=== PATIENT | female | born 1955 | race Caucasian/White ===

== ENCOUNTER 2020-08-31 10:44 | Outpatient (REF) | payer MEDICAID, SELFPAY | END 2020-08-31 10:45 | disposition home or self-care (01) | LOC: HO.LAB 10:44 | PROVIDERS: PCP Internal Medicine; Visit Provider Internal Medicine | DX: Z20.828 Contact with and (suspected) exposure to other viral communicable diseases (principal) | CPT/HCPCS: 87635 ==

== ENCOUNTER 2020-09-15 11:00 | Outpatient (RCR) | payer MEDICAID, SELFPAY | END 2020-09-28 08:59 | disposition other institution (70) | LOC: HO.PT 11:00 | PROVIDERS: PCP Internal Medicine; Visit Provider Internal Medicine | DX: M16.11 Unilateral primary osteoarthritis, right hip (principal) | CPT/HCPCS: 97110; 97162 ==

== ENCOUNTER 2020-11-16 14:58 | Outpatient (REF) | payer MEDICAID, SELFPAY | END 2020-11-16 14:59 | disposition home or self-care (01) | LOC: HO.LAB 14:58 | PROVIDERS: PCP Internal Medicine; Visit Provider Internal Medicine | DX: Z20.828 Contact with and (suspected) exposure to other viral communicable diseases (principal) | CPT/HCPCS: C9803; U0003 ==

== ENCOUNTER → 2021-03-22 08:54 | Outpatient (BNVA) | payer MEDICAID, SELFPAY | PROVIDERS: PCP Internal Medicine; Visit Provider Internal Medicine Endocrinology, Diabetes & Metabolism | DX: E05.00 Thyrotoxicosis with diffuse goiter without thyrotoxic crisis or storm (principal); E04.1 Nontoxic single thyroid nodule; E55.9 Vitamin D deficiency, unspecified; Z79.899 Other long term (current) drug therapy | CPT/HCPCS: 99212 ==

== ENCOUNTER 2021-03-22 09:31 | Outpatient (REF) | payer MEDICAID, SELFPAY ==
[2021-03-22 11:16] LABS: Free T4 (Free Thyroxine) 0.89 ng/dL (0.71-1.85); Thyroid Stimulating Hormone 1.03 uIU/mL (0.32-4.0); Vitamin D 25-OH Total 22.1 ng/mL (>30)
[2021-03-23 03:32] LABS: Triiodothyronine T3 Total 174 ng/dL (76-181)
== END 2021-03-22 09:32 | disposition home or self-care (01) ==
LOC: HO.10HDL 09:31
PROVIDERS: Visit Provider Internal Medicine Endocrinology, Diabetes & Metabolism
DX: E04.1 Nontoxic single thyroid nodule (principal); E05.00 Thyrotoxicosis with diffuse goiter without thyrotoxic crisis or storm; E55.9 Vitamin D deficiency, unspecified
CPT/HCPCS: 36415; 82306; 84439; 84443; 84480

== ENCOUNTER 2021-04-02 10:12 | Outpatient (REF) | payer MEDICAID, SELFPAY ==
--- NOTE | ~2021-04-02 | US_ITS ---
EXAMINATION: US THYROID CLINICAL INFORMATION: Nontoxic single thyroid nodule. COMPARISON: Ultrasound soft tissue head/neck thyroid dated 01/26/2018 and 06/15/2015. TECHNIQUE: Linear transducer grayscale and color Doppler examination with attention to the region of the thyroid. FINDINGS: SIZE: Measurements of the thyroid lobes and nodules are given in sagittal, anteroposterior and transverse dimensions respectively. Right Thyroid Lobe: 4.0 x 1.1 x 1.6 cm, volume 2.7 mL. Previously 4.5 x 1.7 x 1.6 cm, volume 6.3 mL. Parenchyma: The gland echotexture is homogeneous. Thyroid vascularity is normal. Left Thyroid Lobe: 4.0 x 1.2 x 1.7 cm, volume 4.4 mL. Previously 4.3 x 1.5 x 1.5 cm, volume 5.2 mL. Parenchyma: The gland echotexture is homogeneous. Thyroid vascularity is normal. Isthmus: 0.3 cm in maximum AP dimension. Previously 0.3 cm. Estimated total number of nodules greater than or equal to 1 cm: 0. Construction Inspector nodules are described as follows: 1. Location: Right mid. Size: 0.3 x 0.3 x 0.2 cm, volume 0.09 mL. Previously: 0.4 x 0.2 x 0.4 cm, volume 0.03 mL. Nodule characteristics: Composition: Solid (2). Echogenicity: Hyperechoic (1). Shape: Not taller than wide (0). Margins: Smooth (0). Echogenic Foci: None (0). ACR TI-RADS total points: 3 Previous: n/a ACR TI-RADS category: 3 Previous: n/a Significant change in size (>/= 20% in 2 dimensions and minimal increase of 2 mm or 50% or greater increase in volume): No Change in features: No Change in ACR TI-RADS risk category: n/a NODES: No lymphadenopathy is seen in the tissue surrounding the thyroid gland. US/US thyroid IMPRESSION: Stable small right calcification from January 2018 exam. No ultrasound follow-up recommended.. ACR TI-RADS RECOMMENDATION REFERENCE: Ultrasound-guided fine-needle aspiration, followup ultrasound, no further follow up. * TR1 (0 point) and TR 2 (2 points): No FNA or follow up * TR3 (3 points): FNA if more than or equal to 2.5 cm in maximum dimension, followup ultrasound in 1, 3 and 5 years if 1.5 to 2.4 cm in maximum dimension. * TR4 (4-6 points): FNA if more than or equal to 1.5 cm in maximum dimension, followup ultrasound in 1, 2, 3 and 5 years if 1 to 1.4 cm in maximum dimension. * TR5 (more than or equal to 7 points): FNA if more than or equal to 1 cm in maximum dimension, followup ultrasound every year for 5 years if 0.5 to 0.9 cm in maximum dimension. * TR3, TR4 or TR5 nodules that are below the size threshold for follow up receive no follow up.
== END 2021-04-02 10:13 | disposition home or self-care (01) ==
LOC: HO.US 10:12
PROVIDERS: Visit Provider Internal Medicine Endocrinology, Diabetes & Metabolism
DX: E04.1 Nontoxic single thyroid nodule (principal); E05.00 Thyrotoxicosis with diffuse goiter without thyrotoxic crisis or storm
CPT/HCPCS: 76536

== ENCOUNTER 2021-06-19 11:46 | Outpatient (REF) | payer MEDICAID, SELFPAY ==
[2021-06-19 14:03] LABS: Hematocrit 41.5 % (37-47); Mean Corpuscular HGB Conc 31.3 g/dl (31.0-35.0); Mean Corpuscular Hemoglobin 27.6 pg (27.0-33.0); Mean Corpuscular Volume 88.1 fL (80-98); Mean Platelet Volume 11.5 fL (9.4-12.3); Platelet Count 257 X10*3/uL (160-400); Red Blood Count 4.71 X10*6/uL (4.20-5.50); Red Cell Distribution Width 12.5 % (11.0-16.0); White Blood Count 6.5 X10*3/uL (4.8-10.8)
[2021-06-19 14:21] LABS: Alanine Aminotransferase 15 U/L (0-31); Albumin Level 4.5 g/dL (3.5-5.0); Alkaline Phosphatase 72 U/L (39-117); Anion Gap 11 (12-20); Aspartate Amino Transferase 17 U/L (5-31); Bilirubin Total 0.4 mg/dL (0.0-1.0); Blood Urea Nitrogen 15 mg/dL (9-16); Calcium 9.5 mg/dL (8.4-10.2); Carbon Dioxide 30 mmol/L (22-29); Chloride 106 mmol/L (96-108); Estimated Glomerular Filt Rate > 60; Glucose Random 90 mg/dL (60-115); Potassium 4.7 mmol/L (3.3-5.1); Sodium 142 mmol/L (135-145); Total Protein 7.7 g/dL (6.5-8.0)
== END 2021-06-19 11:47 | disposition home or self-care (01) ==
LOC: HO.LAB 11:46
PROVIDERS: PCP Internal Medicine; Referring Provider Internal Medicine; Visit Provider Nurse Practitioner Family
DX: Z01.818 Encounter for other preprocedural examination (principal); K59.00 Constipation, unspecified
CPT/HCPCS: 36415; 80053; 85027

== ENCOUNTER → 2021-08-17 10:46 | Outpatient (BNVA) | payer MEDICAID, SELFPAY | PROVIDERS: Referring Provider Internal Medicine; Visit Provider Nurse Practitioner Family | DX: Z01.818 Encounter for other preprocedural examination (principal); K59.01 Slow transit constipation | CPT/HCPCS: 99212 ==

== ENCOUNTER 2021-11-01 10:00 | Day surgery (SDC) | payer MEDICAID, SELFPAY ==
[2021-10-26 08:58] VITALS: BMI 36.3
--- NOTE | 2021-10-31 10:13 | HO.ANESPROP2 ---
Documented by User: Elisabeth Sebastian NP 10/31/21 10:14 HPI - Anesthesia Eval Consult details Narrative: 66yo F for Colonoscopy PMFSH Active Problems Active Problems: All Active Problems (Updated 09/18/21 @ 08:29 by Amber Wilde, ROGER) Thyroid nodule (Acute) Graves' disease in remission (Acute) Vitamin D deficiency (Acute) Past Medical History Medical History Depression Graves' disease in remission Osteoarthritis Thyroid nodule Vitamin D deficiency Surgical History Surgical History (Updated 11/01/21 @ 10:08 by Shira Amezcua, ROGER) History of bladder surgery History of esophagogastroduodenoscopy (EGD) History of incision and drainage History of umbilical hernia repair Hx of colonoscopy Social History Social History Patient Tobacco Use Status: Former Tobacco user Quit Date: >25 yrs ago Use of substances other than those prescribed or required for medical reasons: No Are you DNR?: No Advance Directives: No Advance Directives Information Provided: Yes Meds Allergies Allergy/AdvReac Type Severity Reaction Status Date / Time No Known Allergies Allergy Verified 09/18/21 08:30 Home Medications Medication Instructions Recorded Confirmed Last Taken Type alendronate 70 mg tablet 70 mg PO QWEEK 03/22/21 09/18/21 Unknown History escitalopram oxalate 20 mg tablet 20 mg PO DAILY 03/22/21 09/18/21 Unknown History (Lexapro) ibuprofen 400 mg tablet 400 mg PO Q6H 06/19/21 09/18/21 Unknown History Exam Exam Date and Time: October 31, 2021 1013 Height,Weight and Vital Signs: Height 5 ft 2 in Weight 90.265 kg Pertinent Lab Results Pertinent Lab Results: Laboratory Tests 06/19/21 06/19/21 12:50 12:50 WBC 6.5 Hgb 13.0 Hct 41.5 Plt Count 257 Sodium 142 Potassium 4.7 Chloride 106 Carbon Dioxide 30 H BUN 15 Creatinine 0.66 Assessment and Plan Assessment Anesthesia Assessment: Chart Reviewed Documented by User: Dread Toussaint 11/01/21 10:49 PMFSH Past Medical History Medical History Depression Graves' disease in remission Osteoarthritis Thyroid nodule Vitamin D deficiency Family History Family history of problems with anesthesia: No Surgical History Surgical History (Updated 11/01/21 @ 10:08 by Shira Amezcua, ROGER) History of bladder surgery History of esophagogastroduodenoscopy (EGD) History of incision and drainage History of umbilical hernia repair Hx of colonoscopy History of Problems with Anesthesia: No Social History Social History Patient Tobacco Use Status: Former Tobacco user Quit Date: >25 yrs ago Use of substances other than those prescribed or required for medical reasons: No Are you DNR?: No Advance Directives: No Advance Directives Information Provided: Yes Meds Allergies Allergy/AdvReac Type Severity Reaction Status Date / Time No Known Allergies Allergy Verified 09/18/21 08:30 Home Medications Medication Instructions Recorded Confirmed Last Taken Type alendronate 70 mg tablet 70 mg PO QWEEK 03/22/21 09/18/21 Unknown History escitalopram oxalate 20 mg tablet 20 mg PO DAILY 03/22/21 09/18/21 Unknown History (Lexapro) ibuprofen 400 mg tablet 400 mg PO Q6H 06/19/21 09/18/21 Unknown History Exam Airway Mallampati Class: III TM Dist: >3cm Neck ROM: Full Loose/Missing/Broken Teeth: Yes Heart: rrr Lungs: bl breath sounds Assessment and Plan Assessment Anesthesia Assessment: Anesthesia Plan Discussed Final Anesthetic Review Family History of Problems with Anesthesia: No History of Problems with Anesthesia: No NPO: Yes Final Preanesthetic Review: Meds/Allgs Chart Reviewed and Consent Obtained/Reviewed Patient Risk: Intermediate Procedure Risk: Intermediate Anesthetic Plan Anesthetic Plan: MAC: Disposition: Standard PACU
[2021-11-01 10:14] VITALS: BP 136/53; PULSE 98; RESP 16; TEMP 36.9; O2SAT 98
--- NOTE | 2021-11-01 10:28 | MHC.SHP ---
Pre-Procedural Eval Section A Date of Service: 11/01/21 Section B Chief Complaint: screening Relevant Family History (Specify if Yes): No Relevant Social History: None Present Medications: see Short Stay Collaborative assessment Medical History: Significant History (Depression Graves' disease in remission Osteoarthritis Thyroid nodule Vitamin D deficiency) History of Previous Operations: Relevant previous surgery/procedure and date(s) (History of esophagogastroduodenoscopy (EGD) History of incision and drainage History of umbilical hernia repair Hx of colonoscopy) Allergies: Allergies Allergy/AdvReac Type Severity Reaction Status Date / Time No Known Allergies Allergy Verified 09/18/21 08:30 Review of Systems Sugical H&P ROS: Negative: Constitution, Cardiovascular, Respiratory, Neurological, Psychiatric, Hem-Onc, Allergic/Immunologic, Gastrointestinal, Genitourinary, Musculoskeletal, Integumentary, Endocrine and Eyes/Ears/Nose/Throat Exam Surgical H&P Exam: Normal: HEENT, Normal: Heart, Normal: Lungs, Normal: Extremities, Normal: Abdomen, Normal: Skin and Normal: Neurological Plan Diagnosis/Plan: Unchanged I have reviewed the history and physical and performed a pertinent physical examination on my patient. No changes have occurred unless specified.
--- NOTE | 2021-11-01 10:39 | P.BOP_ITS ---
Brief Operative Note Date of Service: 11/01/21 Pre-op diagnosis: screening colonoscopy Post-op diagnosis: same Procedure: see op note Surgeon: Daisy Franco MD Anesthesia: MAC Was an Money Market Clerk used for this Procedure?: No Estimated blood loss (mL): 0 Condition: stable Disposition: PACU
[2021-11-01] MEDS: Lactated Ringers 1,000 ML 100 ML IVCONT (10:42)
--- NOTE | 2021-11-01 11:17 | P.OP_ITS ---
Operative Note Operative Note Date of Service: 11/01/21 Narrative: Operative Information Procedure Description: Colonoscopy COLONOSCOPY Instrument: Olympus variable stiffness pediatric scope 190L Colonoscopy Monitoring: Vital signs and clinical assessment, continuous EKG monitoring, Pulse oximetry, Carbon Dioxide monitoring and blood pressure monitoring were done throughout the procedure. Colon withdrawal time was 20 minutes. Procedure: The patient was placed in the left lateral decubitis position and pre-procedure medications were administered. After a digital rectal examination of the ano-rectum, the video colonoscope was inserted into the rectum and advanced through the colon to the cecum/TI. The colonoscope was slowly withdrawn in a retrograde panoramic fashion and the colon mucosa was carefully examined including a retroflexed view of the rectum. Findings and interventions are described below. Procedure Difficulty: easy Findings: Terminal Ileum-normal Cecum: 6-8 mm sessile polyp removed with forceps Ascending Colon: x 2 sessile polyps noted 6-8 mm removed with forceps Transverse Colon -normal Descending Colon: x3 sessile polyps noted 8-10 mm. x 2 removed with cold snare and x 1 with forceps Sigmoid Colon: x 1 sessile polyp 8-10 mm removed with cold snare Rectum: Retroflexion with small internal hemorrhoids, grade I Anorectum - normal Colon preparation: [place] Bowel Preparation Scale Right colon; 2 Transverse colon: 2 Left colon; 2 (0 = Unprepared colon segment with mucosa not seen due to solid stool that cannot be cleared. 1 = Portion of mucosa of the colon segment seen, but other areas of the colon segment not well seen due to staining, residual stool and/or opaque liquid. 2 = Minor amount of residual staining, small fragments of stool and/or opaque liquid, but mucosa of colon segment seen well. 3 = Entire mucosa of colon segment seen well with no residual staining, small fragments of stool or opaque liquid) Impression and Post Procedure Diagnosis: polyps internal hemorrhoids Plan: High fiber diet leaflet Avoid straining at stool, epsom salts and sitz bath, anusol supps or cream Repeat Colonoscopy in 3-4 years due to polyp volume or earlier if clinically indicated Above findings were reviewed with the patient and relevant handouts were provided if indicated.
[2021-11-01 11:24] VITALS: BP 101/62; PULSE 86; RESP 20; TEMP 36.3; O2SAT 95
[2021-11-01 11:38] VITALS: BP 130/71; PULSE 76; RESP 20; TEMP 36.6; O2SAT 98
== END 2021-11-01 12:08 | disposition home or self-care (01) ==
PROVIDERS: PCP Internal Medicine; Visit Provider Internal Medicine Gastroenterology
PROC: 0DJD8ZZ Inspection of Lower Intestinal Tract, Via Natural or Artificial Opening Endoscopic (ICD-10-PCS; CPT 45378; principal; 2021-11-01 11:00)
DX: Z12.11 Encounter for screening for malignant neoplasm of colon (principal); D12.0 Benign neoplasm of cecum; D12.4 Benign neoplasm of descending colon; D12.5 Benign neoplasm of sigmoid colon; K63.5 Polyp of colon; K64.0 First degree hemorrhoids; K59.01 Slow transit constipation; E55.9 Vitamin D deficiency, unspecified; E04.1 Nontoxic single thyroid nodule; Z86.39 Personal history of other endocrine, nutritional and metabolic disease; Z79.899 Other long term (current) drug therapy; Z87.891 Personal history of nicotine dependence
CPT/HCPCS: 45385; 45380; 88305

== ENCOUNTER 2021-11-12 09:29 | Outpatient (REF) | payer MEDICAID, SELFPAY ==
[2021-11-13 11:41] LABS: H Pylori Breath Test Positive (Negative)
== END 2021-11-12 09:30 | disposition home or self-care (01) ==
LOC: HO.LNP 09:29
PROVIDERS: PCP Internal Medicine; Referring Provider Internal Medicine; Visit Provider Nurse Practitioner Family
DX: D36.9 Benign neoplasm, unspecified site (principal); K21.9 Gastro-esophageal reflux disease without esophagitis; K59.04 Chronic idiopathic constipation; Z98.890 Other specified postprocedural states
CPT/HCPCS: 83013; 99212

== ENCOUNTER → 2022-02-11 09:29 | Outpatient (BNVA) | payer MEDICAID, SELFPAY | PROVIDERS: PCP Internal Medicine; Referring Provider Internal Medicine; Visit Provider Nurse Practitioner Family | DX: K21.9 Gastro-esophageal reflux disease without esophagitis (principal); K59.04 Chronic idiopathic constipation; A04.8 Other specified bacterial intestinal infections | CPT/HCPCS: 99212 ==

== ENCOUNTER 2022-02-27 11:56 | Outpatient (REF) | payer MEDICARE, MEDICAID, SELFPAY ==
--- NOTE | ~2022-02-27 | MM_ITS ---
EXAMINATION: MM SCREENING DIGITAL BREAST TOMOSYNTHESIS, BILATERAL CLINICAL INFORMATION: Screening. Asymptomatic. The lifetime risk of breast cancer based on the Tyrer-Cuzick Model is 6%. COMPARISON: Mammography: 02/25/2018, 12/18/2015 TECHNIQUE: Digital breast tomosynthesis is performed in both the craniocaudal and mediolateral oblique views along with computer-aided detection (CAD). Synthesized 2D images are generated from the tomosynthesis. FINDINGS: There are scattered areas of fibroglandular density (ACR BI-RADS breast composition Category b). There are no significant masses, abnormal calcifications, or other abnormalities. Parenchymal pattern is similar to prior studies. The axilla and skin contours are unremarkable. MM/MM tomosynthesis screening BI IMPRESSION: No mammographic evidence of malignancy. ASSESSMENT: BI-RADS 1: Negative RECOMMENDATION: Routine annual mammography screening. This patient's information was entered into a reminder system with a target due date for their next mammogram.
== END 2022-02-27 11:57 | disposition home or self-care (01) ==
LOC: HO.MAMMO 11:56
PROVIDERS: PCP Internal Medicine; Visit Provider Internal Medicine
DX: Z12.31 Encounter for screening mammogram for malignant neoplasm of breast (principal)
CPT/HCPCS: 77063; 77067

== ENCOUNTER 2022-03-08 16:41 | Emergency (ER) | payer MEDICARE, MEDICAID, SELFPAY ==
--- NOTE | ~2022-03-08 | CT_ITS ---
EXAMINATION: CT ABDOMEN AND PELVIS WITH CONTRAST CLINICAL INFORMATION: Pain status post fall COMPARISON: 08/28/2017 TECHNIQUE: Multidetector volumetric images were obtained from the superior aspect of the liver through the pubic symphysis following administration 85 mL of Omnipaque 350 intravenous contrast. Sagittal and coronal reformatted images were obtained on the technologist's workstation. Oral contrast: No This CT examination was performed using dose optimization techniques as appropriate, variously including the following: *Automated exposure control *Adjustment of mA and/or kV according to patient size (this includes techniques or standardized protocols for targeted exams where dose is matched to indication/reason for exam; i.e. extremities or head) *Use of iterative reconstruction technique DLP: 766 mGy-cm FINDINGS: LUNG BASES: The visualized lung bases are unremarkable. LIVER, GALLBLADDER, AND BILIARY TREE: The liver is normal in size, shape, and attenuation. No focal hepatic lesion or biliary ductal dilatation is present. The gallbladder is unremarkable with no evidence of radiopaque gallstones, gallbladder wall thickening, or obvious pericholecystic inflammatory changes. PANCREAS: Unremarkable. SPLEEN: Unremarkable. ADRENAL GLANDS: Unremarkable. KIDNEYS AND URETERS: Incidental nonobstructing 3 mm right-sided central calculus The kidneys are normal in size, shape, and attenuation. No hydronephrosis, hydroureter, seen. No perinephric stranding. BLADDER: Unremarkable. GASTROINTESTINAL TRACT: The small and large bowel are unremarkable. The appendix is unremarkable. ABDOMINAL WALL: No significant hernia is appreciated. LYMPH NODES: Normal. VASCULAR: Unremarkable. PELVIC VISCERA: Unremarkable. OSSEOUS STRUCTURES: Unremarkable. CT/CT abdomen pelvis w con IMPRESSION: Incidental right-sided obstructing renal calculus. No discrete lesion to explain patient's pain. No fracture. Fleischner guidelines were followed.
--- NOTE | ~2022-03-08 | XR_ITS ---
EXAMINATION: XR HIP, LEFT CLINICAL INFORMATION: Fall. Pain. COMPARISON: Right hip 07/21/2020 TECHNIQUE: Frontal view of pelvis Two views of the left hip. FINDINGS: Bones and soft tissues are normal. No fracture. Alignment is anatomic. Hip joint space is maintained. XR/XR hip LT w PEL1V IMPRESSION: Normal left hip.
[2022-03-08 17:10] VITALS: BP 139/61; BP 156/72; PULSE 87; PULSE 89; RESP 18; TEMP 37.2; O2SAT 94; BMI 35.8
--- NOTE | 2022-03-08 17:21 | ED.FALL ---
HPI - Fall General Chief Complaint: Fall <ENA Ribeiro Last Filed: 03/08/22 18:56> Stated Complaint: fall, left leg pain <ENA Ribeiro Last Filed: 03/08/22 18:56> Time Seen by Provider: 03/08/22 17:20 <ENA Ribeiro Last Filed: 03/08/22 18:56> Source: patient and EMS <ENA Ribeiro Last Filed: 03/08/22 18:56> Mode of arrival: EMS <ENA Ribeiro Last Filed: 03/08/22 18:56> History of Present Illness HPI Narrative: 66-year-old female with a past medical history of depression, Graves disease, H pylori, osteoarthritis, vitamin-D deficiency, presenting to ED via EMS complaining of lower abdominal and left hip pain s/p mechanical trip and fall outside of stop & shop on pavement. Patient denies symptoms prior to fall, denies head trauma or LOC. Admits landed on abdomen and left hip. Denies taking anticoagulation. Denies headache, lightheadedness/dizziness, CP/SOB, neck pain, back pain, numbness, tingling, weakness, nausea, vomiting, diarrhea <ENA Ribeiro Last Filed: 03/08/22 18:56> MD complaint: fall <ENA Riberio Last Filed: 03/08/22 18:56> Onset (ago): minute(s) <ENA Ribeiro Last Filed: 03/08/22 18:56> Fall from: standing <ENA Ribeiro Last Filed: 03/08/22 18:56> Related Data Home Medications: Home Medications Medication Instructions Recorded Confirmed alendronate 70 mg tablet 70 mg PO QWEEK 03/22/21 02/11/22 escitalopram oxalate 20 mg tablet 20 mg PO DAILY 03/22/21 02/11/22 (Lexapro) ibuprofen 400 mg tablet 400 mg PO Q6H 06/19/21 02/11/22 Previous Rx's Medication Instructions Recorded cholecalciferol (vitamin D3) 50 100 mcg PO DAILY 90 Days #180 cap 03/22/21 mcg (2,000 unit) capsule psyllium husk 0.52 gram capsule 0.52 g PO DAILY #30 cap 11/12/21 (Metamucil) bismuth subsalicylate 262 mg 2 tab PO QID 14 Days #112 tab 11/13/21 chewable tablet bisacodyl 5 mg tablet 10 mg PO BEDTIME 2 Days #180 tab 02/11/22 omeprazole 20 mg capsule,delayed 20 mg PO BID #180 cap 02/11/22 release ibuprofen 600 mg tablet 600 mg PO Q8H PRN #20 tab 03/08/22 <ENA Ribeiro Last Filed: 03/08/22 18:56> Allergies/Adverse Reactions: Allergies Allergy/AdvReac Type Severity Reaction Status Date / Time No Known Allergies Allergy Verified 02/11/22 09:36 <ENA Ribeiro Last Filed: 03/08/22 18:56> Review of Systems Review of Systems: Constitutional: No Fever, No Chills, No Night Sweats, No Fatigue, No Malaise ENT/Mouth: No Ear Pain, No Nasal Congestion, No sore throat, No Rhinorrhea, No Swallowing Difficulty Eyes: No Eye Pain, No Discharge, No Vision Changes Cardiovascular: No Chest Pain, No SOB, No Edema, No Palpitations Respiratory: No Cough, No Dyspnea Gastrointestinal: No Nausea, No Vomiting, No Diarrhea, No Constipation, + Abdominal pain Genitourinary: No Dysuria, No Hematuria, No Urinary Incontinence, No Urgency, No Flank Pain Musculoskeletal: No joint pain, No Myalgias, No Joint Swelling Skin: No Skin Lesions, No rash Neuro: No Weakness, No Numbness, No Paresthesias, No Loss of Consciousness, No Dizziness, No Headache, No head trauma <ENA Ribeiro Last Filed: 03/08/22 18:56> Yes all other systems are reviewed and are negative <ENA Ribeiro Last Filed: 03/08/22 18:56> Neurologic: Denies Sensory deficit (Neuro) <ENA Ribeiro Last Filed: 03/08/22 18:56> FOR[facility]LY [facility] Past Medical History Attestation statement: The following information was validated with the patient. <ENA Ribeiro Last Filed: 03/08/22 18:56> Medical History: Medical History Depression Graves' disease in remission Helicobacter pylori (H. pylori) Osteoarthritis Thyroid nodule Tubular adenoma Vitamin D deficiency <ENA iRbeiro - Last Filed: 03/08/22 18:56> Surgical History: Surgical History History of bladder surgery History of esophagogastroduodenoscopy (EGD) History of incision and drainage History of umbilical hernia repair Hx of colonoscopy <ENA Ribeiro - Last Filed: 03/08/22 18:56> Social History Social History: Social History Alcohol intake: never Patient Tobacco Use Status: Former Tobacco user Quit Date: >25 yrs ago Use of substances other than those prescribed or required for medical reasons: No Advance Directives: No Advance Directives Information Provided: No <ENA Ribeiro - Last Filed: 03/08/22 18:56> Physical Exam Vital Signs: Vital Signs: Last Vital Signs Temp 98.3 F 03/08/22 18:19 Pulse 81 03/08/22 18:19 Resp 18 03/08/22 18:19 BP 152/76 H 03/08/22 18:19 Pulse Ox 97 03/08/22 18:19 BMI result Body Mass Index 35.8 <ENA Ribeiro - Last Filed: 03/08/22 18:56> Vital Signs: Last Vital Signs Temp 98.3 F 03/08/22 18:19 Pulse 81 03/08/22 18:19 Resp 18 03/08/22 18:19 BP 152/76 H 03/08/22 18:19 Pulse Ox 97 03/08/22 18:19 BMI result Body Mass Index 35.8 <Dominique Loomis MD - Last Filed: 03/08/22 20:52> Const: General: cooperative, healthy appearing, no acute distress, alert and awake <ENA Ribeiro - Last Filed: 03/08/22 18:56> Orientation/consciousness: patient oriented x3 <ENA Ribeiro - Last Filed: 03/08/22 18:56> Limitations: no limitations <ENA Ribeiro - Last Filed: 03/08/22 18:56> HEENT: Head: Yes normal to inspection and Yes atraumatic <ENA Ribeiro - Last Filed: 03/08/22 18:56> Ears: hearing grossly normal bilaterally <Leena Astudillo PA - Last Filed: 03/08/22 18:56> General nose exam: Normal external nose present <Leena Astudillo PA - Last Filed: 03/08/22 18:56> Face and sinus: Yes normal facial exam <Leena Astudillo PA - Last Filed: 03/08/22 18:56> Mouth: Normal oral and palatal mucosa present <Leena Astudillo PA - Last Filed: 03/08/22 18:56> Eyes: General: appearance normal, both eyes and all related structures <Leena Astudillo PA - Last Filed: 03/08/22 18:56> Pupils: Equal, round and reactive pupils present <ENA Ribeiro - Last Filed: 03/08/22 18:56> EOM: EOMs intact bilaterally <Leena Astudillo PA - Last Filed: 03/08/22 18:56> Neck: Other: C-collar applied by EMS, removed during evaluation, no midline cervical spinous tenderness or paraspinal tenderness, full range of motion intact <ENA Ribeiro - Last Filed: 03/08/22 18:56> Neck: Yes normal visual inspection, Yes full ROM, Yes no meningeal signs, Yes supple, No anterior neck swelling and No midline deformity <Leena Astudillo PA - Last Filed: 03/08/22 18:56> Chest: Chest palpation & inspection: no crepitus and no tenderness <ENA Ribeiro - Last Filed: 03/08/22 18:56> Resp: Effort & Inspection: normal respiratory effort and no respiratory distress <ENA Ribeiro - Last Filed: 03/08/22 18:56> Auscultation: clear to auscultation bilaterally <ENA Ribeiro - Last Filed: 03/08/22 18:56> Cardio: Rate: regular rate <Leena Astudillo PA - Last Filed: 03/08/22 18:56> Heart sounds: S1 normal heart sound present and S2 normal heart sound present <Leena Astudillo PA - Last Filed: 03/08/22 18:56> GI: Inspection: Yes normal to inspection <Leena Astudillo PA - Last Filed: 03/08/22 18:56> Palpation (GI): Soft to palpation, Tenderness to palpation present (GI) (Lower abdomen. No ecchymosis/erythema), no guarding and not rigid <Leena Astudillo PA - Last Filed: 03/08/22 18:56> Back/Spine/Pelvis: Other: No midline thoracic/lumbar spinous tenderness/step-off or deformity <Leena Astudillo PA - Last Filed: 03/08/22 18:56> Thoracic/Lumbar Spine: thoracic and lumbar spine normal to inspection <Leena Astudillo PA - Last Filed: 03/08/22 18:56> Skin: Rashes: no rashes <Leena Astudillo PA - Last Filed: 03/08/22 18:56> Wounds: no wounds <Leena Astudillo PA - Last Filed: 03/08/22 18:56> Neuro: General: patient oriented x3, tone normal, no meningeal signs, no focal motor deficits and CN's II-XI intact bilaterally <Leena Astudillo PA - Last Filed: 03/08/22 18:56> Cranial nerves: Yes Equal, round and reactive pupils present <Leena Astudillo PA - Last Filed: 03/08/22 18:56> Motor exam (neuro): 5/5 motor strength present throughout <Leena Astudillo PA - Last Filed: 03/08/22 18:56> Sensory Exam: No Sensory deficit (Neuro) <Leena Astudillo PA - Last Filed: 03/08/22 18:56> Extrem: Other: Left hip without appreciable deformity. + tender to palpation, decreased ROM secondary to pain. Neurovascularly intact distally. <Leena Astudillo PA - Last Filed: 03/08/22 18:56> General: Yes normal to inspection <Leena Astudillo PA - Last Filed: 03/08/22 18:56> Course Course Course Narrative: -labs unremarkable -1900--ED care transferred to Dr. Loomis pending XR, CT and dispo per results <ENA Ribeiro - Last Filed: 03/08/22 18:56> -labs unremarkable -1900--ED care transferred to Dr. Loomis pending XR, CT and dispo per results I received sign-out from on ENA Astudillo X-rays and CT scan negative for acute findings. Patient ambulatory. Patient being discharged. Patient is stable, well appearing. <Dominique Loomis MD - Last Filed: 03/08/22 20:52> MDM - Fall MDM Narrative Medical decision making narrative: 66-year-old female with a past medical history of depression, Graves disease, H pylori, osteoarthritis, vitamin-D deficiency, presenting to ED via EMS complaining of lower abdominal and left hip pain s/p mechanical trip and fall outside of [place] shop [place] pavement. On exam vital signs stable, NAD/nontoxic appearing, abdomen soft with lower tenderness to palpation, no rebound or guarding. Left hip with tenderness and decreased ROM. Concern for intra-abdominal injury vs contusion and hip fracture. Lower concern for dislocation Plan: Labs, UA, CT AP, hip/pelvis x-ray <ENA Ribeiro - Last Filed: 03/08/22 18:56> Differential Diagnosis Differential diagnosis: Likely dislocation and fracture <ENA Ribeiro - Last Filed: 03/08/22 18:56> Medical Records Attestation: I reviewed the patient's medical records. <ENA Ribeiro - Last Filed: 03/08/22 18:56> Lab Data Attestation: I reviewed the patient's lab results. <ENA Ribeiro - Last Filed: 03/08/22 18:56> Result diagrams: : 03/08/22 18:17 03/08/22 18:17 <ENA Ribeiro - Last Filed: 03/08/22 18:56> Labs: Lab Results 03/08/22 03/08/22 03/08/22 Range/Units 18:17 18:17 19:54 WBC 6.6 (4.8-10.8) X10*3/uL RBC 4.46 (4.20-5.50) X10*6/uL Hgb 12.4 (12.0-16.0) g/dl Hct 38.9 (37.0-47.0) % MCV 87.2 (80.0-98.0) fL MCH 27.8 (27.0-33.0) pg MCHC 31.9 (31.0-35.0) g/dl RDW 12.7 (11.0-16.0) % Plt Count 242 (160-400) X10*3/uL MPV 11.3 (9.4-12.3) fL Immature Gran % (Auto) 0.5 H (0.0-0.4) % Neut % (Auto) 66.8 (45-73) % Lymph % (Auto) 18.9 L (20-40) % [place] % (Auto) 9.3 (2-11) % Eos % (Auto) 4.0 (0-4) % Baso % (Auto) 0.5 (0-2) % Lymph # (Auto) 1.2 (1.2-4.9) X10*3/uL [place] # (Auto) 0.6 (0.1-1.2) X10*3/uL Eos # (Auto) 0.3 (0.0-0.4) X10*3/uL Baso # (Auto) 0.0 (0.0-0.2) X10*3/uL Abs Immat Gran (auto) 0.03 (0.00-0.03) X10*3/uL Absolute Neuts (auto) 4.4 (2.0-8.3) x10*3/uL Absolute Nucleated RBC 0.000 (0.0-0.012) X10*3/uL Nucleated RBC % (auto) 0.0 (0.0-0.2) /100WBC Sodium 142 (135-145) mmol/L Potassium 4.5 (3.3-5.1) mmol/L Chloride 105 (96-108) mmol/L Carbon Dioxide 29 (22-29) mmol/L Anion Gap 13 (12-20) BUN 17 H (9-16) mg/dL Creatinine 0.66 (0.5-1.4) mg/dL Estim Creat Clear Calc 88.0 Estimated GFR > 60 Random Glucose 119 H (60-115) mg/dL Calcium 8.9 D (8.4-10.2) mg/dL Magnesium 2.2 (1.6-2.6) mg/dL Total Bilirubin 0.4 (0.0-1.0) mg/dL Direct Bilirubin < 0.2 (0.0-0.5) mg/dL AST 16 (5-31) U/L ALT 17 (0-31) U/L Alkaline Phosphatase 79 (39-117) U/L Total Protein 6.9 (6.5-8.0) g/dL Albumin 3.9 (3.5-5.0) g/dL Lipase 40 (8-78) U/L Urine Color YELLOW Urine Appearance CLEAR Urine pH 6.5 (5.0-8.0) Ur Specific [place] 1.010 (1.005-1.025) Urine Protein NEG (NEG-TRACE) MG/DL Urine Glucose (UA) NEG (NEG) MG/DL Urine Ketones NEG (NEG) MG/DL Urine Blood TRACE (NEG) Urine Nitrite NEG (NEG) Ur Leukocyte Esterase NEG (NEG) Urine RBC 0-2 (0) /HPF Urine WBC 0-2 (0-4) /HPF Ur Squamous Epith Cells TRACE /LPF Urine Bacteria NONE /LPF <ENA Ribeiro - Last Filed: 03/08/22 18:56> Lab Results 03/08/22 03/08/22 03/08/22 Range/Units 18:17 18:17 19:54 WBC 6.6 (4.8-10.8) X10*3/uL RBC 4.46 (4.20-5.50) X10*6/uL Hgb 12.4 (12.0-16.0) g/dl Hct 38.9 (37.0-47.0) % MCV 87.2 (80.0-98.0) fL MCH 27.8 (27.0-33.0) pg MCHC 31.9 (31.0-35.0) g/dl RDW 12.7 (11.0-16.0) % Plt Count 242 (160-400) X10*3/uL MPV 11.3 (9.4-12.3) fL Immature Gran % (Auto) 0.5 H (0.0-0.4) % Neut % (Auto) 66.8 (45-73) % Lymph % (Auto) 18.9 L (20-40) % [place] % (Auto) 9.3 (2-11) % Eos % (Auto) 4.0 (0-4) % Baso % (Auto) 0.5 (0-2) % Lymph # (Auto) 1.2 (1.2-4.9) X10*3/uL [place] # (Auto) 0.6 (0.1-1.2) X10*3/uL Eos # (Auto) 0.3 (0.0-0.4) X10*3/uL Baso # (Auto) 0.0 (0.0-0.2) X10*3/uL Abs Immat Gran (auto) 0.03 (0.00-0.03) X10*3/uL Absolute Neuts (auto) 4.4 (2.0-8.3) x10*3/uL Absolute Nucleated RBC 0.000 (0.0-0.012) X10*3/uL Nucleated RBC % (auto) 0.0 (0.0-0.2) /100WBC Sodium 142 (135-145) mmol/L Potassium 4.5 (3.3-5.1) mmol/L Chloride 105 (96-108) mmol/L Carbon Dioxide 29 (22-29) mmol/L Anion Gap 13 (12-20) BUN 17 H (9-16) mg/dL Creatinine 0.66 (0.5-1.4) mg/dL Estim Creat Clear Calc 88.0 Estimated GFR > 60 Random Glucose 119 H (60-115) mg/dL Calcium 8.9 D (8.4-10.2) mg/dL Magnesium 2.2 (1.6-2.6) mg/dL Total Bilirubin 0.4 (0.0-1.0) mg/dL Direct Bilirubin < 0.2 (0.0-0.5) mg/dL AST 16 (5-31) U/L ALT 17 (0-31) U/L Alkaline Phosphatase 79 (39-117) U/L Total Protein 6.9 (6.5-8.0) g/dL Albumin 3.9 (3.5-5.0) g/dL Lipase 40 (8-78) U/L Urine Color YELLOW Urine Appearance CLEAR Urine pH 6.5 (5.0-8.0) Ur Specific [place] 1.010 (1.005-1.025) Urine Protein NEG (NEG-TRACE) MG/DL Urine Glucose (UA) NEG (NEG) MG/DL Urine Ketones NEG (NEG) MG/DL Urine Blood TRACE (NEG) Urine Nitrite NEG (NEG) Ur Leukocyte Esterase NEG (NEG) Urine RBC 0-2 (0) /HPF Urine WBC 0-2 (0-4) /HPF Ur Squamous Epith Cells TRACE /LPF Urine Bacteria NONE /LPF <Dominique Loomis MD - Last Filed: 03/08/22 20:52> Imaging Data CT abdomen : Radiologist's impression: FINDINGS: LUNG BASES: The visualized lung bases are unremarkable.? LIVER, GALLBLADDER, AND BILIARY TREE: The liver is normal in size, shape, and attenuation. No focal hepatic lesion or biliary ductal dilatation is present. The gallbladder is unremarkable with no evidence of radiopaque gallstones, gallbladder wall thickening, or obvious pericholecystic inflammatory changes.? PANCREAS: Unremarkable.? SPLEEN: Unremarkable.? ADRENAL GLANDS: Unremarkable.? KIDNEYS AND URETERS: Incidental nonobstructing 3 mm right-sided central calculus The kidneys are normal in size, shape, and attenuation. No hydronephrosis, hydroureter, seen. No perinephric stranding. ? BLADDER: Unremarkable.? GASTROINTESTINAL TRACT: The small and large bowel are unremarkable. The appendix is unremarkable.? ABDOMINAL WALL: No significant hernia is appreciated.? LYMPH NODES: Normal. VASCULAR: Unremarkable. PELVIC VISCERA: Unremarkable.? OSSEOUS STRUCTURES: Unremarkable.? CT/CT abdomen pelvis w con IMPRESSION: Incidental right-sided obstructing renal calculus. No discrete lesion to explain patient's pain. No fracture.? ? Fleischner guidelines were followed. <Dominique Loomis MD - Last Filed: 03/08/22 20:52> Hip x-ray: Radiologist's impression: Bones and soft tissues are normal. No fracture. Alignment is anatomic. Hip joint space is maintained. XR/XR hip LT w PEL1V IMPRESSION: Normal left hip. <Dominique Loomis MD - Last Filed: 03/08/22 20:52> Discharge Plan Discharge Clinical Impression: Acute pain of left hip, Lower abdominal pain, Fall <ENA Ribeiro - Last Filed: 03/08/22 18:56> Patient Disposition: Home, Self-Care <ENA Ribeiro - Last Filed: 03/08/22 18:56> Instructions: Contusion in Adults (ED) <ENA Ribeiro - Last Filed: 03/08/22 18:56> Additional Instructions: Please follow-up with your primary care physician tomorrow. If you have any worsening or new symptoms, please return to the emergency room or call 911 <ENA Ribeiro - Last Filed: 03/08/22 18:56> Prescriptions: New ibuprofen 600 mg tablet 600 mg PO Q8H PRN (Reason: pain) Qty: 20 0RF No Action cholecalciferol (vitamin D3) 50 mcg (2,000 unit) capsule 100 mcg PO DAILY 90 Days Qty: 180 4RF bismuth subsalicylate 262 mg tablet,chewable 2 tab PO QID 14 Days Qty: 112 0RF ibuprofen 400 mg tablet 400 mg PO Q6H 0RF escitalopram oxalate [Lexapro] 20 mg tablet 20 mg PO DAILY 0RF alendronate 70 mg tablet 70 mg PO QWEEK 0RF psyllium husk [Metamucil] 0.52 gram capsule 0.52 g PO DAILY Qty: 30 6RF Rx Instructions: [place] alex cada manana con un vaso de agua lleno. omeprazole 20 mg capsule,delayed release(DR/EC) 20 mg PO BID Qty: 180 4RF bisacodyl 5 mg tablet 10 mg PO BEDTIME 2 Days Qty: 180 1RF <ENA Ribeiro Last Filed: 03/08/22 18:56>
[2022-03-08 18:19] VITALS: BP 152/76; PULSE 81; RESP 18; TEMP 36.8; O2SAT 97
[2022-03-08 18:24] LABS: MANUAL DIFF FLAG NO
[2022-03-08] MEDS: Morphine Sulfate 2 MG/ML CARTRIDGE IVPUSH (18:33)
--- NOTE | 2022-03-08 18:34 | PC.NURSE ---
medicated for pain in left thigh and lower abd following fall. pt describes stepping up into a store and rle didn't move causing her to trip. there is no weakness or deficit noted on RLE and RUE. no focal deficits. no bruising LLE. awaits lab results. axox3. baseline walks w/walker and didn't have it at the time.
[2022-03-08 18:37] LABS: Basophils Percent Auto 0.5 % (0-2); Eosinophils Absolute Auto 0.3 X10*3/uL (0.0-0.4); Hematocrit 38.9 % (37.0-47.0); Hemoglobin 12.4 g/dl (12.0-16.0); Imm Gran Abs Auto 0.03 X10*3/uL (0.00-0.03); Imm Gran Pct Auto 0.5 % (0.0-0.4); Lymphocytes Absolute Auto 1.2 X10*3/uL (1.2-4.9); Lymphocytes Percent Auto 18.9 % (20-40); Mean Corpuscular HGB Conc 31.9 g/dl (31.0-35.0); Mean Corpuscular Hemoglobin 27.8 pg (27.0-33.0); Mean Corpuscular Volume 87.2 fL (80.0-98.0); Mean Platelet Volume 11.3 fL (9.4-12.3); Monocytes Absolute Auto 0.6 X10*3/uL (0.1-1.2); Monocytes Percent Auto 9.3 % (2-11); Neutrophils Absolute Auto 4.4 x10*3/uL (2.0-8.3); Neutrophils Percent Auto 66.8 % (45-73); Platelet Count 242 X10*3/uL (160-400); Red Blood Count 4.46 X10*6/uL (4.20-5.50); Red Cell Distribution Width 12.7 % (11.0-16.0); White Blood Count 6.6 X10*3/uL (4.8-10.8)
[2022-03-08 18:43] LABS: Alanine Aminotransferase 17 U/L (0-31); Albumin Level 3.9 g/dL (3.5-5.0); Alkaline Phosphatase 79 U/L (39-117); Anion Gap 13 (12-20); Aspartate Amino Transferase 16 U/L (5-31); Bilirubin Direct < 0.2 mg/dL (0.0-0.5); Bilirubin Total 0.4 mg/dL (0.0-1.0); Blood Urea Nitrogen 17 mg/dL (9-16); Calcium 8.9 mg/dL (8.4-10.2); Carbon Dioxide 29 mmol/L (22-29); Chloride 105 mmol/L (96-108); Estimated Glomerular Filt Rate > 60; Glucose Random 119 mg/dL (60-115); Lipase 40 U/L (8-78); Magnesium 2.2 mg/dL (1.6-2.6); Potassium 4.5 mmol/L (3.3-5.1); Sodium 142 mmol/L (135-145); Total Protein 6.9 g/dL (6.5-8.0)
[2022-03-08] MEDS: iohexoL 350 MG/ML 100 ML INFUS..BTL IV (19:04)
[2022-03-08 20:14] LABS: Appearance Urine CLEAR; Color Urine YELLOW; Glucose Urine UA NEG (NEG); Leukocyte Esterase Urine NEG (NEG); Nitrite Urine NEG (NEG); PH 6.5 (5.0-8.0); UACC Culture Trigger NO; Urine Blood TRACE (NEG); Urine Ketones NEG (NEG); Urine Protein NEG (NEG-TRACE)
[2022-03-08 20:28] LABS: WBC Urine 0-2 /HPF (0-4)
[2022-03-08 20:29] LABS: RBC Urine 0-2 /HPF (0); Squamous Epithelial Cell Urine TRACE /LPF
--- NOTE | 2022-03-08 21:17 | PC.NURSE ---
pt ambulated independently with walker, steady gait, denies dizziness
== END 2022-03-08 21:20 | disposition home or self-care (01) ==
PROVIDERS: Physician Assistant; Emergency Provider Emergency Medicine; PCP Internal Medicine
DX: M25.552 Pain in left hip (principal); R10.9 Unspecified abdominal pain; Z87.891 Personal history of nicotine dependence; Z79.899 Other long term (current) drug therapy
CPT/HCPCS: 36415; 73502; 74177; 80048; 80076; 81001; 83690; 83735; 85025; 96374; 96375; 99284; J2270; Q9967

== ENCOUNTER 2022-03-22 10:16 | Outpatient (REF) | payer MEDICARE, MEDICAID, SELFPAY ==
[2022-03-22 12:59] LABS: Free T4 (Free Thyroxine) 0.91 ng/dL (0.71-1.85)
== END 2022-03-22 10:17 | disposition home or self-care (01) ==
LOC: HO.LAB 10:16
PROVIDERS: PCP Internal Medicine; Visit Provider Internal Medicine Endocrinology, Diabetes & Metabolism
DX: E05.00 Thyrotoxicosis with diffuse goiter without thyrotoxic crisis or storm (principal); E55.9 Vitamin D deficiency, unspecified; I10 Essential (primary) hypertension
CPT/HCPCS: 36415; 84439; 84443; 99212

== ENCOUNTER → 2022-05-13 09:09 | Outpatient (BNVA) | payer MEDICARE, MEDICAID, SELFPAY | PROVIDERS: PCP Internal Medicine; Visit Provider Nurse Practitioner Family | DX: K21.9 Gastro-esophageal reflux disease without esophagitis (principal); R14.0 Abdominal distension (gaseous); K58.1 Irritable bowel syndrome with constipation; K59.04 Chronic idiopathic constipation | CPT/HCPCS: 99212 ==

== ENCOUNTER 2022-05-28 15:38 | Outpatient (REF) | payer MEDICARE, MEDICAID, SELFPAY ==
[2022-05-29 10:58] LABS: H Pylori Breath Test Positive (Negative)
== END 2022-05-28 15:39 | disposition home or self-care (01) ==
LOC: HO.LNP 15:38
PROVIDERS: Visit Provider Nurse Practitioner Family
DX: A04.8 Other specified bacterial intestinal infections (principal)
CPT/HCPCS: 83013

== ENCOUNTER 2022-08-05 09:55 | Outpatient (REF) | payer MEDICARE, MEDICAID, SELFPAY ==
[2022-08-05 11:59] LABS: Folate 13.1 ng/mL (> or = 4.0); Vitamin B12 235 pg/mL (200-900)
[2022-08-09 12:12] LABS: Vitamin D 25-OH, D2 <4 ng/mL; Vitamin D 25-OH, D3 20 ng/mL; Vitamin D 25-OH, Total 20 ng/mL (30-100)
[2022-08-10 23:57] LABS: Pancreatic Elastase-1 >500 mcg/g
== END 2022-08-05 09:56 | disposition home or self-care (01) ==
LOC: HO.LAB 09:55
PROVIDERS: PCP Internal Medicine; Visit Provider Nurse Practitioner Family
DX: R10.9 Unspecified abdominal pain (principal); R19.7 Diarrhea, unspecified; E55.9 Vitamin D deficiency, unspecified; K21.9 Gastro-esophageal reflux disease without esophagitis
CPT/HCPCS: 36415; 82306; 82607; 82656; 82746; 87338; 99212

== ENCOUNTER → 2022-11-06 10:27 | Outpatient (BNVA) | payer MEDICARE, MEDICAID, SELFPAY | PROVIDERS: PCP Internal Medicine; Visit Provider Nurse Practitioner Family | DX: K21.9 Gastro-esophageal reflux disease without esophagitis (principal); K59.04 Chronic idiopathic constipation; R14.0 Abdominal distension (gaseous) | CPT/HCPCS: 99212 ==

== ENCOUNTER 2022-12-17 08:43 | Outpatient (REF) | payer MEDICARE, MEDICAID, SELFPAY ==
--- NOTE | ~2022-12-17 | XR_ITS ---
EXAMINATION: XR CERVICAL SPINE CLINICAL INFORMATION: Muscle spasm COMPARISON: None TECHNIQUE: 6 views of the cervical spine, inclusive of flexion and extension views, were obtained. FINDINGS: There is normal cervical lordosis. The vertebral heights and alignment is normal. There is loss of C5-C6 disc height. Rest the disc heights are normal. There is moderate ventral spondylosis C3-C4, C4-C5 disc levels. No visible acute fracture, dislocation or subluxation seen. The neural foramina are patent bilaterally. There is mild left C3-C4 and C4-C5 facet joint arthropathy. XR/XR cervical spine 5V IMPRESSION: Degenerative disc changes C5-C6 disc level with moderate ventral spondylosis. No visible acute fracture, dislocation or subluxation seen.
== END 2022-12-17 08:44 | disposition home or self-care (01) ==
LOC: HO.XRAY 08:43
PROVIDERS: Visit Provider Internal Medicine
DX: M62.838 Other muscle spasm (principal)
CPT/HCPCS: 72050

== ENCOUNTER → 2023-02-05 10:37 | Outpatient (BNVA) | payer MEDICARE, MEDICAID, SELFPAY | PROVIDERS: PCP Internal Medicine; Referring Provider Internal Medicine; Visit Provider Nurse Practitioner Family | DX: K21.9 Gastro-esophageal reflux disease without esophagitis (principal); K59.04 Chronic idiopathic constipation; R14.0 Abdominal distension (gaseous); R10.10 Upper abdominal pain, unspecified | CPT/HCPCS: 99212 ==

== ENCOUNTER 2023-02-11 08:24 | Outpatient (REF) | payer MEDICARE, MEDICAID, SELFPAY ==
[2023-02-11 10:29] LABS: Alanine Aminotransferase 14 U/L (0-31); Albumin Level 4.1 g/dL (3.5-5.0); Alkaline Phosphatase 74 U/L (39-117); Aspartate Amino Transferase 16 U/L (5-31); Bilirubin Direct 0.2 mg/dL (0.0-0.5); Bilirubin Total 0.5 mg/dL (0.0-1.0); Blood Urea Nitrogen 14 mg/dL (9-16); Estimated Glomerular Filt Rate > 60; Gamma Glutamyl Transpeptidase 22 U/L (7-33); Lipase 20 U/L (8-78); Total Protein 6.8 g/dL (6.5-8.0)
== END 2023-02-11 08:25 | disposition home or self-care (01) ==
LOC: HO.LAB 08:24
PROVIDERS: PCP Internal Medicine; Visit Provider Nurse Practitioner Family
DX: R10.11 Right upper quadrant pain (principal); R74.8 Abnormal levels of other serum enzymes
CPT/HCPCS: 36415; 80076; 82565; 82977; 83690; 84520

== ENCOUNTER 2023-02-27 07:46 | Emergency (ER) | payer MEDICARE, MEDICAID, SELFPAY ==
[2023-02-27 07:55] VITALS: BP 157/75; PULSE 90; RESP 18; TEMP 36.6; O2SAT 96; BMI 35.6
--- NOTE | 2023-02-27 08:16 | ED.GENADULT ---
HPI - General Adult General Chief complaint: Back Pain/Injury Stated complaint: pain down back into legs Time Seen by Provider: 02/27/23 08:16 Source: patient, RN notes reviewed, old records reviewed and white metal caster Mode of arrival: ambulatory Limitations: language barrier History of Present Illness HPI narrative: 67 years old female with past medical history of depression, Graves disease, H pylori infection, osteoarthritis, thyroid nodule, tubular adenoma, vitamin-D deficiency is here today for initial consultation. Patient is presenting here today for complaining of right buttock pain that radiates to her lower leg. Patient denies tingling. Denies any injury. Patient states that week ago she woke up feeling like this. Her PCP started her on Tylenol and and she is going to start physical therapy soon. Patient denies any urinary or fecal incontinence or urgency. Onset (ago): day(s) Location: buttocks Radiation: extremity Severity: moderate Related Data Home Medications Medication Instructions Recorded Confirmed zolpidem 5 mg tablet 5 mg PO BEDTIME PRN 03/22/22 diclofenac sodium 1 % topical gel g topical pain 02/05/23 escitalopram oxalate 10 mg tablet 10 mg PO QAM 02/05/23 fluticasone propionate 50 1 - 2 spray intranasal DAILY PRN 02/05/23 mcg/actuation nasal spray,suspension Previous Rx's Medication Instructions Recorded cholecalciferol (vitamin D3) 50 100 mcg PO DAILY 90 days #180 caps 03/22/22 mcg (2,000 unit) capsule polyethylene glycol 3350 17 17 g PO DAILY #510 grams 08/05/22 gram/dose oral powder (Miralax) docusate sodium 100 mg capsule 100 mg PO BEDTIME #90 caps 11/06/22 pantoprazole 40 mg tablet,delayed 40 mg PO DAILY #90 tabs 11/06/22 release acetaminophen 325 mg tablet 650 mg PO Q6H PRN pain #30 tabs 02/27/23 cyclobenzaprine 5 mg tablet 5 mg PO BEDTIME #7 tabs 02/27/23 lisinopril 2.5 mg tablet 2.5 mg PO DAILY #7 tabs 03/19/23 simethicone 125 mg capsule 125 mg PO BID-QID PRN abdominal 03/19/23 distention #120 caps linaclotide 290 mcg capsule 290 mcg PO QAM #30 caps 04/11/23 (Linzess) btzepw-lituluck-onmpwvm 1 cap PO QID #120 caps 06/17/23 24,000-76,000-120,000 unit capsule,delayed rel (Creon) sucralfate 100 mg/mL oral 10 ml PO BEDTIME #400 mL 06/17/23 suspension docusate sodium 100 mg capsule 100 mg PO BID #20 caps 06/21/23 (Colace) polyethylene glycol 3350 17 17 g PO BID PRN constipation #238 06/21/23 gram/dose oral powder (Miralax) grams sennosides 8.6 mg tablet (senna) 8.6 mg PO BEDTIME #14 tabs 06/21/23 Allergies Allergy/AdvReac Type Severity Reaction Status Date / Time No Known Allergies Allergy Verified 06/17/23 11:26 Review of Systems Review of Systems: Constitutional : No Weight loss, No Fever, No Chills, No Night Sweats, No Fatigue, No Malaise ENT/Mouth : No Hearing loss, No Ear Pain, No Nasal Congestion, No Sinus Pain, No Hoarseness, No sore throat, No Rhinorrhea, No Swallowing Difficulty Cardiovascular : No Chest Pain, No SOB, No Dyspnea on Exertion, No Orthopnea, No Edema, No Palpitations Respiratory : No Cough, No Sputum, Gastrointestinal : No Nausea, No Vomiting, No Diarrhea, No Constipation, No abdominal Pain, Genitourinary : no irregular bleeding, No Dysuria, No Urinary Frequency, No Hematuria, No Urinary Incontinence, No Urgency, No Flank Pain, No Urinary Flow Changes, No Hesitancy Musculoskeletal : No joint pain, Myalgias, No Joint Swelling Skin : No Skin Lesions, No rash Neuro : No Weakness, No Numbness, No Paresthesias, No Loss of Consciousness, No Dizziness, No Headache Psych : No Anxiety/Panic, No Depression, Heme/Lymph: No Bruising, No Bleeding,No Lymphadenopathy Endocrine : No Polyuria, No Polydipsia, No Temperature Intolerance Yes all other systems are reviewed and are negative FORMERLY [facility], [facility] Past Medical History Medical History Depression Graves' disease in remission Helicobacter pylori (H. pylori) Osteoarthritis Thyroid nodule Tubular adenoma Vitamin D deficiency Surgical History History of bladder surgery History of esophagogastroduodenoscopy (EGD) History of incision and drainage History of umbilical hernia repair Hx of colonoscopy Family History Family History Mother Diabetes Other Thyroid disease Social History Social History Alcohol intake: never Patient Tobacco Use Status: Former Tobacco user Quit Date: >25 yrs ago Physical Exam ED Vital Signs: Vital Signs - 24 hr 02/27/23 07:55 Temperature 98 F Pulse Rate 90 Respiratory Rate 18 Blood Pressure 157/75 H Pulse Oximetry 96 Oxygen Delivery Method Room Air BMI result Body Mass Index 35.6 Vital signs stable Appearance: Alert.? Oriented X3.? No acute distress.? Head: Normocephalic, atraumatic, no step-offs or deformities Eyes: Pupils equal, round and reactive to light.? ENT: Pharynx normal.? Neck: Normal inspection.? Neck supple.? CVS: Normal heart rate and rhythm.? Pulses normal.? Respiratory: No respiratory distress.? Breath sounds normal.? Abdomen: Soft and diffusely tender worse in the epigastric region.? Normoactive bowel sounds Skin: Skin warm and dry.? Normal skin color.? Normal skin turgor.? Extremities: No lower extremity edema.? No calf ttp. 5/5 strength to bilateral upper and lower extremities Neuro: Oriented X 3.? No motor deficit.? No sensory deficit. CN 2-12 intact . Normal brdzci-de-fnyy, dhsl-vv-sotd, steady tandem gait. General: Yes no CVA tenderness Back/Spine/Pelvis Back: no CVA tenderness Course Course Course Narrative: 67 years old female with past medical history of depression, Graves disease, H pylori infection, osteoarthritis, thyroid nodule, tubular adenoma, vitamin-D deficiency is here today for initial consultation. Patient is presenting here today for complaining of right buttock pain that radiates to her lower leg. Patient denies tingling. Denies any injury. Patient states that week ago she woke up feeling like this. Her PCP started her on Tylenol and and she is going to start physical therapy soon. Patient denies any urinary or fecal incontinence or urgency. Medical Decision Making Medical Decision Making MDM Narrative: 67 years old female with past medical history of depression, Graves disease, H pylori infection, osteoarthritis, thyroid nodule, tubular adenoma, vitamin-D deficiency is here today for initial consultation. Patient is presenting here today for complaining of right buttock pain that radiates to her lower leg. Patient denies tingling. Denies any injury. Patient states that week ago she woke up feeling like this. Her PCP started her on Tylenol and and she is going to start physical therapy soon. Patient denies any urinary or fecal incontinence or urgency. On exam patient is stable NAD, nontoxic-appearing. Positive CMS is to bilateral extremities. Mild tenderness to gluteus muscle. Patient has good rule ROM to bilateral lower extremity. Patient already has physical therapy ordered by PCP. Patient will be sent home to follow-up with PCP with cyclobenzaprine and patient can take Tylenol. Patient was informed to return if she will have any tingling to her extremities, fecal incontinence or urinary incontinence or if she will have any other concerning symptoms. Differential Diagnosis Differential Diagnoses: The differential diagnosis associated with the presentation includes Sciatica, muscle strain Discharge Plan Discharge Clinical Impression: Sciatica Patient Disposition: Home, Self-Care Instructions: Sciatica (ED) Additional Instructions: You were seen here today for right buttock pain. Please make sure that you will go to your therapy. Return to ER if you will have any symptoms urinary or fecal incontinence. You will be given medication to help you with pain. One of the medications is muscle relaxer please do not take it during the day. You may take it at nighttime. Do not drive when you taking this medication. Please return to emergency department if he will have any other concerning symptoms. Le vieron aqu? hoy por dolor en el gl?sheela derecho. Por favor, aseg?rese de ir a davis terapia. Regrese a la barry de emergencias si tendr? alg?n s?ntoma de incontinencia urinaria o fecal. Le beckie?n medicamentos para ayudarlo con el dolor. Micheal de los medicamentos es el relajante muscular, por favor no lo tome layne el d?a. Puede tomarlo por la noche. No conduzca cuando est? tomando stacey medicamento. Regrese al departamento de emergencias si tiene alg?n otro s?ntoma preocupante. Prescriptions: New cyclobenzaprine 5 mg tablet 5 mg PO BEDTIME Qty: 7 0RF acetaminophen 325 mg tablet 650 mg PO Q6H PRN (Reason: pain) Qty: 30 0RF No Action docusate sodium [Colace] 100 mg capsule 100 mg PO BID Qty: 20 0RF sennosides [senna] 8.6 mg tablet 8.6 mg PO BEDTIME Qty: 14 0RF polyethylene glycol 3350 [Miralax] 17 gram/dose powder 17 g PO BID PRN (Reason: constipation) Qty: 238 0RF polyethylene glycol 3350 [Miralax] 17 gram/dose powder 17 g PO DAILY Qty: 510 2RF simethicone 125 mg capsule 125 mg PO BID-QID PRN (Reason: abdominal distention) Qty: 120 3RF lisinopril 2.5 mg tablet 2.5 mg PO DAILY Qty: 7 0RF zolpidem 5 mg tablet 5 mg PO BEDTIME PRN cholecalciferol (vitamin D3) 50 mcg (2,000 unit) capsule 100 mcg PO DAILY 90 Days Qty: 180 4RF docusate sodium 100 mg capsule 100 mg PO BEDTIME Qty: 90 3RF pantoprazole 40 mg tablet,delayed release (DR/EC) 40 mg PO DAILY Qty: 90 2RF Rx Instructions: take one tablet half an hour before breakfast escitalopram oxalate 10 mg tablet 10 mg PO QAM diclofenac sodium 1 % gel topical fluticasone propionate 50 mcg/actuation spray,suspension 1 - 2 spray intranasal DAILY PRN Linzess 290 mcg capsule 290 mcg PO QAM Qty: 30 4RF Creon 24,000-76,000 -120,000 unit capsule,delayed release(DR/EC) 1 cap PO QID Qty: 120 2RF Rx Instructions: administer with meals and/or snacks sucralfate 100 mg/mL suspension 10 ml PO BEDTIME Qty: 400 3RF Referrals: Liz Crockett MD [Primary Care Provider] - Interventions: ED Discharge Assessment Last Done: 02/27/23 09:29 Discharge Date/Time: 02/27/23 09:33
--- NOTE | 2023-02-27 08:56 | PC.NURSE ---
Addendum entered by Ilana Beck RN 02/27/23 09:05: Lung sounds clr & equal bilaterally. Heart sounds normal. Skin pink, warm, and dry. Bowel sounds present all alegre, abdomen soft, non-tender. No edema noted. Pt reports pain in left buttock that goes down the left leg for the past 2 weeks. Pt aware of plan of care. Original Note: Pt found sitting on side of bed, airway open and patent, no difficulty breathing, no obvious signs of distress. Interpretor at bedside.
== END 2023-02-27 09:33 | disposition home or self-care (01) ==
PROVIDERS: Emergency Provider Emergency Medicine; PCP Internal Medicine
DX: M54.41 Lumbago with sciatica, right side (principal); Z79.899 Other long term (current) drug therapy
CPT/HCPCS: 99283; 99284

== ENCOUNTER 2023-03-04 08:43 | Outpatient (REF) | payer MEDICARE, MEDICAID, SELFPAY ==
--- NOTE | ~2023-03-04 | MM_ITS ---
EXAMINATION: MM SCREENING DIGITAL BREAST TOMOSYNTHESIS, BILATERAL CLINICAL INFORMATION: Screening. Asymptomatic. The lifetime risk of breast cancer based on the Tyrer-Cuzick Model is 3%. COMPARISON: Mammography: 02/27/2022, 02/25/2018, 12/18/2015 TECHNIQUE: Digital breast tomosynthesis is performed in both the craniocaudal and mediolateral oblique views along with computer-aided detection (CAD). Synthesized 2D images are generated from the tomosynthesis. FINDINGS: There are scattered areas of fibroglandular density (ACR BI-RADS breast composition Category b). There are no significant masses, abnormal calcifications, or other abnormalities. No architectural abnormality or developing density or significant change from prior studies. The axilla and skin contours are unremarkable. MM/MM tomosynthesis screening BI IMPRESSION: No mammographic evidence of malignancy. ASSESSMENT: BI-RADS 1: Negative RECOMMENDATION: Routine annual mammography screening. This patient's information was entered into a reminder system with a target due date for their next mammogram.
--- NOTE | ~2023-03-04 | MM_ITS ---
EXAMINATION: BONE DENSITOMETRY CLINICAL INDICATION: Osteopenia. COMPARISON: Previous BD dated 04/22/2019 and baseline BD dated 12/19/2009. TECHNIQUE: Using a [employer]ense DXA System (software version: 13.1) manufactured by [employer], dual-energy x-ray absorptiometry was performed of the lumbar spine and left hip. The images are of good technical quality. Summary results are attached. FINDINGS: AP SPINE L1-L2 (excluding L3 and L4): The data of L1-L4 has been changed to exclude the L3 and L4 vertebral bodies, because degenerative changes at these levels may cause overestimation of lumbar spine density. Current: BMD 0.703 g/cm2, Z-score -3.0, T-score -3.9, osteoporosis, 15.6% decrease from previous, 13.8% decrease from baseline (<5% change is not significant). Prior: BMD 0.833 g/cm2. Baseline: BMD 0.816 g/cm2. LEFT FEMUR, NECK: Current: BMD 0.641 g/cm2, Z-score -1.8, T-score -2.9, osteoporosis. Prior: BMD 0.796 g/cm2. Baseline: BMD 0.904 g/cm2. LEFT FEMUR, TOTAL: Current: BMD 0.785 g/cm2, Z-score -1.1, T-score -1.8, osteopenia, 17.5% decrease from previous, 19.9% decrease from baseline (<5% change is not significant). Prior: BMD 0.951 g/cm2. Baseline: BMD 0.980 g/cm2. IDENTIFIED RISK FACTORS: Menopause, osteoporosis, low calcium intake. HISTORY OF FRACTURE: None listed. MEDICATIONS: Vitamin D. MM/XR DEXA axial skeleton IMPRESSION: 1. DIAGNOSIS: Osteoporosis based on the lowest T-score value of -3.9 in the lumbar spine applying World Health Organization criteria. 2. 10-YEAR FRACTURE RISK PREDICTION, FRAX: According to the guidelines, FRAX calculation should only be performed on patients in the osteopenia bone density category. Therefore, FRAX was not performed on this patient. 3. Treatment Recommendations: NOF guidelines recommend consideration for treatment in postmenopausal women and men age 50 and older presenting with the following: -A hip or vertebral (clinical or morphometric) fracture. -T-score less than or equal to -2.5 at the femoral neck or spine after appropriate evaluation to exclude secondary causes. -Low bone mass at the hip or spine and a 10-year fracture probability by FRAX of greater than or equal to 3% for hip fracture or greater than or equal to 20% for major osteoporotic fracture based on the [place] adapted WHO algorithm. 4. Other Recommendations: All treatment decisions require clinical judgment and consideration of individual patient factors, including patient preferences, comorbidities, previous drug use, risk factors not captured in the FRAX model (e.g. frailty, falls, vitamin D deficiency, increased bone turnover, interval significant decline in bone density) and possible under or overestimation of fracture risk by FRAX. Additional medical evaluation for secondary cause of low bone mineral density may be appropriate. FUTURE SCAN RECOMMENDATION: People with diagnosed cases of osteoporosis or at high risk for fracture should have regular bone mineral density tests. For patients eligible for Medicare, routine testing is allowed once every 2 years. The testing frequency can be increased to one year for patients who have rapidly progressing disease, those who are receiving or discontinuing medical therapy to restore bone mass, or have additional risk factors.
== END 2023-03-04 08:44 | disposition home or self-care (01) ==
LOC: HO.MAMMO 08:43
PROVIDERS: Visit Provider Internal Medicine
DX: Z12.31 Encounter for screening mammogram for malignant neoplasm of breast (principal); Z13.820 Encounter for screening for osteoporosis; M85.80 Other specified disorders of bone density and structure, unspecified site; Z78.0 Asymptomatic menopausal state
CPT/HCPCS: 77063; 77067; 77080

== ENCOUNTER → 2023-03-19 09:19 | Outpatient (BNVA) | payer MEDICARE, MEDICAID, SELFPAY | PROVIDERS: PCP Internal Medicine; Visit Provider Nurse Practitioner Family | DX: K59.04 Chronic idiopathic constipation (principal); K21.9 Gastro-esophageal reflux disease without esophagitis; R14.0 Abdominal distension (gaseous); R10.13 Epigastric pain | CPT/HCPCS: 99212 ==

== ENCOUNTER 2023-03-27 08:36 | Outpatient (REF) | payer MEDICARE, MEDICAID, SELFPAY ==
[2023-03-27 09:49] LABS: Blood Urea Nitrogen 16 mg/dL (9-16); Estimated Glomerular Filt Rate > 60
== END 2023-03-27 08:37 | disposition home or self-care (01) ==
LOC: HO.LAB 08:36
PROVIDERS: PCP Internal Medicine; Visit Provider Nurse Practitioner Family
DX: R10.11 Right upper quadrant pain (principal)
CPT/HCPCS: 36415; 82565; 84520

== ENCOUNTER 2023-04-01 09:00 | Outpatient (RCR) | payer MEDICARE, OTHER, MEDICAID, SELFPAY ==
[2023-03-14 10:15] VITALS: BP 136/60; PULSE 80
== END 2023-04-24 08:51 | disposition home or self-care (01) ==
LOC: HO.PT 09:00
PROVIDERS: PCP Internal Medicine; Visit Provider Internal Medicine
DX: M47.812 Spondylosis without myelopathy or radiculopathy, cervical region (principal)
CPT/HCPCS: 97110; 97112; 97140; 97161

== ENCOUNTER → 2023-04-11 09:23 | Outpatient (BNVA) | payer OTHER, SELFPAY | PROVIDERS: PCP Internal Medicine; Visit Provider Nurse Practitioner Family | DX: K21.9 Gastro-esophageal reflux disease without esophagitis (principal); K59.04 Chronic idiopathic constipation; R14.0 Abdominal distension (gaseous); R10.30 Lower abdominal pain, unspecified | CPT/HCPCS: 99212 ==

== ENCOUNTER 2023-06-17 11:05 | Outpatient (AMB) | payer OTHER, SELFPAY ==
[2023-06-17 11:26] VITALS: BP 142/64; PULSE 77; BMI 35.6
--- NOTE | 2023-06-17 11:26 | MHC.OFFVIS ---
Intake Vital Signs 06/17/23 11:26 Height 5 ft 2 in Weight 194 lb 14.218 oz BMI 35.6 BP 142/64 H Blood Pressure Location Lt brachial Position Sitting Pulse 77 Intake Visit Reasons: 2 Month follow up abdominal bloating Intake Note: Yvonne presents in office as a est.patient for a 2 Month follow up abdominal bloating PT CC: pt reports having abdominal bloating , diarrhea/constipation , abdominal pain pt denies any other GI Issues Clinical Specialist Medical Device Required: No Accompanied by: Daughter Allergies No Known Allergies Allergy (Verified 06/17/23 11:26) HPI 2 Month follow up abdominal bloating HPI Details LAST VISIT GERD (gastroesophageal reflux disease) Continue pantoprazole. Discussed with patient avoiding dietary triggers and late night snacking. Staying upright for minimum 3 hours after meals discussed with patient Chronic idiopathic constipation Will increase Linzess to 290 mcg daily. Patient was also encouraged to increase fluid intake and activity to promote better bowel motility. Abdominal bloating Patient continues with occasional abdominal bloating. Occasional cramping. Discussed with patient will FODMAP diet. Reports symptoms better after starting Linzess. Abdominal pain Abdominal discomfort lower abdomen bilaterally. Patient reports this cramping and bloating. She can continue using simethicone. Will increase Linzess to 290 mcg. Patient reported that symptoms got better after she started Linzess 145 mcg. I will see her in 2 months, sooner on as needed basis. Patient is agreeable to this plan and verbalizes understanding of instructions. She was given the opportunity to ask questions and all questions answered. ? Thank you for allowing me to participate in her care Plan Medications New linaclotide (Linzess) 290 mcg PO QAM 30 caps 4RF K59.00 Discontinued linaclotide (Linzess) Discontinued Reason: Doctor's Order 145 mcg PO DAILY 30 caps 2RF TODAY'S VISIT: Patient is here today for follow-up. Patient is accompanied by her daughter who is translating for us. Patient reports that she has been having epigastric discomfort and postprandial abdominal bloating. Patient states that she is bloated with almost anything that she eats. Patient is not really following any particular diet. Reports that she is moving her bowels better now that she is taking Linzess. Patient reports dyspepsia without dysphagia or odynophagia. Denies any nausea or vomiting. Denies any melena, hematochezia, unintentional weight loss or ribbon like stools. Patient states that she feels like the food stays in her stomach for a long time after she eats. Only able to eat small amounts. [facility] Medical History Depression Graves' disease in remission Helicobacter pylori (H. pylori) Osteoarthritis Thyroid nodule Tubular adenoma Vitamin D deficiency Surgical History History of bladder surgery History of esophagogastroduodenoscopy (EGD) History of incision and drainage History of umbilical hernia repair Hx of colonoscopy Family History Mother Diabetes Other Thyroid disease Social History Alcohol intake: never Patient Tobacco Use Status: Former Tobacco user Quit Date: >25 yrs ago Review of Systems Const Denies weight gain and Denies weight loss ENT Reports no additional complaints, Denies dysphagia and Denies odynophagia Card Reports no additional complaints Resp Reports no additional complaints GI Denies abdominal pain, Denies belching, Denies melena, Reports bloating, Denies change in bowel habits, Denies dysphagia, Denies excessive flatus, Reports dyspepsia, Reports heartburn, Denies diarrhea, Denies loose stools, Denies nausea, Denies odynophagia and Denies vomiting Reports no additional complaints Musc Reports no additional complaints Neuro Reports no additional complaints Psych Reports no additional complaints Endo Reports no additional complaints Physical Exam Vital Signs: Last Vital Signs Pulse 77 06/17/23 11:26 BP 142/64 H 06/17/23 11:26 BMI result Body Mass Index 35.6 Const General: healthy appearing, no acute distress and well developed Nutritional Appearance: obese Orientation/consciousness: patient oriented x3 HEENT Head: Yes normal to inspection, Yes normocephalic and Yes atraumatic Face and sinus: Yes normal facial exam Mouth: Normal oral and palatal mucosa present Throat: Yes posterior oropharynx normal, Yes tonsils normal and Yes uvula midline Eyes General: appearance normal, both eyes and all related structures Neck Neck: Yes normal visual inspection, Yes full ROM and Yes trachea midline Thyroid: Thyroid normal Resp Effort & Inspection: normal respiratory effort, able to speak in complete sentences, no tracheal deviation and symmetric chest movement Auscultation: clear to auscultation bilaterally Cardio Rate: regular rate Heart sounds: S1 normal heart sound present and S2 normal heart sound present GI Inspection: Yes normal to inspection, No distended and Yes obesity Palpation (GI): Soft to palpation, not firm, nontender and No hepatosplenomegaly present Auscultation: normal bowel sounds General: Yes no CVA tenderness Back/Spine/Pelvis Back: no CVA tenderness Skin General skin exam: elasticity normal, turgor normal and dry skin Neuro General: patient oriented x3 Psych Appearance: grossly normal Mental Status: mental status grossly normal Speech and movement: Normal speech and movement present Assessment & Plan Assessment & Plan (1) Early satiety: Code(s): R68.81 - Early satiety Plan: Will send patient for gastric emptying study. (2) GERD (gastroesophageal reflux disease): Code(s): K21.9 - Gastro-esophageal reflux disease without esophagitis Plan: Continue pantoprazole and will add sucralfate at bedtime. Discussed with patient avoiding dietary triggers and late night snacking. Staying upright for minimum 3 hours after meals discussed with patient (3) Postprandial abdominal bloating: Code(s): R14.0 - Abdominal distension (gaseous) Plan: Patient continues with postprandial abdominal bloating. Discussed with patient low FODMAP diet. List of food recommended as well as list of food to avoid given to patient. Will try patient on Creon and see if that will help. Patient is to take that with meals up to 4 times a day. I will see patient in 3 months, sooner on as needed basis. Patient is agreeable to this plan and verbalizes understanding of instructions. She was given the opportunity to ask questions and all questions answered. Thank you for allowing me to participate in her care Orders: Orders NM gastric emptying study Today K21.9 - Gastro-esophageal reflux disease without esophagitis, R68.81 - Early satiety Medications: New avkjvk-tgyhxaja-psdiwqi 24,000-76,000 -120,000 unit (Creon) administer with meals and/or snacks 1 cap PO QID 120 caps 2RF K58.9 - Irritable bowel syndrome without diarrhea sucralfate 10 mL PO BEDTIME 400 mL 3RF K21.9 - Gastro-esophageal reflux disease without esophagitis Coding Level of Care Code Est Pt Level 4 (41401) Diagnoses Early satiety R68.81 GERD (gastroesophageal reflux disease) K21.9 Postprandial abdominal bloating R14.0 Time Spent (min) 35 Comment 25 minute spent with patient and additional 10 minutes spent reviewing her records
== END 2023-06-17 12:34 | disposition home or self-care (01) ==
PROVIDERS: PCP Internal Medicine; Visit Provider Nurse Practitioner Family
DX: R68.81 Early satiety (principal); K21.9 Gastro-esophageal reflux disease without esophagitis; R14.0 Abdominal distension (gaseous)
CPT/HCPCS: 99214

== ENCOUNTER → 2023-06-17 11:05 | Outpatient (BNVA) | payer OTHER, SELFPAY | PROVIDERS: PCP Internal Medicine; Visit Provider Nurse Practitioner Family | DX: K21.9 Gastro-esophageal reflux disease without esophagitis (principal); R14.0 Abdominal distension (gaseous); R68.81 Early satiety | CPT/HCPCS: 99212 ==

== ENCOUNTER 2023-06-21 04:01 | Emergency (ER) | payer OTHER, SELFPAY ==
--- NOTE | ~2023-06-21 | CT_ITS ---
EXAMINATION: CT ABDOMEN AND PELVIS WITHOUT CONTRAST CLINICAL INFORMATION: Epigastric pain COMPARISON: CT dated 03/08/2022 TECHNIQUE: Multidetector volumetric imaging was performed from the superior aspect of the liver through the pubic symphysis. Sagittal and coronal reformatted images were obtained on the technologist's workstation. This CT examination was performed using dose optimization techniques as appropriate, variously including the following: *Automated exposure control *Adjustment of mA and/or kV according to patient size (this includes techniques or standardized protocols for targeted exams where dose is matched to indication/reason for exam; i.e. extremities or head) *Use of iterative reconstruction technique DLP: 764 mGy-cm FINDINGS: LUNG BASES: Mild dependent atelectasis. There is a prominent 9 mm (short axis) mediastinal lymph node in the distal paraesophageal region. LIVER, GALLBLADDER, AND BILIARY TREE: The liver is normal in size, shape, and attenuation. No focal hepatic lesion or biliary ductal dilatation is present. The gallbladder is unremarkable with no evidence of radiopaque gallstones, gallbladder wall thickening, or obvious pericholecystic inflammatory changes. PANCREAS: Unremarkable. SPLEEN: Unremarkable. ADRENAL GLANDS: Unremarkable. KIDNEYS AND URETERS: A 5 mm nonobstructing calculus is again seen within a right upper renal pole calyx, The kidneys are normal in size, shape, and attenuation. No hydronephrosis or hydroureter seen. No perinephric stranding. BLADDER: Unremarkable. GASTROINTESTINAL TRACT: Stomach, small bowel, and colon are normal in caliber. No bowel wall thickening or surrounding inflammatory changes. Appendix is normal. No intraperitoneal free fluid or free air. ABDOMINAL WALL: No significant hernia is appreciated. Scar tissue around the umbilicus. LYMPH NODES: Normal. VASCULAR: Unremarkable. PELVIC VISCERA: The uterus and adnexa are unremarkable. OSSEOUS STRUCTURES: Degenerative spondylosis is evident in the thoracic and lumbar spine, most notably at L4-L5. There is questionable dysraphism at the lower thoracic spine at T11 and T12 with incomplete fusion of the spinous processes. Alternatively, this may be postsurgical in nature. CT/CT abdomen pelvis wo IV con IMPRESSION: 1. No acute intra-abdominal or intrapelvic abnormalities. 2. A 5 mm nonobstructing right renal calculus. Fleischner guidelines were followed.
--- NOTE | ~2023-06-21 | XR_ITS ---
EXAMINATION: XR ABDOMEN KUB CLINICAL INDICATION: Constipation COMPARISON: CT abdomen pelvis March 08, 2022 TECHNIQUE: AP view of the abdomen. FINDINGS: No dilated air-filled loops of small bowel to suggest an obstructive process. There is a moderate stool burden within the proximal colon and within the rectal vault although there is a normal stool burden throughout the splenic flexure and descending colon. No acute osseous abnormality. XR/XR KUB IMPRESSION: Moderate stool burden within the proximal colon and within the rectal vault.
[2023-06-21 04:04] VITALS: BP 149/57; PULSE 82; RESP 18; TEMP 36.8; O2SAT 96; BMI 36.8
[2023-06-21 05:35] LABS: Basophils Percent Auto 0.5 % (0-2); Eosinophils Absolute Auto 0.1 X10*3/uL (0.0-0.4); Eosinophils Percent Auto 1.8 % (0-4); Hematocrit 38.9 % (37.0-47.0); Hemoglobin 12.4 g/dl (12.0-16.0); Imm Gran Abs Auto 0.03 X10*3/uL (0.00-0.03); Imm Gran Pct Auto 0.4 % (0.0-0.4); Lymphocytes Percent Auto 13.8 % (20-40); MANUAL DIFF FLAG NO; Mean Corpuscular HGB Conc 31.9 g/dl (31.0-35.0); Mean Corpuscular Hemoglobin 27.8 pg (27.0-33.0); Mean Corpuscular Volume 87.2 fL (80.0-98.0); Mean Platelet Volume 10.9 fL (9.4-12.3); Monocytes Absolute Auto 0.6 X10*3/uL (0.1-1.2); Monocytes Percent Auto 7.7 % (2-11); Neutrophils Absolute Auto 5.6 x10*3/uL (2.0-8.3); Neutrophils Percent Auto 75.8 % (45-73); Platelet Count 215 X10*3/uL (160-400); Red Blood Count 4.46 X10*6/uL (4.20-5.50); Red Cell Distribution Width 12.1 % (11.0-16.0); White Blood Count 7.4 X10*3/uL (4.8-10.8)
[2023-06-21 05:37] LABS: Appearance Urine Clear; Color Urine Yellow; Glucose Urine UA Negative (Negative); Leukocyte Esterase Urine Negative (Negative); Nitrite Urine Negative (Negative); PH 5.5 (5.0-9.0); Specific Gravity - Urine >= 1.030 (1.005-1.025); Urine Blood Negative (Negative); Urine Ketones Negative (Negative); Urine Protein Negative (Neg-Trace)
[2023-06-21 05:52] LABS: Alanine Aminotransferase 16 U/L (0-31); Albumin Level 3.9 g/dL (3.5-5.0); Alkaline Phosphatase 74 U/L (39-117); Anion Gap 14 (12-20); Aspartate Amino Transferase 22 U/L (5-31); Bilirubin Total 0.1 mg/dL (0.0-1.0); Blood Urea Nitrogen 20 mg/dL (9-16); Calcium 9.1 mg/dL (8.4-10.2); Carbon Dioxide 24 mmol/L (22-29); Chloride 108 mmol/L (96-108); Creatinine Clr Calc Pharmacy 80.7; Estimated Glomerular Filt Rate > 60; Glucose Random 90 mg/dL (60-115); Potassium 4.4 mmol/L (3.3-5.1); Sodium 142 mmol/L (135-145); Total Protein 6.9 g/dL (6.5-8.0)
[2023-06-21 06:29] VITALS: BP 146/56; PULSE 80; RESP 18; O2SAT 96
[2023-06-21 07:45] VITALS: BP 143/71; PULSE 73; RESP 16; TEMP 36.8; O2SAT 98
--- NOTE | 2023-06-21 07:49 | ECG_ITS ---
Test Reason : high blood pressure Blood Pressure : / mmHG Vent. Rate : 072 BPM Atrial Rate : 072 BPM P-R Int : 170 ms QRS Dur : 078 ms QT Int : 414 ms P-R-T Axes : 049 010 039 degrees QTc Int : 453 ms Normal sinus rhythm Normal ECG When compared with ECG of 26-APR-2010 12:38, No significant change was found Referred By: Juana Almanzar Electronically Signed By:KANIKA HELLER MD
[2023-06-21 08:24] LABS: Troponin-I High Sensitivity < 2.7 ng/L (<3.5-17.0)
[2023-06-21 08:33] LABS: Lipase 30 U/L (8-78)
[2023-06-21] MEDS: Ketorolac Tromethamine 15 MG/ML VIAL 30 MG IVPUSH (09:38)
[2023-06-21 09:45] VITALS: BP 152/89; PULSE 65; RESP 17; O2SAT 98
[2023-06-21 09:52] LABS: D Dimer High Sensitivity < 150 NG/ML
--- NOTE | 2023-06-21 10:02 | ED_ITS ---
HPI - General Adult General Chief complaint: Abdominal Pain Stated complaint: high blood pressure Time Seen by Provider: 06/21/23 07:48 Source: patient and family Mode of arrival: ambulatory Limitations: no limitations History of Present Illness HPI narrative: This is a 67-year-old female presenting to the emergency department with multiple complaints, according to patient she awoke this morning with epigastric discomfort which radiated to bilateral flank region with associated nausea, patient also reports associated chest discomfort, substernal, nonradiating. She tells me chest discomfort is still present, dull aching pain in the substernal region. Patient also states that she has chronic constipation and is not sure if this is contributing to her symptoms. She reports that this started suddenly at 01:55 in the morning, when this occurred patient took her blood pressure and her blood pressure was 178/88. Patient is concerned that her blood pressure is causing the symptoms. Patient denies shortness of breath, headache, vision changes, dizziness, weakness, nausea, voming , fevers and chills. Related Data Home Medications Medication Instructions Recorded Confirmed zolpidem 5 mg tablet 5 mg PO BEDTIME PRN 03/22/22 diclofenac sodium 1 % topical gel g topical pain 02/05/23 escitalopram oxalate 10 mg tablet 10 mg PO QAM 02/05/23 fluticasone propionate 50 1 - 2 spray intranasal DAILY PRN 02/05/23 mcg/actuation nasal spray,suspension Previous Rx's Medication Instructions Recorded cholecalciferol (vitamin D3) 50 100 mcg PO DAILY 90 days #180 caps 03/22/22 mcg (2,000 unit) capsule polyethylene glycol 3350 17 17 g PO DAILY #510 grams 08/05/22 gram/dose oral powder (Miralax) docusate sodium 100 mg capsule 100 mg PO BEDTIME #90 caps 11/06/22 pantoprazole 40 mg tablet,delayed 40 mg PO DAILY #90 tabs 11/06/22 release acetaminophen 325 mg tablet 650 mg PO Q6H PRN pain #30 tabs 02/27/23 cyclobenzaprine 5 mg tablet 5 mg PO BEDTIME #7 tabs 02/27/23 lisinopril 2.5 mg tablet 2.5 mg PO DAILY #7 tabs 03/19/23 simethicone 125 mg capsule 125 mg PO BID-QID PRN abdominal 04/26/23 distention #120 caps linaclotide 290 mcg capsule 290 mcg PO QAM #30 caps 04/11/23 (Linzess) yoaucr-cmiozvji-gnetpem 1 cap PO QID #120 caps 06/17/23 24,000-76,000-120,000 unit capsule,delayed rel (Creon) sucralfate 100 mg/mL oral 10 ml PO BEDTIME #400 mL 06/17/23 suspension docusate sodium 100 mg capsule 100 mg PO BID #20 caps 06/21/23 (Colace) polyethylene glycol 3350 17 17 g PO BID PRN constipation #238 06/21/23 gram/dose oral powder (Miralax) grams sennosides 8.6 mg tablet (senna) 8.6 mg PO BEDTIME #14 tabs 06/21/23 Allergies Allergy/AdvReac Type Severity Reaction Status Date / Time No Known Allergies Allergy Verified 06/17/23 11:26 Review of Systems Review of Systems: Constitutional : No Weight loss, No Fever, No Chills, + Fatigue, + Malaise ENT/Mouth : No sore throat, No Rhinorrhea Eyes: No Eye Pain, No Swelling, No Redness Cardiovascular : + Chest Pain, No SOB, No Dyspnea on Exertion, No Orthopnea, No Edema, No Palpitations Respiratory : No Cough, No Sputum, No Wheezing Gastrointestinal : No Nausea, No Vomiting, No Diarrhea, + Constipation, + abdominal Pain, No Hematochezia, No Melena Genitourinary : No Dysuria, No Urinary Frequency, No Hematuria, Musculoskeletal : No joint pain, No Myalgias, No Joint Swelling Skin : No Skin Lesions, No rash Neuro : No Weakness, No Numbness, No Dizziness, No Headache Psych : No Anxiety/Panic, No Depression All other systems reviewed and are negative Yes all other systems are reviewed and are negative COUNT INCLUDES THE [facility] Past Medical History Attestation statement: The following information was validated with the patient. Source: old records reviewed and nursing notes reviewed Medical History Depression Graves' disease in remission Helicobacter pylori (H. pylori) Osteoarthritis Thyroid nodule Tubular adenoma Vitamin D deficiency Surgical History History of bladder surgery History of esophagogastroduodenoscopy (EGD) History of incision and drainage History of umbilical hernia repair Hx of colonoscopy Family History Family History Mother Diabetes Other Thyroid disease Social History Social History Alcohol intake: never Patient Tobacco Use Status: Former Tobacco user Quit Date: >25 yrs ago Advance Directives: No Advance Directives Information Provided: No Physical Exam ED Vital Signs: Vital Signs - 24 hr 06/21/23 04:04 06/21/23 06:29 06/21/23 07:45 Temperature 98.2 F 98.3 F Pulse Rate 82 80 73 Respiratory Rate 18 18 16 Blood Pressure 149/57 H 146/56 H 143/71 H Pulse Oximetry 96 96 98 Oxygen Delivery Method Room Air Room Air 06/21/23 09:45 06/21/23 11:22 06/21/23 13:01 Temperature Pulse Rate 65 70 68 Respiratory Rate 17 13 12 Blood Pressure 152/89 H 144/86 H 139/68 Pulse Oximetry 98 96 96 Oxygen Delivery Method Room Air Room Air BMI result Body Mass Index 36.8 Vital signs stable Appearance: Alert.? Oriented X3.? No acute distress.? Head: Normocephalic, atraumatic, no step-offs or deformities Eyes: Pupils equal, round and reactive to light.? ENT: Pharynx normal.? Neck: Normal inspection.? Neck supple.? CVS: Normal heart rate and rhythm.? Pulses normal.? Respiratory: No respiratory distress.? Breath sounds normal.? Abdomen: Soft and diffusely tender worse in the epigastric region.? Normoactive bowel sounds Skin: Skin warm and dry.? Normal skin color.? Normal skin turgor.? Extremities: No lower extremity edema.? No calf ttp. 5/5 strength to bilateral upper and lower extremities Neuro: Oriented X 3.? No motor deficit.? No sensory deficit. CN 2-12 intact . Normal tqyttt-qj-bbyy, kzga-la-yrfi, steady tandem gait. Course Reevaluation(s) Reevaluation #1: CBC appears to be within normal limits. Chemistry unremarkable. Troponin negative, EKG nonischemic, heart score of 1, I do not suspect ACS at this time. D-dimer negative unlikely PE. UA without infection. KUB with moderate stool burden with in the proximal colon within the rectal vault, consistent with const ipation. Will give senna, Colace. Patient continues to complain of abdominal discomfort will obtain CT abdomen and pelvis noncontrast to rule out obstruction with a more specific test. Time: 10:08 Reevaluation #2: Upon re-evaluation patient states she is feeling much better. No longer having chest pain, or abdominal discomfort. Abdominal CT pending at this time. Plan is for discharge home if CT is normal. Time: 11:37 Reevaluation #3: CT abdomen and pelvis with no acute intra-abdominal intrapelvic abnormalities. 5 mm nonobstructing right renal calculus noted unlikely causing patient's symptoms. Patient to be discharged with senna, Colace and MiraLax patient feeling well peer Educated patient on diagnosis and treatment plan, answered all question, patient verbalizes understanding. At this time patient will be discharged home, advised to return with new or worsening symptoms. Educated on worrisome signs and symptoms and when to return. At this time I feel comfortable discharge home. Time: 13:14 Medications Administered Discontinued Medications Generic Name Dose Route Start Last Admin Trade Name Freq PRN Reason Stop Dose Admin Docusate Sodium 100 mg 06/21/23 09:52 06/21/23 10:35 Docusate Sodium 100 Mg Capsule PO 06/21/23 09:53 100 mg ONCE ONE Administration Ketorolac Tromethamine 30 mg 06/21/23 09:12 06/21/23 09:38 Ketorolac Tromethamine 15 Mg/Ml Vial IVPUSH 06/21/23 09:13 30 mg ONCE ONE Administration Senna 15 ml 06/21/23 09:52 06/21/23 10:35 Senna Cutler Extract Oral Syrup 15 Ml Syrup PO 06/21/23 09:53 15 ml ONCE ONE Administration Medical Decision Making Medical Decision Making [facility] Narrative: 1005 67-year-old female presents with fatigue, malaise, diffuse abdominal discomfort worsen epigastric region and substernal nonradiating chest pain present since 155 this morning. Physical examination with diffuse abdominal discomfort worse in the epigastric region. Regular rate and rhythm. Lungs clear. Abdomen soft, nondistended with normoactive bowel sounds. Neuro nonfocal. Vital signs are stable. Likely constipation or GERD, gastritis, chest pain likely not cardiac related. I do not suspect ACS, PE, abdominal aortic aneurysm, dissection. No signs of acute abdomen, bowel obstruction. No signs of hypertensive urgency or emergency. No signs of stroke or posterior stroke Plan at this time labs, imaging. Differential Diagnosis Differential Diagnoses: The differential diagnosis associated with the presen tation includes Likely constipation or GERD, gastritis, chest pain likely not cardiac related. I do not suspect ACS, PE, abdominal aortic aneurysm, dissection. No signs of acute abdomen, bowel obstruction.No signs of hypertensive urgency or emergency. No signs of stroke or posterior stroke Admission/Observation Consideration of admission/observation: Escalation of care including admission/observation considered Unlikely Lab Data MDM Lab Attestation statement: I reviewed the patient's lab results. 06/21/23 05:29 06/21/23 05:29 Labs: Lab Results 06/21/23 06/21/23 06/21/23 Range/Units 05:29 05:29 05:29 WBC 7.4 (4.8-10.8) X10*3/uL RBC 4.46 (4.20-5.50) X10*6/uL Hgb 12.4 (12.0-16.0) g/dl Hct 38.9 (37.0-47.0) % MCV 87.2 (80.0-98.0) fL MCH 27.8 (27.0-33.0) pg MCHC 31.9 (31.0-35.0) g/dl RDW 12.1 (11.0-16.0) % Plt Count 215 (160-400) X10*3/uL MPV 10.9 (9.4-12.3) fL Immature Gran % (Auto) 0.4 (0.0-0.4) % Neut % (Auto) 75.8 H (45-73) % Lymph % (Auto) 13.8 L (20-40) % [place] % (Auto) 7.7 (2-11) % Eos % (Auto) 1.8 (0-4) % Baso % (Auto) 0.5 (0-2) % Lymph # (Auto) 1.0 L (1.2-4.9) X10*3/uL [place] # (Auto) 0.6 (0.1-1.2) X10*3/uL Eos # (Auto) 0.1 (0.0-0.4) X10*3/uL Baso # (Auto) 0.0 (0.0-0.2) X10*3/uL Abs Immat Gran (auto) 0.03 (0.00-0.03) X10*3/uL Absolute Neuts (auto) 5.6 (2.0-8.3) x10*3/uL Absolute Nucleated RBC 0.000 (0.0-0.012) X10*3/uL Nucleated RBC % (auto) 0.0 (0.0-0.2) /100WBC D-Dimer High Sensitivty NG/ML Sodium 142 (135-145) mmol/L Potassium 4.4 (3.3-5.1) mmol/L Chloride 108 (96-108) mmol/L Carbon Dioxide 24 (22-29) mmol/L Anion Gap 14 (12-20) BUN 20 H (9-16) mg/dL Creatinine 0.72 (0.5-1.4) mg/dL Estim Creat Clear Calc 80.7 Estimated GFR > 60 Random Glucose 90 (60-115) mg/dL Calcium 9.1 (8.4-10.2) mg/dL Total Bilirubin 0.1 (0.0-1.0) mg/dL AST 22 (5-31) U/L ALT 16 (0-31) U/L Alkaline Phosphatase 74 (39-117) U/L Troponin I High Sens (<3.5-17.0) ng/L Total Protein 6.9 (6.5-8.0) g/dL Albumin 3.9 (3.5-5.0) g/dL Lipase 30 (8-78) U/L Urine Color Yellow Urine Appearance Clear Urine pH 5.5 (5.0-9.0) Ur Specific [place] >= 1.030 H (1.005-1.025) Urine Protein Negative (Neg-Trace) mg/dL Urine Glucose (UA) Negative (Negative) mg/dL Urine Ketones Negative (Negative) mg/dL Urine Blood Negative (Negative) Urine Nitrite Negative (Negative) Ur Leukocyte Esterase Negative (Negative) 06/21/23 06/21/23 Range/Units 07:58 09:40 WBC (4.8-10.8) X10*3/uL RBC (4.20-5.50) X10*6/uL Hgb (12.0-16.0) g/dl Hct (37.0-47.0) % MCV (80.0-98.0) fL MCH (27.0-33.0) pg MCHC (31.0-35.0) g/dl RDW (11.0-16.0) % Plt Count (160-400) X10*3/uL MPV (9.4-12.3) fL Immature Gran % (Auto) (0.0-0.4) % Neut % (Auto) (45-73) % Lymph % (Auto) (20-40) % [place] % (Auto) (2-11) % Eos % (Auto) (0-4) % Baso % (Auto) (0-2) % Lymph # (Auto) (1.2-4.9) X10*3/uL [place] # (Auto) (0.1-1.2) X10*3/uL Eos # (Auto) (0.0-0.4) X10*3/uL Baso # (Auto) (0.0-0.2) X10*3/uL Abs Immat Gran (auto) (0.00-0.03) X10*3/uL Absolute Neuts (auto) (2.0-8.3) x10*3/uL Absolute Nucleated RBC (0.0-0.012) X10*3/uL Nucleated RBC % (auto) (0.0-0.2) /100WBC D-Dimer High Sensitivty < 150 NG/ML Sodium (135-145) mmol/L Potassium (3.3-5.1) mmol/L Chloride (96-108) mmol/L Carbon Dioxide (22-29) mmol/L Anion Gap (12-20) BUN (9-16) mg/dL Creatinine (0.5-1.4) mg/dL Estim Creat Clear Calc Estimated GFR Random Glucose (60-115) mg/dL Calcium (8.4-10.2) mg/dL Total Bilirubin (0.0-1.0) mg/dL AST (5-31) U/L ALT (0-31) U/L Alkaline Phosphatase (39-117) U/L Troponin I High Sens < 2.7 (<3.5-17.0) ng/L Total Protein (6.5-8.0) g/dL Albumin (3.5-5.0) g/dL Lipase (8-78) U/L Urine Color Urine Appearance Urine pH (5.0-9.0) Ur Specific [place] (1.005-1.025) Urine Protein (Neg-Trace) mg/dL Urine Glucose (UA) (Negative) mg/dL Urine Ketones (Negative) mg/dL Urine Blood (Negative) Urine Nitrite (Negative) Ur Leukocyte Esterase (Negative) Independent Interpretation I performed an independent interpretation of an: EKG (Ventricular rate of 72, MI normal, QRS normal, QT/QTC normal. EKG with normal sinus rhythm no ST elevations inversions concerning for acute ischemia.), Plain X-Ray (XR/XR KUB IMPRESSION: Moderate stool burden within the proximal colon and within the rectal vault. ) and CT Scan Core Measures AMI core measures followed: Yes Measure exclusions: not indicated Critical Care Time Critical Care Time Critical Care Time: No Discharge Plan Discharge Clinical Impression: Constipation, BP (high blood pressure), Chest pain, Kidney calculi Patient Disposition: Home, Self-Care Additional Instructions: Take your medications as prescribed. If you were prescribed antibiotics today, it is important that you take your medication to their entirety, do not skip any doses, do not finish them early. Follow-up with your primary care provider this week. Return to the emergency department with new or worsening symptoms. Such as fevers, chills, chest pain, shortness of breath, nausea, vomiting, dizziness, headache, vision changes, lethargy, higher than usual blood pressures with associated headache, vision changes, dizziness or weakness In case of emergency call 911 Please take stool softeners as instructed. Please check your pressure Friday, Friday, Friday, write it down and discuss this information with your primary care provider . Your blood pressure was good in the department today. Your noted to have a kidney stone however I do not suspect this is causing her pain, if pain persists please follow-up with urology ?CT/CT abdomen pelvis wo IV con IMPRESSION: 1.? No acute intra-abdominal or intrapelvic abnormalities. 2.? A 5 mm nonobstructing right renal calculus. ? Fleischner guidelines were followed. Prescriptions: New docusate sodium [Colace] 100 mg capsule 100 mg PO BID Qty: 20 0RF sennosides [senna] 8.6 mg tablet 8.6 mg PO BEDTIME Qty: 14 0RF polyethylene glycol 3350 [Miralax] 17 gram/dose powder 17 g PO BID PRN (Reason: constipation) Qty: 238 0RF No Action cyclobenzaprine 5 mg tablet 5 mg PO BEDTIME Qty: 7 0RF acetaminophen 325 mg tablet 650 mg PO Q6H PRN (Reason: pain) Qty: 30 0RF polyethylene glycol 3350 [Miralax] 17 gram/dose powder 17 g PO DAILY Qty: 510 2RF simethicone 125 mg capsule 125 mg PO BID-QID PRN (Reason: abdominal distention) Qty: 120 3RF lisinopril 2.5 mg tablet 2.5 mg PO DAILY Qty: 7 0RF zolpidem 5 mg tablet 5 mg PO BEDTIME PRN cholecalciferol (vitamin D3) 50 mcg (2,000 unit) capsule 100 mcg PO DAILY 90 Days Qty: 180 4RF docusate sodium 100 mg capsule 100 mg PO BEDTIME Qty: 90 3RF pantoprazole 40 mg tablet,delayed release (DR/EC) 40 mg PO DAILY Qty: 90 2RF Rx Instructions: take one tablet half an hour before breakfast escitalopram oxalate 10 mg tablet 10 mg PO QAM diclofenac sodium 1 % gel topical fluticasone propionate 50 mcg/actuation spray,suspension 1 - 2 spray intranasal DAILY PRN Linzess 290 mcg capsule 290 mcg PO QAM Qty: 30 4RF Creon 24,000-76,000 -120,000 unit capsule,delayed release(DR/EC) 1 cap PO QID Qty: 120 2RF Rx Instructions: administer with meals and/or snacks sucralfate 100 mg/mL suspension 10 ml PO BEDTIME Qty: 400 3RF Referrals: [facility] [place] Cardiovascular Services [Provider Group] - [address] [facility] [place] Urology Services [Provider Group] - 1 week Physician,Unknown J [Primary Care Provider] - 2 days Stand Alone Forms: Work/School Release Interventions: ED Discharge Assessment Last Done: 06/21/23 13:05 Discharge Date/Time: 06/21/23 13:06
[2023-06-21] MEDS: Docusate Sodium 100 MG CAPSULE PO (10:35)
[2023-06-21 11:22] VITALS: BP 144/86; PULSE 70; RESP 13; O2SAT 96
--- NOTE | 2023-06-21 11:22 | PC.NURSE ---
assumed care of pt at 1100, pt a&ox4, vss, denies any pain at this time, pending CT scan, family at bedside.
[2023-06-21 13:01] VITALS: BP 139/68; PULSE 68; RESP 12; O2SAT 96
== END 2023-06-21 13:06 | disposition home or self-care (01) ==
PROVIDERS: Physician Assistant; Emergency Provider Student in an Organized Health Care Education/Training Program
DX: K59.00 Constipation, unspecified (principal); R07.9 Chest pain, unspecified; I10 Essential (primary) hypertension; N20.0 Calculus of kidney; Z87.891 Personal history of nicotine dependence
CPT/HCPCS: 36415; 74018; 74176; 80053; 81003; 83690; 84484; 85025; 85379; 93005; 96374; 99284; J1885

== ENCOUNTER → 2023-06-21 07:49 | Outpatient (BNV) | payer OTHER, SELFPAY | PROVIDERS: Emergency Provider Student in an Organized Health Care Education/Training Program; Visit Provider Internal Medicine Cardiovascular Disease | DX: R07.89 Other chest pain (principal) | CPT/HCPCS: 93010 ==

== ENCOUNTER → 2023-07-16 07:39 | Outpatient (REF) | payer OTHER, SELFPAY ==
--- NOTE | ~2023-07-16 | NM_ITS ---
EXAMINATION: NM RADIONUCLIDE SOLID FOOD GASTRIC EMPTYING 4-HOUR STUDY CLINICAL INFORMATION: Gastroesophageal reflux disease without esophagitis. COMPARISON: CT of the abdomen and pelvis done on 06/21/2023 TECHNIQUE: A standard meal consisting of 4 oz of Egg Beaters brand tagged with 960 microcuries Tc-99m Sulfur Colloid, 8 oz water and 2 slices of toast with jelly was administered orally to the patient. Images were obtained using a dual head gamma camera in the anterior and posterior projections over of the stomach immediately post ingestion and at hourly intervals up to 4 hours post ingestion. The anterior and posterior counts at each time interval were averaged using the geometric mean and expressed as percentage of the immediate post ingestion counts. FINDINGS: There is good visualization of activity in the stomach immediately post ingestion. As the study progresses, there is good clearance of activity from the stomach and visualization of progressively increasing small bowel activity. By the end of the study, there is almost no retention noted in the stomach. Retention in the stomach at each time interval was: 1 hour 78% (normal 37%-90%) 2 hours 51% (normal 30%-60%) 3 hours 5% 4 hours retention was not calculated since only 5% was retained at 3 hours post ingestion images. NM/NM gastric emptying study IMPRESSION: Normal 4-hour solid food gastric emptying study.
== END ==
LOC: HO.NUCMED 07:39
PROVIDERS: Visit Provider Nurse Practitioner Family
DX: R68.81 Early satiety (principal); K21.9 Gastro-esophageal reflux disease without esophagitis
CPT/HCPCS: 78264; A9541

== ENCOUNTER 2023-08-07 14:35 | Outpatient (AMB) | payer OTHER, SELFPAY ==
--- NOTE | 2023-08-07 14:42 | MHC.OFFVIS ---
Intake Intake Visit Reasons: ER- follow up / Renal Stone Intake Note: NEW Patient presents today to established treatment for Renal Stone: Meds- None Allergies to Antibiotic- No Known Allergies Blood Thinner- None Patient states she has had kidney stones in the past. She states that she is not feeling much pain or discomfort Allergies No Known Allergies Allergy (Verified 09/10/23 11:06) HPI HPI Comments History of Present Illness Details Yvonne is a 67-year-old female who presents today to the office to establish as a new patient for an evaluation of renal stone. 08/07/2023? The patient was seen in the ED on 06/21/23 for abdominal pain and elevation of BP. CT imaging was performed at that time. Currently the patient is asymptomatic. H/O nicotine use. I have discussed diet modification and importanct of drinking adequate fluids. Discussed further evaluation with 24 hr urine. I reviewed the abdomen/pelvis CT results from 06/11/2023 revealed A 5 mm nonobstructing right renal calculus. I reviewed the KUB x-ray results from 06/21/2023 revealed moderate stool burden within the proximal colon and within the rectal vault. Evaluation today?UA?Blood: 25 Michael: leukocytes: negative. Plan: Will repeat renal US in on 1 year. Follow up in 3 months. 24 hr urine prior PFSH Medical History Helicobacter pylori (H. pylori) Tubular adenoma Osteoarthritis Depression Thyroid nodule Graves' disease in remission Vitamin D deficiency Surgical History History of bladder surgery History of incision and drainage Hx of colonoscopy History of esophagogastroduodenoscopy (EGD) History of umbilical hernia repair Family History Mother Diabetes Other Thyroid disease Social History Alcohol intake: never Patient Tobacco Use Status: Former Tobacco user Quit Date: >25 yrs ago Review of Systems Const All systems reviewed & are unremarkable except as noted in HPI and below Reports no additional complaints Eyes Reports no additional complaints ENT Reports no additional complaints Card Denies dyspnea Resp Denies cough and Denies dyspnea GI Reports no additional complaints Reports no additional complaints Musc Reports no additional complaints Skin/Breast Denies rash and Denies unusual bruising Neuro Reports no additional complaints Psych Reports no additional complaints Endo Reports no additional complaints Daquan/Lymph Reports no additional complaints Aller/Immun Reports no additional complaints Physical Exam Const General: cooperative, healthy appearing and no acute distress Orientation/consciousness: patient oriented x3 HEENT Head: Yes normal to inspection, Yes normocephalic and Yes atraumatic Eyes Conjunctivae: conjunctivae normal Neck Neck: Yes normal visual inspection and Yes trachea midline Chest Chest palpation & inspection: normal inspection of the chest Resp Effort & Inspection: normal respiratory effort GI Inspection: Yes normal to inspection Skin General skin exam: no rashes or lesions noted Neuro General: patient oriented x3 Extrem General: No edema Psych Appearance: grossly normal Results AMB Urinalysis, Automated UA Leukoctes 0 Aubrey/uL Last Edit by Madie Todd [facility] on 08/07/23 15:01 UA Nitrite Negative Last Edit by Madie Todd [facility] on 08/07/23 15:01 UA Urobilinogen 0.2 mg/dL Last Edit by Madie Todd [facility] on 08/07/23 15:01 UA Protein 0 mg/dL Last Edit by Madie Todd [facility] on 08/07/23 15:01 UA pH 6.0 Last Edit by Madie Todd [facility] on 08/07/23 15:01 UA Blood 25 Michael/uL Last Edit by Madie Todd [facility] on 08/07/23 15:01 UA Specific Reading 1.030 Last Edit by Madie Todd [facility] on 08/07/23 15:01 UA Ketone Negative Last Edit by Madie Todd [facility] on 08/07/23 15:01 UA Bilirubin 0 mg/dL Last Edit by Madie Todd [facility] on 08/07/23 15:01 UA Glucose 0 mg/dL Last Edit by Madie Todd [facility] on 08/07/23 15:01 Results Reviewed Results Reviewed: Laboratory Last Values Urine pH (Auto) 6.0 08/07/23 14:50 Specific Reading (Auto) 1.030 08/07/23 14:50 Urine Protein (Auto) 0 mg/dL 08/07/23 14:50 Glucose (UA)(Auto) 0 mg/dL 08/07/23 14:50 Urine Ketones (Auto) Negative 08/07/23 14:50 Urine Blood (Auto) 25 Michael/uL 08/07/23 14:50 Urine Nitrite (Auto) Negative 08/07/23 14:50 Urine Bilirubin (Auto) 0 mg/dL 08/07/23 14:50 Urine Urobilinogen (Auto) 0.2 mg/dL 08/07/23 14:50 Leukocyte Esterase (Auto) 0 Aubrey/uL 08/07/23 14:50 Date of Service: 06/21/23 EXAMINATION:? XR ABDOMEN KUB CLINICAL INDICATION:? Constipation?? COMPARISON:? CT abdomen pelvis March 08, 2022?? FINDINGS:? No dilated air-filled loops of small bowel to suggest an obstructive process. There is a moderate stool burden within the proximal colon and within the rectal vault although there is a normal stool burden throughout the splenic flexure and descending colon. No acute osseous abnormality. IMPRESSION: Moderate stool burden within the proximal colon and within the rectal vault. Date of Service: 06/21/23 EXAMINATION: CT ABDOMEN AND PELVIS WITHOUT CONTRAST?? CLINICAL INFORMATION: Epigastric pain?? COMPARISON: CT dated 03/08/2022 FINDINGS: LUNG BASES: Mild dependent atelectasis. There is a prominent 9 mm (short axis) mediastinal lymph node in the distal paraesophageal region. LIVER, GALLBLADDER, AND BILIARY TREE: The liver is normal in size, shape, and attenuation. No focal hepatic lesion or biliary ductal dilatation is present. The gallbladder is unremarkable with no evidence of radiopaque gallstones, gallbladder wall thickening, or obvious pericholecystic inflammatory changes.?? PANCREAS: Unremarkable.?? SPLEEN: Unremarkable.?? ADRENAL GLANDS: Unremarkable.?? KIDNEYS AND URETERS: A 5 mm nonobstructing calculus is again seen within a right upper renal pole calyx, The kidneys are normal in size, shape, and attenuation. No hydronephrosis or hydroureter seen. No perinephric stranding.? ? BLADDER: Unremarkable.?? GASTROINTESTINAL TRACT: Stomach, small bowel, and colon are normal in caliber. No bowel wall thickening or surrounding inflammatory changes. Appendix is normal. No intraperitoneal free fluid or free air.?? ABDOMINAL WALL: No significant hernia is appreciated. Scar tissue around the umbilicus. LYMPH NODES: Normal. VASCULAR: Unremarkable. PELVIC VISCERA: The uterus and adnexa are unremarkable.?? OSSEOUS STRUCTURES: Degenerative spondylosis is evident in the thoracic and lumbar spine, most notably at L4-L5. There is questionable dysraphism at the lower thoracic spine at T11 and T12 with incomplete fusion of the spinous processes. Alternatively, this may be postsurgical in nature.?? IMPRESSION: 1.? No acute intra-abdominal or intrapelvic abnormalities. 2.? A 5 mm nonobstructing right renal calculus. Assessment & Plan Assessment & Plan (1) Kidney calculi: Code(s): N20.0 - Calculus of kidney Plan Will repeat renal US in on 1 year. Follow up in 3 months. 24 hr urine prior Orders: Orders AMB Urinalysis Automated 08/07/23 Z13.9 - Encounter for screening, unspecified Patient Instructions: The patient had an opportunity to ask questions regarding treatment plan. All questions were answered. Imaging, Laboratory studies and physical exam results were discussed and reviewed in detail. No major barriers to understanding were identified. The patient expressed understanding and agreement with the above treatment plan.? ? ? The patient is aware they should contact our office by phone for worsening of their current condition or the appearance of new symptoms. Compliance is encouraged with any medications and followup testing that is ordered.? ? ? It is a privilege to be allowed the opportunity to participate in the urologic care of your patient. If you have any questions or concerns regarding treatment for the above conditions please do not hesitate to contact me. The office telephone contact is [phone].? ? ? This note is constructed in part using voice recognition software. While every effort has been made to ensure accuracy meeting facilitator errors may have been included.? ? ? Yours sincerely,? ? ? Justa Mccollum MD? Coding Level of Care Code New Pt Level 3 (40953) Diagnoses Kidney calculi N20.0
== END 2023-08-07 15:32 | disposition home or self-care (01) ==
PROVIDERS: Visit Provider Urology
DX: N20.0 Calculus of kidney (principal)
CPT/HCPCS: 99203

== ENCOUNTER → 2023-08-07 14:35 | Outpatient (BNVA) | payer OTHER, SELFPAY | PROVIDERS: Visit Provider Urology | DX: N20.0 Calculus of kidney (principal) | CPT/HCPCS: 81003; 99202 ==

== ENCOUNTER 2023-09-10 10:57 | Outpatient (AMB) | payer OTHER, SELFPAY ==
--- NOTE | 2023-09-10 11:04 | MHC.OFFVIS ---
Intake Vital Signs 09/10/23 11:05 Height 5 ft 2 in Weight 196 lb 3.382 oz BMI 35.9 BP 138/65 Blood Pressure Location Lt brachial Position Sitting Pulse 81 Intake Visit Reasons: 3 month follow up Intake Note: Yvonne presents in the office as a 3 month follow up. CC: She states that she is not having any concerns today. Hot Tamale Man Required: Yes Hot Tamale Man Name: Eli [id number] Allergies No Known Allergies Allergy (Verified 09/10/23 11:06) HPI 3 month follow up HPI Details LAST VISIT: Early satiety Will send patient for gastric emptying study. GERD (gastroesophageal reflux disease) Continue pantoprazole and will add sucralfate at bedtime. Discussed with patient avoiding dietary triggers and late night snacking. Staying upright for minimum 3 hours after meals discussed with patient Postprandial abdominal bloating Patient continues with postprandial abdominal bloating. Discussed with patient low FODMAP diet. List of food recommended as well as list of food to avoid given to patient. Will try patient on Creon and see if that will help. Patient is to take that with meals up to 4 times a day. I will see patient in 3 months, sooner on as needed basis. Patient is agreeable to this plan and verbalizes understanding of instructions. She was given the opportunity to ask questions and all questions answered. TODAY'S VISIT Patient is here today for follow-up. Patient is accompanied by her daughter. Patient reports that she has been doing better. States that she is moving her bowels well. Unsure if she is taking Linzess, however she states that she only is constipated once in a while. Patient knows that there is a medications that she family but she does not remember which one it is. Patient please that she takes pantoprazole in the morning. States that she is taking her enzymes after meals. Discussed with patient that she should take Creon before eating. Discussed with patient her gastric emptying study. Gastroparesis was ruled out. Patient denies melena, hematochezia, unintentional weight loss or ribbon like stools extermination inspector% denies any dyspepsia, dysphagia or odynophagia. ? [facility] Medical History Helicobacter pylori (H. pylori) Tubular adenoma Osteoarthritis Depression Thyroid nodule Graves' disease in remission Vitamin D deficiency Surgical History History of bladder surgery History of incision and drainage Hx of colonoscopy History of esophagogastroduodenoscopy (EGD) History of umbilical hernia repair Family History Mother Diabetes Other Thyroid disease Social History Alcohol intake: never Patient Tobacco Use Status: Former Tobacco user Quit Date: >25 yrs ago Review of Systems Const Denies weight gain and Denies weight loss ENT Reports no additional complaints, Denies dysphagia and Denies odynophagia Card Reports no additional complaints Resp Reports no additional complaints GI Reports abdominal pain, Denies belching, Denies melena, Denies bloating, Denies change in bowel habits, Reports constipation (occasional), Denies dysphagia, Denies excessive flatus, Denies dyspepsia, Reports heartburn, Denies diarrhea, Denies loose stools, Denies nausea, Denies odynophagia and Denies vomiting Reports no additional complaints Musc Reports no additional complaints Neuro Reports no additional complaints Psych Reports no additional complaints Endo Reports no additional complaints Physical Exam Vital Signs: Last Vital Signs Pulse 81 09/10/23 11:05 BP 138/65 09/10/23 11:05 BMI result Body Mass Index 35.9 Const General: healthy appearing, no acute distress and well developed Nutritional Appearance: well nourished Orientation/consciousness: patient oriented x3 HEENT Head: Yes normal to inspection, Yes normocephalic and Yes atraumatic Face and sinus: Yes normal facial exam Mouth: Normal oral and palatal mucosa present Throat: Yes posterior oropharynx normal, Yes tonsils normal and Yes uvula midline Eyes General: appearance normal, both eyes and all related structures Neck Neck: Yes normal visual inspection, Yes full ROM and Yes trachea midline Thyroid: Thyroid normal Resp Effort & Inspection: normal respiratory effort, able to speak in complete sentences, no tracheal deviation and symmetric chest movement Auscultation: clear to auscultation bilaterally Cardio Rate: regular rate Heart sounds: S1 normal heart sound present and S2 normal heart sound present GI Inspection: Yes normal to inspection, No distended and Yes obesity Palpation (GI): Soft to palpation, not firm, nontender and No hepatosplenomegaly present Auscultation: normal bowel sounds General: Yes no CVA tenderness Back/Spine/Pelvis Back: no CVA tenderness Skin General skin exam: elasticity normal, turgor normal and dry skin Neuro General: patient oriented x3 Psych Appearance: grossly normal Mental Status: mental status grossly normal Results Reviewed Results Reviewed: GASTRIC EMPTYING STUDY 07/16/2023 FINDINGS: There is good visualization of activity in the stomach immediately post ingestion. As the study progresses, there is good clearance of activity from the stomach and visualization of progressively increasing small bowel activity. By the end of the study, there is almost no retention noted in the stomach. Retention in the stomach at each time interval was: 1 hour 78% (normal 37%-90%) 2 hours 51% (normal 30%-60%) 3 hours 5% 4 hours retention was not calculated since only 5% was retained at 3 hours post ingestion images. NM/AL gastric emptying study IMPRESSION: Normal 4-hour solid food gastric emptying study. Assessment & Plan Assessment & Plan (1) GERD (gastroesophageal reflux disease): Code(s): K21.9 - Gastro-esophageal reflux disease without esophagitis Qualifiers: Esophagitis presence: without esophagitis Qualified Code(s): K21.9 - Gastro-esophageal reflux disease without esophagitis (2) Postprandial abdominal bloating: Code(s): R14.0 - Abdominal distension (gaseous) (3) Constipation: Code(s): K59.00 - Constipation, unspecified Qualifiers: Constipation type: chronic idiopathic constipation Qualified Code(s): K59.04 - Chronic idiopathic constipation Plan Patient is unsure which medication is she taking. Unsure if she takes her PPI in the morning. Patient admits to take sucralfate at bedtime. Patient will be taking Creon before meals. As mentioned above in HPI patient had normal gastric emptying study. She will return in 2 weeks with all of her medications to make sure that she is compliant with everything that we prescribed for her. Both patient and her daughter are agreeable to plan of care and verbalizes understanding of instructions. They were given the opportunity to ask questions and all questions answered. Thank you for allowing me to participate in her care Coding Level of Care Code Est Pt Level 4 (59101) Diagnoses Gastroesophageal reflux disease without esophagitis K21.9 Esophagitis presence: without esophagitis Postprandial abdominal bloating R14.0 Chronic idiopathic constipation K59.04 Constipation type: chronic idiopathic constipation Time Spent (min) 35 Comment 25 minute spent with patient and additional 10 minutes spent reviewing her records
[2023-09-10 11:05] VITALS: BP 138/65; PULSE 81; BMI 35.9
== END 2023-09-10 12:22 | disposition home or self-care (01) ==
PROVIDERS: PCP Internal Medicine; Visit Provider Nurse Practitioner Family
DX: K21.9 Gastro-esophageal reflux disease without esophagitis (principal); R14.0 Abdominal distension (gaseous); K59.04 Chronic idiopathic constipation
CPT/HCPCS: 99214

== ENCOUNTER → 2023-09-10 10:57 | Outpatient (BNVA) | payer OTHER, SELFPAY | PROVIDERS: PCP Internal Medicine; Visit Provider Nurse Practitioner Family | DX: K21.9 Gastro-esophageal reflux disease without esophagitis (principal); K59.04 Chronic idiopathic constipation; R14.0 Abdominal distension (gaseous) | CPT/HCPCS: 99212 ==

== ENCOUNTER 2023-09-25 12:25 | Outpatient (AMB) | payer OTHER, SELFPAY ==
--- NOTE | 2023-09-25 12:53 | MHC.OFFVIS ---
Intake Vital Signs 09/25/23 12:56 Height 5 ft 2 in Weight 197 lb 15.602 oz BMI 36.2 BP 128/58 L Blood Pressure Location Rt brachial Position Sitting Pulse 92 Intake Visit Reasons: 3 week follow up Intake Note: Yvonne presents in the office as a 3 weeks follow up of medications adjustment. CC: Patient c/o nausea and occasional constipation but she states that when she takes the Linzess she is able to have a BM. She reports feeling better and denies having any new GI symptoms today. Sourcing Internship Required: Yes Accompanied by: Daughter Allergies No Known Allergies Allergy (Verified 10/02/23 18:45) HPI 3 week follow up HPI Details LAST VISIT GERD (gastroesophageal reflux disease) Postprandial abdominal bloating Constipation Plan Patient is unsure which medication is she taking. Unsure if she takes her PPI in the morning. Patient admits to take sucralfate at bedtime. Patient will be taking Creon before meals. As mentioned above in HPI patient had normal gastric emptying study. She will return in 2 weeks with all of her medications to make sure that she is compliant with everything that we prescribed for her. Both patient and her daughter are agreeable to plan of care and verbalizes understanding of instructions. They were given the opportunity to ask questions and all questions answered. TODAY'S VISIT: Patient is here today for follow-up. Patient is accompanied by her daughter who is translating for us per patient's request. Patient came with all of her medications. Patient states that she is taking all of her medications as prescribed. She is taking pantoprazole in the morning half an hour before breakfast. States that she is feeling well today. If she takes Linzess her abdominal cramping gets better and she is able to have a bowel movement. Patient reports that she only occasionally uses simethicone. Patient denies any nausea or vomiting. Denies any abdominal pain or discomfort. Denies any dyspepsia, dysphagia or odynophagia. [facility] Medical History Helicobacter pylori (H. pylori) Tubular adenoma Osteoarthritis Depression Thyroid nodule Graves' disease in remission Vitamin D deficiency Surgical History History of bladder surgery History of incision and drainage Hx of colonoscopy History of esophagogastroduodenoscopy (EGD) History of umbilical hernia repair Family History Mother Diabetes Other Thyroid disease Alcohol intake: never Patient Tobacco Use Status: Former Tobacco user Quit Date: >25 yrs ago Smoked in Last 30 Days: No Use of substances other than those prescribed or required for medical reasons: No Advance Directives: No Review of Systems Const Denies weight gain and Denies weight loss ENT Reports no additional complaints, Denies dysphagia and Denies odynophagia Card Reports no additional complaints Resp Reports no additional complaints GI Denies abdominal pain, Denies belching, Denies melena, Denies bloating, Denies change in bowel habits, Denies dysphagia, Denies excessive flatus, Denies dyspepsia, Denies heartburn, Denies diarrhea, Denies loose stools, Denies nausea, Denies odynophagia and Denies vomiting Musc Reports no additional complaints Neuro Reports no additional complaints Psych Reports no additional complaints Endo Reports no additional complaints Physical Exam Vital Signs: Last Vital Signs Pulse 92 09/25/23 12:56 BP 128/58 L 09/25/23 12:56 BMI result Body Mass Index 36.2 Const General: healthy appearing, no acute distress and well developed Nutritional Appearance: obese Orientation/consciousness: patient oriented x3 HEENT Head: Yes normal to inspection, Yes normocephalic and Yes atraumatic Face and sinus: Yes normal facial exam Mouth: Normal oral and palatal mucosa present Throat: Yes posterior oropharynx normal, Yes tonsils normal and Yes uvula midline Eyes General: appearance normal, both eyes and all related structures Neck Neck: Yes normal visual inspection, Yes full ROM and Yes trachea midline Thyroid: Thyroid normal Resp Effort & Inspection: normal respiratory effort, able to speak in complete sentences, no tracheal deviation and symmetric chest movement Auscultation: clear to auscultation bilaterally Cardio Rate: regular rate Heart sounds: S1 normal heart sound present and S2 normal heart sound present GI Inspection: Yes normal to inspection, No distended and Yes obesity Palpation (GI): Soft to palpation, not firm, nontender and No hepatosplenomegaly present Auscultation: normal bowel sounds General: Yes no CVA tenderness Back/Spine/Pelvis Back: no CVA tenderness Skin General skin exam: elasticity normal, turgor normal and dry skin Neuro General: patient oriented x3 Psych Appearance: grossly normal Mental Status: mental status grossly normal Assessment & Plan Assessment & Plan (1) GERD (gastroesophageal reflux disease): Code(s): K21.9 - Gastro-esophageal reflux disease without esophagitis Qualifiers: Esophagitis presence: esophagitis presence not specified Qualified Code(s): K21.9 - Gastro-esophageal reflux disease without esophagitis (2) Postprandial abdominal bloating: Code(s): R14.0 - Abdominal distension (gaseous) (3) Constipation: Code(s): K59.00 - Constipation, unspecified Qualifiers: Constipation type: chronic idiopathic constipation Qualified Code(s): K59.04 - Chronic idiopathic constipation (4) IBS (irritable bowel syndrome): Code(s): K58.9 - Irritable bowel syndrome without diarrhea Qualifiers: Irritable bowel syndrome type: with constipation Qualified Code(s): K58.1 - Irritable bowel syndrome with constipation Plan Patient will continue Creon with meals. Patient was encouraged to eat smaller meals and more often. Encouraged to eat 4 times a day and not to times a day. Continue taking Linzess every day. Patient can take MiraLax on as needed basis. May take simethicone on as needed that basis for bloating. Discussed with patient low FODMAP diet and went over list of food that she should avoid. I will see patient in 3 months, sooner on as needed basis. Patient is agreeable to this plan and verbalizes understanding of instructions. She was given the opportunity to ask questions and all questions answered. Thank you for allowing me to participate in her care Medications: Changed From polyethylene glycol 3350 17 grams PO BID PRN 238 grams 0RF constipation To polyethylene glycol 3350 (Miralax) 17 grams PO BID PRN 238 grams 0RF constipation Refilled linaclotide (Linzess) 290 mcg PO QAM 90 caps 3RF K59.00 - Constipation, unspecified simethicone 125 mg PO BID-QID PRN 120 caps 3RF abdominal distention K21.9 - Gastro-esophageal reflux disease without esophagitis Discontinued sennosides Discontinued Reason: Duplicate 8.6 mg PO BEDTIME 14 tabs 0RF docusate sodium Discontinued Reason: Patient no longer taking 100 mg PO BID 20 caps 0RF Coding Level of Care Code Est Pt Level 4 (77885) Diagnoses Gastroesophageal reflux disease, unspecified whether esophagitis present K21.9 Esophagitis presence: esophagitis presence not specified Postprandial abdominal bloating R14.0 Chronic idiopathic constipation K59.04 Constipation type: chronic idiopathic constipation Irritable bowel syndrome with constipation K58.1 Irritable bowel syndrome type: with constipation Time Spent (min) 35 Comment 25 minutes spent with patient and additional 10 minutes spent reviewing her records
[2023-09-25 12:56] VITALS: BP 128/58; PULSE 92; BMI 36.2
== END 2023-09-25 13:34 | disposition home or self-care (01) ==
PROVIDERS: PCP Internal Medicine; Visit Provider Nurse Practitioner Family
DX: K21.9 Gastro-esophageal reflux disease without esophagitis (principal); R14.0 Abdominal distension (gaseous); K59.04 Chronic idiopathic constipation; K58.1 Irritable bowel syndrome with constipation
CPT/HCPCS: 99214

== ENCOUNTER → 2023-09-25 12:25 | Outpatient (BNVA) | payer OTHER, SELFPAY | PROVIDERS: PCP Internal Medicine; Visit Provider Nurse Practitioner Family | DX: K21.9 Gastro-esophageal reflux disease without esophagitis (principal); K58.1 Irritable bowel syndrome with constipation; R14.0 Abdominal distension (gaseous) | CPT/HCPCS: 99212 ==

== ENCOUNTER 2023-10-02 18:30 | Emergency (ER) | payer OTHER, SELFPAY ==
--- NOTE | ~2023-10-02 | CT_ITS ---
EXAMINATION: CT ABDOMEN AND PELVIS WITHOUT CONTRAST CLINICAL INFORMATION: Abdominal pain. COMPARISON: Abdominal ultrasound earlier today. CT abdomen/pelvis 06/21/2023. TECHNIQUE: Multidetector volumetric imaging was performed from the superior aspect of the liver through the pubic symphysis. Sagittal and coronal reformatted images were obtained on the technologist's workstation. This CT examination was performed using dose optimization techniques as appropriate, variously including the following: *Automated exposure control *Adjustment of mA and/or kV according to patient size (this includes techniques or standardized protocols for targeted exams where dose is matched to indication/reason for exam; i.e. extremities or head) *Use of iterative reconstruction technique DLP: 726 mGy-cm FINDINGS: The lack of intravenous contrast limits evaluation of the solid visceral organs including the liver, spleen, pancreas, and kidneys. LUNG BASES: No focal consolidation or pleural effusion. Stable mild asymmetric elevation of the right hemidiaphragm. LIVER, GALLBLADDER, AND BILIARY TREE: Decreased attenuation of liver parenchyma. No focal hepatic lesion or biliary ductal dilatation is present. The gallbladder is unremarkable with no evidence of radiopaque gallstones, gallbladder wall thickening, or obvious pericholecystic inflammatory changes. PANCREAS: Fatty infiltration in the proximal pancreas. No main duct dilatation. No significant peripancreatic fat stranding or free fluid. SPLEEN: Unremarkable. ADRENAL GLANDS: Unremarkable. KIDNEYS AND URETERS: The kidneys are normal in size, shape, and attenuation. Nonobstructive 3 mm calculus in the upper right kidney. No hydronephrosis. No perinephric stranding. BLADDER: Unremarkable. GASTROINTESTINAL TRACT: Small hiatal hernia. The stomach and the small bowel are nondilated. Normal appendix. Mild colonic diverticulosis without significant pericolonic fat stranding or free fluid. No bowel obstruction. ABDOMINAL WALL: No significant hernia is appreciated. LYMPH NODES: No lymphadenopathy. Mildly prominent periportal lymph nodes are unchanged. VASCULAR: Atherosclerotic disease. Normal caliber abdominal aorta. PELVIC VISCERA: Unremarkable. OSSEOUS STRUCTURES: No acute or aggressive appearing osseous findings. CT/CT abdomen pelvis wo IV con IMPRESSION: 1. Nonobstructive 3 mm calculus in the upper right kidney. 2. Mild colonic diverticulosis without evidence of acute diverticulitis. 3. Small hiatal hernia. 4. Hepatic steatosis.
--- NOTE | ~2023-10-02 | US_ITS ---
EXAMINATION: US ABDOMEN LIMITED CLINICAL INFORMATION: Right upper quadrant pain; question gallstones. COMPARISON: CT abdomen and pelvis dated 06/21/2023; abdominal ultrasound dated 01/15/2016. TECHNIQUE: Real-time imaging of the right upper quadrant abdominal viscera. FINDINGS: GALLBLADDER: There are small layering gallstones. There is no gallbladder polyp, wall thickening or pericholecystic fluid. COMMON BILE DUCT: Upper normal in caliber, measuring 0.7 cm in diameter. The common bile duct caliber on 01/15/2016 was 2 mm. No focal choledocholith is noted. FREE FLUID: None demonstrated. US/US abdomen limited IMPRESSION: 1. There is cholelithiasis, without cholecystitis or choledocholithiasis noted. 2. The common bile duct is top normal in caliber at 7 mm. No choledocholith is noted.
[2023-10-02 18:45] VITALS: BP 156/89; PULSE 74; RESP 20; TEMP 36.9; O2SAT 99; BMI 36.7
[2023-10-02 19:11] LABS: MANUAL DIFF FLAG NO
[2023-10-02 19:13] LABS: Appearance Urine Clear; Basophils Percent Auto 0.3 % (0-2); Color Urine Yellow; Eosinophils Absolute Auto 0.3 X10*3/uL (0.0-0.4); Eosinophils Percent Auto 3.8 % (0-4); Glucose Urine UA Negative (Negative); Hematocrit 40.2 % (37.0-47.0); Imm Gran Abs Auto 0.02 X10*3/uL (0.00-0.03); Imm Gran Pct Auto 0.3 % (0.0-0.4); Leukocyte Esterase Urine Negative (Negative); Lymphocytes Absolute Auto 1.2 X10*3/uL (1.2-4.9); Lymphocytes Percent Auto 18.7 % (20-40); Mean Corpuscular HGB Conc 32.3 g/dl (31.0-35.0); Mean Corpuscular Hemoglobin 28.2 pg (27.0-33.0); Mean Corpuscular Volume 87.2 fL (80.0-98.0); Mean Platelet Volume 10.8 fL (9.4-12.3); Monocytes Absolute Auto 0.5 X10*3/uL (0.1-1.2); Monocytes Percent Auto 7.8 % (2-11); Neutrophils Absolute Auto 4.5 x10*3/uL (2.0-8.3); Neutrophils Percent Auto 69.1 % (45-73); Nitrite Urine Negative (Negative); Platelet Count 251 X10*3/uL (160-400); Red Blood Count 4.61 X10*6/uL (4.20-5.50); Red Cell Distribution Width 12.2 % (11.0-16.0); Specific Gravity - Urine 1.015 (1.005-1.025); UMIC TRIGGER UACC YES; Urine Blood Trace (Negative); Urine Ketones Negative (Negative); Urine Protein Negative (Neg-Trace); White Blood Count 6.5 X10*3/uL (4.8-10.8)
[2023-10-02 19:15] LABS: Bacteria Urine None Seen (None Seen); Hyaline Casts Urine 0-2 /LPF (0-2); Squamous Epithelial Cell Urine 0-2 /HPF (0-2); WBC Urine 0-5 /HPF (0-5)
[2023-10-02 19:25] LABS: Alanine Aminotransferase 93 U/L (0-31); Albumin Level 3.9 g/dL (3.5-5.0); Alkaline Phosphatase 96 U/L (39-117); Anion Gap 14 (12-20); Aspartate Amino Transferase 160 U/L (5-31); Bilirubin Total 0.7 mg/dL (0.0-1.0); Blood Urea Nitrogen 16 mg/dL (9-16); Calcium 8.8 mg/dL (8.4-10.2); Carbon Dioxide 27 mmol/L (22-29); Chloride 103 mmol/L (96-108); Creatinine Clr Calc Pharmacy 86.8; Estimated Glomerular Filt Rate > 60; Glucose Random 134 mg/dL (60-115); Potassium 3.9 mmol/L (3.3-5.1); Sodium 140 mmol/L (135-145); Total Protein 7.2 g/dL (6.5-8.0)
--- NOTE | 2023-10-02 21:12 | ED.ABDPAIN ---
HPI - Abdominal Pain General Chief Complaint: Abdominal Pain Stated Complaint: Abdominal pain Time Seen by Provider: 10/02/23 21:06 History of Present Illness HPI narrative: Patient is a 68-year-old female with a history of gastritis in the past history of kidney stones in the past no history of abdominal surgery. Presented today with having abdominal pain wraps around the entire abdomen. No fever no chills. No chest pain or diaphoresis. No history of abdominal aortic aneurysm. The patient from home. No pain on urination. No diarrhea. No changes in medication. No history of NSAID use. No history of alcohol. The pain started this afternoon. Nothing really makes it better or worse. Came to the ED for help. Related Data Home Medications Medication Instructions Recorded Confirmed zolpidem 5 mg tablet 5 mg PO BEDTIME PRN 03/22/22 diclofenac sodium 1 % topical gel g topical pain 02/05/23 escitalopram oxalate 10 mg tablet 10 mg PO QAM 02/05/23 famotidine 40 mg tablet 40 mg PO BEDTIME 09/25/23 tramadol 50 mg tablet 50 mg PO Q8H PRN 09/25/23 Previous Rx's Medication Instructions Recorded acetaminophen 325 mg tablet 650 mg (2 x 325 mg) PO Q6H PRN 02/27/23 pain #30 tabs lisinopril 2.5 mg tablet 2.5 mg PO DAILY #7 tabs 03/19/23 ouueky-eimiqkth-uakvbua 1 cap PO QID #120 caps 06/17/23 24,000-76,000-120,000 unit capsule,delayed rel (Creon) sucralfate 100 mg/mL oral 10 ml PO BEDTIME #400 mL 06/17/23 suspension pantoprazole 40 mg tablet,delayed 40 mg PO DAILY #90 tabs 08/05/23 release linaclotide 290 mcg capsule 290 mcg PO QAM #90 caps 09/25/23 (Linzess) polyethylene glycol 3350 17 17 g PO BID PRN constipation #238 09/25/23 gram/dose oral powder (Miralax) grams simethicone 125 mg capsule 125 mg PO BID-QID PRN abdominal 09/25/23 distention #120 caps Allergies Allergy/AdvReac Type Severity Reaction Status Date / Time No Known Allergies Allergy Verified 10/02/23 18:45 Review of Systems Review of Systems Positive abdominal pain Yes all other systems are reviewed and are negative PMFSH Past Medical History Medical History Helicobacter pylori (H. pylori) Tubular adenoma Osteoarthritis Depression Thyroid nodule Graves' disease in remission Vitamin D deficiency Surgical History History of bladder surgery History of incision and drainage Hx of colonoscopy History of esophagogastroduodenoscopy (EGD) History of umbilical hernia repair Family History Family History Mother Diabetes Other Thyroid disease Social History Social History Alcohol intake: never Patient Tobacco Use Status: Former Tobacco user Quit Date: >25 yrs ago Smoked in Last 30 Days: No Use of substances other than those prescribed or required for medical reasons: No Advance Directives: No Physical Exam ED Vital Signs: Vital Signs - 24 hr 10/02/23 18:45 10/02/23 21:53 10/02/23 23:32 Temperature 98.4 F 98.4 F 98 F Pulse Rate 74 98 102 H Respiratory Rate 20 16 15 Blood Pressure 156/89 H 148/68 H 130/60 Pulse Oximetry 99 97 94 Oxygen Delivery Method Room Air Room Air Room Air BMI result Body Mass Index 36.7 Appearance: Alert. Oriented X3. No acute distress. Eyes: Pupils equal, round and reactive to light. ENT: Pharynx normal. Neck: Normal inspection. Neck supple. No lymph nodes noted. No crepitus CVS: Normal heart rate and rhythm. Pulses normal. Normal S1 and S2 Respiratory: No respiratory distress. Breath sounds normal. No Wheezing. No rales Abdomen: Soft and nontender. No rigidity. No distention. good BS x4 Skin: Skin warm and dry. Normal skin color. Normal skin turgor. Extremities: No lower extremity edema. Neurovascular intact to all extremities. No Lacerations. No Rash Neuro: Oriented X 3. No motor deficit. No sensory deficit. Moving all extermities. No slurred speech Medical Decision Making Medical Decision Making MDM Narrative: well-appearing in no acute distress. Complaining of abdominal pain that is bandlike goes from the back to the front on both sides. Making kidney stone the lower less likely. There is only trace amount of blood in the urine. There is no gross signs of infection. No evidence for pyelonephritis. Will get an EKG the patient has no chest pain no diaphoresis. CT scan of the abdomen and pelvis was ordered. A lipase was added to check for pancreatitis. Patient is currently in stable condition. Small dose of pain medication given. On review patient's previous chart. She had a CT scan done in May at the time it showed a normal aorta. She did have a right-sided kidney stone. Her kidney function today is normal. CT scan of the abdomen pelvis showed no acute evidence of obstruction, abscess, perforation. No abdominal aortic aneurysm. It did show a 3 mm kidney stone in the right kidney which is not the cause of patient's symptoms. The patient's ultrasound showed no evidence of cholecystitis. Currently in stable condition. Will discharge patient home. Differential Diagnosis Differential Diagnoses: The differential diagnosis associated with the presentation includes It on abdominal aortic aneurysm, pancreatitis, biliary disease, ACS, obstruction, abscess, perforation Admission/Observation Consideration of admission/observation: Escalation of care including admission/observation considered patient's workup was negative well-appearing no distress will discharge home Lab Data MDM Lab Attestation statement: I reviewed the patient's lab results. 10/02/23 19:03 10/02/23 19:03 Labs: Lab Results 10/02/23 Range/Units 19:03 WBC 6.5 (4.8-10.8) X10*3/uL RBC 4.61 (4.20-5.50) X10*6/uL Hgb 13.0 (12.0-16.0) g/dl Hct 40.2 (37.0-47.0) % MCV 87.2 (80.0-98.0) fL MCH 28.2 (27.0-33.0) pg MCHC 32.3 (31.0-35.0) g/dl RDW 12.2 (11.0-16.0) % Plt Count 251 (160-400) X10*3/uL MPV 10.8 (9.4-12.3) fL Immature Gran % (Auto) 0.3 (0.0-0.4) % Neut % (Auto) 69.1 (45-73) % Lymph % (Auto) 18.7 L (20-40) % [place] % (Auto) 7.8 (2-11) % Eos % (Auto) 3.8 (0-4) % Baso % (Auto) 0.3 (0-2) % Lymph # (Auto) 1.2 (1.2-4.9) X10*3/uL [place] # (Auto) 0.5 (0.1-1.2) X10*3/uL Eos # (Auto) 0.3 (0.0-0.4) X10*3/uL Baso # (Auto) 0.0 (0.0-0.2) X10*3/uL Abs Immat Gran (auto) 0.02 (0.00-0.03) X10*3/uL Absolute Neuts (auto) 4.5 (2.0-8.3) x10*3/uL Absolute Nucleated RBC 0.000 (0.0-0.012) X10*3/uL Nucleated RBC % (auto) 0.0 (0.0-0.2) /100WBC Sodium 140 (135-145) mmol/L Potassium 3.9 (3.3-5.1) mmol/L Chloride 103 (96-108) mmol/L Carbon Dioxide 27 (22-29) mmol/L Anion Gap 14 (12-20) BUN 16 (9-16) mg/dL Creatinine 0.66 (0.5-1.4) mg/dL Estim Creat Clear Calc 86.8 Estimated GFR > 60 Random Glucose 134 H (60-115) mg/dL Calcium 8.8 (8.4-10.2) mg/dL Total Bilirubin 0.7 (0.0-1.0) mg/dL AST 160 H (5-31) U/L ALT 93 H (0-31) U/L Alkaline Phosphatase 96 (39-117) U/L Total Protein 7.2 (6.5-8.0) g/dL Albumin 3.9 (3.5-5.0) g/dL Lipase 26 (8-78) U/L Urine Color Yellow Urine Appearance Clear Urine pH 6.0 (5.0-9.0) Ur Specific [place] 1.015 (1.005-1.025) Urine Protein Negative (Neg-Trace) mg/dL Urine Glucose (UA) Negative (Negative) mg/dL Urine Ketones Negative (Negative) mg/dL Urine Blood Trace H (Negative) Urine Nitrite Negative (Negative) Ur Leukocyte Esterase Negative (Negative) Urine RBC 3-5 H (0-2) /HPF Urine WBC 0-5 (0-5) /HPF Ur Squamous Epith Cells 0-2 (0-2) /HPF Urine Bacteria None Seen (None Seen) Hyaline Casts 0-2 (0-2) /LPF Independent Interpretation I performed an independent interpretation of an: EKG ( sinus heart rate is 90 TN QRS QTC within normal limits there is diffuse T-wave flattening noted.), Ultrasound ( no gallstone noted) and CT Scan ( No gross obstruction abscess perforation) Radiology Impression Discussion of test interpretation with radiology: I have reviewed the radiologist's reading. Independent Historian Clinical information obtained from an independent historian. History obtained from or confirmed by: Parent External Record Review External record reviewed: Prior outpatient labs previous GI record reviewed Medications Administered Discontinued Medications Generic Name Dose Route Start Last Admin Trade Name Freq PRN Reason Stop Dose Admin Hydromorphone HCl 0.25 mg 10/02/23 21:11 10/02/23 22:06 Hydromorphone Hcl 0.5 Mg/0.5 Ml Syringe IVPUSH 10/02/23 21:12 0.25 mg ONCE ONE Administration Protocol Iohexol 85 ml 10/02/23 22:44 10/02/23 22:45 Iohexol 350 Mg/Ml 100 Ml Infus..Btl IV 10/02/23 22:45 85 ml ONCE ONE Administration Ondansetron HCl 4 mg 10/02/23 21:11 10/02/23 22:06 Ondansetron Hcl 4 Mg/2 Ml Vial IVPUSH 10/02/23 21:12 4 mg ONCE ONE Administration Discharge Plan Discharge Clinical Impression: Abdominal pain Patient Disposition: Home, Self-Care Instructions: Abdominal Pain (ED) Prescriptions: No Action pantoprazole 40 mg tablet,delayed release (DR/EC) 40 mg PO DAILY Qty: 90 2RF Rx Instructions: take one tablet half an hour before breakfast acetaminophen 325 mg tablet 650 mg PO Q6H PRN (Reason: pain) Qty: 30 0RF lisinopril 2.5 mg tablet 2.5 mg PO DAILY Qty: 7 0RF zolpidem 5 mg tablet 5 mg PO BEDTIME PRN escitalopram oxalate 10 mg tablet 10 mg PO QAM diclofenac sodium 1 % gel topical Creon 24,000-76,000 -120,000 unit capsule,delayed release(DR/EC) 1 cap PO QID Qty: 120 2RF Rx Instructions: administer with meals and/or snacks sucralfate 100 mg/mL suspension 10 ml PO BEDTIME Qty: 400 3RF famotidine 40 mg tablet 40 mg PO BEDTIME tramadol 50 mg tablet 50 mg PO Q8H PRN polyethylene glycol 3350 [Miralax] 17 gram/dose powder 17 g PO BID PRN (Reason: constipation) Qty: 238 0RF Linzess 290 mcg capsule 290 mcg PO QAM Qty: 90 3RF simethicone 125 mg capsule 125 mg PO BID-QID PRN (Reason: abdominal distention) Qty: 120 3RF Referrals: Physician,Unknown J [Primary Care Provider] - 10/06/23
--- NOTE | 2023-10-02 21:13 | ECG_ITS ---
Test Reason : abd pain Blood Pressure : / mmHG Vent. Rate : 094 BPM Atrial Rate : 094 BPM P-R Int : 168 ms QRS Dur : 074 ms QT Int : 380 ms P-R-T Axes : 035 006 031 degrees QTc Int : 475 ms Sinus rhythm Otherwise normal ECG When compared with ECG of 21-JUN-2023 08:06, Heart rate has decreased Referred By: Harriett Gonzalez Electronically Signed By:DEEPAK HOUSE MD
--- OUTSIDE RECORDS SUMMARY | 2023-10-02 21:31 | XMS_ITS | Continuity of Care Document ---
Author Name Unknown Organization [facility] Address [address], [address] [place] [address]- Care Team Providers Care Fiberglass Auto Body Repairer Name Role Phone Keira PATTERSON, Liz Pierson Primary Care Physician [place] [facility] [place] [id number] Date(s): 10/04/20 - 11/03/20 [facility] [address] [place] [address]- Attending Physician: Wenceslao Mcclure Admitting Physician: AdmWenceslao vo Referring Physician: Admtr ArAleah Allergies, Adverse Reactions, Alerts Substance Reaction Severity Status NKA Active Medications Calcium 500+D 1 tablet, Daily, 0 Refills, Maintenance, 06/23/19 12:52:39 EDT Start Date: 06/23/19 Status: Ordered Colace sodium 100 mg oral capsule 100 mg, 1, capsule, By Mouth, 2 times a day, PRN, # 60 capsule, Refills 1, Tot. Refills 1, Maintenance, for constipation, 06/20/20 10:18:00 EDT, Route to Pharmacy Electronically, [facility], 158.3, cm, 06/20/20 10:04:00 EDT, Height... Start Date: 06/20/20 Status: Ordered escitalopram 20 mg oral tablet 1 tablet = 20 mg, By Mouth, Daily, 0 Refills, Maintenance, 04/13/19 14:15:32 EDT Start Date: 04/13/19 Status: Ordered Estrace Vaginal Cream 0.1 mg/g See Instructions, 1 gram Vaginally at bedtime twice per week, # 42 Gm, 4 Refills, Maintenance, 08/03/20 10:51:00 EDT, [facility], 158.3, cm, 08/03/20 10:27:00 EDT, Height, 87.6, kg, 08/03/20 10:27:00 EDT, Dry Weight Start Date: 08/03/20 Status: Ordered metoprolol 50 mg oral tablet 50 mg, 1, tablet, By Mouth, 2 times a day, Refills 0, Maintenance, 04/13/19 14:16:28 EDT Start Date: 04/13/19 Status: Ordered oxybutynin 15 mg/24 hr oral tablet, extended release 1 tablet = 15 mg, By Mouth, Daily, # 30 tablet, 11 Refills, Maintenance, 08/03/20 10:45:00 EDT, [facility], 158.3, cm, 08/03/20 10:27:00 EDT, Height, 87.6, kg, 08/03/20 10:27:00 EDT, Dry Weight Start Date: 08/03/20 Status: Ordered traMADol 50 mg oral tablet 1 tablet = 50 mg, By Mouth, Every 12 hours, PRN as needed for pain, 0 Refills, Maintenance, 07/05/19 10:30:50 EDT, Tablet Start Date: 07/05/19 Status: Ordered Vitamin D3 = 2,000 International_Units, By Mouth, Daily, 0 Refills, Maintenance, 04/13/19 14:16:14 EDT Start Date: 04/13/19 Status: Ordered zolpidem 10 mg oral tablet 1 tablet = 10 mg, By Mouth, Daily at bedtime, 0 Refills, Maintenance, 04/13/19 14:16:36 EDT Start Date: 04/13/19 Status: Ordered Social History Social History Type Response Smoking Status Never (less than 100 in lifetime) entered on: 04/13/19 Sex
--- OUTSIDE RECORDS SUMMARY | 2023-10-02 21:31 | XMS_ITS | Continuity of Care Document ---
Author Name Unknown Organization [facility] [employer] [employer] [facility] Address [address], [address] [place] [address]- Care Team Providers Care River Driver Name Role Phone Keira PATTERSON, Liz Pierson Primary [id number] Date(s): 01/26/21 - 02/02/21 [facility] [employer] [employer] [facility] [address] [place], [place] [address] Attending Physician: Eliana Bronson MD Referring Physician: Liz Crockett MD Allergies, Adverse Reactions, Alerts Substance Reaction Severity Status NKA Active Medications Calcium 500+D 1 tablet, Daily, 0 Refills, Maintenance, 06/23/19 12:52:39 EDT Start Date: 06/23/19 Status: Ordered Colace sodium 100 mg oral capsule 100 mg, 1, capsule, By Mouth, 2 times a day, PRN, # 60 capsule, Refills 4, Tot. Refills 4, Maintenance, for constipation, 12/15/20 11:02:00 EST, Route to Pharmacy Electronically, [facility], 158.3, cm, 08/03/20 10:27:00 EDT, Height... Start Date: 12/15/20 Status: Ordered escitalopram 20 mg oral tablet 1 tablet = 20 mg, By Mouth, Daily, 0 Refills, Maintenance, 04/13/19 14:15:32 EDT Start Date: 04/13/19 Status: Ordered Estrace Vaginal Cream 0.1 mg/g See Instructions, 1 gram Vaginally at bedtime twice per week, # 42 Gm, 4 Refills, Maintenance, 08/03/20 10:51:00 EDT, [facility], 158.3, cm, 08/03/20 10:27:00 EDT, Height, 87.6, kg, 08/03/20 10:27:00 EDT, Dry Weight Start Date: 08/03/20 Status: Ordered metoprolol 50 mg oral tablet 50 mg, 1, tablet, By Mouth, 2 times a day, Refills 0, Maintenance, 04/13/19 14:16:28 EDT Start Date: 04/13/19 Status: Ordered mirabegron 25 mg oral tablet, extended release 1 tablet = 25 mg, By Mouth, Daily, do not crush or chew, # 30 tablet, 5 Refills, Maintenance, 12/15/20 11:05:00 EST, ER Tablet, [facility], Partial fill upon patient request if the prescription is for a schedule II opioid drug., 15... Start Date: 12/15/20 Status: Ordered oxybutynin 15 mg/24 hr oral tablet, extended release 1 tablet = 15 mg, By Mouth, Daily, # 30 tablet, 11 Refills, Maintenance, 12/15/20 11:01:00 EST, [facility], 158.3, cm, 08/03/20 10:27:00 EDT, Height, 87.6, kg, 08/03/20 10:27:00 EDT, Dry Weight Start Date: 12/15/20 Status: Ordered traMADol 50 mg oral tablet [...]
--- OUTSIDE RECORDS SUMMARY | 2023-10-02 21:31 | XMS_ITS | Patient Health Record ---
Author Name Unknown Organization [facility] Address [address] [place] [address] Care Team Providers Care Director Of Graduate Medical Education Name Role Phone Liz Crockett MD Primary Care Provider Unavail able David Degroot Unavailable [phone] REASON FOR REFERRAL No Information MEDICATIONS Medication SIG (Take, Route, Frequency, Duration) Notes Start Date End Date Status clonazePAM Active Lexapro Active busPIRone HCl Active Abilify Active Colace Active Meclizine HCl Active Nabumetone Active Omeprazole Active Ambien Active Colyte w Flavor Packs 240 GM as directed Orally as directed for 1 day(s) 01/21/2016 Active methIMAzole Active SOCIAL HISTORY Sex Assigned At : Social History Observation Description Sex Assigned At Unknown PROBLEMS Problem Type ICD Code Onset Dates Problem Status W/U Status Risk SNOMED Code Notes Problem Gastroesophageal reflux disease without esophagitis (K21.9) Active confirmed 919492543 Problem History of adenomatous polyp of colon (Z86.010) Active confirmed 576031003 Problem Encounter for screening for malignant neoplasm of colon (Z12.11) Active confirmed 684936235 Problem Encounter for screening for malignant neoplasm of rectum (Z12.12) Active confirmed Screening for malignant neoplasm of rectum (833282151) PLAN OF TREATMENT Future Test Test Name Order Date UPPER GI ENDOSCOPY 01/16/2016 COLONOSCOPY 01/16/2016 Insurance Providers Payer Name Payer Address Payer Phone Subscriber Number Group Number Insured Name Patient Relationship to Insured Coverage Start Date Coverage End Date MEDICAID OF [employer] [address] [place] [phone] [id number] H[place]EN RODRIGUEZ Self - patient is the insured MEDICAL (GENERAL) HISTORY Medical History History ICD Code Nodular goiter Depression GERD Tubular adenoma removed in 2008--colonos copy with Dr. Ramirez Arthritis Kidney stones Denies CO,DM,CVA,Lung disease,renal dise ase Surgical History Surgery Date(Month/Year) Hernia-umbilical 2008
--- OUTSIDE RECORDS SUMMARY | 2023-10-02 21:31 | XMS_ITS | Continuity of Care Document ---
Author Name Unknown Organization [facility] [employer] [facility] Address [address], [address], [place] [address]- Care Team Providers Care Credit Authorizer Name Role Phone Liz Crockett MD Primary Care [id number] Date(s): 08/03/20 - 11/03/20 [facility] [employer] [facility] [address] [place], [place] [address] Attending Physician: Elinor Ruth MD Admitting Physician: Elinor Ruth MD Referring Physician: Liz Crockett MD Allergies, [...] 06/20/20 10:18:00 EDT, Route to Pharmacy Electronically, [facility], 158.3, cm, 06/20/20 10:04:00 EDT, Height... Start Date: 06/20/20 Status: Ordered escitalopram 20 mg oral tablet 1 tablet = 20 mg, By Mouth, Daily, 0 Refills, Maintenance, 04/13/19 14:15:32 EDT Start Date: 04/13/19 Status: Ordered Estrace Vaginal Cream 0.1 mg/g See Instructions, 1 gram Vaginally at bedtime twice per week, # 42 Gm, 4 Refills, Maintenance, 08/03/20 10:51:00 EDT, [facility], 158.3, cm, 08/03/20 10:27:00 EDT, [...] tablet, 11 Refills, Maintenance, 08/03/20 10:45:00 EDT, [facility], 158.3, cm, 08/03/20 10:27:00 EDT, [...]
--- OUTSIDE RECORDS SUMMARY | 2023-10-02 21:31 | XMS_ITS | Continuity of Care Document ---
Author Name Unknown Organization [facility] [employer] Address [address], [address] [place] [address]- Care Team Providers Care Medical Supply Technician Name Role Phone Liz Crockett MD Primary Care Physician En[place] [facility] [place] Date(s): 10/11/21 - 02/08/22 [facility] [address] [place] [address]- Attending Physician: Eliana Bronson MD Admitting Physician: Eliana Bronson MD Referring Physician: Liz Crockett MD Allergies, Adverse Reactions, Alerts No Known Allergies Medications Calcium 500+D 1 tablet, Daily, 0 Refills, Maintenance, 06/23/19 12:52:39 EDT Start Date: 06/23/19 Status: Ordered Colace sodium 100 mg oral capsule 100 mg, 1, capsule, By Mouth, 2 times a day, PRN, # 60 capsule, Refills 4, Tot. Refills 4, Maintenance, for constipation, 12/15/20 11:02:00 EST, Route to Pharmacy Electronically, [facility], 158.3, cm, 08/03/20 10:27:00 EDT, Height... Start Date: 12/15/20 Status: Ordered escitalopram 20 mg oral tablet 1 tablet = 20 mg, By Mouth, Daily, 0 Refills, Maintenance, 04/13/19 14:15:32 EDT Start Date: 04/13/19 Status: Ordered Estrace Vaginal Cream 0.1 mg/g See Instructions, 1 gram Vaginally at bedtime twice per week, # 42 Gm, 4 Refills, Maintenance, 07/24/21 10:27:00 EDT, [facility], 158.3, cm, 08/03/20 10:27:00 EDT, Height, 87.6, kg, 08/03/20 10:27:00 EDT, Dry Weight Start Date: 07/24/21 Status: Ordered metoprolol 50 mg oral tablet 50 mg, 1, tablet, By Mouth, 2 times a day, Refills 0, Maintenance, 04/13/19 14:16:28 EDT Start Date: 04/13/19 Status: Ordered mirabegron 25 mg oral tablet, extended release 1 tablet = 25 mg, By Mouth, Daily, do not crush or chew, # 30 tablet, 5 Refills, Maintenance, 07/24/21 10:23:00 EDT, ER Tablet, [facility], Partial fill upon patient request if the prescription is for a schedule II opioid drug., 15... Start Date: 07/24/21 Status: Ordered traMADol 50 mg oral tablet [...]
--- OUTSIDE RECORDS SUMMARY | 2023-10-02 21:31 | XMS_ITS | Continuity of Care Document ---
Author Name Unknown Organization [facility] [employer] [facility] Address [address], [address] [place] [address]- Care Team Providers Care Instrument Designer Name Role Phone Liz Crockett MD Primary [id number] Date(s[facility] 07/14/20 - 08/18/20 [facility] [place] [facility] [address], [address] [place] [address]- [place] Attending Physician: Eliana Bronson MD Admitting Physician: [...] 06/20/20 10:18:00 EDT, Route to Pharmacy Electronically, [facility], 158.3, cm, 06/20/20 10:04:00 EDT, Height... Start Date: 06/20/20 Status: Ordered escitalopram 20 mg oral tablet 1 tablet = 20 mg, By Mouth, Daily, 0 Refills, Maintenance, 04/13/19 14:15:32 EDT Start Date: 04/13/19 Status: Ordered Estrace Vaginal Cream 0.1 mg/g See Instructions, 1 gram Vaginally at bedtime twice per week, # 42 Gm, 4 Refills, Maintenance, 08/03/20 10:51:00 EDT, [facility], 158.3, cm, 08/03/20 10:27:00 EDT, Height, [...] tablet, 11 Refills, Maintenance, 08/03/20 10:45:00 EDT, [facility], 158.3, cm, 08/03/20 10:27:00 EDT, Height, [...]
--- OUTSIDE RECORDS SUMMARY | 2023-10-02 21:31 | XMS_ITS | Continuity of Care Document ---
Author Name Unknown Organization [facility] [employer] [facility] Address [address] [place] [address]- Care Team Providers Care Optical Instrument Assembler Name Role Phone Keira PATTERSON, Liz Pierson Primary Care Physician Encounter [facility] Date(s): 01/26/21 - 02/25/21 [facility] [employer] [facility] [address] [place] [address]- Attending Physician: Wenceslao Mcclure Admitting Physician: AdmWenceslao vo Referring Physician: AdmtrWenceslao Allergies, Adverse Reactions, Alerts Substance Reaction Severity Status NKA Active Medications Calcium 500+D 1 tablet, Daily, 0 Refills, Maintenance, 06/23/19 12:52:39 EDT Start Date: 06/23/19 Status: Ordered Colace sodium 100 mg oral capsule 100 mg, 1, capsule, By Mouth, 2 times a day, PRN, # 60 capsule, Refills 4, Tot. Refills 4, Maintenance, for constipation, 12/15/20 11:02:00 EST, Route to Pharmacy Electronically, [facility], 158.3, cm, 08/03/20 10:27:00 EDT, Height... Start Date: 12/15/20 Status: Ordered escitalopram 20 mg oral tablet 1 tablet = 20 mg, By Mouth, Daily, 0 Refills, Maintenance, 04/13/19 14:15:32 EDT Start Date: 04/13/19 Status: Ordered Estrace Vaginal Cream 0.1 mg/g See Instructions, 1 gram Vaginally at bedtime twice per week, # 42 Gm, 4 Refills, Maintenance, 08/03/20 10:51:00 EDT, [facility], 158.3, cm, 08/03/20 10:27:00 EDT, [...] Refills, Maintenance, 12/15/20 11:05:00 EST, ER Tablet, [facility], Partial fill upon patient request if the prescription is for a schedule II opioid drug., 15... Start Date: 12/15/20 Status: Ordered oxybutynin 15 mg/24 hr oral tablet, extended release 1 tablet = 15 mg, By Mouth, Daily, # 30 tablet, 11 Refills, Maintenance, 12/15/20 11:01:00 EST, [facility], 158.3, cm, 08/03/20 10:27:00 EDT, [...]
[2023-10-02 21:33] LABS: Lipase 26 U/L (8-78)
[2023-10-02 21:53] VITALS: BP 148/68; PULSE 98; RESP 16; TEMP 36.9; O2SAT 97
[2023-10-02] MEDS: ondansetron HCL 4 MG/2 ML VIAL IVPUSH (22:06)
[2023-10-02] MEDS: HYDROmorphone HCl 0.5 MG/0.5 ML SYRINGE 0.25 MG IVPUSH (22:06)
[2023-10-02] MEDS: iohexoL 350 MG/ML 100 ML INFUS..BTL 85 ML IV (22:45)
--- NOTE | 2023-10-02 23:30 | PC.NURSE ---
Assumed care of pt. Pt stating reduced pain, will evaluate medication per MAR reasssessment.
[2023-10-02 23:32] VITALS: BP 130/60; PULSE 102; RESP 15; TEMP 36.6; O2SAT 94
== END 2023-10-03 00:35 | disposition home or self-care (01) ==
PROVIDERS: Emergency Provider Emergency Medicine Emergency Medical Services
DX: R10.9 Unspecified abdominal pain (principal); N20.0 Calculus of kidney; Z87.442 Personal history of urinary calculi; Z79.899 Other long term (current) drug therapy; Z87.891 Personal history of nicotine dependence
CPT/HCPCS: 36415; 74176; 76705; 80053; 81001; 83690; 85025; 93005; 96374; 96375; 99284; 99285; J1170; J2405; Q9967

== ENCOUNTER 2023-12-26 11:03 | Outpatient (AMB) | payer OTHER, SELFPAY ==
--- NOTE | 2023-12-26 11:17 | A.OFFVIS_ITS ---
Intake Vital Signs 12/26/23 11:22 Height 5 ft 2 in Weight 190 lb BMI 34.7 BP 136/67 Blood Pressure Location Lt brachial Position Sitting Pulse 82 Intake Visit Reasons: 3 month follow up Intake Note: Patient follow up for constipation. Patient cc: abdominal pain and bloating, constipation and acid reflex is better with medication. Hybrid Car Mechanic Required: Yes Hybrid Car Mechanic Name: [facility] Accompanied by: Self / Same As Patient Allergies No Known Allergies Allergy (Verified 12/26/23 11:16) HPI 3 month follow up HPI Details LAST VISIT: GERD (gastroesophageal reflux disease) Postprandial abdominal bloating Constipation IBS (irritable bowel syndrome) Plan Patient will continue Creon with meals. Patient was encouraged to eat smaller meals and more often. Encouraged to eat 4 times a day and not to times a day. Continue taking Linzess every day. Patient can take MiraLax on as needed basis. May take simethicone on as needed that basis for bloating. Discussed with patient low FODMAP diet and went over list of food that she should avoid. I will see patient in 3 months, sooner on as needed basis. Patient is agreeable to this plan and verbalizes understanding of instructions. She was given the opportunity to ask questions and all questions answered. ? Thank you for allowing me to participate in her care Medications Changed Changed From polyethylene glycol 3350 17 grams PO BID PRN 238 grams 0RF consti pation Changed To polyethylene glycol 3350 (Miralax) 17 grams PO BID PRN 238 grams 0RF consti pation Refilled linaclotide (Linzess) 290 mcg PO QAM 90 caps 3RF K59.00 simethicone 125 mg PO BID-QID PRN 120 caps 3RF abdom inal distention K21.9 Discontinued sennosides Discontinued Reason: Duplicate 8.6 mg PO BEDTIME 14 tabs 0RF docusate sodium Discontinued Reason: Patient no longer taking 100 mg PO BID 20 caps 0RF TODAY'S VISIT Patient is here today for follow-up. Patient reports that since the last time I have seen her she has been doing better. Still has occasional bloating throughout the day. Patient does admit to be eating late at night. Patient states that she has an anxiety and feels like this is more stress eating the not because she is hungry. Patient denies any nausea or vomiting. Reports occasional dyspepsia postprandial depending on what she eats, however she states that pantoprazole has been working for her. Her symptoms of acid reflux are significantly suppressed. Patient denies any dysphagia or odynophagia. Patient states that Creon has helped her with bloating. Patient states that she takes it with each meals 3 to 4 times a day. Patient is due to go for colonoscopy end of this year. History of H pylori in the past and we should send her for upper endoscopy. Patient denies any abdominal pain or discomfort, however occasional cramping when bloated. Patient states that Linzess has worked for her. Patient takes Linzess every morning and has bowel movements daily. Patient states that she feels like she empties her bowels well. Patient denies any melena, hematochezia, unintentional weight loss or ribbon like stools. However patient did lose few lb since last visit. [facility] Medical History Helicobacter pylori (H. pylori) Tubular adenoma Osteoarthritis Depression Thyroid nodule Graves' disease in remission Vitamin D deficiency Surgical History History of bladder surgery History of incision and drainage Hx of colonoscopy History of esophagogastroduodenoscopy (EGD) History of umbilical hernia repair Family History Mother Diabetes Other Thyroid disease Social History Alcohol intake: never Patient Tobacco Use Status: Former Tobacco user Quit Date: >25 yrs ago Review of Systems Const Denies weight gain and Denies weight loss ENT Reports no additional complaints, Denies dysphagia and Denies odynophagia Card Reports no additional complaints Resp Reports no additional complaints GI Denies abdominal pain, Denies belching, Denies melena, Reports bloating (occasional), Denies change in bowel habits, Reports constipation (occasional), Denies dysphagia, Denies excessive flatus, Denies dyspepsia, Denies heartburn, Denies diarrhea, Denies loose stools, Denies nausea, Denies odynophagia and Denies vomiting Reports no additional complaints Musc Reports no additional complaints Neuro Reports no additional complaints Psych Reports no additional complaints Endo Reports no additional complaints Physical Exam Vital Signs: Last Vital Signs Pulse 82 12/26/23 11:22 BP 136/67 12/26/23 11:22 BMI result Body Mass Index 34.7 Const General: healthy appearing, no acute distress and well developed Nutritional Appearance: obese Orientation/consciousness: patient oriented x3 Resp Effort & Inspection: normal respiratory effort, able to speak in complete sentences, no tracheal deviation and symmetric chest movement Auscultation: clear to auscultation bilaterally Cardio Rate: regular rate GI Inspection: Yes normal to inspection, Yes distended and Yes obesity Palpation (GI): Soft to palpation, not firm, nontender and No hepatosplenomegaly present Auscultation: normal bowel sounds General: Yes no CVA tenderness Back/Spine/Pelvis Back: no CVA tenderness Skin General skin exam: elasticity normal, turgor normal and dry skin Neuro General: patient oriented x3 Psych Appearance: grossly normal Mental Status: mental status grossly normal Assessment & Plan Assessment & Plan (1) GERD (gastroesophageal reflux disease): Code(s): K21.9 - Gastro-esophageal reflux disease without esophagitis Qualifiers: Esophagitis presence: esophagitis presence not specified Qualified Code(s): K21.9 - Gastro-esophageal reflux disease without esophagitis (2) Postprandial abdominal bloating: Code(s): R14.0 - Abdominal distension (gaseous) (3) Constipation: Code(s): K59.00 - Constipation, unspecified Qualifiers: Constipation type: chronic idiopathic constipation Qualified Code(s): K59.04 - Chronic idiopathic constipation (4) IBS (irritable bowel syndrome): Code(s): K58.9 - Irritable bowel syndrome without diarrhea Qualifiers: Irritable bowel syndrome type: with constipation Qualified Code(s): K58.1 - Irritable bowel syndrome with constipation Plan Continue pantoprazole in the morning. Continue Creon with meals. Patient reports that it helps with her bloating. Patient was encouraged to eat smaller meals and more often. Discussed with patient the importance of avoiding eating late at night. Staying upright for minimum 3-4 hours after meals discussed with her. Patient will stop taking sucralfate that could be contributing to her constipation. She will take famotidine at bedtime instead. Continue taking Linzess. Encouraged to increase fluid intake and activity to promote better bowel motility. Patient will report in 6 months, sooner on as needed basis. Patient is agreeable to this plan and verbalizes understanding of instructions. She was given the opportunity to ask questions all questions answered. Thank you for allowing me to participate in his care Medications: New famotidine 40 mg PO BEDTIME 90 tabs 1RF Refilled [id number] 24,000-76,000 -120,000 unit (Creon) administer with meals and/or snacks 1 cap PO QID 120 caps 2RF K58.9 - Irritable bowel syndrome without diarrhea linaclotide (Linzess) 290 mcg PO QAM 90 caps 3RF K59.00 - Constipation, unspecified simethicone 125 mg PO BID-QID PRN 120 caps 3RF abdominal distention K21.9 - Gastro-esophageal reflux disease without esophagitis pantoprazole take one tablet half an hour before breakfast 40 mg PO DAILY 90 tabs 2RF K21.9 - Gastro-esophageal reflux disease without esophagitis Discontinued sucralfate Discontinued Reason: Doctor's Order 10 mL PO BEDTIME 400 mL 3RF K21.9 - Gastro-esophageal reflux disease without esophagitis Coding Level of Care Code Est Pt Level 4 (09430) Diagnoses Gastroesophageal reflux disease, unspecified whether esophagitis present K21.9 Esophagitis presence: esophagitis presence not specified Postprandial abdominal bloating R14.0 Chronic idiopathic constipation K59.04 Constipation type: chronic idiopathic constipation Irritable bowel syndrome with constipation K58.1 Irritable bowel syndrome type: with constipation Time Spent (min) 35 Comment 20 minutes spent with patient and additional 15 minutes spent reviewing her records
[2023-12-26 11:22] VITALS: BP 136/67; PULSE 82; BMI 34.7
== END 2023-12-26 11:49 | disposition home or self-care (01) ==
PROVIDERS: PCP Internal Medicine; Visit Provider Nurse Practitioner Family
DX: K21.9 Gastro-esophageal reflux disease without esophagitis (principal); R14.0 Abdominal distension (gaseous); K59.04 Chronic idiopathic constipation; K58.1 Irritable bowel syndrome with constipation
CPT/HCPCS: 99214

== ENCOUNTER → 2023-12-26 11:03 | Outpatient (BNVA) | payer OTHER, SELFPAY | PROVIDERS: PCP Internal Medicine; Visit Provider Nurse Practitioner Family | DX: K21.9 Gastro-esophageal reflux disease without esophagitis (principal); K59.04 Chronic idiopathic constipation; K58.1 Irritable bowel syndrome with constipation; R14.0 Abdominal distension (gaseous) | CPT/HCPCS: 99212 ==

== ENCOUNTER 2024-03-05 08:46 | Outpatient (REF) | payer OTHER, SELFPAY | END 2024-03-05 08:47 | disposition home or self-care (01) | LOC: HO.MAMMO 08:46 | PROVIDERS: PCP Internal Medicine; Visit Provider Internal Medicine | DX: Z12.31 Encounter for screening mammogram for malignant neoplasm of breast (principal) | CPT/HCPCS: 77063; 77067 ==

== ENCOUNTER → 2024-03-05 09:00 | Outpatient (BNV) | payer OTHER, SELFPAY | PROVIDERS: PCP Internal Medicine; Visit Provider Radiology Diagnostic Radiology | DX: Z12.31 Encounter for screening mammogram for malignant neoplasm of breast (principal) | CPT/HCPCS: 77063; 77067 ==

== ENCOUNTER 2024-04-21 16:23 | Emergency (ER) | payer OTHER, SELFPAY ==
--- NOTE | ~2024-04-21 | CT_ITS ---
EXAMINATION: CT ABDOMEN AND PELVIS WITH CONTRAST CLINICAL INFORMATION: Epigastric, back and bilateral lower quadrant pain COMPARISON: Previous CT of the abdomen and pelvis most recent September 2023 TECHNIQUE: Multidetector volumetric images were obtained from the superior aspect of the liver through the pubic symphysis following administration 85 mL of Omnipaque 350 intravenous contrast. Sagittal and coronal reformatted images were obtained on the technologist's workstation. Oral contrast: Yes This CT examination was performed using dose optimization techniques as appropriate, variously including the following: *Automated exposure control *Adjustment of mA and/or kV according to patient size (this includes techniques or standardized protocols for targeted exams where dose is matched to indication/reason for exam; i.e. extremities or head) *Use of iterative reconstruction technique DLP: 716 mGy-cm FINDINGS: LUNG BASES: The visualized lung bases are unremarkable. LIVER, GALLBLADDER, AND BILIARY TREE: The liver is normal in size, shape, and attenuation. No focal hepatic lesion or biliary ductal dilatation is present. Low-attenuation in the gallbladder questionable for small cholesterol stone. Gallbladder otherwise normal. PANCREAS: Fatty infiltration of the head of the pancreas. SPLEEN: Unremarkable. ADRENAL GLANDS: Unremarkable. KIDNEYS AND URETERS: The kidneys are normal in size, shape, and attenuation. No hydronephrosis, hydroureter. Small 3 mm stone in the upper pole of the right kidney. No perinephric stranding. BLADDER: Unremarkable. GASTROINTESTINAL TRACT: Small duodenal diverticulum adjacent to the head of the pancreas. The small and large bowel are otherwise unremarkable. The appendix is unremarkable. ABDOMINAL WALL: No significant hernia is appreciated. Postsurgical changes in the periumbilical region from likely hernia repair. LYMPH NODES: Normal. VASCULAR: Unremarkable. PELVIC VISCERA: Unremarkable. OSSEOUS STRUCTURES: Unremarkable. CT/CT abdomen pelvis w IV con IMPRESSION: Small nonobstructing right renal stone. Probable small gallstone in the gallbladder.. Fleischner guidelines were followed.
[2024-04-21 16:40] VITALS: BP 127/64; PULSE 83; RESP 17; TEMP 36.6; O2SAT 97; BMI 36.2
--- NOTE | 2024-04-21 16:40 | ED_ITS ---
HPI - General Adult General Chief complaint: Abdominal Pain Stated complaint: vomiting and abd pain Time Seen by Provider: 04/21/24 18:45 Source: patient and family Mode of arrival: ambulatory Limitations: no limitations History of Present Illness ED Provider: Dr. Dominique Loomis HPI narrative: patient comes to the emergency room complaining of diffuse abdominal cramping for several days, Complaining of couple episodes of vomiting, no diarrhea. patient states that she has bilateral back pain, flank pain, generalized malaise, can not get comfortable. A chest pain or shortness of breath. No fever or chills. No hematuria or dysuria. Related Data Home Medications ?Medication ?Instructions ?Recorded ?Confirmed zolpidem 5 mg tablet 5 mg PO BEDTIME PRN 03/22/22 diclofenac sodium 1 % topical gel g topical pain 02/05/23 escitalopram oxalate 10 mg tablet 10 mg PO QAM 02/05/23 tramadol 50 mg tablet 50 mg PO Q8H PRN 09/25/23 Previous Rx's ?Medication ?Instructions ?Recorded acetaminophen 325 mg tablet 650 mg (2 x 325 mg) PO Q6H PRN 02/27/23 pain #30 tabs lisinopril 2.5 mg tablet 2.5 mg PO DAILY #7 tabs 03/19/23 polyethylene glycol 3350 17 17 g PO BID PRN constipation #238 09/25/23 gram/dose oral powder (Miralax) grams famotidine 40 mg tablet 40 mg PO BEDTIME #90 tabs 12/26/23 linaclotide 290 mcg capsule 290 mcg PO QAM #90 caps 12/26/23 (Linzess) [id number]-[id number]-bcsgahi 1 cap PO QID #120 caps 12/26/23 24,000-76,000-120,000 unit capsule,delayed rel (Creon) pantoprazole 40 mg tablet,delayed 40 mg PO DAILY #90 tabs 12/26/23 release simethicone 125 mg capsule 125 mg PO BID-QID PRN abdominal 12/26/23 distention #120 caps hyoscyamine sulfate 0.125 mg tablet 0.125 mg PO QID PRN dyspepsia #10 04/21/24 tabs ondansetron HCl 4 mg tablet 4 mg PO Q6H PRN nausea and 04/21/24 vomiting #10 tabs Allergies Allergy/AdvReac Type Severity Reaction Status Date / Time No Known Allergies Allergy Verified 04/21/24 16:43 Review of Systems 2 Review of Systems: Constitutional : No Weight loss, No Fever, No Chills, No Night Sweats, No Fatigue, No Malaise ENT/Mouth : No Hearing loss, No Ear Pain, No Nasal Congestion, No Sinus Pain, No Hoarseness, No sore throat, No Rhinorrhea, No Swallowing Difficulty Eyes: No Eye Pain, No Swelling, No Redness, No Foreign Body, No Discharge, No Vision Changes Cardiovascular : No Chest Pain, No SOB, No Dyspnea on Exertion, No Orthopnea, No Edema, No Palpitations Respiratory : No Cough, No Sputum, No Wheezing, No Smoke Exposure, No Dyspnea Gastrointestinal : Complaining of nausea and vomiting, no diarrhea or constipation, complaining of diffuse abdominal discomfort, worse in the epigastric area and upper quadrants Genitourinary : no irregular bleeding, No Dysuria, No Urinary Frequency, No Hematuria, No Urinary Incontinence, No Urgency, No Flank Pain, No Urinary Flow Changes, No Hesitancy Musculoskeletal : No joint pain, No Myalgias, No Joint Swelling Skin : No Skin Lesions, No rash Neuro : No Weakness, No Numbness, No Paresthesias, No Loss of Consciousness, No Dizziness, No Headache Psych : No Anxiety/Panic, No Depression, No SI/HI/AH/VH, No Social Issues, Heme/Lymph: No Bruising, No Bleeding,No Lymphadenopathy Endocrine : No Polyuria, No Polydipsia, No Temperature Intolerance PMFSH Past Medical History Medical History Helicobacter pylori (H. pylori) Tubular adenoma Osteoarthritis Depression Thyroid nodule Graves' disease in remission Vitamin D deficiency Surgical History History of bladder surgery History of incision and drainage Hx of colonoscopy History of esophagogastroduodenoscopy (EGD) History of umbilical hernia repair Family History Family History Mother Diabetes Other Thyroid disease Social History Social History Alcohol intake: never Patient Tobacco Use Status: Former Tobacco user Quit Date: >25 yrs ago Smoked in Last 30 Days: No Use of substances other than those prescribed or required for medical reasons: No Advance Directives: No Advance Directives Information Provided: No Physical Exam ED Vital Signs: Vital Signs - 24 hr 04/21/24 16:40 04/21/24 18:46 04/21/24 21:39 Temperature 97.8 F 98.1 F 98.3 F Pulse Rate 83 72 83 Respiratory Rate 17 16 16 Blood Pressure 127/64 140/54 H 120/44 L Pulse Oximetry 97 97 94 Oxygen Delivery Method Room Air Room Air Room Air BMI result Body Mass Index 36.2 Const Other: Appearance: Alert. Oriented X3. looks uncomfortable Eyes: Pupils equal, round and reactive to light. ENT: Pharynx normal. Neck: Normal inspection. Neck supple. No lymph nodes noted. No crepitus CVS: Normal heart rate and rhythm. Pulses normal. Normal S1 and S2 Respiratory: No respiratory distress. Breath sounds normal. No Wheezing. No rales Abdomen: Soft and nontender. No rigidity. mild generalized distention. Skin: Skin warm and dry. Normal skin color. Normal skin turgor. Extremities: No lower extremity edema. No Lacerations. No Rash Neuro: Oriented X 3. No motor deficit. No sensory deficit. Moving all extremities. No slurred speech. CN 2 through 12 grossly intact Psych: calm, cooperative, normal affect Course Course Course Narrative: This is an RME done by [facility]: Additional HPI, ROS, PE not included below will be deferred to primary provider.68 year old female with a hx of kidney stone, depression, h. pylori, osteoarthritis, tubular adenoma, Vit D deficiency, and grave's disease presenting with complaints of vomiting and diffuse abdominal pain since last night, worsening today. No difficulty with urination. Appearance: Alert.? Oriented X3.? No acute cardiopulmonary distress distress.? Head: Normocephalic, atraumatic, no step-offs or deformities CVS: Pulses normal.? Respiratory: No respiratory distress.? Abdomen: Soft and diffuse tenderness.? Skin: ? Normal skin color. Extremities: 5/5 strength to bilateral upper and lower extremities Back: No midline tenderness, no C-spine tenderness, full range of motion, No CVA tenderness bilaterally Neuro: Oriented X 3.? No motor deficit.? No sensory deficit. Medications Administered Discontinued Medications Generic Name Dose Route Start Last Admin Trade Name Freq PRN Reason Stop Dose Admin Sodium Chloride 1,000 mls @ 999 mls/hr 04/21/24 18:58 04/21/24 20:21 Ns IVCONT 04/21/24 19:58 Infused .Q1H1M ONE Infusion Iohexol 85 ml 04/21/24 19:27 04/21/24 19:28 Iohexol 350 Mg/Ml 100 Ml Infus..Btl IV 04/21/24 19:28 85 ml ONCE ONE Administration Morphine Sulfate 4 mg 04/21/24 18:58 04/21/24 19:10 Morphine Sulfate 4 Mg/Ml Cartridge IVPUSH 04/21/24 18:59 4 mg ONCE ONE Administration Protocol Ondansetron HCl 4 mg 04/21/24 18:58 04/21/24 19:10 Ondansetron Hcl 4 Mg/2 Ml Vial IVPUSH 04/21/24 18:59 4 mg ONCE ONE Administration Medical Decision Making Medical Decision Making [facility] Narrative: - my interpretation of labs, normal hematology, seems slightly elevated, nonspecific, p.o. slightly bit bumped. -Patient was given IV fluids, morphine and Zofran. Patient states that she feels much better. Patient asymptomatic at this time. - CT scan does not show acute ureterolithiasis or any obvious abnormality. there is a stone in the kidney but has not reached the ureter - Patient states that she feels well and ready to go home. patient ambulatory Differential Diagnosis Differential Diagnoses: The differential diagnosis associated with the presentation includes ( Ureterolithiasis, pancreatitis, SBO) Admission/Observation Consideration of admission/observation: Escalation of care including admission/observation considered ( given patient's symptoms, patient was considered) Lab Data [facility] Lab Attestation statement: I reviewed the patient's lab results. 04/21/24 17:02 04/21/24 17:03 Labs: Lab Results 04/21/24 04/21/24 04/21/24 Range/Units 17:02 17:03 18:46 WBC 7.6 (4.8-10.8) X10*3/uL RBC 4.70 (4.20-5.50) X10*6/uL Hgb 13.3 (12.0-16.0) g/dl Hct 41.1 (37.0-47.0) % MCV 87.4 (80.0-98.0) fL MCH 28.3 (27.0-33.0) pg MCHC 32.4 (31.0-35.0) g/dl RDW 12.2 (11.0-16.0) % Plt Count 246 (160-400) X10*3/uL MPV 11.2 (9.4-12.3) fL Immature Gran % (Auto) 0.4 (0.0-0.4) % Neut % (Auto) 71.1 (45-73) % Lymph % (Auto) 17.4 L (20-40) % Evangeline % (Auto) 7.7 (2-11) % Eos % (Auto) 2.9 (0-4) % Baso % (Auto) 0.5 (0-2) % Lymph # (Auto) 1.3 (1.2-4.9) X10*3/uL Evangeline # (Auto) 0.6 (0.1-1.2) X10*3/uL Eos # (Auto) 0.2 (0.0-0.4) X10*3/uL Baso # (Auto) 0.0 (0.0-0.2) X10*3/uL Abs Immat Gran (auto) 0.03 (0.00-0.03) X10*3/uL Absolute Neuts (auto) 5.4 (2.0-8.3) x10*3/uL Absolute Nucleated RBC 0.000 (0.0-0.012) X10*3/uL Nucleated RBC % (auto) 0.0 (0.0-0.2) /100WBC Sodium 146 H (135-145) mmol/L Potassium 4.0 (3.3-5.1) mmol/L Chloride 108 (96-108) mmol/L Carbon Dioxide 28 (22-29) mmol/L Anion Gap 14 (12-20) BUN 18 H (9-16) mg/dL Creatinine 0.71 (0.5-1.4) mg/dL Estim Creat Clear Calc 80.1 Estimated GFR > 60 Random Glucose 130 H (60-115) mg/dL Calcium 9.1 (8.4-10.2) mg/dL Magnesium 2.1 (1.6-2.6) mg/dL Total Bilirubin 1.2 H (0.0-1.0) mg/dL AST 81 H (5-31) U/L ALT 47 H (0-31) U/L Alkaline Phosphatase 76 (39-117) U/L Total Protein 7.5 (6.5-8.0) g/dL Albumin 4.2 (3.5-5.0) g/dL Lipase 30 (8-78) U/L Urine Color Dark Yellow Urine Appearance Cloudy Urine pH 5.5 (5.0-9.0) Ur Specific Thornton >= 1.030 H (1.005-1.025) Urine Protein 30 (1+) H (Neg-Trace) mg/dL Urine Glucose (UA) Negative (Negative) mg/dL Urine Ketones Trace (Negative) mg/dL Urine Blood Negative (Negative) Urine Nitrite Negative (Negative) Ur Leukocyte Esterase Trace H (Negative) Urine RBC 0-2 (0-2) /HPF Urine WBC 0-5 (0-5) /HPF Ur Squamous Epith Cells 3-5 (0-2) /HPF Urine Bacteria Trace (None Seen) Hyaline Casts 0-2 (0-2) /LPF Independent Interpretation I performed an independent interpretation of an: CT Scan Radiology Impression Discussion of test interpretation with radiology: I have reviewed the radiologist's reading. Radiologist Impression: FINDINGS: LUNG BASES: The visualized lung bases are unremarkable. LIVER, GALLBLADDER, AND BILIARY TREE: The liver is normal in size, shape, and attenuation. No focal hepatic lesion or biliary ductal dilatation is present. Low-attenuation in the gallbladder questionable for small cholesterol stone. Gallbladder otherwise normal. PANCREAS: Fatty infiltration of the head of the pancreas. SPLEEN: Unremarkable. ADRENAL GLANDS: Unremarkable. KIDNEYS AND URETERS: The kidneys are normal in size, shape, and attenuation. No hydronephrosis, hydroureter. Small 3 mm stone in the upper pole of the right kidney. No perinephric stranding. BLADDER: Unremarkable. GASTROINTESTINAL TRACT: Small duodenal diverticulum adjacent to the head of the pancreas. The small and large bowel are otherwise unremarkable. The appendix is unremarkable. ABDOMINAL WALL: No significant hernia is appreciated. Postsurgical changes in the periumbilical region from likely hernia repair. LYMPH NODES: Normal. VASCULAR: Unremarkable. PELVIC VISCERA: Unremarkable. OSSEOUS STRUCTURES: Unremarkable. CT/CT abdomen pelvis w IV con IMPRESSION: Small nonobstructing right renal stone. Probable small gallstone in the gallbladder.. Critical Care Time Critical Care Time Critical Care Time: Yes Total Critical Care Time: 60 Attestation: I have personally provided critical care time. Time includes review of lab data, radiology results, discussion with consultants, and monitoring for potential decompensation. Intervention performed as documented. Discharge Plan Discharge Clinical Impression: Abdominal pain, Nausea & vomiting Patient Disposition: Home, Self-Care Instructions: Acute Nausea and Vomiting (ED), Abdominal Pain (ED) Additional Instructions: Please follow-up with your primary care physician tomorrow. If you have any worsening or new symptoms, please return to the emergency room or call 911 Prescriptions: New hyoscyamine sulfate 0.125 mg tablet 0.125 mg PO QID PRN (Reason: dyspepsia) Qty: 10 0RF ondansetron HCl 4 mg tablet 4 mg PO Q6H PRN (Reason: nausea and vomiting) Qty: 10 0RF No Action acetaminophen 325 mg tablet 650 mg PO Q6H PRN (Reason: pain) Qty: 30 0RF lisinopril 2.5 mg tablet 2.5 mg PO DAILY Qty: 7 0RF zolpidem 5 mg tablet 5 mg PO BEDTIME PRN escitalopram oxalate 10 mg tablet 10 mg PO QAM diclofenac sodium 1 % gel topical tramadol 50 mg tablet 50 mg PO Q8H PRN polyethylene glycol 3350 [Miralax] 17 gram/dose powder 17 g PO BID PRN (Reason: constipation) Qty: 238 0RF simethicone 125 mg capsule 125 mg PO BID-QID PRN (Reason: abdominal distention) Qty: 120 3RF Creon 24,000-76,000 -120,000 unit capsule,delayed release(DR/EC) 1 cap PO QID Qty: 120 2RF Rx Instructions: administer with meals and/or snacks Linzess 290 mcg capsule 290 mcg PO QAM Qty: 90 3RF famotidine 40 mg tablet 40 mg PO BEDTIME Qty: 90 1RF pantoprazole 40 mg tablet,delayed release (DR/EC) 40 mg PO DAILY Qty: 90 2RF Rx Instructions: take one tablet half an hour before breakfast Print Language: Yakut
[2024-04-21 17:07] LABS: MANUAL DIFF FLAG NO
[2024-04-21 17:23] LABS: Alanine Aminotransferase 47 U/L (0-31); Albumin Level 4.2 g/dL (3.5-5.0); Alkaline Phosphatase 76 U/L (39-117); Anion Gap 14 (12-20); Aspartate Amino Transferase 81 U/L (5-31); Bilirubin Total 1.2 mg/dL (0.0-1.0); Blood Urea Nitrogen 18 mg/dL (9-16); Calcium 9.1 mg/dL (8.4-10.2); Carbon Dioxide 28 mmol/L (22-29); Chloride 108 mmol/L (96-108); Creatinine Clr Calc Pharmacy 80.1; Estimated Glomerular Filt Rate > 60; Glucose Random 130 mg/dL (60-115); Lipase 30 U/L (8-78); Magnesium 2.1 mg/dL (1.6-2.6); Sodium 146 mmol/L (135-145); Total Protein 7.5 g/dL (6.5-8.0)
[2024-04-21 17:33] LABS: Basophils Percent Auto 0.5 % (0-2); Eosinophils Absolute Auto 0.2 X10*3/uL (0.0-0.4); Eosinophils Percent Auto 2.9 % (0-4); Hematocrit 41.1 % (37.0-47.0); Hemoglobin 13.3 g/dl (12.0-16.0); Imm Gran Abs Auto 0.03 X10*3/uL (0.00-0.03); Imm Gran Pct Auto 0.4 % (0.0-0.4); Lymphocytes Absolute Auto 1.3 X10*3/uL (1.2-4.9); Lymphocytes Percent Auto 17.4 % (20-40); Mean Corpuscular HGB Conc 32.4 g/dl (31.0-35.0); Mean Corpuscular Hemoglobin 28.3 pg (27.0-33.0); Mean Corpuscular Volume 87.4 fL (80.0-98.0); Mean Platelet Volume 11.2 fL (9.4-12.3); Monocytes Absolute Auto 0.6 X10*3/uL (0.1-1.2); Monocytes Percent Auto 7.7 % (2-11); Neutrophils Absolute Auto 5.4 x10*3/uL (2.0-8.3); Neutrophils Percent Auto 71.1 % (45-73); Platelet Count 246 X10*3/uL (160-400); Red Cell Distribution Width 12.2 % (11.0-16.0); White Blood Count 7.6 X10*3/uL (4.8-10.8)
--- OUTSIDE RECORDS SUMMARY | 2024-04-21 18:45 | XMS_ITS | Patient Health Record ---
Author Organization [facility] Address [address] [place] [address] Care Team Providers Care Soda Worker Name Role Phone Liz Crockett MD Primary Care Provider Unavail able David Degroot Unavailable [phone] REASON FOR REFERRAL No Information MEDICATIONS Medication [...] reflux disease without esophagitis (K21.9) Active confirmed 669633274 Problem History of adenomatous polyp of colon (Z86.010) Active confirmed 627572815 Problem Encounter for screening for malignant neoplasm of colon (Z12.11) Active confirmed [id number] Problem Encounter for screening for malignant neoplasm of rectum (Z12.12) Active confirmed Screening for malignant neoplasm of rectum (969925136) PLAN OF TREATMENT Future Test Test Name Order Date UPPER GI ENDOSCOPY 01/16/2016 COLONOSCOPY 01/16/2016 Insurance Providers Payer Name Payer Address Payer Phone Subscriber Number Group Number Insured Name Patient Relationship to Insured Coverage Start Date Coverage End Date MED[employer] OF [place] [address] [place] [phone] [id number] HAVEN RODRIGUEZ Self - patient is the insured MEDICAL (GENERAL) HISTORY Medical History History ICD Code Nodular goiter Depression GERD Tubular adenoma removed in 2008--colonos copy with Dr. Ramirez Arthritis Kidney stones Denies CO,DM,CVA,Lung disease,renal dise ase Surgical History Surgery Date(Month/Year) Hernia-umbilical 2008
[2024-04-21 18:46] VITALS: BP 140/54; PULSE 72; RESP 16; TEMP 36.7; O2SAT 97
[2024-04-21 18:54] LABS: Appearance Urine Cloudy; Color Urine Dark Yellow; Glucose Urine UA Negative (Negative); Leukocyte Esterase Urine Trace (Negative); Nitrite Urine Negative (Negative); PH 5.5 (5.0-9.0); Specific Gravity - Urine >= 1.030 (1.005-1.025); UMIC TRIGGER UACC YES; Urine Blood Negative (Negative); Urine Ketones Trace mg/dL (Negative); Urine Protein 30 (1+) mg/dL (Neg-Trace)
[2024-04-21 19:10] LABS: Bacteria Urine Trace (None Seen); Hyaline Casts Urine 0-2 /LPF (0-2); RBC Urine 0-2 /HPF (0-2); WBC Urine 0-5 /HPF (0-5)
[2024-04-21] MEDS: Morphine Sulfate 4 MG/ML CARTRIDGE IVPUSH (19:10)
[2024-04-21] MEDS: 0.9 % Sodium Chloride 1,000 ML 999 ML IVCONT (19:10)
[2024-04-21] MEDS: ondansetron HCL 4 MG/2 ML VIAL IVPUSH (19:10)
[2024-04-21] MEDS: iohexoL 350 MG/ML 100 ML INFUS..BTL 85 ML IV (19:28)
[2024-04-21 21:39] VITALS: BP 120/44; PULSE 83; RESP 16; TEMP 36.8; O2SAT 94
[2024-04-21 22:52] VITALS: BP 120/44; PULSE 83; RESP 16; TEMP 36.8; O2SAT 94
== END 2024-04-21 22:53 | disposition home or self-care (01) ==
PROVIDERS: Physician Assistant; Emergency Provider Emergency Medicine; PCP Internal Medicine
DX: R10.30 Lower abdominal pain, unspecified (principal); R10.13 Epigastric pain; R11.2 Nausea with vomiting, unspecified; E05.00 Thyrotoxicosis with diffuse goiter without thyrotoxic crisis or storm; E55.9 Vitamin D deficiency, unspecified; Z87.891 Personal history of nicotine dependence; Z79.899 Other long term (current) drug therapy
CPT/HCPCS: 36415; 74177; 80053; 81001; 83690; 83735; 85025; 96361; 96374; 96375; 99284; J2270; J2405; Q9967

== ENCOUNTER 2024-08-25 04:49 | Emergency (ER) | payer OTHER, SELFPAY ==
--- NOTE | ~2024-08-25 | CT_ITS ---
EXAMINATION: CT ABDOMEN AND PELVIS WITHOUT CONTRAST CLINICAL INFORMATION: Right flank pain. Right upper quadrant pain. History of kidney stones. COMPARISON: CT abdomen pelvis 04/21/2024 TECHNIQUE: Multidetector volumetric imaging was performed from the superior aspect of the liver through the pubic symphysis. Sagittal and coronal reformatted images were obtained on the technologist's workstation. This CT examination was performed using dose optimization techniques as appropriate, variously including the following: *Automated exposure control *Adjustment of mA and/or kV according to patient size (this includes techniques or standardized protocols for targeted exams where dose is matched to indication/reason for exam; i.e. extremities or head) *Use of iterative reconstruction technique DLP: 716 mGy-cm FINDINGS: LUNG BASES: Partial visualization of at least mild scattered coronary artery calcific atherosclerosis. LIVER, GALLBLADDER, AND BILIARY TREE: Benign punctate calcification at the dome of the liver which may represent a chronic calcified granuloma similar findings present 04/21/2024. The liver is otherwise normal in appearance. The gallbladder is unremarkable with no evidence of radiopaque gallstones, gallbladder wall thickening, or obvious pericholecystic inflammatory changes. PANCREAS: Unremarkable. SPLEEN: Unremarkable. ADRENAL GLANDS: Unremarkable. KIDNEYS AND URETERS: A nonobstructing 6 mm x 3 mm calculus is present in the interpolar segment of the right kidney. No hydronephrosis or perinephric inflammatory changes of the kidneys. No ureterectasis. BLADDER: Unremarkable. GASTROINTESTINAL TRACT: Normal appendix. No free intraperitoneal fluid or gas collections. No intestinal dilatation or mural thickening. Normal appearance of the stomach. ABDOMINAL WALL: No significant hernia is appreciated. LYMPH NODES: Normal. VASCULAR: Mild scattered calcific atherosclerosis. PELVIC VISCERA: Normal appearance of uterus. No adnexal lesions. OSSEOUS STRUCTURES: Moderate to marked L4-L5 intervertebral disc space narrowing partially visualized moderate posterior disc-osteophyte complex. No vertebral body compression deformities. CT/CT abdomen pelvis wo IV con IMPRESSION: *No acute abnormalities identified. *Single nonobstructing 6 mm x 3 mm calculus within the interpolar segment of the right kidney. No acute perinephric inflammatory changes. No hydronephrosis or ureterectasis. Electronically signed by: Juan J Jacobs MD 08/25/2024 07:11 AM EDT
[2024-08-25 04:57] VITALS: BP 163/70; PULSE 84; RESP 20; TEMP 36.6; O2SAT 97; BMI 34.7
--- NOTE | 2024-08-25 05:09 | PC.NURSE ---
blood rawn and sent to labs. IV #20 L-AC. Pt crying, c/o 09/[address]Peters garrett aware awaiting orders at this time.
[2024-08-25 05:11] LABS: Basophils Percent Auto 0.6 % (0-2); Eosinophils Absolute Auto 0.2 X10*3/uL (0.0-0.4); Eosinophils Percent Auto 3.4 % (0-4); Hematocrit 36.7 % (37.0-47.0); Hemoglobin 12.2 g/dl (12.0-16.0); Imm Gran Abs Auto 0.02 X10*3/uL (0.00-0.03); Imm Gran Pct Auto 0.4 % (0.0-0.4); Lymphocytes Absolute Auto 1.1 X10*3/uL (1.2-4.9); Lymphocytes Percent Auto 23.6 % (20-40); MANUAL DIFF FLAG NO; Mean Corpuscular HGB Conc 33.2 g/dl (31.0-35.0); Mean Corpuscular Hemoglobin 28.8 pg (27.0-33.0); Mean Corpuscular Volume 86.8 fL (80.0-98.0); Mean Platelet Volume 10.8 fL (9.4-12.3); Monocytes Absolute Auto 0.6 X10*3/uL (0.1-1.2); Monocytes Percent Auto 13.5 % (2-11); Neutrophils Absolute Auto 2.8 x10*3/uL (2.0-8.3); Neutrophils Percent Auto 58.5 % (45-73); Platelet Count 205 X10*3/uL (160-400); Red Blood Count 4.23 X10*6/uL (4.20-5.50); Red Cell Distribution Width 12.3 % (11.0-16.0); White Blood Count 4.7 X10*3/uL (4.8-10.8)
--- NOTE | 2024-08-25 05:22 | ED.ABDPAIN ---
HPI - Abdominal Pain General Chief Complaint: Abdominal Pain Stated Complaint: kidney stones Time Seen by Provider: 08/25/24 05:11 Source: patient Mode of arrival: ambulatory Limitations: no limitations History of Present Illness ED Provider: Dr. Dominique Loomis HPI narrative: Patient comes to the emergency room complaining of severe right upper quadrant and right-sided flank pain. Patient states he has history of gallstones and kidney stones. Patient states that last night before she went to bed, she was feeling well. 4 hours ago, patient woke up with severe pain, constant,, radiating towards the back. Patient states that because of the pain she vomited twice. Patient took Motrin 3 hours ago without any relief. Patient states that she tried to drink water to help flush the kidney stones , but she vomited Related Data Home Medications ?Medication ?Instructions ?Recorded ?Confirmed zolpidem 5 mg tablet 5 mg PO BEDTIME PRN 03/22/22 diclofenac sodium 1 % topical gel g topical pain 02/05/23 escitalopram oxalate 10 mg tablet 10 mg PO QAM 02/05/23 tramadol 50 mg tablet 50 mg PO Q8H PRN 09/25/23 Previous Rx's ?Medication ?Instructions ?Recorded acetaminophen 325 mg tablet 650 mg (2 x 325 mg) PO Q6H PRN 02/27/23 pain #30 tabs lisinopril 2.5 mg tablet 2.5 mg PO DAILY #7 tabs 03/19/23 polyethylene glycol 3350 17 17 g PO BID PRN constipation #238 09/25/23 gram/dose oral powder (Miralax) grams linaclotide 290 mcg capsule 290 mcg PO QAM #90 caps 12/26/23 (Linzess) [id number] 1 cap PO QID #120 caps 12/26/23 24,000-76,000-120,000 unit capsule,delayed rel (Creon) pantoprazole 40 mg tablet,delayed 40 mg PO DAILY #90 tabs 12/26/23 release simethicone 125 mg capsule 125 mg PO BID-QID PRN abdominal 12/26/23 distention #120 caps hyoscyamine sulfate 0.125 mg tablet 0.125 mg PO QID PRN dyspepsia #10 04/21/24 tabs ondansetron HCl 4 mg tablet 4 mg PO Q6H PRN nausea and 04/21/24 vomiting #10 tabs famotidine 40 mg tablet 40 mg PO BEDTIME #90 tabs 06/23/24 Allergies Allergy/AdvReac Type Severity Reaction Status Date / Time No Known Allergies Allergy Verified 08/25/24 04:59 Review of Systems Review of Systems Constitutional : No Weight loss, No Fever, No Chills, No Night Sweats, No Fatigue, No Malaise ENT/Mouth : No Hearing loss, No Ear Pain, No Nasal Congestion, No Sinus Pain, No Hoarseness, No sore throat, No Rhinorrhea, No Swallowing Difficulty Eyes: No Eye Pain, No Swelling, No Redness, No Foreign Body, No Discharge, No Vision Changes Cardiovascular : No Chest Pain, No SOB, No Dyspnea on Exertion, No Orthopnea, No Edema, No Palpitations Respiratory : No Cough, No Sputum, No Wheezing, No Smoke Exposure, No Dyspnea Gastrointestinal : Complaining of nausea and vomiting, No Diarrhea, No Constipation, complaining of right upper quadrant pain Genitourinary : no irregular bleeding, No Dysuria, No Urinary Frequency, No Hematuria, No Urinary Incontinence, No Urgency, complaining of right-sided Flank Pain, No Urinary Flow Changes, No Hesitancy Musculoskeletal : No joint pain, No Myalgias, No Joint Swelling Skin : No Skin Lesions, No rash Neuro : No Weakness, No Numbness, No Paresthesias, No Loss of Consciousness, No Dizziness, No Headache Psych : No Anxiety/Panic, No Depression, No SI/HI/AH/VH, No Social Issues, Heme/Lymph: No Bruising, No Bleeding,No Lymphadenopathy Endocrine : No Polyuria, No Polydipsia, No Temperature Intolerance [facility] Past Medical History Medical History Helicobacter pylori (H. pylori) Tubular adenoma Osteoarthritis Depression Thyroid nodule Graves' disease in remission Vitamin D deficiency Surgical History History of bladder surgery History of incision and drainage Hx of colonoscopy History of esophagogastroduodenoscopy (EGD) History of umbilical hernia repair Family History Family History Mother Diabetes Other Thyroid disease Social History Social History Alcohol intake: never Patient Tobacco Use Status: Former Tobacco user Advance Directives: No Advance Directives Information Provided: No Do you have a plan to hurt others: No Plan Physical Exam ED Vital Signs: Vital Signs - 24 hr 08/25/24 04:57 08/25/24 06:34 Temperature 97.9 F 98.4 F Pulse Rate 84 81 Respiratory Rate 20 18 Blood Pressure 163/70 H 156/71 H Pulse Oximetry 97 97 Oxygen Delivery Method Room Air Room Air BMI result Body Mass Index 34.7 Const Other: Appearance: Alert. Oriented X3. Seems fairly comfortable Eyes: Pupils equal, round and reactive to light. ENT: Pharynx normal. Neck: Normal inspection. Neck supple. No lymph nodes noted. No crepitus CVS: Normal heart rate and rhythm. Pulses normal. Normal S1 and S2 Respiratory: No respiratory distress. Breath sounds normal. No Wheezing. No rales Abdomen: Soft, does not seem to have significant pain to palpation, seems to have more tenderness on the right flank pain Skin: Skin warm and dry. Normal skin color. Normal skin turgor. Extremities: No lower extremity edema. No Lacerations. No Rash Neuro: Oriented X 3. No motor deficit. No sensory deficit. Moving all extremities. No slurred speech. CN 2 through 12 grossly intact Psych: calm, cooperative, seems uncomfortable Course Course Course Narrative: Patient receiving IV fluids, Zofran, ketorolac All Of patient's labs and imaging pending Medical Decision Making Medical Decision Making [facility] Narrative: My interpretation of labs: Normal hematology, chemistry at baseline. Urinalysis is still resolving. However so far it seems that there is no UTI. CT scan pending Sign-out given to my colleague Dr. Gilmore Differential Diagnosis Differential Diagnoses: The differential diagnosis associated with the presentation includes (Ureterolithiasis, cholecystitis, pyelonephritis) Admission/Observation Consideration of admission/observation: Escalation of care including admission/observation considered (Given patient's amount of discomfort, observation was considered) Lab Data [facility] Lab Attestation statement: I reviewed the patient's lab results. 08/25/24 05:03 08/25/24 05:25 Labs: Lab Results 08/25/24 08/25/24 08/25/24 Range/Units 05:03 05:25 06:36 WBC 4.7 L (4.8-10.8) X10*3/uL RBC 4.23 (4.20-5.50) X10*6/uL Hgb 12.2 (12.0-16.0) g/dl Hct 36.7 L (37.0-47.0) % MCV 86.8 (80.0-98.0) fL MCH 28.8 (27.0-33.0) pg MCHC 33.2 (31.0-35.0) g/dl RDW 12.3 (11.0-16.0) % Plt Count 205 (160-400) X10*3/uL MPV 10.8 (9.4-12.3) fL Immature Gran % (Auto) 0.4 (0.0-0.4) % Neut % (Auto) 58.5 (45-73) % Lymph % (Auto) 23.6 (20-40) % [place] % (Auto) 13.5 H (2-11) % Eos % (Auto) 3.4 (0-4) % Baso % (Auto) 0.6 (0-2) % Lymph # (Auto) 1.1 L (1.2-4.9) X10*3/uL [place] # (Auto) 0.6 (0.1-1.2) X10*3/uL Eos # (Auto) 0.2 (0.0-0.4) X10*3/uL Baso # (Auto) 0.0 (0.0-0.2) X10*3/uL Abs Immat Gran (auto) 0.02 (0.00-0.03) X10*3/uL Absolute Neuts (auto) 2.8 (2.0-8.3) x10*3/uL Absolute Nucleated RBC 0.000 (0.0-0.012) X10*3/uL Nucleated RBC % (auto) 0.0 (0.0-0.2) /100WBC Hold Purple Top SEE NOTE Sodium 139 (135-145) mmol/L Potassium 3.9 (3.3-5.1) mmol/L Chloride 105 (96-108) mmol/L Carbon Dioxide 25 (22-29) mmol/L Anion Gap 13 (12-20) BUN 19 H (9-16) mg/dL Creatinine 0.67 (0.5-1.4) mg/dL Estim Creat Clear Calc 83.0 Estimated GFR > 60 Random Glucose 129 H (60-115) mg/dL Calcium 8.5 D (8.4-10.2) mg/dL Total Bilirubin 0.2 (0.0-1.0) mg/dL Direct Bilirubin < 0.2 (0.0-0.5) mg/dL AST 18 (5-31) U/L ALT 18 (0-31) U/L Alkaline Phosphatase 75 (39-117) U/L Total Protein 6.8 (6.5-8.0) g/dL Albumin 3.8 (3.5-5.0) g/dL Lipase 28 (8-78) U/L Urine Color Yellow Urine Appearance Clear Urine pH 6.0 (5.0-9.0) Ur Specific [place] >= 1.030 H (1.005-1.025) Urine Protein Trace (Neg-Trace) mg/dL Urine Glucose (UA) Negative (Negative) mg/dL Urine Ketones Negative (Negative) mg/dL Urine Blood Trace (Negative) Urine Nitrite Negative (Negative) Ur Leukocyte Esterase Negative (Negative) Medications Administered Discontinued Medications Generic Name Dose Route Start Last Admin Trade Name Freq PRN Reason Stop Dose Admin Ketorolac Tromethamine 30 mg 08/25/24 05:20 08/25/24 05:37 Ketorolac Tromethamine 30 Mg/Ml Vial IVPUSH 08/25/24 05:21 30 mg ONCE ONE Administration Ondansetron HCl 4 mg 08/25/24 05:20 08/25/24 05:37 Ondansetron Hcl 4 Mg/2 Ml Vial IVPUSH 08/25/24 05:21 4 mg ONCE ONE Administration Critical Care Time Critical Care Time Critical Care Time: Yes Total Critical Care Time: 45 Attestation: I have personally provided critical care time. Time includes review of lab data, radiology results, discussion with consultants, and monitoring for potential decompensation. Intervention performed as documented. Discharge Plan Discharge Clinical Impression: Acute flank pain Patient Disposition: Still a Patient Prescriptions: No Action famotidine 40 mg tablet 40 mg PO BEDTIME Qty: 90 1RF acetaminophen 325 mg tablet 650 mg PO Q6H PRN (Reason: pain) Qty: 30 0RF hyoscyamine sulfate 0.125 mg tablet 0.125 mg PO QID PRN (Reason: dyspepsia) Qty: 10 0RF ondansetron HCl 4 mg tablet 4 mg PO Q6H PRN (Reason: nausea and vomiting) Qty: 10 0RF lisinopril 2.5 mg tablet 2.5 mg PO DAILY Qty: 7 0RF zolpidem 5 mg tablet 5 mg PO BEDTIME PRN escitalopram oxalate 10 mg tablet 10 mg PO QAM diclofenac sodium 1 % gel topical tramadol 50 mg tablet 50 mg PO Q8H PRN polyethylene glycol 3350 [Miralax] 17 gram/dose powder 17 g PO BID PRN (Reason: constipation) Qty: 238 0RF simethicone 125 mg capsule 125 mg PO BID-QID PRN (Reason: abdominal distention) Qty: 120 3RF Creon 24,000-76,000 -120,000 unit capsule,delayed release(DR/EC) 1 cap PO QID Qty: 120 2RF Rx Instructions: administer with meals and/or snacks Linzess 290 mcg capsule 290 mcg PO QAM Qty: 90 3RF pantoprazole 40 mg tablet,delayed release (DR/EC) 40 mg PO DAILY Qty: 90 2RF Rx Instructions: take one tablet half an hour before breakfast Print Language: Setswana
[2024-08-25] MEDS: Ketorolac Tromethamine 30 MG/ML VIAL IVPUSH (05:37)
[2024-08-25] MEDS: ondansetron HCL 4 MG/2 ML VIAL IVPUSH (05:37)
--- NOTE | 2024-08-25 05:40 | PC.NURSE ---
Pt went to CT, medicated by t/w with ordered meds, see MAR
[2024-08-25 05:45] LABS: Alanine Aminotransferase 18 U/L (0-31); Albumin Level 3.8 g/dL (3.5-5.0); Alkaline Phosphatase 75 U/L (39-117); Anion Gap 13 (12-20); Aspartate Amino Transferase 18 U/L (5-31); Bilirubin Direct < 0.2 mg/dL (0.0-0.5); Bilirubin Total 0.2 mg/dL (0.0-1.0); Blood Urea Nitrogen 19 mg/dL (9-16); Calcium 8.5 mg/dL (8.4-10.2); Carbon Dioxide 25 mmol/L (22-29); Chloride 105 mmol/L (96-108); Estimated Glomerular Filt Rate > 60; Glucose Random 129 mg/dL (60-115); Lipase 28 U/L (8-78); Potassium 3.9 mmol/L (3.3-5.1); Sodium 139 mmol/L (135-145); Total Protein 6.8 g/dL (6.5-8.0)
[2024-08-25 06:34] VITALS: BP 156/71; PULSE 81; RESP 18; TEMP 36.9; O2SAT 97
[2024-08-25 06:46] LABS: Appearance Urine Clear; Color Urine Yellow; Glucose Urine UA Negative (Negative); Leukocyte Esterase Urine Negative (Negative); Nitrite Urine Negative (Negative); Specific Gravity - Urine >= 1.030 (1.005-1.025); UMIC TRIGGER UACC YES; Urine Blood Trace (Negative); Urine Ketones Negative (Negative); Urine Protein Trace mg/dL (Neg-Trace)
[2024-08-25 06:54] LABS: Bacteria Urine Trace (None Seen); Hyaline Casts Urine 0-2 /LPF (0-2); Squamous Epithelial Cell Urine 0-2 /HPF (0-2); WBC Urine 0-5 /HPF (0-5)
--- NOTE | 2024-08-25 06:54 | PC.NURSE ---
Pt reporting pain in abdomen, toradol did not help. Dr. Loomis made aware of pt pain and n/v. No new orders at this time. Urine sample sent to lab. Pt ambulating independently to [facility].
[2024-08-25] MEDS: Magnesium Hydrox/Alum Hydrox 30 ML ORAL.SUSP PO (07:29)
[2024-08-25] MEDS: Famotidine/PF 20 MG/2 ML VIAL IVPUSH (07:29)
[2024-08-25] MEDS: Acetaminophen 1,000 MG/100 ML PIGGYBACK 400 MG IV (07:29)
--- NOTE | 2024-08-25 07:37 | PC.NURSE ---
medication administered per provider order. effectiveness pending.
[2024-08-25 07:52] VITALS: BP 146/62; PULSE 78; RESP 16; TEMP 36.8; O2SAT 97
[2024-08-25 07:53] VITALS: BP 146/62; PULSE 78; RESP 16; TEMP 36.8; O2SAT 97
== END 2024-08-25 07:57 | disposition home or self-care (01) ==
PROVIDERS: Emergency Medicine; Emergency Provider Student in an Organized Health Care Education/Training Program; PCP Internal Medicine
DX: N20.0 Calculus of kidney (principal); R10.11 Right upper quadrant pain; Z87.442 Personal history of urinary calculi
CPT/HCPCS: 36415; 74176; 80048; 80076; 81001; 83690; 85025; 96374; 96375; 99283; 99284; J0131; J1885; J2405

== ENCOUNTER 2024-09-02 17:56 | Outpatient (REF) | payer OTHER, SELFPAY ==
[2024-09-02 18:06] LABS: Appearance Urine Turbid; Color Urine Yellow; Glucose Urine UA Negative (Negative); Leukocyte Esterase Urine Negative (Negative); Nitrite Urine Negative (Negative); Specific Gravity - Urine >= 1.030 (1.005-1.025); Urine Blood Negative (Negative); Urine Ketones Negative (Negative); Urine Protein Negative (Neg-Trace)
[2024-09-02 18:08] LABS: Bacteria Urine Trace (None Seen); Hyaline Casts Urine 0-2 /LPF (0-2); RBC Urine 0-2 /HPF (0-2); WBC Urine 0-5 /HPF (0-5)
== END 2024-09-02 17:57 | disposition home or self-care (01) ==
LOC: HO.HHCLNP 17:56
PROVIDERS: Visit Provider Family Medicine
DX: R10.9 Unspecified abdominal pain (principal); R10.2 Pelvic and perineal pain
CPT/HCPCS: 81001; 87086

== ENCOUNTER 2024-09-09 13:21 | Outpatient (REF) | payer OTHER, SELFPAY | END 2024-09-09 13:22 | disposition home or self-care (01) | LOC: HO.US 13:21 | PROVIDERS: PCP Internal Medicine; Visit Provider Family Medicine | DX: R10.9 Unspecified abdominal pain (principal) | CPT/HCPCS: 76775 ==

== ENCOUNTER 2024-10-18 09:55 | Outpatient (REF) | payer OTHER, SELFPAY ==
[2024-10-18 12:13] LABS: Anion Gap 12 (12-20); Blood Urea Nitrogen 17 mg/dL (9-16); Carbon Dioxide 26 mmol/L (22-29); Chloride 107 mmol/L (96-108); Cholesterol 186 mg/dL (<200); Estimated Glomerular Filt Rate > 60; Glucose Random 105 mg/dL (60-115); HDL Cholesterol 49 mg/dL (>40); LDL Cholesterol Calculated 124 mg/dL (<100); Sodium 141 mmol/L (135-145); Triglycerides 69 mg/dL (<150)
== END 2024-10-18 09:56 | disposition home or self-care (01) ==
LOC: HO.HHCL 09:55
PROVIDERS: Visit Provider Internal Medicine
DX: I10 Essential (primary) hypertension (principal)
CPT/HCPCS: 36415; 80048; 80061

== ENCOUNTER 2024-11-26 09:28 | Outpatient (AMB) | payer OTHER, SELFPAY ==
[2024-11-26 09:29] VITALS: BP 124/62; PULSE 80; O2SAT 98; BMI 35.0
--- NOTE | 2024-11-26 09:29 | MHC.OFFVIS ---
Vital Signs 11/26/24 09:29 Height 5 ft 2 in Weight 191 lb 5.78 oz BMI 35.0 BP 124/62 Blood Pressure Location Lt brachial Position Sitting Pulse 80 Pulse Source Pulse Oximeter Pulse Oximetry (%) 98 Oxygen Delivery Method Room Air Intake Visit Reasons: 6 MO F/U CONSTIPATION R/S 06/25/24 Intake Note: ESTABLISHED PATIENT Reason; 6 mos FUV. Changes/concerns? CIC. Epigastric pain. Generalized abd pain. No other concerns per pt. Hotbed Lever Operator Required: Yes Hotbed Lever Operator Services: Hotbed Lever Operator Offered & Declined Hotbed Lever Operator Name: Lala [id number] Information Interpreted: non-clinical & clinical Accompanied by: Family/Other Allergies No Known Allergies Allergy (Verified 11/26/24 09:30) HPI HPI 6 MO F/U CONSTIPATION R/S 06/25/24: Details: LAST VISIT: GERD (gastroesophageal reflux disease) Postprandial abdominal bloating Constipation IBS (irritable bowel syndrome) Plan Continue pantoprazole in the morning. Continue Creon with meals. Patient reports that it helps with her bloating. Patient was encouraged to eat smaller meals and more often. Discussed with patient the importance of avoiding eating late at night. Staying upright for minimum 3-4 hours after meals discussed with her. Patient will stop taking sucralfate that could be contributing to her constipation. She will take famotidine at bedtime instead. Continue taking Linzess. Encouraged to increase fluid intake and activity to promote better bowel motility. Patient will report in 6 months, sooner on as needed basis. Patient is agreeable to this plan and verbalizes understanding of instructions. She was given the opportunity to ask questions all questions answered. ? Thank you for allowing me to participate in his care Medications New famotidine 40 mg PO BEDTIME 90 tabs 1RF Refilled [id number]-ilbauoit-cryfehc 24,000-76,000 -120,000 unit (Creon) administer with meals and/or snacks 1 cap PO QID 120 caps 2RF K58.9 linaclotide (Linzess) 290 mcg PO QAM 90 caps 3RF K59.00 simethicone 125 mg PO BID-QID PRN 120 caps 3RF abdominal distention K21.9 pantoprazole take one tablet half an hour before breakfast 40 mg PO DAILY 90 tabs 2RF K21.9 Discontinued sucralfate Discontinued Reason: Doctor's Order 10 mL PO BEDTIME 400 mL 3RF K21.9 TODAY'S VISIT Patient is here today for follow-up. Patient missed couple appointments, last seen in December. Patient reports worsening abdominal pain and bloating. Patient ran out of her Linzess as well as famotidine and pantoprazole. Pharmacy is not going to refills that for her. Patient also reports epigastric pain postprandially. Patient denies dyspepsia, dysphagia or odynophagia. Denies melena, hematochezia, unintentional weight loss or ribbon like stools. Patient denies any nausea or vomiting. Patient does not drink much water. Patient eats mostly Filipino food consists of rice and beans. [facility] Medical History Helicobacter pylori (H. pylori) Tubular adenoma Osteoarthritis Depression Thyroid nodule Graves' disease in remission Vitamin D deficiency Surgical History History of bladder surgery History of incision and drainage Hx of colonoscopy History of esophagogastroduodenoscopy (EGD) History of umbilical hernia repair Family History Mother Diabetes Other Thyroid disease Social History Alcohol intake: never Patient Tobacco Use Status: Former Tobacco user Review of Systems Const Denies weight gain and Denies weight loss ENT Reports no additional complaints, Denies dysphagia and Denies odynophagia Card Reports no additional complaints Resp Reports no additional complaints GI Reports abdominal pain, Denies belching, Denies melena, Reports bloating, Denies change in bowel habits, Reports constipation, Denies dysphagia, Denies excessive flatus, Denies dyspepsia, Denies heartburn, Denies diarrhea, Denies loose stools, Denies nausea, Denies odynophagia and Denies vomiting Reports no additional complaints Musc Reports no additional complaints Neuro Reports no additional complaints Psych Reports no additional complaints Endo Reports no additional complaints Physical Exam Vital Signs: Last Vital Signs Pulse 80 11/26/24 09:29 BP 124/62 11/26/24 09:29 Pulse Ox 98 11/26/24 09:29 Oxygen Delivery Method Room Air 11/26/24 09:29 BMI result Body Mass Index 35.0 Const General: healthy appearing and no acute distress Nutritional Appearance: obese Orientation/consciousness: patient oriented x3 Resp Effort & Inspection: normal respiratory effort, able to speak in complete sentences, no tracheal deviation and symmetric chest movement Auscultation: clear to auscultation bilaterally Cardio Rate: regular rate GI Inspection: Yes normal to inspection, Yes distended and Yes obesity Palpation (GI): Soft to palpation, not firm, nontender and No hepatosplenomegaly present Auscultation: normal bowel sounds General: Yes no CVA tenderness Back/Spine/Pelvis Back: no CVA tenderness Skin General skin exam: elasticity normal, turgor normal and dry skin Neuro General: patient oriented x3 Psych Appearance: grossly normal Mental Status: mental status grossly normal Assessment & Plan Assessment & Plan (1) GERD (gastroesophageal reflux disease): Code(s): K21.9 - Gastro-esophageal reflux disease without esophagitis Qualifiers: Esophagitis presence: esophagitis presence not specified Qualified Code(s): K21.9 - Gastro-esophageal reflux disease without esophagitis (2) Postprandial abdominal bloating: Code(s): R14.0 - Abdominal distension (gaseous) (3) Constipation: Code(s): K59.00 - Constipation, unspecified Qualifiers: Constipation type: slow transit constipation Qualified Code(s): K59.01 - Slow transit constipation (4) IBS (irritable bowel syndrome): Code(s): K58.9 - Irritable bowel syndrome, unspecified Qualifiers: Irritable bowel syndrome type: without diarrhea Qualified Code(s): K58.9 - Irritable bowel syndrome, unspecified Plan Patient will restart taking Linzess daily. Increase fluid intake and activity to promote better bowel motility. Patient will take PPI in the morning and famotidine at bedtime. Avoid dietary triggers and late night snacking. Staying upright for minimum 3 hours after meals discussed with patient. Patient will return in 2 months so we can discuss going for colonoscopy. Last colonoscopy in October of 2021 large amount of polyps found and recommendation was made for patient to return for colorectal screening in 3-4 years. Both patient and her daughter are agreeable to plan of care and verbalizes understanding of instructions. They were given the opportunity to ask questions and all questions answered. Thank you for allowing me to participate in her care Medications: Changed From famotidine (Pepcid) 20 mg PO BID PRN 60 tabs 0RF epigastric pain To famotidine (Pepcid) 20 mg PO BEDTIME 30 tabs 3RF epigastric pain Refilled pantoprazole take one tablet half an hour before breakfast 40 mg PO DAILY 90 tabs 2RF K21.9 - Gastro-esophageal reflux disease without esophagitis linaclotide (Linzess) 290 mcg PO QAM 90 caps 3RF K59.00 - Constipation, unspecified Coding Level of Care Code Est Pt Level 4 (19311) Diagnoses Gastroesophageal reflux disease, unspecified whether esophagitis present K21.9 Esophagitis presence: esophagitis presence not specified Postprandial abdominal bloating R14.0 Slow transit constipation K59.01 Constipation type: slow transit constipation Irritable bowel syndrome without diarrhea K58.9 Irritable bowel syndrome type: without diarrhea Time Spent (min) 35 Comment 25 minutes spent with patient and additional 10 minutes spent reviewing her records
== END 2024-11-26 10:06 | disposition home or self-care (01) ==
PROVIDERS: PCP Internal Medicine; Visit Provider Nurse Practitioner Family
DX: K21.9 Gastro-esophageal reflux disease without esophagitis (principal); R14.0 Abdominal distension (gaseous); K59.01 Slow transit constipation; K58.9 Irritable bowel syndrome, unspecified
CPT/HCPCS: 99214

== ENCOUNTER → 2024-11-26 09:28 | Outpatient (BNVA) | payer OTHER, SELFPAY | PROVIDERS: PCP Internal Medicine; Visit Provider Nurse Practitioner Family | DX: K21.9 Gastro-esophageal reflux disease without esophagitis (principal); K59.01 Slow transit constipation; K58.9 Irritable bowel syndrome, unspecified; R14.0 Abdominal distension (gaseous) | CPT/HCPCS: 99212 ==

== ENCOUNTER → 2024-11-30 03:47 | Outpatient (BNV) | payer OTHER, SELFPAY | PROVIDERS: Emergency Provider Internal Medicine; Visit Provider Internal Medicine | DX: R07.9 Chest pain, unspecified (principal); R10.9 Unspecified abdominal pain | CPT/HCPCS: 93010 ==

== ENCOUNTER → 2024-11-30 04:32 | Outpatient (BNV) | payer OTHER, SELFPAY | PROVIDERS: Emergency Provider Internal Medicine; Visit Provider Radiology Diagnostic Radiology | DX: N23 Unspecified renal colic (principal); K80.20 Calculus of gallbladder without cholecystitis without obstruction | CPT/HCPCS: 74176; 93976 ==

== ENCOUNTER 2024-12-03 14:20 | Outpatient (REF) | payer OTHER, SELFPAY | END 2024-12-03 14:21 | disposition home or self-care (01) | LOC: HO.HHCL 14:20 | PROVIDERS: Visit Provider Nurse Practitioner Family | DX: Z13.89 Encounter for screening for other disorder (principal) ==

== ENCOUNTER 2024-12-16 09:40 | Outpatient (AMB) | payer OTHER, SELFPAY ==
--- NOTE | 2024-12-16 09:43 | A.OFFVIS_ITS ---
Intake Visit Reasons: nephrolithiasis Intake Note: Patient is Present for Follow Up [facility] [place] Urology Medication: None Antibiotic Allergies: None Blood Thinners: None Automation Technician: Automation Technician Present Accompanied by: Daughter Allergies No Known Allergies Allergy (Verified 12/16/24 09:58) Medication List - Last Reconciled 12/16/24 by Justa Mccollum MD acetaminophen 650 mg (2 x 325 mg) PO Q6H PRN alum-mag hydroxide-simeth 200-200-20 mg/5 mL (Maalox Advanced) 10 mL PO Q6H PRN diclofenac sodium 1% grams topical duloxetine 30 mg PO DAILY escitalopram oxalate 10 mg PO QAM famotidine (Pepcid) 20 mg PO BEDTIME hyoscyamine sulfate 0.125 mg PO QID PRN linaclotide (Linzess) 290 mcg PO QAM pxsbtl-gmewsoiq-bzzcqsj 24,000-76,000 -120,000 unit (Creon) 1 cap PO QID lisinopril 2.5 mg PO DAILY ondansetron HCl 4 mg PO Q6H PRN pantoprazole 40 mg PO DAILY polyethylene glycol 3350 (Miralax) 17 grams PO BID PRN simethicone 125 mg PO BID-QID PRN tramadol 50 mg PO Q8H PRN zolpidem 5 mg PO BEDTIME PRN HPI Comments Details: 12/16/24--Yvonne is a 69-year-old female, Slovenian speaking. She is here with her daughter who interprets for her. Yvonne was initially seen in our office for nephrolithiasis, 08/07/2023. She did not keep follow-up visits. She was in the emergency room on 11/30/2024 with complaints of right sided abdominal pain. Imaging included CTAP wo IV contrast noting persistent 5 mm right kidney stone. The abdominal ultrasound 11/30/24 also notable for sludge in the gallbladder. The patient is s/p cholecystectomy and has follow-up with General surgery. I have discussed today treatment options to include right ESWL. Discussed risks to include but not limited to, blood in the urine, bruising to the skin, kidney hematoma, possible need for another procedure if a stone fragment obstructs the ureter while passing, possible need to repeat procedure if stone is not completely fragmented. 08/07/2023?Yvonne is a 67-year-old female who presents today to the office to establish as a new patient for an evaluation of renal stone. The patient was seen in the ED on 06/21/23 for abdominal pain and elevation of BP. CT imaging was performed at that time. Currently the patient is asymptomatic. H/O nicotine use. I have discussed diet modification and importanct of drinking adequate fluids. Discussed further evaluation with 24 hr urine. I reviewed the abdomen/pelvis CT results from 06/11/2023 revealed A 5 mm nonobstructing right renal calculus. Evaluation today?UA?Blood: 25 Michael: leukocytes: negative. Plan:Will repeat renal US in on 1 year. Follow up in 3 months. 24 hr urine prior I reviewed the KUB x-ray results from 06/21/2023 revealed moderate stool burden within the proximal colon and within the rectal vault. PFS Medical History Helicobacter pylori (H. pylori) Tubular adenoma Osteoarthritis Depression Thyroid nodule Graves' disease in remission Vitamin D deficiency Surgical History History of bladder surgery History of incision and drainage Hx of colonoscopy History of esophagogastroduodenoscopy (EGD) History of umbilical hernia repair Family History Mother Diabetes Other Thyroid disease Social History Alcohol intake: never Patient Tobacco Use Status: Former Tobacco user Review of Systems Const All systems reviewed & are unremarkable except as noted in HPI and below Reports no additional complaints Eyes Reports no additional complaints ENT Reports no additional complaints Card Reports no additional complaints Resp Reports no additional complaints GI Reports no additional complaints Reports as per HPI Musc Reports no additional complaints Skin/Breast Reports system reviewed and no additional complaints, except as documented Neuro Reports no additional complaints Psych Reports no additional complaints Endo Reports no additional complaints Daquan/Lymph Reports no additional complaints Aller/Immun Reports no additional complaints Results AMB Urinalysis, Automated UA Leukoctes 0 Aubrey/uL Last Edit by PATRICIA Dexter on 12/16/24 10:08 UA Nitrite Negative Last Edit by PATRICIA Dexter on 12/16/24 10:08 UA Urobilinogen 0.2 mg/dL Last Edit by Madie Todd, RMA on 12/16/24 10:0 8 UA Protein 100 mg/dL Last Edit by Madie Todd, RMA on 12/16/24 10:08 UA pH 5.5 Last Edit by Madie Todd, RMA on 12/16/24 10:08 UA Blood 80 Michael/uL Last Edit by Madie Todd, RMA on 12/16/24 10:08 UA Specific [place] 1.025 Last Edit by Madie Todd, RMA on 12/16/24 10: 08 UA Ketone Negative Last Edit by Madie Todd, A on 12/16/24 10:08 UA Bilirubin 1 mg/dL Last Edit by Madie Todd, RMA on 12/16/24 10:08 UA Glucose 0 mg/dL Last Edit by Madie Todd, A on 12/16/24 10:08 Results Reviewed Results Reviewed: Date of Service: 11/30/24 Comparison: CT/SR - CT ABDOMEN PELVIS WO IV CON - 08/25/24 05:20 EDT Findings: Atelectasis with ill-defined subpleural patchy consolidations in the anterolateral right middle lobe, nonspecific. This may be further evaluated with follow-up. Cardiomegaly without significant pericardial effusion. Coronary artery calcifications. Distended gallbladder with mild inflammatory changes and noncalcified 3 mm stone of the neck of the gallbladder. Atrophic pancreas. Nonobstructive 5 mm calculus in the right upper pole kidney. Diverticulum along the 2nd duodenal segment. Colonic diverticulosis without diverticulitis. Focal spondylosis at L4-L5. Osteopenia. IMPRESSION: 1. Possible early acute calculus cholecystitis. Clinical correlation advised. 2. Nonobstructive 5 mm calculus in the right upper pole kidney. Date of Service: 06/21/23 EXAMINATION:? XR ABDOMEN KUB CLINICAL INDICATION:? Constipation?? COMPARISON:? CT abdomen pelvis March 08, 2022?? FINDINGS:? No dilated air-filled loops of small bowel to suggest an obstructive process. There is a moderate stool burden within the proximal colon and within the rectal vault although there is a normal stool burden throughout the splenic flexure and descending colon. No acute osseous abnormality. IMPRESSION: Moderate stool burden within the proximal colon and within the rectal vault. Date of Service: 06/21/23 EXAMINATION: CT ABDOMEN AND PELVIS WITHOUT CONTRAST?? CLINICAL INFORMATION: Epigastric pain?? COMPARISON: CT dated 03/08/2022 FINDINGS: LUNG BASES: Mild dependent atelectasis. There is a prominent 9 mm (short axis) mediastinal lymph node in the distal paraesophageal region. LIVER, GALLBLADDER, AND BILIARY TREE: The liver is normal in size, shape, and attenuation. No focal hepatic lesion or biliary ductal dilatation is present. The gallbladder is unremarkable with no evidence of radiopaque gallstones, gallbladder wall thickening, or obvious pericholecystic inflammatory changes.?? PANCREAS: Unremarkable.?? SPLEEN: Unremarkable.?? ADRENAL GLANDS: Unremarkable.?? KIDNEYS AND URETERS: A 5 mm nonobstructing calculus is again seen within a right upper renal pole calyx, The kidneys are normal in size, shape, and attenuation. No hydronephrosis or hydroureter seen. No perinephric stranding.? ? BLADDER: Unremarkable.?? GASTROINTESTINAL TRACT: Stomach, small bowel, and colon are normal in caliber. No bowel wall thickening or surrounding inflammatory changes. Appendix is normal. No intraperitoneal free fluid or free air.?? ABDOMINAL WALL: No significant hernia is appreciated. Scar tissue around the umbilicus. LYMPH NODES: Normal. VASCULAR: Unremarkable. PELVIC VISCERA: The uterus and adnexa are unremarkable.?? OSSEOUS STRUCTURES: Degenerative spondylosis is evident in the thoracic and lumbar spine, most notably at L4-L5. There is questionable dysraphism at the lower thoracic spine at T11 and T12 with incomplete fusion of the spinous processes. Alternatively, this may be postsurgical in nature.?? IMPRESSION: 1.? No acute intra-abdominal or intrapelvic abnormalities. 2.? A 5 mm nonobstructing right renal calculus. Assessment & Plan Assessment & Plan (1) Kidney calculi: Code(s): N20.0 - Calculus of kidney Category: Medical Plan Discussed right ESWL - wait at least 8 weeks, recent cholecystectomy Orders: Orders AMB Urinalysis Automated Today Z13.9 - Encounter for screening, unspecified Patient Instructions: The patient had an opportunity to ask questions regarding treatment plan. The patient expressed understanding and agreement with the above treatment plan. The patient is aware they should contact our office by phone for worsening of their current condition or the appearance of new symptoms. Compliance is encouraged with any medications and followup testing that is ordered. It is a privilege to be allowed the opportunity to participate in the urologic care of your patient. If you have any questions or concerns regarding treatment for the above conditions please do not hesitate to contact me. The office telephone contact is [phone]. This note is constructed in part using voice recognition software. While every effort has been made to ensure accuracy center consultant errors may have been included. Yours sincerely, Justa Mccollum MD Coding Level of Care Code Est Pt Level 4 (56074) Diagnoses Kidney calculi N20.0
== END 2024-12-16 10:26 | disposition home or self-care (01) ==
PROVIDERS: PCP Internal Medicine; Visit Provider Urology
DX: N20.0 Calculus of kidney (principal); Z13.9 Encounter for screening, unspecified
CPT/HCPCS: 99214

== ENCOUNTER → 2024-12-16 09:40 | Outpatient (BNVA) | payer OTHER, SELFPAY | PROVIDERS: PCP Internal Medicine; Visit Provider Urology | DX: N20.0 Calculus of kidney (principal) | CPT/HCPCS: 81003; 99212 ==

== ENCOUNTER 2025-01-07 15:07 | Outpatient (AMB) | payer OTHER, SELFPAY ==
--- NOTE | 2025-01-07 15:09 | MHC.OFFVIS ---
Vital Signs 01/07/25 15:10 Height 5 ft 2 in Weight 180 lb 12.465 oz BMI 33.1 BP 142/66 H Blood Pressure Location Rt brachial Position Sitting Pulse 84 Pulse Source Pulse Oximeter Pulse Oximetry (%) 97 Oxygen Delivery Method Room Air Intake Visit Reasons: 6 week follow up Intake Note: ESTABLISHED PATIENT for constipation mgmt. Chief Complaint; Pt reports that their sx (reflux and nausea) have been well controlled since last visit when she received the new Rx from provider. Pt denies any concerns at this time. Model And Mold Maker Plaster Required: Yes Model And Mold Maker Plaster Services: Model And Mold Maker Plaster Present Model And Mold Maker Plaster Name: Debra [id number] + [facility] Information Interpreted: non-clinical & clinical Accompanied by: Self / Same As Patient Allergies No Known Allergies Allergy (Verified 01/07/25 15:09) HPI HPI 6 week follow up: Details: LAST VISIT GERD (gastroesophageal reflux disease) Postprandial abdominal bloating Constipation IBS (irritable bowel syndrome) Plan Patient will restart taking Linzess daily. Increase fluid intake and activity to promote better bowel motility. Patient will take PPI in the morning and famotidine at bedtime. Avoid dietary triggers and late night snacking. Staying upright for minimum 3 hours after meals discussed with patient. Patient will return in 2 months so we can discuss going for colonoscopy. Last colonoscopy in October of 2021 large amount of polyps found and recommendation was made for patient to return for colorectal screening in 3-4 years. Both patient and her daughter are agreeable to plan of care and verbalizes understanding of instructions. They were given the opportunity to ask questions and all questions answered. ? Thank you for allowing me to participate in her care Medications Changed Changed From famotidine (Pepcid) 20 mg PO BID PRN 60 tabs 0RF epigastric pain Changed To famotidine (Pepcid) 20 mg PO BEDTIME 30 tabs 3RF epigastric pain Refilled pantoprazole take one tablet half an hour before breakfast 40 mg PO DAILY 90 tabs 2RF K21.9 linaclotide (Linzess) 290 mcg PO QAM 90 caps 3RF K59.00 TODAY'S VISIT Patient is here today for follow-up. Patient reports that she is doing better now that she is moving her bowels well. She is taking pantoprazole in the morning and famotidine at bedtime. Her symptoms of acid reflux are suppressed for the most part. Patient is also taking Creon which helps with her digestion. However patient does reports to have occasional abdominal bloating. Patient does eat Icelandic food which consists of rice and beans almost every day. Patient uses simethicone with good effect. Patient denies any melena, hematochezia, unintentional weight loss or ribbon like stools. Diagnosed with nephrolithiasis and patient has been scheduled for lithotripsy. Currently she is wearing drain/urostomy. Patient was referred to General surgery for cholelithiasis, no appointment scheduled yet. Patient was seen in the ER in November, multiple gallbladder stones with slushseen, CT scan questioning mild wall thickening, however ultrasound showed normal gallbladder wall, no cholecystitis. Patient denies any nausea or vomiting. Denies dyspepsia, dysphagia or odynophagia [facility] Medical History Helicobacter pylori (H. pylori) Tubular adenoma Osteoarthritis Depression Thyroid nodule Graves' disease in remission Vitamin D deficiency Surgical History History of bladder surgery History of incision and drainage Hx of colonoscopy History of esophagogastroduodenoscopy (EGD) History of umbilical hernia repair Family History Mother Diabetes Other Thyroid disease Social History Alcohol intake: never Patient Tobacco Use Status: Former Tobacco user Review of Systems Const Denies weight gain and Denies weight loss ENT Reports no additional complaints, Denies dysphagia and Denies odynophagia Card Reports no additional complaints Resp Reports no additional complaints GI Denies abdominal pain, Denies belching, Denies melena, Denies bloating, Denies change in bowel habits, Denies dysphagia, Denies excessive flatus, Denies dyspepsia, Denies heartburn, Denies diarrhea, Denies loose stools, Denies nausea, Denies odynophagia and Denies vomiting Musc Reports no additional complaints Neuro Reports no additional complaints Psych Reports no additional complaints Endo Reports no additional complaints Physical Exam Const General: healthy appearing and no acute distress Nutritional Appearance: obese Orientation/consciousness: patient oriented x3 Resp Effort & Inspection: normal respiratory effort, able to speak in complete sentences, no tracheal deviation and symmetric chest movement Auscultation: clear to auscultation bilaterally Cardio Rate: regular rate GI Other: J-tube drain Inspection: Yes distended and Yes obesity Palpation (GI): Soft to palpation, not firm, nontender and No hepatosplenomegaly present Auscultation: normal bowel sounds General: Yes no CVA tenderness Back/Spine/Pelvis Back: no CVA tenderness Skin General skin exam: elasticity normal, turgor normal and dry skin Neuro General: patient oriented x3 Psych Appearance: grossly normal Mental Status: mental status grossly normal Assessment & Plan Assessment & Plan (1) GERD (gastroesophageal reflux disease): Code(s): K21.9 - Gastro-esophageal reflux disease without esophagitis Qualifiers: Esophagitis presence: esophagitis presence not specified Qualified Code(s): K21.9 - Gastro-esophageal reflux disease without esophagitis (2) Postprandial abdominal bloating: Code(s): R14.0 - Abdominal distension (gaseous) (3) Constipation: Code(s): K59.00 - Constipation, unspecified Qualifiers: Constipation type: slow transit constipation Qualified Code(s): K59.01 - Slow transit constipation (4) IBS (irritable bowel syndrome): Code(s): K58.9 - Irritable bowel syndrome, unspecified Qualifiers: Irritable bowel syndrome type: with both diarrhea and constipation Qualified Code(s): K58.2 - Mixed irritable bowel syndrome (5) Cholelithiasis: Code(s): K80.20 - Calculus of gallbladder without cholecystitis without obstruction (6) Biliary colic: Code(s): K80.50 - Calculus of bile duct without cholangitis or cholecystitis without obstruction Plan Continue current bowel regimen. Increase fluid intake and activity to promote better bowel motility. Patient will continue taking Linzess daily. Message sent to surgical schedulers to book upper endoscopy and colonoscopy for patient. Continue pantoprazole in the morning and famotidine at bedtime. Patient was encouraged to avoid dietary triggers and late night snacking. Staying upright for minimum 3 hours after meals discussed with patient. Continue Creon with meals. Simethicone as needed with meals. Patient will return in 2 months so we can discuss going for colonoscopy. Patient is agreeable to this plan and verbalizes understanding of instructions. She was given the opportunity to ask questions and all questions answered. Thank you for allowing me to participate in her care Medications: Refilled [id number] 24,000-76,000 -120,000 unit (Creon) administer with meals and/or snacks 1 cap PO QID 240 caps 2RF K58.9 - Irritable bowel syndrome, unspecified famotidine (Pepcid) 20 mg PO BEDTIME 90 tabs 3RF epigastric pain pantoprazole take one tablet half an hour before breakfast 40 mg PO DAILY 90 tabs 2RF K21.9 - Gastro-esophageal reflux disease without esophagitis simethicone 125 mg PO BID-QID PRN 360 caps 3RF abdominal distention K21.9 - Gastro-esophageal reflux disease without esophagitis Coding Level of Care Code Est Pt Level 4 (79884) Diagnoses Gastroesophageal reflux disease, unspecified whether esophagitis present K21.9 Esophagitis presence: esophagitis presence not specified Postprandial abdominal bloating R14.0 Slow transit constipation K59.01 Constipation type: slow transit constipation Irritable bowel syndrome with both constipation and diarrhea K58.2 Irritable bowel syndrome type: with both diarrhea and constipation Cholelithiasis K80.20 Biliary colic K80.50 Time Spent (min) 40 Comment 25 minutes spent patient and additional 15 minutes spent reviewing her records
--- OUTSIDE RECORDS SUMMARY | 2025-01-07 15:09 | XMS_ITS | Encounter Summary ---
Author Organization [employer] Address [address] [facility] [facility] [address] [place] [address] Care Team Providers Care Cad Developer Name Role Phone Liz Crockett MD Primary Care Provider + Deondre Phillips PharmD Unavailable [phone] Reason for Visit * Consultation (Routine) - Authorized Specialty Diagnoses / Procedures Referred By Contac t Referred To Contact Pharmacy Diagnoses Calculus of gallbladder without cholecystitis without obstruction Renal lithiasis Daija Garrett NP [address] [place] [address] Phone: tel: fax: Referral ID Status Reason Start Date Expiration Date Visits Requested Visits Authorized [id number] Authorized Continuity of Care 12/03/2024 12/03/2025 6 6 Encounter Details Date Type Department Care Team (Latest Contact Info) Description 12/20/2024 10:00 AM EST Telemedicine [facility] [address] [place] [phone] Mamadou Taylor PharmD [address] [place], [place] [phone] Renal lithiasis (Primary Dx); Calculus of gallbladder without cholecystitis without obstruction; HTN (hypertension), benign Social History Tobacco Use Types Packs/Day Years Used Date Smoking Tobacco: Former Smokeless Tobacco: Never Alcohol Use Standard Drinks/Week Comments Never 0 (1 standard drink = 0.6 oz pur e alcohol) Depression Answer Date Recorded Patient Health Questionnaire-9 Score 14 07/02/2024 Patient Health Questionnaire-9 Score 14 07/02/2024 Last PHQ-9: Questionnaire Data Not on file 0 07/02/2024 Housing Stability Answer Date Recorded What is your housing situation today? I have housing today, but I am worried about losing housing in the future 07/02/[address] you li ve. Do you have problems with any of the following? None of the above 07/02/2024 Food Insecurity Answer Date Recorded Within the past 12 months, y ou worried that your food would run out before you got money to buy more: Sometimes True 2023 Within the past 12 months,th e food you bought just didn't last and you didn't have enough money to get more: Sometimes True 07/02/2024 Transportation Answer Date Recorded In the past 12 months, has l ack of transportation kept you from medical appts, meetings, work or from getting things needed for daily living? No 07/02/2024 Utilities Answer Date Recorded In the past 12 months, has t he electric, gas, oil or water company threatened to shut off services in your home? No 07/02/2024 Depression Answer Date Recorded Patient Health Questionnaire-2 Score 2 07/02/2024 Internet Access Answer Date Recorded Internet Access Q1 I am not sure 07/26/2024 Internet Access Q2 Not on file 07/26/2024 Comments No Sex and Gender Information Value Date Recorded Sex Assigned at Female 09/23/2022 10:17 AM EDT Legal Sex Female 10:17 AM EDT Gender Identity Female 09/23/2022 10:17 AM EDT Sexual Orientation Straight 09/23/2022 10 :17 AM EDT documented as of this encounter Progress Notes * Mamadou Taylor PharmD - 12/20/2024 10:00 AM EST Pharmacy Consult Visit Type: MTM Visit Pharmacist: Mamadou Taylor PharmD Referral Diagnosis: Renal lithiasis, calculus of gallbladder w/o cholecystitis Referral Expiration: 12/03/25 Referring Provider: [facility] Recommendations for Provider: Please continue to assess patient symptoms due to recent alterations in medication regimen for depression. Note - Patient reported taking escitalopram + duloxetine, however per discussion with psych provider, patient is to continue on escitalopram only at this time Begin medboxes per patient request. Please contact medbox pharmacist with any medication changes (initiations, discontinuation, dose adjustments). Background/ Visit Intake Yvonne Mart is a 69 y.o. patient here for a new patient visit. Visit completed over thephone. Allergies: has No Known Allergies. Preferred Pharmacy: [facility] [address] [facility] [address] [facility] [id number] Medbox: To begin during today's appointment. Assessment & Plan Adherence: History: Medication Reconciliation: Reports use of the following medications that are not currently active in [facility] medlist: Antacid/antigas liquid 10 mL every 6 hours as needed (LF 10/19/14 - prescribed by Dr. Shawn Gilmore) Docusate 100 mg twice daily as needed (LF 12/10/24 - prescribed by Dr. Tatiana Abad) Escitalopram 10 mg once daily (LF 11/22/24 x 30ds - prescribed by Dr. Chevy Brooks) Famotidine 20 mg once daily (LF 11/30/24 x 30ds - prescribed by Dr. Blanca Christian) [facility] currently lists famotidine 40 mg once daily Denies use of the following medications that are active in [facility] medlist: Fluticasone nasal spray (no dispense hx) OTC medication, vitamin, supplement use: reports use of vitamin D3 2000U once daily Adherence: Medication Organization: Takes from vials Missed doses: Reports missing 1-2 doses/week Reports the following barriers to adherence: Difficulty remembering to take medications Read/Write: Yes, in Algerian Reports using the following strategies to improve adherence: Created daily routine Reports interest in [facility] medbox program Goals of therapy: Improve adherence & minimize missed doses (<2 missed doses/week) Recommendations/Monitoring: Begin medboxes per patient request. Please contact medbox pharmacist with any medication changes (initiations, discontinuation, dose adjustments). Pharmacy updated medlist in [facility] to match patients current medication use Pharmacist reached out to [facility] GI office (Dr. Blanca Christian) and confirmed that patient is to be actively taking famotidine 20 mg once daily. Per chart review, escitalopram was to be discontinued on 07/02/2024 (by PCP) due to ineffectiveness of therapy, in which patient was then switched to therapy with duloxetine. However, patient reported continuing to actively take both agents. Pharmacist to reach out to Dr. Brooks's office for recommendation as to which agent is to be continued at this time. Per Dr. Brooks, they do not want patient on both agents and recommends for patient to continue on escitalopram only at this time (and for duloxetine to be discontinued). Please continue to assess patient symptoms due to recent alterations in medication regimen for depression. Hypertension: Pharmacologic Therapy: Lisinopril 2.5 mg once daily History: Patient reports having a BP monitor at home and maintains SMBP log. Pertinent negatives include chest pain, head ache, blurry vision. Patient reported the following SMBP values: Date Blood pressure (mmHg) Heart rate (bpm) 12/12/24 140/79 80 12/13/24 145/78 85 12/14/24 125/80 80 12/15/24 148/80 79 Recent Blood Pressure values: BP Readings from Last 4 Encounters: 12/03/24 (!) 142/71 10/18/24 (!) 142/77 09/02/24 (!) 147/72 07/02/24 (!) 148/78 Pulse Readings from Last 4 Encounters: 12/03/24 107 10/18/24 73 09/02/24 84 07/02/24 97 Lab monitoring Lab Results Component Value Date NA 141 10/18/2024 K 4.0 10/18/2024 CREATININE 0.66 10/18/2024 EGFR >60 10/18/2024 Goals of Therapy per JNC 8: Achieve & maintain BP <150/90mmHg (age >60 yr w/o history of diabetes or CKD) Plan: BP at goal. Continue current regimen as directed. Continues SMBP and log results. Patient currently scheduled for 12/24/24 for HTN management with [facility]. Patient confirmed date and time for appointment, and agreeable to plan. Education: Counseling provided to SMBP & log results for review in follow up. Reviewed BP goals, patient instructed to call office if extremes of BP are noted prior to follow up. ASCVD Risk Pharmacologic Therapy: None Lab monitoring: Lab Results Component Value Date CHOL 186 10/18/2024 LDLCHOLCAL 124 (H) 10/18/2024 HDL 49 10/18/2024 TRIG 69 10/18/2024 AST 81 (H) 04/21/2024 ALT 47 (H) 04/21/2024 The 10-year ASCVD risk score (Daphney HARRIS, et al., 2019) is: 12.5% Values used to calculate the score: Age: 69 years Sex: Female Is Non- : No Diabetic: No Tobacco smoker: No Systolic Blood Pressure: 142 mmHg Is BP treated: Yes HDL Cholesterol: 49 mg/dL Total Cholesterol: 186 mg/dL Goals of Therapy: ACC/AHA 2018 Cholesterol Guidelines: Ensure evidence based and safe use of medications for primary prevention of ASCVD. Plan: Per ACC/AHA guidelines, in patients aged 40-75 yr with intermediate ASCVD risk (risk score 7.5-20%), risk discussion recommended to evaluate need for moderate intensity statin therapy. Patient is without additional ASCVD risk enhancers. Diet and lifestyle interventions appropriate inorder to continue to reduce ASCVD risk. Upon return of updated FLP (actively ordered in EHR, needs collection), if LDL remains above goal >100 mg/dL, initiation of a moderate intensity statin, such as rosuvastatin 5 mg once daily, may be appropriate. Renal lithiasis / calculus of gallbladder without cholecystitis Pharmacologic Therapy: None History Follows with [facility] urology, last visit 12/16/24 Plan to proceed with ESWL Labs monitoring: Lab Results Component Value Date EGFR >60 10/18/2024 EGFR >60 04/21/2024 EGFR >60 03/27/2023 CREATININE 0.66 10/18/2024 CREATININE 0.71 04/21/2024 CREATININE 0.66 03/27/2023 CrCl (AdjBW) = 82.8 mL/min Goals of Therapy: Ensure safe & appropriate medication use in the setting of declining renal function. Plan: Continue to follow up with [facility] urology as indicated. Pharmacist reviewed current medications for renal dose adjustments, none required at this time. Immunizations History: Immunization History Administered Date(s) Administered INFLUENZA VACCINE QUADRIVALENT RECOMBINANT PRESERVATIVE FREE RIV4 08/28/2020 Influenza injectable quadrivalent IIV4 with preservative 09/19/2016, 10/10/2017 Influenza injectable quadrivalent preservative free 12/21/2019, 12/13/2022 Influenza, Split (incl. purified surface antigen) 09/15/2012, 09/23/2013 Moderna Covid-19 Vaccine 12+ 03/21/2021, 04/18/2021, 12/03/2021, 12/13/2022 Tdap 07/09/2012 Zoster, Recombinant 12/24/2019, 06/12/2020 Goals of therapy: Ensure patient is up to date per the CDC Adult Immunization Schedule. Assessment/Plan: Influenza 8768-0965 vaccine: Due . Next dose due annually. COVID-19 1719-2529 vaccine: Due . Next dose due annually. Hepatitis B series (Age 60+ without known risk factors): Not indicated . Pneumococcal vaccines (Age >65): Due Shingrix series (age > 50 ): Up-to-date . Td/TDaP (within the past 10 years): Due . Next dose due every 10 years. Plan: Patient reported already receiving Flu, COVID, and PCV20 vaccines during their HDF visit in August2024 Documentation not found in EHR or MIIS database Education: Indication of all recommended/administered vaccines Patient Action Plan Reviewed today with plan to revisit at follow up in 1 months: 01/24/25 Bring medications to the pharmacy on 12/28/24 for medbox initiation windows support engineer medbox from the pharmacy on 12/31/24 Monitor blood pressure daily and log results Attend follow up appointments with specialists, PCP, and CDTM R[facility] documented in this encounter Miscellaneous Notes * Addendum Note - Mamadou Taylor PharmD - 12/20/2024 10:00 AM ESTAddended by: MAMADOU TAYLOR on: 12/21/2024 09:01 AM Modules accepted: Orders * Addendum Note - Mamadou Taylor PharmD - 12/20/2024 10:00 AM ESTAddended by: MAMADOU TAYLOR on: 12/23/2024 10:16 AM Modules accepted: Orders documented in this encounter Plan of Treatment Upcoming Encounters Date Type Department Care Team (Late st Contact Info) Description 01/24/2025 10:00 AM EST Telemedicine [address] [phone] 02/15/2025 10:30 AM EDT Office Visit [address] [address] Liz Crockett MD [address] [place] [id number] 03/24/2025 9:00 AM EDT Telemedicine [address] [address] Deondre Phillips, Tera [address] [place] [address] documented as of this encounter Goals Goal Patient Goal Type Associated Problems Recent Progress Patient-Stated? Author Blood Pressure < 150/90 Blood Pressure 134/66(2024 9:02 AM EST) No Deondre Phillips, Tera Note: Age>60, No Hx of DM or CKD documented as of this encounter Visit Diagnoses Diagnosis Renal lithiasis- Primary Calculus of kidney Calculus of gallbladder without cholecystitis without obstruction HTN (hypertension), benign Essential hypertension, benign documented in this encounter Additional Health Concerns Assessment Noted Time PHQ-9 Depression Total Score: 14 024 2:40 PM EDT documented as of this encounter Care Teams Cad Developer Relationship Specialty Start Date End Date Liz Crockett MD [address] [place] [address] PCP - General Family Medicine 06/14/20 Deondre Phillips, ClementeD [address] [place] [address] Pharmacist Internal Medicine 06/16/23 [facility] 12/11/24 documented as of this encounter
--- OUTSIDE RECORDS SUMMARY | 2025-01-07 15:09 | XMS_ITS | Encounter Summary ---
Author Organization [employer] Address [address] [facility] [address] [place] [address] Care Team Providers Care Component Overhaul Operator Name Role Phone iLz Crockett MD Primary Care Provider + Deondre Phillips PharmD Unavailable [phone] Encounter Details Date Type Department Care Team (Late st Contact Info) Description 12/21/2024 Refill [facility] [address] [place], [place] [phone] Mamadou Taylor PharmD [address] [place], [place] [phone] Social History Tobacco Use Types Packs/Day Years [...] AM EDT documented as of this encounter Miscellaneous Notes * Telephone Encounter - Mamadou Taylor PharmD - 12/21/2024 10:15 AM EST Patient seen in [facility] for Medbox initiation. Patient reports using vitamin D OTC and is requesting prescription for it to be included in the medbox. Thank you! documented in this encounter Plan of Treatment Upcoming Encounters Date Type Department Care Team (Late st Contact Info) Description 01/24/2025 10:00 AM EST Telemedicine [address] [address] 02/15/2025 10:30 AM EDT Office Visit [address] [address] Liz Crockett MD [address] [place] [phone] 03/24/2025 9:00 AM EDT Telemedicine [address] [address] Deondre Phillips PharmD [address] [place] [phone] documented as of this encounter Goals Goal Patient Goal Type Associated Problems Recent Progress Patient-Stated? Author Blood Pressure < 150/90 Blood Pressure 134/66(2024 9:02 AM EST) No Deondre Phillips, PharmCecille Note: Age>60, No Hx of DM or CKD documented as of this encounter Visit Diagnoses Not on filedocumented in this encounter Additional Health Concerns Assessment Noted Time PHQ-9 Depression Total Score: 14 024 2:40 PM EDT documented as of this encounter Care Teams Component Overhaul Operator Relationship Specialty Start Date End Date Liz Crockett MD [address] [place] [address] PCP - General Family Medicine 06/14/20 Deondre Phillips, PharmD [address] [place] [address] Pharmacist Internal Medicine 06/16/23 [facility] 12/11/24 documented as of this encounter
--- OUTSIDE RECORDS SUMMARY | 2025-01-07 15:09 | XMS_ITS | Encounter Summary ---
Author Organization [employer] Address [address] [facility] [address] [place] [address] Care Team Providers Care Terminal Gauger Name Role Phone Liz Crockett MD Primary Care Provider + Deondre Phillips PharmD Unavailable [phone] Encounter Details Date Type Department Care Team (Late st Contact Info) Description 11/27/2022 Orders Only [facility] MED & PEDS [address], [place] [phone] Mdaie Rasmussen LPN Social History Tobacco Use Types Packs/Day Years Used Date Smoking Tobacco: Never Assessed Comments Unknown Sex and Gender Information Value Date Recorded Sex Assigned at Female 09/23/2022 10:17 AM EDT Legal Sex Female 10:17 AM EDT Gender Identity Female 09/23/2022 10:17 AM EDT Sexual Orientation Straight 09/23/2022 10 :17 AM EDT documented as of this encounter Plan of Treatment Upcoming Encounters Date Type Department Care Team (Late st Contact Info) Description 01/24/2025 10:00 AM EST Telemedicine [facility] MEDICINE [address] [place] [phone] 02/15/2025 10:30 AM EDT Office Visit [facility] [address] [place] [phone] Liz Crockett MD [address] [place] [phone] 03/24/2025 9:00 AM EDT Telemedicine [facility] [address] [place] [address] [phone] Deondre Phillips, PharmD [address] [place] [address] documented as of this encounter Visit Diagnoses Not on filedocumented in this encounter Care Teams Terminal Gauger Relationship Specialty Start Date End Date Liz Crockett MD [address] [place] [address] [phone] PCP - General Family Medicine 06/14/20 Deondre Phillips, ClementeD [address] [place] [address] [phone] Pharmacist Internal Medicine 06/16/23 [facility] 12/11/24 documented as of this encounter
--- OUTSIDE RECORDS SUMMARY | 2025-01-07 15:09 | XMS_ITS | Data Portability ---
Author Organization [employer] Address [address] [place] [address] Care Team Providers Care Enrollment Manager Name Role Phone [facility] OTHER [phone] [facility] OTHER Assessment Encounter Date Assessment Date Assessment LastModified by Organization Details LastModified Time 12/01/2024 12/01/2024 I provided real -time medical direction via phone for this encounter and was available for additional phone-based assistance as needed. I have reviewed and agree with the Assessment and Plan as documented by the Purse Seining Hand. Patient given the opportunity to ask questions. Our service contacted for an assessment of: nausea As per above, patient with recent diagnosis of cholecystitis. She developed right upper quadrant pain and sought emergency treatment. She has a scheduled surgery consult on the . She was given tramadol for pain. She states it really has not helped that much. She is complaining of nausea but no vomiting. She is taking in p.o. well. Per linux solaris administrator on the scene, vital signs are stable and the patient is afebrile. Positive right upper quadrant tenderness. Patient does appear well hydrated. Impression: Nausea and right upper quadrant pain secondary to cholelithiasis Plan: Ask patient to keep appointment on the . She can continue to use tramadol but if it is not helping suggested that she take Tylenol. Zofran x1 given. Red flags discussed as to when to seek a higher level of care or recall the service. Allergies: Reviewed PCP f/u: We discussed the diagnostic uncertainty of home visits and the risk associated with this. In this case, the patient and I felt this to be an acceptable and reasonable amount of risk given the benefit of avoiding an ED visit. We discussed the need to seek care urgently/emergentl y in the setting of any new or worsening serious symptoms, particularly fever chills lightheadedness altered mental status [email or web address] Not available 12/01/2024 16:40:15 Plan of Treatment Reminders Order Date Submit Date Provider Last Modified By Organization Details Last Modified Time Details Appointments None recorded. Lab None recorded. Referral None recorded. Procedures None recorded. Surgeries None recorded. Imaging None recorded. Medication Orders ondansetron 4 mg disintegrat ing tablet 2024 025 [email or web address] Not available 16:38:05 Patient TargetsNo targets recorded. Patient InstructionsNo instructions recorded. Reason for Referral None Reported. Medical Equipment None Reported. Allergies No known drug allergies Medications Name Sig Start Date Stop Date Status Note LastModified by Organization Details LastModified Time senna 8.6 mg tablet TAKE 1 TABLET BY MOUTH AT BEDTIME active Not Available Not Available No t Available sucralfate 100 mg/mL oral suspension GIVE 10 ML BY MOUTH EVERY DAY AT BEDTIME active Not Available Not Available N ot Available famotidine 40 mg tablet TAKE 1 TABLET BY MOUTH AT BEDTIME active Not Available Not Available No t Available tramadol 50 mg tablet TAKE 1 TABLET BY MOUTH EVERY 8 HOURS NEEDED FOR SEVERE PAIN active Not Available Not Available Not Available acetaminophe n 500 mg tablet TAKE 1 TABLET BY MOUTH EVERY 6 HOURS NEEDED FOR MILD PAIN active Not Available Not Available No t Available ketorolac 0.5 % eye drops INSTILL 1 DROP IN THE AFFECTED EYE THREE TIMES DAILY DIRECTED. START 2 DAYS BEFORE SURGERY AND TAPER DIRECTED active Not Available Not Available No t Available pantoprazole 40 mg tablet,delay ed release TAKE 1 TABLET BY MOUTH EVERY DAY 30 MINUTES BEFORE BREAKFAST active Not Available Not Available No t Available brimonidine 0.2 % eye drops INSTILL 1 DROP IN THE LEFT EYE THREE TIMES DAILY active Not Available Not Available No t Available Gas Relief Extra Strength 125 mg capsule TAKE 1 CAPSULE BY MOUTH 2 TO 4 TIMES DAILY NEEDED FOR GAS active Not Available Not Available No t Available docusate sodium 100 mg capsule TAKE 1 CAPSULE BY MOUTH TWICE DAILY active Not Available Not Available No t Available zolpidem 5 mg tablet TAKE 1 TABLET BY MOUTH EVERY DAY AT BEDTIME NEEDED active Not Available Not Available No t Available polyethylene glycol 3350 17 gram/dose oral powder MIX 17 GRAMS with 8 OUNCES OF WATER, JUICE, COFFEE OR TEA AND DRINK TWICE DAILY NEEDED FOR CONSTIPATIO N active Not Available Not Available No t Available fluticasone propionate 50 mcg/actuatio n nasal spray,suspen huma INSTILL 1-2 SPRAYS IN EACH NOSTRIL ONCE DAILY IN THE MORNING active Not Available Not Available No t Available lisinopril 2.5 mg tablet TAKE 1 TABLET BY MOUTH EVERY MORNING active Not Available Not Available No t Available escitalopram 10 mg tablet TAKE 1 TABLET BY MOUTH EVERY DAY IN THE MORNING active Not Available Not Available No t Available diclofenac 1 % topical gel APPLY 1 INCH TOPICALLY TO AFFECTED AREA(S) TWICE DAILY IN THE MORNING AND AT BEDTIME NEEDED FOR PAIN active Not Available Not Available No t Available Creon 24,000-76,00 0-120,000 unit capsule,mario yed release TAKE 1 CAPSULE BY MOUTH FOUR TIMES DAILY WITH MEALS OR SNACKS active Not Available Not Available No t Available Linzess 290 mcg capsule TAKE 1 CAPSULE BY MOUTH EVERY MORNING active Not Available Not Available No t Available Vitals Date Recorded Body temperature Heart rate Oxygen saturation Oxygen saturation in Arterial blood by Pulse oximetry Respiratory rate Systolic blood pressure Diastolic blood pressure Provider Name and Address Organization Details Last Updated DateTime 5 98.7 [degF] 90 /min 94 % 94 % 18 /min 120 mm[Hg] 69 mm[Hg] Not Available [facility] - production 5 15:14:42 Social History None recorded. Functional Status None recorded. Mental Status None recorded. Family History Nothing Reported. Medical History No medical history recorded. Gynecological HistoryNo gynecological history recorded. Obstetrics History GPAL:G 0 P 0 0 0 0 Past Encounters Encounter ID Performer Location Encounter Start Date Encounter Closed Date Diagnosis/Indication Diagnosis SNOMED-CT Code Diagnosis ICD10 Code Diagnosis Note [id number] Laura Montero MD [facility] [address] [place] [phone] 12/01/2024 15:14:39 12/01/2024 17:58:26 Nausea [id number] R11.0 Health Concerns Section Related Observation LastModified by Organization Detai ls LastModified Time None Recorded Concern Status LastModified by Organization Details LastModified Time None Recorded Advance Directives Directive None Recorded Payers Encounter Date Sequence Insurance Name Policy Number Policy Sharma Covered Member ID Sharma Member ID Guarantor Name 12/01/2024 1 [facility] - DOS ON OR AFTER 2023 - DUAL ELIGIBLE - [employer] AND ONE [employer] (MEDICARE REPLACEMENT/AD VANTAGE - HMO) Yvonne Mart [id number] Yvonne Mart Notes Date Note Type Note Provider Name and Address Organization Details Recorded Time 12/01/2024 text/html HPI: Patient seen in [facility] ED 11/30/24 pending PCP appt for surgeon referral 12/03/24. Pain from gallstones ongoing. Vomit x 2 since midnight. .................. .................. .................. .................. .................. .................. .................. ............... [facility] Nurse Triage Notes (Daisy Dave - RN): Chief Complaints: Vomiting PMH: Chronic Pain, Kidney Stones, Gallstones, Hypertension PMH Reviewed at 12/01/2024 - 10:58 Allergies Reviewed at 12/01/2024 - 10:58 Comments: HPI reviewed- NE .................. .................. .................. .................. .................. .................. .................. ............... Baseline Information: Baseline Hb: 12.6 g/dL Baseline HCt: 38% Baseline Creatinine: 0.68 mg/dL .................. .................. .................. .................. .................. .................. .................. ............... Purse Seining Hand Note From Leena Solo: Sent to a call for a pt complaining of abd pain since 11/29. SC8 arrives on scene, pt is alert and oriented, airway is patent. Pt complains of right upper quadrant abd pain and nausea since 11/29, and vomiting yesterday. Pt was evaluated in ED yesterday and diagnosed with right side kidney stones and and sludge in gallbladder. Pt was scheduled for surgery consult on 12/03 for cholecysectomy. Pt was prescribed Tramadol 50mg q 6hrs. Pt complains of 10/10 pain and nausea. BP:120/69, P:90, RR:18, SpO2:94% RA, T:98.7; Head: unremarkable; Lung sounds: clear bilaterally; Abdomen: soft, RUQ tenderness; Back: unremarkable; Extremities: unremarkable; Skin: pink, warm, dry; [facility] consulted and orders Zofran 4mg ODT. Zofran 4mg ODT administered without incident. Red flags discussed. Pt has no further questions. .................. .................. .................. .................. .................. .................. .................. ............... [facility] Consulted: Laura Montero .................. .................. .................. .................. .................. .................. .................. ............... Disposition: Fulfilled Laura Montero MD [address] [facility],[address] [facility], [place], [address], [place] [employer] Group[employer]IA KEE 12/01/2024 16:40:29 OBGyn Episode No OBEpisode recorded.
--- OUTSIDE RECORDS SUMMARY | 2025-01-07 15:09 | XMS_ITS | Encounter Summary ---
Author Organization [employer] Address [address] [facility] [address] [place] [address] Care Team Providers Care Experimental Mechanic Spacecraft Name Role Phone Liz Crockett MD Primary Care Provider + Deondre Phillips PharmD Unavailable [phone] Encounter Details Date Type Department Care Team (Late Contact Info) Description 01/09/2023 Orders Only [facility] MEDICINE [address] [place] [address] [phone] Liz Crockett MD [address] [place] [address] [phone] HTN (hypertension), benign (Primary Dx) Social History Tobacco Use Types Packs/Day Years Used Date Smoking Tobacco: Never Smokeless Tobacco: Never Alcohol Use Standard Drinks/Week Comments Never 0 (1 standard drink = 0.6 oz pur e alcohol) Comments Unknown Sex and Gender Information Value Date Recorded Sex Assigned at Female 09/23/2022 10:17 AM EDT Legal Sex Female 10:17 AM EDT Gender Identity Female 09/23/2022 10:17 AM EDT Sexual Orientation Straight 09/23/2022 10 :17 AM EDT COVID-19 Exposure Response Date Recorded In the last 10 days, have yo u been in contact with someone who was confirmed or suspected to have Coronavirus/COVID-19? No / Unsure 12/13/2022 9:49 AM EST documented as of this encounter Plan of Treatment Upcoming Encounters Date Type Department Care Team ([facility] Contact Info) Description 01/24/2025 10:00 AM EST Telemedicine [facility] MEDICINE [address] [place] [address] [phone] 02/15/2025 10:30 AM EDT Office Visit [facility] MED[facility]INE [address] [place] [address] [phone] Liz Crockett MD [address] [place] [phone] 03/24/2025 9:00 AM EDT Telemedicine [facility] MEDICINE [address] [place] [phone] Deondre Phillips, Tera [address] [place] [phone] documented as of this encounter Visit Diagnoses Diagnosis HTN (hypertension), benign- Primary Essential hypertension, benign documented in this encounter Care Teams Experimental Mechanic Spacecraft Relationship Specialty Start Date End Date Liz Crockett MD [address] [place] [phone] PCP - General Family Medicine 06/14/20 Deondre Phillips, PharmD [address] [place] [phone] Pharmacist Internal Medicine 06/16/23 [facility] 12/11/24 documented as of this encounter
--- OUTSIDE RECORDS SUMMARY | 2025-01-07 15:09 | XMS_ITS | Patient Health Record ---
Author Organization [facility] Address [address] [place] [address] Care Team Providers Care Head Filter Press Tender Name Role Phone Liz Crockett MD Primary Care Provider Unavail able David Degroot Unavailable [phone] REASON FOR REFERRAL No Information MEDICATIONS Medication [...] reflux disease without esophagitis (K21.9) Active confirmed [id number] Problem History of adenomatous polyp of colon (Z86.010) Active confirmed 210764956 Problem Encounter for screening for malignant neoplasm of colon (Z12.11) Active confirmed [id number] Problem Encounter for screening for malignant neoplasm of rectum (Z12.12) Active confirmed Screening for malignant neoplasm of rectum (120674384) PLAN OF TREATMENT Future Test Test Name Order Date UPPER GI ENDOSCOPY 01/16/2016 COLONOSCOPY 01/16/2016 Insurance Providers Payer Name Payer Address Payer Phone Subscriber Number Group Number Insured Name Patient Relationship to Insured Coverage Start Date Coverage End Date [place] [address] [place] [phone] [id number] HAVEN RODRIGUEZ Self - patient is the insured MEDICAL (GENERAL) HISTORY Medical History History ICD Code Nodular goiter Depression GERD Tubular adenoma removed in 2008--colonos copy with Dr. Ramirez Arthritis Kidney stones Denies OR,DM,CVA,Lung disease,renal dise ase Surgical History Surgery Date(Month/Year) Hernia-umbilical 2008
[2025-01-07 15:10] VITALS: BP 142/66; PULSE 84; O2SAT 97; BMI 33.1
--- OUTSIDE RECORDS SUMMARY | 2025-01-07 15:10 | XMS_ITS | Encounter Summary ---
Author Organization [employer] Address [address] [facility] [address] [place] [address] Care Team Providers Care Sheet Rock Installer Name Role Phone Liz Crockett MD Primary Care Provider + Deondre Phillips PharmD Unavailable [phone] Reason for Visit * Reason Comments Med Refill Encounter Details Date Type Department Care Team (Late st Contact Info) Description 08/06/2023 Refill [facility] [address] [place] [phone] Liz Crockett MD [address] [place], [place] [phone] Social History Tobacco Use Types Packs/Day Years Used Date Smoking Tobacco: Former Cigarettes Smokeless Tobacco: Never Alcohol Use Standard Drinks/Week Comments Never 0 (1 standard drink = 0.6 oz pur e alcohol) Depression Answer Date Recorded Patient Health Questionnaire-2 Score 2 02/17/2023 Comments Unknown Sex and Gender Information Value Date Recorded Sex Assigned at Female 09/23/2022 10:17 AM EDT Legal Sex Female 10:17 AM EDT Gender Identity Female 09/23/2022 10:17 AM EDT Sexual Orientation Straight 09/23/2022 10 :17 AM EDT documented as of this encounter Plan of Treatment Upcoming Encounters Date Type Department Care Team (Late Contact Info) Description 01/24/2025 10:00 AM EST Telemedicine [facility] [address] [place], [place] [phone] 02/15/2025 10:30 AM EDT Office Visit [facility] [address] [place] [address] [phone] Liz Crockett MD [address] [place] [address] 03/24/2025 9:00 AM EDT Telemedicine [facility] [address] [place] [address] Deondre Phillips, Tera [address] [place] [address] documented as of this encounter Goals Goal Patient Goal Type Associated Problems Recent Progress Patient-Stated? Author Blood Pressure < 150/90 Blood Pressure 134/66(2024 9:02 AM EST) No Deondre Phillips PharmD Note: Age>60, No Hx of DM or CKD documented as of this encounter Visit Diagnoses Not on filedocumented in this encounter Care Teams Sheet Rock Installer Relationship Specialty Start Date End Date Liz Crockett MD [address] [place] [phone] PCP - General Family Medicine 06/14/20 Deondre Phillips, Tera [address] [place] [address] [phone] Pharmacist Internal Medicine 06/16/23 [facility] 12/11/24 documented as of this encounter
--- OUTSIDE RECORDS SUMMARY | 2025-01-07 15:10 | XMS_ITS | Encounter Summary ---
Author Organization [employer] Address [address] [facility] [address] [place] [address] Care Team Providers Care Electric Well Logging Operator Name Role Phone Liz Crockett MD Primary Care Provider + Deondre Phillips PharmD Unavailable [phone] Reason for Visit * Reason Onset Date Comments ER Follow-up 07/03/2023 Encounter Details Date Type Department Care Team ([facility] st Contact Info) Description 07/03/2023 Telephone [facility] [address] [place], [place] [phone] Liz Crockett MD [address] [place], [place] [phone] ER Follow-up Social History Tobacco Use Types Packs/Day Years [...] encounter Miscellaneous Notes * Telephone Encounter - Luc March RN - 07/03/2023 12:07 PM EDT FYI * Telephone Encounter - Luc March RN - 07/03/2023 12:03 PM EDT T/C to pt. Through [facility] id - [id number] for ED status check and to schedule ED follow up apt. Pt. States she is having kidney stone and she is in pain. Pt. Advised to go to nearest ED forfurther evaluation and treatment. Pt. Denies. Pt. Advised to come to walk in center for further evaluation and treatment , pt. Agreed to come to walk in center. Pt. Also advised that depending upon how many pt. Before her check in at [facility] , she will be evaluated. Pt. Also advised to go [facility] Ed in case of a fever higher than 101.5 degrees Fahrenheit, burning during urination, Cloudy or foul-smelling urin, and Intolerable pain. Pt. Verbally agreed and understood. * Telephone Encounter - Ofe Potter - 07/03/2023 10:45 AM EDT Patient calling to report ED visit on [facility] on 06/17/23. Diagnosed with high blood pressure, abdominal pain . Patient advised will forward to team nurse for follow up. documented in this encounter Plan of Treatment Upcoming Encounters Date Type Department Care Team (Late st Contact Info) Description 01/24/2025 10:00 AM EST Telemedicine [facility] [address] [place] [phone] 02/15/2025 10:30 AM EDT Office Visit [facility] [address] [place] [phone] Liz Crockett MD [address] [place] [phone] 03/24/2025 9:00 AM EDT Telemedicine [address] [phone] Deondre Phillips, PharmD [address] [place] [phone] documented as of this encounter Goals Goal Patient Goal Type Associated Problems Recent Progress Patient-Stated? Author Blood Pressure < 150/90 Blood Pressure 134/66(2024 9:02 AM EST) No Deondre Phillips, PharmCecille Note: Age>61, No Hx of DM or CKD documented as of this encounter Visit Diagnoses Not on filedocumented in this encounter Care Teams Electric Well Logging Operator Relationship Specialty Start Date End Date Liz Crockett MD [address] [place] [address] PCP - General Family Medicine 06/14/20 Deondre Phillips, PharmD [address] [place] [address] Pharmacist Internal Medicine 06/16/23 [facility] 12/11/24 documented as of this encounter
--- OUTSIDE RECORDS SUMMARY | 2025-01-07 15:10 | XMS_ITS | Clinical Summary ---
Author Organization [employer] Address [address] [facility] [address] [place] [address] Care Team Providers Care Cost Consultant Name Role Phone Liz Crockett MD Primary Care Provider + Deondre Phillips PharmD Unavailable [phone] Allergies No known active allergies Medications zolpidem (Ambien) 5 MG tablet Take 5 mg by mouth at bedtime. Active pantoprazole (ProtoNix) 40 MG EC tablet TAKE 1 TABLET BY MOUTH ONCE DAILY, 30 MINUTES BEFORE BREAKFAST 02/08/20 23 Active Linzess 290 MCG capsule Take 290 mcg by mouth in the morning. 04/11/20 23 Active GAS RELIEF 125 MG capsule TAKE 1 CAPSULE BY MOUTH 2 TO 4 TIMES PER DAY NEEDED FOR GAS 03/19/20 23 Active Creon 18615-94238 units capsule TAKE 1 CAPSULE BY MOUTH FOUR TIMES DAILY WITH MEALS AND SNACKS 09/15/20 23 Active Diclofenac Sodium 1 % gelIndications:C ervical paraspinal muscle spasm APPLY TO THE AFFECTED AREA(S) 1 INCH TOPICALLY TWICE DAILY IN THE MORNING AND AT BEDTIME NEEDED FOR PAIN 100 g 1 07/02/20 24 Active lisinopril 2.5 MG tabletIndication s:Primary hypertension TAKE 1 TABLET BY MOUTH EVERY MORNING 90 tablet 1 09/22/20 24 Active acetaminophen (Tylenol) 500 MG tablet Take 1,000 mg by mouth every 6 (six) hours if needed. Active Antacid/Antigas 400-400-40 MG/10ML oral suspension Take 10 mL by mouth every 6 (six) hours if needed for indigestion. 10/18/20 24 Active docusate sodium (Colace) 100 MG capsule Take 1 capsule by mouth if needed in the morning and at bedtime for constipation. 12/10/19 25 Active famotidine (Pepcid) 20 MG tablet Take 1 tablet by mouth Once per day. Active cholecalciferol (Vitamin D-3) 50 MCG (2000 UT) tablet Take 1 tablet (50 mcg) by mouth Once per day. 30 tablet 3 12/21/19 25 Active escitalopram (Lexapro) 10 MG tablet Take 10 mg by mouth Once per day. Active famotidine (Pepcid) 40 MG tablet Take 40 mg by mouth at bedtime. 02/08/20 23 2024 Discontinued(M ed list cleanup (will not trigger notification to Pharmacy)) fluticasone (Flonase Allergy Relief) 50 MCG/ACT nasal spray Administer 1-2 sprays into each nostril in the morning. 16 g 10/21/20 23 2024 Discontinued(M ed list cleanup (will not trigger notification to Pharmacy)) DULoxetine (Cymbalta) [address] capsule TAKE 1 CAPSULE BY MOUTH EVERY DAY , DO NOT BREAK, CRUSH, DISSOLVE OR CHEW 30 capsule 2 11/10/20 24 2024 Discontinued(M ed list cleanup (will not trigger notification to Pharmacy)) ondansetron (Zofran) 4 MG tabletIndication s:Calculus of gallbladder without cholecystitis without obstruction,Magdalena l lithiasis Take 1 tablet (4 mg) by mouth every 8 (eight) hours if needed for nausea or vomiting for up to 7 days. 20 tablet 12/03/19 25 2024 cholecalciferol (Vitamin D-3) 50 MCG (1999 UT) tablet Take 2,000 Units by mouth Once per day. 2024 Discontinued(R eorder (will not trigger notification to Pharmacy)) Active Problems Problem Noted Date Diagnosed Date Renal lithiasis 12/03/2024 Assessment & Plan (12/03/2024 6:06 PM EST): Referral to urology though source of current pain is more consistent with biliary colic Screening-pulmonary TB 10/18/2024 Class 2 severe obesity due t o excess calories with serious comorbidity and body mass index (BMI) of 35.0 to 35.9 in adult 10/18/2024 Assessment & Plan (10/18/2024 12:34 PM EST): Discussed re weight reduction options including exercise, life style modifications, diet. Recommended to decrease soda and sugary beverage consumption, increase protein intake with meals (at least 1 portion of protein with each meal) to assist with satiety, increase dietary fiber Recommended at least 150 min/week of moderate intensity exercise. Arthritis of left shoulder region 07/02/2024 Assessment & Plan (07/02/2024 2:56 PM EDT): Refer to PT. Use Tylenol + Diclofenac Gel prn. Obesity, morbid 05/17/2024 Assessment & Plan (05/18/2024 9:28 AM EDT): Discussed re weight reduction options including exercise, life style modifications, diet. Discussed re lower calorie intake, increase dietary fiber Calculus of gallbladder with out cholecystitis without obstruction 05/17/2024 Assessment & Plan (12/03/2024 6:07 PM EST): Pt is quite uncomfortable, hesitant to add opiate as pt is somnolent today and baseline constipation Reviewed with pt and bjorn s/s for er visit Yeyo prescribed Referral for [facility] management Labs ordered Assessment & Plan (05/18/2024 9:27 AM EDT): Advised to avoid high fat meals FU after EGD, may need HIDA scan if she continues to be symptomatic to consider CCY. Primary osteoarthritis of left hip 02/19/2024 Assessment & Plan (02/19/2024 11:04 AM EDT): Counseled wt reduction, take tylenol and ibuprofen PRN Declined PT at this time, will fu in 2-3 months History of adenomatous polyp of colon 12/26/2023 12/26/2023 Encounter for screening for malignant neoplasm o f rectum 12/26/2023 12/26/2023 Subacute cough 10/21/2023 Assessment & Plan (10/21/2023 11:20 AM EST): Seems to have URI Nonintractable episodic headache 06/13/2023 Assessment & Plan (07/17/2023 9:37 AM EDT): Controlled, likely related to pain and elevated BP Assessment & Plan (06/13/2023 11:09 AM EDT): No specific cause at this time. Counseled to remain hydrated, avoid spending too long outdoors with extreme levels Check BP PRN symptoms Keep a symptoms diary may check Hemoglobin and RBS Fu with ophthalmology after surgery FU with me in 1 month Hyperlipidemia LDL goal <100 02/17/2023 Assessment & Plan (02/17/2023 5:44 PM EDT): We discussed re rx options. She wants to be more strict with life style modifications. Recommended moderate amount of exercise and increased consumption of fruit, vegetables, fish and high fiber foods. We discussed about avoiding consumption of highly saturated fats or trans fats. FU lipid profile in 1 year. Encounter for cervical Pap smear with pelvic exa m 02/17/2023 Assessment & Plan (02/17/2023 5:42 PM EDT): Pap smear today is normal. She does not need further pap smear. FU pap smear results with me. 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 Refer to PT, pt will bring information for PT provider Chronic pain 02/14/2023 Knee pain 02/14/2023 Senile osteoporosis 02/14/2023 Gastroesophageal reflux disease without esophagi tis 12/13/2022 Assessment & Plan (05/18/2024 9:27 AM EDT): Doing better on Famotidine Advised to have small melas, walk for at least 15 min after each meal, elevate head of the bed up to 30 degrees. Keep sxs/food diary and avoid triggering food, mostly high in fats and carbs. Primary osteoarthritis of right hip 12/13/2022 Assessment & Plan (12/13/2022 11:31 AM EST): Walks With a cane. Needs to do PT, patient will call back with info re a place where she knows for sure that there will be prydeinig speaker translators. I will refer to CM to work with patient on this . Primary osteoarthritis of right knee 12/13/2022 Assessment & Plan (12/13/2022 11:32 AM EST): Needs PT, see above Walks with cane Has DME Supplies at home to prevent falls in the bathroom Continue home care program, son is primary caregiver. Primary osteoarthritis of right shoulder 023 Stress incontinence of urine 12/13/2022 HTN (hypertension), benign 12/13/2022 Assessment & Plan (10/18/2024 12:29 PM EST): Fairly controlled. Compliant w/meds Continue lisinopril 2.5 mg Counseled re low salt diet/increase moderate physical activity. Check home BP BIW and prn CP/WHALEN/VO, call back if BP is above 145/90 several times. Non smoking patient. FU in 4-6m Assessment & Plan (02/19/2024 11:03 AM EDT): Repeated BP at the end of the visit was 140/80 Controlled. Compliant w/meds Continue lisinopril 2.5 mg Counseled re low salt diet/increase moderate physical activity. Check home BP BIW and prn CP/WHALEN/VO Non smoking patient. Assessment & Plan (10/21/2023 11:20 AM EST): Controlled. Compliant w/meds Continue Lisinopril 2.5mg same dose Counseled re low salt diet/increase moderate physical activity. Check home BP BIW and prn CP/WHALEN/VO Non smoking patient. FU 4 months Assessment & Plan (07/17/2023 9:36 AM EDT): Seems to be very controlled, triggered by pain apparently Will try to control pain Cont lisinopril 2.5 mg Counseled re low salt diet/increase moderate physical activity. Check home BP BIW and prn CP/WHALEN/VO Non smoking patient. FU w/ me in 3 mos Assessment & Plan (06/13/2023 11:10 AM EDT): BP is at goal. Continue lisinopril 2.5 and FU with me in 1 month with BP readings regarding headache Assessment & Plan (12/13/2022 2:29 PM EST): Controlled. Compliant w/meds Continue lisinopril 2.5mg Counseled re low salt diet/increase moderate physical activity. Check home BP BIW and prn CP/WHALEN/VO Non smoking patient. Order labs and fu w me in 6m Cervical paraspinal muscle spasm 12/13/2022 Assessment & Plan (07/02/2024 2:57 PM EDT): Refer to PT. Assessment & Plan (12/13/2022 2:37 PM EST): Counseled to ted diclofenac gel prn + Tylenol Refer to PT, will refer to CM to assist her navigate the system with an concrete pourer Order Xrays c-spine Recommended to look into changing her pillow or even her mattress if she wakes up with the pain. FU in 3m And will consider further w/u. Osteopenia 12/13/2022 Assessment & Plan (12/13/2022 2:37 PM EST): Continue Vit D daily Order dexa scan Kidney stone 02/19/2019 Overview (07/17/2023): [place] [place]ing Right kidney stone Assessment & Plan (10/18/2024 12:31 PM EST): She seems to be more symptomatic from that now. She was referred by Dr Cartwright to fu with , information re referral given to patient to schedule appt. Take tramadol prn, increased fluid intake. Assessment & Plan (05/18/2024 9:28 AM EDT): Small, stable, it hasn't moved. Assessment & Plan (02/19/2024 11:04 AM EDT): Continue watchful waiting per urologist, she'll take tylenol or ibuprofen PRN pain and I gave her tramadol to take for severe pain. 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 Will recheck TSH and free T4 yearly, If TSH is suppressed then will refer back to endocrinology. Depression, recurrent 05/05/2012 Assessment & Plan (07/02/2024 2:55 PM EDT): Start Duloxetine 30 mg and f/u with me in 6 weeks. F/u with Dr. Brooks and psychotherapist. Continue Ambien at bedtime. She is able to reach out for safety and feels safe at home. Assessment & Plan (12/13/2022 2:44 PM EST): Stable. Continue fu with Dr Brooks. Support from therapist. Feels safe at home and is able to reach out For safety. Continue adriana bowmanmariolaashtyn Resolved Problems Problem Noted Date Diagnosed Date Resolved Date Viral upper respiratory tract infection 10/21/2023 09/02/2024 Assessment & Plan (10/21/2023 11:20 AM EST): Triple rapid viral test today are negative. Rest (sleep at least 8 hours a night). Hydrate with plenty of water (avoid caffeine and alcohol). Use saline nose drops to loosen mucus Take Acetaminophen (Tylenol??)/Ibuprofen as needed to reduce fever, headache, body aches or discomfort Gargle with salt water and use throat sprays/lozenges for throat pain. Use heated, humidified air. If you do not have a humidifier, take hot showers. Cover coughs and sneezes using the crook of your elbow. If you have a fever, stay home and away from others (self isolation) until fever-free for 72 hours (temperature should be less than 100??F without medication). Encounters Date Type Department Care Team Description 12/24/2024 9:00 AM EST Telemedicine [facility] [address] [place] [phone] Deondre Phillips, PharmD HTN (hypertension), benign (Primary Dx) 12/21/2024 Refill [facility] [address] [place] [phone] Mamadou Taylor PharmD 12/20/2024 10:00 AM EST Telemedicine [facility] [address] [place] [phone] Mamadou Taylor PharmD Renal lithiasis (Primary Dx); Calculus of gallbladder without cholecystitis without obstruction; HTN (hypertension), benign 12/07/2024 Telephone [facility] [address] [place] [phone] Liz Crockett MD 12/06/2024 Telephone [facility] [address] [place] [phone] Liz Crockett MD 12/03/2024 1:30 PM EST Office Visit [address] [phone] Daija Garrett NP Calculus of gallbladder without cholecystitis without obstruction (Primary Dx); Renal lithiasis 12/01/[address] [phone] Queta Lance MA Chart Prep 12/01/[address] [address] Liz Crockett MD Nurse Triage 11/30/[address] [address] Liz Crockett MD Referral 11/26/[address] [address] Liz Crockett MD January11/10/[address] [address] Liz Crockett MD 10/18/2024 9:15 AM EST Office Visit [address] [address] Liz Crockett MD HTN (hypertension), benign (Primary Dx); Kidney stone; Class 2 severe obesity due to excess calories with serious comorbidity and body mass index (BMI) of 35.0 to 35.9 in adult ([facility]); Screening-pulmonary TB; Dietary counseling; Exercise counseling 10/18/2024 Orders Only [address] [address] Liz Crockett MD 10/18/2024 Travel 10/08/2024 Orders Only [address] [address] Madie Williamson DO Right flank pain (Primary Dx) 10/08/[address] [address] Liz Crockett MD 10/07/2024 Patient Outreach [address] [phone] Liz Crockett MD Pre-visit Planning ([facility] screening completed on 07/02/2024) from Last 3 Months Immunizations Name Administration Dates Next Due INFLUENZA VACCINE QUADRIVALE NT RECOMBINANT PRESERVATIVE FREE RIV4 08/28/2020 Influenza injectable quadriv alent IIV4 with preservative 10/10/2017,09/19/2016 Influenza injectable quadrivalent preservative f ree 12/13/2022,12/21/2019 Influenza, Split (incl. purified surface antigen ) 09/23/2013,09/15/2012 Moderna Covid-19 Vaccine 12+ 12/13/2022 Tdap 07/09/2012 Zoster, Recombinant 06/12/2020,12/24/2019 Family History Medical History Relation Name Comments Prostate cancer Father Coronary artery disease Mother Diabetes Diabetes Mother Diabetes Hypertension Mother Diabetes Osteoporosis Mother Diabetes Relation Name Status Comments Father Mother Diabetes Social History Tobacco Use Types Packs/Day Years Used Date Smoking Tobacco: Former Smokeless Tobacco: Never Tobacco Cessation:Counseling Given: Not Answered Alcohol Use Standard Drinks/Week Comments Never 0 [...] Orientation Straight 09/23/2022 10 :17 AM EDT Last Filed Vital Signs Vital Sign Reading Time Taken Comments Blood Pressure 134/66 12/24/2024 9:02 AM EST Pulse 82 12/24/2024 9:02 AM EST Temperature 36.7 ??C (98 ??F) 12/03/2024 1:44 PM EST Respiratory Rate 18 12/03/2024 1:44 PM EST Oxygen Saturation 99% 10/18/2024 9:28 AM EST Inhaled Oxygen Concentration - - Weight 85.5 kg (188 lb 9.6 oz) 12/03/2024 1:44 P M EST Height 157.5 cm (5' 2 ) 12/03/2024 1:44 PM EST Body Mass Index 34.5 12/03/2024 1:44 PM EST Plan of Treatment Upcoming Encounters Date Type Department Care Team (Late st Contact Info) Description 01/24/2025 10:00 AM EST Telemedicine [address] [phone] 02/15/2025 10:30 AM EDT Office Visit [address] [address] Liz Crockett MD [address] [place] [phone] 03/24/2025 9:00 AM EDT Telemedicine [address] [phone] Deondre Phillips, PharmD [address] [place] [phone] Health Maintenance Due Date Last Done Comments CT Colonography 1955 FIT DNA/Cologuard 1955 FIT 1955 FOBT 1955 Sigmoidoscopy 1955 Hepatitis C Screening 1974 Pneumococcal Vaccine: 50+ Years (1 of 1 - PCV) 2006 DTaP/Tdap/Td Vaccines (2 - Td or Tdap) 07/09/2022 07/09/2012 COVID-19 Vaccine (5 - season) 2024 12/13/2022, 12/03/2021, 04/18/2021, Additional history exists Influenza Vaccine (#1) 2024 , 08/28/2020, 12/21/2019, Additional history exists Colonoscopy 11/12/2024 11/12/2021 Colorectal Cancer Screening 11/12/2024 Depression Monitoring (PHQ-9) 01/02/2025 07/02/2024, 07/02/2024 Alcohol/Substance Use Screening 02/18/2025 02/19/2024 Mammogram 03/05/2025 03/05/2024, 0411/2022, 03/04/2023, Additional history exists Depression Screening 07/02/2025 07/02/2024, 07/02/20 SDOH Screening 07/02/2025 07/02/2024 Tobacco Screening 12/03/2025 12/03/2024 Lipid Panel 10/18/2029 10/18/2024, 12/17/2022 RSV Patients and Patients Aged 60 years or older (1 - 1-dose 75+ series) 2031 Zoster Vaccines Completed 06/12/2020, 12/24/2019 HIB Vaccines Aged Out No longer eligi ble based on patient's age to complete this topic HPV Vaccines Aged Out No longer eligi ble based on patient's age to complete this topic Hepatitis A Vaccines Aged Out No long er eligible based on patient's age to complete this topic Hepatitis B Vaccines Aged Out No long er eligible based on patient's age to complete this topic IPV Vaccines Aged Out No longer eligi ble based on patient's age to complete this topic Meningococcal Vaccine Aged Out No nat babatunde eligible based on patient's age to complete this topic RSV under 20 months Aged Out No longe r eligible based on patient's age to complete this topic Rotavirus Vaccines Aged Out No longer eligible based on patient's age to complete this topic Goals Goal Patient Goal Type Associated Problems Recent Progress Patient-Stated? Author Blood Pressure < 150/90 Blood Pressure 134/66(2024 9:02 AM EST) No Deondre Phillips, PharmD Note: Age>60, No Hx of DM or CKD Procedures Procedure Name Priority Date/Time Associated Diagnosis Comments LIPID PANEL, STANDARD Routine 10/18/2024 10:00 AM EST BASIC METABOLIC PANEL Routine 10/18/2024 10:00 AM EST BI MAMMOGRAM SCREENING TOMOSYNTHESIS BILATERAL Routine 03/05/2024 9:04 AM EDT HM COLONOSCOPY Routine 11/12/2021 3:56 PM EST from Last 3 Months or Most Recently Relevant to Health Maintenance Results * (ABNORMAL) Lipid Panel, Standard (10/18/2024 10:00 AM EST) Triglycerides 69 <150 mg/dL [facility] Comment:Desirable Triglyceri de: less than 150 mg/dLBorderline High Triglyceride 150-199 mg/dLHigh Triglyceride: 200-499 mg/dLVery High Triglyceride: greater than or equal to 5OO mg/dL Cholesterol 186 <200 mg/dL [facility] Comment:Desirable Cholestero l: less than 200 mg/dLBorderline High Cholesterol: 200-239 mg/dLHigh Cholesterol: greater than 239 mg/dL LDL Cholesterol Calculated 124(H) <100 mg/dL [facility] Comment:Desirable LDL: less than 100 mg/dLNear Optimal/Above Optimal LDL: 110- 129 mg/dLBorderline High LDL: 130-159 mg/dLHigh LDL: 160-189 mg/dLVery High LDL: greater than or equal to 190 mg/dL HDL Cholesterol 49 >40 mg/dL [facility] Comment:Desirable HDL: great er than 40 mg/dL Note: This HDL assay may give artificially low results in patients with liver disease. 10/18/2024 10:0 0 AM EST 10/18/2024 11:17 AM EST Liz Crockett MD LAB BLOOD ORDERABLES Fin al Result Performing Organization Address [facility] de Phone Number [facility] [address] [place] [phone] * (ABNORMAL) Basic Metabolic Panel (10/18/2024 10:00 AM EST) Sodium 141 135 - 145 mmol/L [facility] Potassium 4.0 3.3 - 5.1 mmol/L [facility] Chloride 107 96 - 108 mmol/L [facility] Carbon Dioxide 26 22 - 29 mmol/L [facility] Anion Gap 12 12 - 20 [facility] Urea Nitrogen (BUN) 17(H) 9 - 16 mg/dL [facility] Creatinine, Serum 0.66 0.5 - 1.4 mg/dL [facility] Estimated Glomerular Filt Rate >60 [facility] Comment:Chronic Kidney Disea se: Estimated GFR < 60 mL/min/1.99w8Mbtcua Kidney Disease: Estimated GFR < 15 mL/min/1.73m2 Glucose 105 60 - 115 mg/dL [facility] Calcium 9.0 8.4 - 10.2 mg/dL [facility] 10/18/2024 10:0 0 AM EST 10/18/2024 11:17 AM EST us Liz Crockett MD LAB BLOOD ORDERABLES Fin al Result Performing Organization Address [facility] Co de Phone Number [facility] [address] [place] [phone] * BI Mammogram Screening Tomosynthesis Bilateral (03/05/2024 9:04 AM EDT) Anatomical Region Laterality Modality Breast Bilateral Mammography 03/05/2024 9:04 AM EDT Narrative 04/01/2024 4:18 AM EDT ? [facility] ? [address] ?[place] [address] ? Mammography Report ? Signed ? Patient: Jose Mart,Yvonne ?MR#: ?? [id number] ? : 1955 ?Acct:[id number] ? Age/Sex: 68 / F ?ADM Date: 03/05/24 ? Loc: HO.MAMMO ? Attending Dr: Liz Crockett MD ? Ordering Physician: Liz Crockett MD ?Results: 1Ne ?? gative ? Date of Service: 03/05/24 ?Follow Up: 1 Year From Orig ?? inal Mammogram ? Procedure(s): MM tomosynthesis screening BI ?? Accession Number(s): [id number] ? cc: Liz Crockett MD ? EXAMINATION: ?? MM SCREENING DIGITAL BREAST TOMOSYNTHESIS, BILATERAL ? CLINICAL INFORMATION: ? Screening. Asymptomatic. ? COMPARISON: ?? Mammography: This study is compared with prior exams dating back to ?? 2018. ? TECHNIQUE: ?? Digital breast tomosynthesis is performed in both the craniocaudal and ?? mediolateral oblique views along with computer-aided detection (CAD). ?? Synthesized 2D images are generated from the tomosynthesis. ? FINDINGS: ?? There are scattered areas of fibroglandular density (ACR BI-RADS breast ?? composition Category b). ? There are no significant masses, abnormal calcifications, or other ?? abnormalities. ? MM/MM tomosynthesis screening BI ?? IMPRESSION: ?? No mammographic evidence of malignancy. ? ASSESSMENT: ? BI-RADS BI-RADS 1 - Negative ? RECOMMENDATION: ?? Routine annual mammography screening. ? 1 year F/U ? This examination should not preclude the clinical evaluation of a ?? suspicious palpable abnormality. ? This patient's information was entered into a reminder system with a ?? target due date for their next mammogram. ? Dictated By: ?Alondra Rubio MD ? Signed By: ?<Electronically signed by Alondra Rubio MD in OV> ? 04/01/24 041 ? DD/ 0904 ? TD/TT: ? Director Of Dementia Operations: ? Procedure Note Marj, Image - 04/01/2024 [facility] [address] [place] [address] Mammography Report Signed Patient: Yvonne Ferguson#: [id number] : 1955cct:[id number] Age/Sex: 68 / FADM Date: 03/05/24 Loc: HO.MAMMO Attending Dr: Liz Crockett MD Ordering Physician: Liz Crockettesults: 1Ne gative Date of Service: 03/05/24Follow Up: 1 Year From Orig inal Mammogram Procedure(s): MM tomosynthesis screening BI Accession Number(s): [id number] cc: Liz Crockett MD EXAMINATION: MM SCREENING DIGITAL BREAST TOMOSYNTHESIS, BILATERAL CLINICAL INFORMATION: Screening. Asymptomatic. COMPARISON: Mammography: This study is compared with prior exams dating back to 2018. TECHNIQUE: Digital breast tomosynthesis is performed in both the craniocaudal and mediolateral oblique views along with computer-aided detection (CAD). Synthesized 2D images are generated from the tomosynthesis. FINDINGS: There are scattered areas of fibroglandular density (ACR BI-RADS breast composition Category b). There are no significant masses, abnormal calcifications, or other abnormalities. MM/MM tomosynthesis screening BI IMPRESSION: No mammographic evidence of malignancy. ASSESSMENT: BI-RADS BI-RADS 1 - Negative RECOMMENDATION: Routine annual mammography screening. 1 year F/U This examination should not preclude the clinical evaluation of a suspicious palpable abnormality. This patient's information was entered into a reminder system with a target due date for their next mammogram. Dictated By: Alondra Rubio MD Signed By: <Electronically signed by Alondra Rubio MD in OV> 04/01/24413 DD/ 3 TD/TT: Director Of Dementia Operations: Liz Crockett MD IMG BI PROCEDURES Edited Result - Final * Hm Colonoscopy (11/12/2021 3:56 PM EST) Colonoscopy Normal Normal Narrative Paulette Rodríguez - 11/12/2021 3:56 PM EST Recommended 3-4 year follow up us Historical Provider HEALTH MAINTENANCE Edited Result - Final from Last 3 Months or Most Recently Relevant to Health Maintenance Insurance [facility] Care Teams Cost Consultant Relationship Specialty Start Date End Date Liz Crockett MD [address] [place], [place] [phone] PCP - General Family Medicine 06/14/20 Deondre Phillips, ClementeD [address] [place], [place] [phone] Pharmacist Internal Medicine 06/16/23 [facility] 12/11/24
--- OUTSIDE RECORDS SUMMARY | 2025-01-07 15:10 | XMS_ITS | Encounter Summary ---
Author Organization [employer] Address [address] [facility] 7t [place] [address] Care Team Providers Care Java Development Team Lead Name Role Phone Liz Crockett MD Primary Care Provider + Deondre Phillips PharmD Unavailable [phone] Encounter Details Date Type Department Care Team (Late Contact Info) Description 05/13/2023 Abstract [facility] [address] [place] [address] [phone] Liz Crockett MD [address] [place] [address] [phone] Social History Tobacco Use Types Packs/Day Years [...] suspected to have Coronavirus/COVID-19? No / Unsure 05/05/2023 9:50 AM EDT documented as of this encounter Plan of Treatment Upcoming Encounters Date Type Department Care Team ([facility] Contact Info) Description 01/24/2025 10:00 AM EST Telemedicine [facility] [address] [place] [address] [phone] 02/15/2025 10:30 AM EDT Office Visit [facility] [address] [place] [address] Liz Crockett MD [address] [place] [address] 03/24/2025 9:00 AM EDT Telemedicine [facility] [address] [place] [phone] Deondre Phillips, ClementeD [address] [place] [address] documented as of this encounter Procedures Procedure Name Priority Date/Time Associated Diagnosis Comments COLONOSCOPY Routine 11/12/2021 3:56 PM EST documented in this encounter Results * Colonoscopy (11/12/2021 3:56 PM EST) Colonoscopy Normal Normal Narrative Paulette Rodríguez - 11/12/2021 3:56 PM EST Recommended 3-4 year follow up us Historical Provider [employer] [facility] Edited Result - Final documented in this encounter Visit Diagnoses Not on filedocumented in this encounter Care Teams Java Development Team Lead Relationship Specialty Start Date End Date Liz Crockett MD [address] [place] [phone] PCP - General Family Medicine 06/14/20 Deondre Phillips, PharmD [address] [place] [phone] Pharmacist Internal Medicine 06/16/23 [facility] 12/11/24 documented as of this encounter
--- OUTSIDE RECORDS SUMMARY | 2025-01-07 15:10 | XMS_ITS | Encounter Summary ---
Author Organization [employer] Address [address] [facility] 7t [place] [address] Care Team Providers Care Paper Folding Machine Operator Name Role Phone Liz Crockett MD Primary Care Provider + Deondre Phillips PharmD Unavailable [phone] Reason for Visit * Consultation (Routine) - Authorized Specialty Diagnoses / Procedures Referred By Contac t Referred To Contact Pharmacy Diagnoses HTN (hypertension), benign Liz Crockett MD [address] [place] [address] Phone: tel: fax: Referral ID Status Reason Start Date Expiration Date Visits Requested Visits Authorized [id number] Authorized Consult and Treat 10/12/2024 10/12/2025 6 6 Encounter Details Date Type Department Care Team ([facility] Contact Info) Description 12/24/2024 9:00 AM EST Telemedicine [facility] [address] [place] [address] Deondre Phillips, PharmD [address] [place], [place] [phone] HTN (hypertension), benign (Primary Dx) Social History [...] AM EDT documented as of this encounter Last Filed Vital Signs Vital Sign Reading Time Taken Comments Blood Pressure 134/66 12/24/2024 9:02 AM EST Pulse 82 12/24/2024 9:02 AM EST Temperature - - Respiratory Rate - - Oxygen Saturation - - Inhaled Oxygen Concentration - - Weight - - Height - - Body Mass Index - - documented in this encounter Progress Notes * Deondre Phillips PharmD - 12/24/2024 9:00 AM EST Pharmacy Consult Visit Type: CDTM - Hypertension Pharmacist: Deondre Phillips PharmD Consent to CDTM: Yes Yvonne Mart is a 69 y.o. year old patient here for follow-up visit completed over the phone. Subjective History: General / Intake (updated 04/30/2024) Allergies: has No Known Allergies. Read/Write: Yes, in Swedish Recent Hospitalizations: No ([facility] 12/05/24-12/10/24: laparoscopic subtotal cholecystectomy) Social History as reported by patient: Tobacco: Denies Alcohol: Denies Caffeine: Denies, Reports infrequent cup of coffee if socializing and soda if eating out, but no more than 2-3 caffeinated beverages a week. Illicit drugs: Denies Diet: Patient does not cook herself, but family cooks for her using salt- containing seasonings. Patient denies canned goods or preprepared frozen meals. Orders fast food less than once a week. Exercise: Denies regular exercise Adherence / patient self-management Uses medboxes from [facility] pharmacy Medboxes started at [facility] pharmacy 12/20/2024 Refill history demonstrates adherence to the following medication: Lisinopril 2.5 m10/19/2024 (90 DS), 05/04/2024 (90 DS), 02/06/2024 (90 DS) OTC medication, vitamin, supplement use: denies Hypertension Patient has a history of discontinuing medications periodically, but reports recent adherence and tolerance to therapy. Patient reports less pain this week, previously she had severe abdominal pain. Had surgery 12/06/2024. Reports in hospital BP was well controlled without lisinopril, but restarted upon discharge Pertinent negatives include chest pain, blurry vision, dizziness Patient reported the following SMBP values from the last week. Reading # Blood pressure (mmHg) Heart rate (bpm) 12/20/24 146/80 84 12/21/24 126/68 71 12/22/24 129/68 82 12/23/24 125/69 82 12/24/24 130/70 82 Objective History: Treatment history/considerations: PMH: HTN, GERD, Urinary Incontinence, dyslipidemia, chronic pain, Osteoarthritis, osteoporosis, Toxic Nodular Goiter, Iron Deficiency Anemia, MDD Recent labs: Renal function (04/21/2024): eGFR: >60 mL/min/1.73 m2 SCr = 0.71mg/dL CrCl (AdjBW)= 80.0 mL/min Lab Results Component Value Date ALT 47 (H) 04/21/2024 AST 81 (H) 04/21/2024 LDLCHOL 117 (H) 12/17/2022 TRIG 69 10/18/2024 K 4.0 10/18/2024 NA 141 10/18/2024 CREATININE 0.66 10/18/2024 EGFR >60 10/18/2024 Recent blood pressure readings: BP Readings from Last 4 Encounters: 12/24/24 134/66 12/03/24 (!) 142/71 10/18/24 (!) 142/77 09/02/24 (!) 147/72 Pulse Readings from Last 4 Encounters: 12/24/24 82 12/03/24 107 10/18/24 73 09/02/24 84 Immunizations Due: COVID-19, PCV20, and Tetanus (q10 yrs) Unable to offer during today's televisit. Declined at MTM visit this week. Preferred Pharmacy: [facility] - [address] [phone] Assessment/Plan: Hypertension Pharmacotherapy: Lisinopril 2.5mg po daily Goals of Therapy per JNC 8: Achieve BP <150/90mmHg Plan: Patient's BP was at goal during today's visit. Patient agrees to resume current therapy with assistance of medboxes initiated at [facility] pharmacy thisweek. PCP visit scheduled in 8 weeks, CDTM FU will be scheduled for BP check in 12 weeks. If BP remains controlled patient will be graduated from CDTM program. Education: Reviewed benefits of DASH diet and increased exercise for improved BP control. Counseling provided to SMBP daily & log results for review in follow up. Reviewed BP goals, patient instructed to call if extremes of BP are noted prior to next scheduled visit. No orders of the defined types were placed in this encounter. documented in this encounter Plan of Treatment Upcoming Encounters Date Type Department Care Team (Late st Contact Info) Description 01/24/2025 10:00 AM EST Telemedicine [address] [phone] 02/15/2025 10:30 AM EDT Office Visit [address] [address] Liz Crockett MD [address] [place] [phone] 03/24/2025 9:00 AM EDT Telemedicine [address] [phone] Deondre Phillips PharmD [address] [place] [phone] Scheduled Referrals Name Type Priority Associated Diagnoses Orde r Schedule Referral to Pharmacy CDTM Outpatient Referral Routine HTN (hypertension), benign Ordered: 10/12/2024 documented as of this encounter Goals Goal Patient Goal Type Associated Problems Recent Progress Patient-Stated? Author Blood Pressure < 150/90 Blood Pressure 134/66(2024 9:02 AM EST) Deondre Nava, PharmCecille Note: Age>60, No Hx of DM or CKD documented as of this encounter Visit Diagnoses Diagnosis HTN (hypertension), benign- Primary Essential hypertension, benign documented in this encounter Additional Health Concerns Assessment Noted Time PHQ-9 Depression Total Score: 14 024 2:40 PM EDT documented as of this encounter Care Teams Paper Folding Machine Operator Relationship Specialty Start Date End Date Liz Crockett MD [address] [place] [address] PCP - General Family Medicine 06/14/20 Deondre Phillips, Tera [address] [place] [address] Pharmacist Internal Medicine 06/16/23 [facility] 12/11/24 documented as of this encounter
== END 2025-01-07 15:35 | disposition home or self-care (01) ==
PROVIDERS: PCP Internal Medicine; Visit Provider Nurse Practitioner Family
DX: K21.9 Gastro-esophageal reflux disease without esophagitis (principal); R14.0 Abdominal distension (gaseous); K59.01 Slow transit constipation; K58.2 Mixed irritable bowel syndrome; K80.20 Calculus of gallbladder without cholecystitis without obstruction; K80.50 Calculus of bile duct without cholangitis or cholecystitis without obstruction
CPT/HCPCS: 99214

== ENCOUNTER → 2025-01-07 15:07 | Outpatient (BNVA) | payer OTHER, SELFPAY | PROVIDERS: PCP Internal Medicine; Visit Provider Nurse Practitioner Family | DX: K21.9 Gastro-esophageal reflux disease without esophagitis (principal); K58.2 Mixed irritable bowel syndrome; K59.01 Slow transit constipation; K80.20 Calculus of gallbladder without cholecystitis without obstruction; K80.50 Calculus of bile duct without cholangitis or cholecystitis without obstruction; R14.0 Abdominal distension (gaseous) | CPT/HCPCS: 99212 ==

== ENCOUNTER 2025-01-26 08:19 | Outpatient (REF) | payer OTHER, SELFPAY ==
--- OUTSIDE RECORDS SUMMARY | 2025-01-26 08:45 | XMS_ITS | Encounter Summary ---
Author Organization [employer] Address [address] [facility] 7t [place] [address] Care Team Providers Care Law Firm Administrator Name Role Phone Liz Crockett MD Primary Care Provider + Deondre Phillips PharmD Unavailable [phone] Reason for Visit * Reason Comments Med Refill Encounter Details Date Type Department Care Team (Late st Contact Info) Description 08/06/2023 Refill [facility] [address] [place], [place] [phone] Liz Crockett MD [address] [place], [place] [phone] Social History Tobacco Use Types Packs/Day Years [...] Department Care Team (Late Contact Info) Description 01/26/2025 10:30 AM EST Nurse Only [facility] [address] [place], [place] [phone] 02/15/2025 10:30 AM EDT Office Visit [facility] [address] [place] [address] [phone] Liz Crockett MD [address] [place] [address] 02/28/2025 10:00 AM EDT Telemedicine [address] [phone] 03/24/2025 9:00 AM EDT Telemedicine [address] [phone] Deondre Phillips PharmD [address] [place] [phone] documented as of this encounter Goals Goal Patient Goal Type Associated Problems Recent Progress Patient-Stated? Author Blood Pressure < 150/90 Blood Pressure 134/66(2024 9:02 AM EST) No Deondre Phillips PharmD Note: Age>60, No Hx of DM or CKD documented as of this encounter Visit Diagnoses Not on filedocumented in this encounter Care Teams Law Firm Administrator Relationship Specialty Start Date End Date Liz Crockett MD [address] [place] [phone] PCP - General Family Medicine 06/14/20 Deondre Phillips, Tera [address] [place] [phone] Pharmacist Internal Medicine 06/16/23 [facility] 12/11/24 documented as of this encounter
--- OUTSIDE RECORDS SUMMARY | 2025-01-26 08:45 | XMS_ITS | Patient Health Record ---
Author Organization [facility] Address [address] [place] [address] Care Team Providers Care Strike On Machine Operator Name Role Phone Liz Crockett MD Primary Care Provider Unavail able David Degroot Unavailable [phone] Reason For Referral No Information Medications Medication SIG (Take, Route, Frequency, Duration) Notes Start Date End Date Status clonazePAM Active Lexapro Active busPIRone HCl Active Abilify Active Colace Active Meclizine HCl Active Nabumetone Active Omeprazole Active Ambien Active Colyte w Flavor Packs 240 GM as directed Orally as directed for 1 day(s) 01/21/2016 Active methIMAzole Active Problems Problem Type SNOMED Code ICD Code Onset Dates Problem Status W/U Status Risk Notes Problem 382400712 Encounter for screening for malignant neoplasm of colon (Z12.11) Active confirmed Problem 151520751 History of adenomatous polyp of colon (Z86.010) Active confirmed Problem Screening for malignant neoplasm of rectum (097133613) Encounter for screening for malignant neoplasm of rectum (Z12.12) Active confirmed Problem 420066919 Gastroesophageal reflux disease without esophagitis (K21.9) Active confirmed Plan Of Treatment Future Test Test Name Order Date UPPER GI ENDOSCOPY 01/16/2016 COLONOSCOPY 01/16/2016 Insurance Providers Payer Name Payer Address Payer Phone Subscriber Number Group Number Insured Name Patient Relationship to Insured Coverage Start Date Coverage End Date [employer] OF [email or web address] [address] [place] [address] [id number] HAVEN RODRIGUEZ Self - patient is the insured Medical (General) History Medical History History ICD Code Nodular goiter Depression GERD Tubular adenoma removed in 2008--colonos copy with Dr. Ramirez Arthritis Kidney stones Denies DC,DM,CVA,Lung disease,renal dise ase Surgical History Surgery Date(Month/Year) Hernia-umbilical 2009
--- OUTSIDE RECORDS SUMMARY | 2025-01-26 08:45 | XMS_ITS | Encounter Summary ---
Author Organization [employer] Address [address] [facility] [address] 7[address] [place] [address] Care Team Providers Care Social Work Msw Name Role Phone Liz Crockett MD Primary Care Provider + Deondre Phillips PharmD Unavailable [phone] Reason for Visit * Reason Onset Date Comments Oxygen 01/13/2025 Encounter Details Date Type Department Care Team ([facility] st Contact Info) Description 01/13/2025 Telephone [facility] [address] [place], [place] [phone] Liz Crockett MD [address] [place], [place] [phone] Oxygen Social History Tobacco Use Types Packs/Day Years [...] encounter Miscellaneous Notes * Telephone Encounter - Lor Garcia - 01/14/2025 3:43 PM EST If you don't have the Oxygen Order Form, the regular DME can be used, just right the instructions to discontinue in the other section * Telephone Encounter - Liz Crockett MD - 01/13/2025 12:39 PM EST Rn note, [facility] [place] reviewed as well as pulmonary rehab evaluation on 01/11/25. Please call patient and tell her that -according to recent pulmonary rehab evaluation- she doesn't need O2 anymore, to re consult prn or else fu with me as scheduled. Please call DME provider to dc O2 order (reach out to Pulmonary rehab re DME provider info if needed) * Telephone Encounter - Haley Arnett RN - 01/13/2025 10:01 AM EST RN reviewed mpages. Patient was admitted to [facility] 12[place]05-12/10 d/t acute cholecystitis. Patient had laparoscopic subtotal cholecystectomy with placement of BARBARA ian x 2 on 12/[address] Clement (she was found to have gangrenous cholecystitis with perihepatic abscess). Procedure went well and there were no acute post-operative complications. Patient also had ERCP with 10Fr biliary stent placement with GIon 12/07/24 (she was noted to have right sided moderate pleural effusion, likely reactive in nature due to gangrenous gallbladder). During hospitalization she had a persistent O2 requirement and was evaluated by pulmonary therapy who determined she was appropriate to go home on O2. Patient then saw pulmonary rehab on 01/11/25 who completed the oxygen walking test and determined the patient does notmeet O2 criteria: SpO2 HR O2 Activity 96% 104 RA Rest 95% 108 RA Walking in gym > 200 feet Sending to PCP as FYI. Discharge summary and pulmonary rehab note scanned into chart ----- Message from Liz Crockett MD sent at 01/12/2025 8:24 PM EST ----- Patient was apparently discharged from [facility] last month on O2, which according to pulmonary rehab she doesn't need anymore (unclear who referred her there? Maybe she saw pulmonary already? )I don't see hospital discharge summary from [facility] in the chart. Please check [facility] disch summary andif she's seen pulmonary there. Pulmonary rehab recommended to dc O2 but I haven't even seen him while she's on it. documented in this encounter Plan of Treatment Upcoming Encounters Date Type Department Care Team (Late st Contact Info) Description 01/26/2025 10:30 AM EST Nurse Only [facility] [address] [place] [phone] 02/15/2025 10:30 AM EDT Office Visit [facility] [address] [place] [address] Liz Crockett MD [address] [place] [phone] 02/28/2025 10:00 AM EDT Telemedicine [address] [address] 03/24/2025 9:00 AM EDT Telemedicine [facility] [address] [place] [address] Deondre Phillips, Tera [address] [place] [address] documented as of this encounter Goals Goal [...] documented as of this encounter Care Teams Social Work Msw Relationship Specialty Start Date End Date Liz Crockett MD [address] [place] [address] PCP - General Family Medicine 06/14/20 Deondre Phillips PharmD [address] [place] [phone] Pharmacist Internal Medicine 06/16/23 [facility] 12/11/24 documented as of this encounter
--- OUTSIDE RECORDS SUMMARY | 2025-01-26 08:45 | XMS_ITS | Encounter Summary ---
Author Organization [email or web address] Address [address] [facility] 7t [place] [address] Care Team Providers Care Counter Roller Name Role Phone Liz Crockett MD Primary Care Provider + Deondre Phillips PharmD Unavailable [phone] Reason for Visit * Consultation (Routine) - Authorized Specialty Diagnoses / Procedures Referred By Contac t Referred To Contact Pharmacy Diagnoses Calculus of gallbladder without cholecystitis without obstruction Renal lithiasis Daija Garrett NP [address] [place] [address] Phone: tel: fax: Referral ID Status Reason Start Date Expiration Date Visits Requested Visits Authorized [id number] Authorized Continuity of Care 12/03/2024 12/03/2025 6 6 Encounter Details Date Type Department Care Team (Latest Contact Info) Description 01/24/2025 10:00 AM EST Telemedicine [facility] [address] [place] [phone] Mamadou Taylor PharmD [address] [place], [place] [phone] Renal lithiasis (Primary Dx); Calculus of gallbladder [...] Progress Notes * Mamadou Taylor PharmD - 01/24/2025 10:00 AM EST Pharmacy Consult Visit Type: MT Visit Pharmacist: Mamadou Taylor PharmD Referral Diagnosis: Renal lithiasis, calculus of gallbladder w/o cholecystitis Referral Expiration: 12/03/25 Referring Provider: [facility] Recommendations for Provider: Please continue to assess patient symptoms due to recent alteration in medication regimen for depression. Note - patient historically taking escitalopram + duloxetine, however per previous discussion with psych provider, patient is to continue on escitalopram at this time. Since patient receives monthly medboxes, please contact medbox pharmacist with any medication changes (initiations, discontinuation, dose adjustments) Background/ Visit Intake Yvonne Mart is a 69 y.o. patient here for a follow-up visit. Visit completed over the phone. Allergies: has No Known Allergies. Preferred Pharmacy: [facility] - [facility] [address] [facility] 230 [facility] [id number] Medbox: Yes, waiting for lemon picker Assessment & Plan Adherence: History: Adherence: Medication Organization: Uses medboxes from [facility] pharmacy Patient seen to start medboxes on 12/20/24, however patient has yet to lemon picker their first medbox. Patient reports having surgery recently and unable to leave their house or having anyone to help with their medication pick-up from the pharmacy. Missed doses: Denies missed doses Patient reports they still had home supply of medications during this timeframe. Read/Write: Yes, in Peruvian Medication reconciliation: Per last MTM note 12/20/24, patient was concomitantly taking escitalopram and duloxetine. Per Dr. Brooks's office, patient is to continue on only escitalopram at this time. Unable to confirm which medications patient is actively taking. Escitalopram included in medbox (not yet picked up) and duloxetine to be discontinued. Goals of therapy: Improve adherence & minimize missed doses (<2 missed doses/week) Recommendations/Monitoring: Since patient receives monthly medboxes, please contact medbox pharmacist with any medication changes (initiations, discontinuation, dose adjustments) Pharmacist offered pharmacy delivery services, however patient declined at this time. Patient reports planning to come to the pharmacy on 01/26/25 to lemon picker medboxes. Please continue to assess patient symptoms due to recent alteration in medication regimen for depression. Hypertension: Pharmacologic Therapy: Lisinopril 2.5 mg once daily History: Follows with CDTM program for HTN (last visit 12/24/24) Patient reports having BP monitor, however they have VNA services that take and log their BP for them Patient does not have SMBP log available at this time. Patient reports their BP readings are normal , however is unable to recall a number at this time. Pertinent negatives include chest pain, head ache, blurry vision. Recent Blood Pressure values: BP Readings from Last 4 Encounters: 12/24/24 134/66 12/03/24 (!) 142/71 10/18/24 (!) 142/77 09/02/24 (!) 147/72 Pulse Readings from Last 4 Encounters: 12/24/24 82 12/03/24 107 10/18/24 73 09/02/24 84 Lab monitoring Lab Results Component Value Date NA 141 10/18/2024 K 4.0 10/18/2024 CREATININE 0.66 10/18/2024 EGFR >60 10/18/2024 Goals of Therapy per JNC 8: Achieve & maintain BP <150/90mmHg (age >60yr w/o history of diabetes or CKD) Plan: BP at goal. Continue current regimen as directed. Continue SMBP and log results. Currently scheduled for HTN management with [facility] on 03/24/25 Education: Counseling provided to SMBP & log [...] score (Daphney HARRIS, et al., 2019) is: 11.2% Values used to calculate the score: Age: 69 years Sex: Female Is Non- : No Diabetic: No Tobacco smoker: No Systolic Blood Pressure: 134 mmHg Is BP treated: Yes HDL Cholesterol: [...] return of updated FLP (actively ordered in EHR), if LDL remains above goal >100 mg/dL, initiation of a moderate intensity statin, such as rosuvastatin 5 mg once daily, may be appropriate. FLP and CMP actively ordered in EHR, needs collection. Patient encouraged to complete outstanding labwork. Patient reports they are planning to complete labwork on 01/26/25. Renal lithiasis / calculus of gallbladder without cholecystitis Pharmacologic Therapy: None History Follows with [facility], last visit 12/16/24 Labs monitoring: Lab Results Component Value Date EGFR >60 10/18/2024 EGFR >60 04/21/2024 EGFR >60 03/27/2023 CREATININE 0.66 10/18/2024 CREATININE 0.71 04/21/2024 CREATININE 0.66 03/27/2023 CrCl (AdjBW)= 82.8 mL/min as of 10/18/24 Goals of Therapy: Ensure safe & appropriate medication use in the setting of declining renal function. Plan: Continue to follow up with [facility] as indicated. Patient reports having a follow up appointment scheduled for 02/2025. Pharmacist reviewed current medications for renal dose [...] the CDC Adult Immunization Schedule. Assessment/Plan: Influenza 0079-4345 vaccine: Due . Next dose due annually. COVID-19 [id number] vaccine: Due . Next dose due annually. Hepatitis B series (Age 60+ without known risk factors): Not indicated Pneumococcal vaccines (Age >65): Due Shingrix series (age > 50 ): Up-to-date Td/TDaP (within the past 10 years): Due . Next dose due every 10 years. Plan: Patient interested in receiving PCV20 and Tdap vaccines at this time. Pharmacist scheduled vaccine appointment for 01/26/25 at [facility] pharmacy per patient request. Education: Indication of all recommended/administered vaccines Patient Action Plan Reviewed today with plan to revisit at follow up in 1 month for MB follow up: 02/28/25 hand cigar making supervisor medbox from the pharmacy on 01/26/25 Monitor blood pressure daily and log results Receive PCV20 and Tdap vaccines on 01/26/25 at [facility] pharmacy Complete outstanding lab work at [facility] lab on 01/26/25. Attend follow up appointments with specialists, PCP, and [facility] documented in this encounter Plan of Treatment Upcoming Encounters Date Type Department Care Team (Late st Contact Info) Description 01/26/2025 10:30 AM EST Nurse Only [facility] [address] [place] [phone] 02/15/2025 10:30 AM EDT Office Visit [address] [address] Liz Crockett MD [address] [place] [phone] 02/28/2025 10:00 AM EDT Telemedicine [address] [address] 03/24/2025 9:00 AM EDT Telemedicine [address] [address] Deondre PhillipsTera [address] [place] [address] documented as of this encounter Goals Goal Patient Goal Type Associated Problems Recent Progress Patient-Stated? Author Blood Pressure < 150/90 Blood Pressure 134/66(2024 9:02 AM EST) Deondre Nava, Tera Note: Age>60, No Hx of DM or CKD documented as of this encounter Visit Diagnoses Diagnosis Renal lithiasis- Primary Calculus of kidney Calculus of gallbladder without cholecystitis without obstruction HTN (hypertension), benign Essential hypertension, benign documented in this encounter Additional Health Concerns Assessment Noted Time PHQ-9 Depression Total Score: 14 024 2:40 PM EDT documented as of this encounter Care Teams Counter Roller Relationship Specialty Start Date End Date Liz Crockett MD [address] [place] [address] PCP - General Family Medicine 06/14/20 Deondre Phillips, PharmD [address] [place] [phone] Pharmacist Internal Medicine 06/16/23 [facility] 12/11/24 documented as of this encounter
--- OUTSIDE RECORDS SUMMARY | 2025-01-26 08:45 | XMS_ITS | Encounter Summary ---
Author Organization [employer] Address [address] [facility] 7t [place] [address] Care Team Providers Care Electronics Engineering Technician Name Role Phone Lzi Crockett MD Primary Care Provider + Deondre Phillips PharmD Unavailable [phone] Reason for Visit * Reason Onset Date Comments ER Follow-up 07/03/2023 Encounter Details Date Type Department Care Team ([facility] st Contact Info) Description 07/03/2023 Telephone [facility] [address] [place], [place] [phone] Liz Crockett MD [address] [place], [place] [phone] ER Follow-up Social History Tobacco Use Types [...] 12:03 PM EDT T/C to pt. Through [employer] id - [id number] for ED status check and to schedule [...] Before her check in at [facility] [place] , she will be evaluated. Pt. Also advised to go [facility] Ed in case of a fever higher than 101.5 degrees Fahrenheit, burning during urination, Cloudy or foul-smelling urin, and Intolerable pain. Pt. Verbally agreed and understood. * Telephone Encounter - Ofe Potter - 07/03/2023 10:45 AM EDT Patient calling to report ED visit on [facility] on 06/17/23. Diagnosed with high blood pressure, abdominal pain . Patient advised will forward to team nurse for follow up. documented in this encounter Plan of Treatment Upcoming Encounters Date Type Department Care Team (Late st Contact Info) Description 01/26/2025 10:30 AM EST Nurse Only [facility] [address] [place] [phone] 02/15/2025 10:30 AM EDT Office Visit [address] [address] Liz Crockett MD [address] [place] [phone] 02/28/2025 10:00 AM EDT Telemedicine [address] [address] 03/24/2025 9:00 AM EDT Telemedicine [address] [place] [address] Deondre Phillips, Tera [address] [place] [address] documented as of this encounter Goals Goal Patient Goal Type Associated Problems Recent Progress Patient-Stated? Author Blood Pressure < 150/90 Blood Pressure 134/66(2024 9:02 AM EST) No Deondre Phillips PharmD Note: Age>60, No Hx of DM or CKD documented as of this encounter Visit Diagnoses Not on filedocumented in this encounter Care Teams Electronics Engineering Technician Relationship Specialty Start Date End Date Liz Crockett MD [address] [place] [phone] PCP - General Family Medicine 06/14/20 Deondre Phillips, PharmCecille [address] [place] [address] Pharmacist Internal Medicine 06/16/23 [facility] 12/11/24 documented as of this encounter
--- OUTSIDE RECORDS SUMMARY | 2025-01-26 08:45 | XMS_ITS | Encounter Summary ---
Author Organization [employer] Address [address] [facility] 7t [place] [address] Care Team Providers Care Air Conditioning Mechanic Name Role Phone Liz Crockett MD Primary Care Provider + Deondre Phillips PharmD Unavailable [phone] Encounter Details Date Type Department Care Team ([facility] Contact Info) Description 01/09/2023 Orders Only [facility] [address] [place] [address] [phone] Liz Crockett MD [address] [place] [address] [phone] HTN (hypertension), benign (Primary Dx) Social History [...] Upcoming Encounters Date Type Department Care Team ([facility] Contact Info) Description 01/26/2025 10:30 AM EST Nurse Only [facility] [address] [place] [address] [phone] 02/15/2025 10:30 AM EDT Office Visit [facility] [address] [place] [phone] Liz Crockett MD [address] [place] [phone] 02/28/2025 10:00 AM EDT Telemedicine [address] [address] 03/24/2025 9:00 AM EDT Telemedicine [address] [address] Deondre Phillips, PharmD [address] [place] [phone] documented as of this encounter Visit Diagnoses Diagnosis HTN (hypertension), benign- Primary Essential hypertension, benign documented in this encounter Care Teams Air Conditioning Mechanic Relationship Specialty Start Date End Date Liz Crockett MD [address] [place] [phone] PCP - General Family Medicine 06/14/20 Deondre Phillips, PharmD [address] [place] [address] [phone] Pharmacist Internal Medicine 06/16/23 [facility] 12/11/24 documented as of this encounter
--- OUTSIDE RECORDS SUMMARY | 2025-01-26 08:45 | XMS_ITS | Encounter Summary ---
Author Organization [employer] Address 75 [facility] 7t [place] [address] Care Team Providers Care Logistics Planning Engineer Name Role Phone Liz Crockett MD Primary Care Provider + Deondre Phillips PharmD Unavailable Encounter Details Date Type Department Care Team (Late Contact Info) Description 05/13/2023 Abstract [facility] [address] [place] [address] [phone] Liz Crockett MD [address] [place] [address] [phone] Social History Tobacco Use Types Packs/Day Years [...] Upcoming Encounters Date Type Department Care Team ([facility] Contact Info) Description 01/26/2025 10:30 AM EST Nurse Only [facility] [address] [place] [address] [phone] 02/15/2025 10:30 AM EDT Office Visit [facility] [place] [address] [place] [address] 02/28/2025 10:00 AM EDT Telemedicine [facility] [place] [phone] 03/24/2025 9:00 AM EDT Telemedicine [facility] [place] [address] Deondre Phillips, ClementeD [address] [facility] [place] documented as of this encounter Procedures Procedure Name Priority Date/Time Associated Diagnosis Comments COLONOSCOPY Routine 11/12/2021 3:56 PM EST documented in this encounter Results * Hm Colonoscopy (11/12/2021 3:56 PM EST) Colonoscopy Normal Normal Narrative Paulette Rodríguez - 11/12/2021 3:56 PM EST Recommended 3-4 year follow up Historical Provider [facility] Edited Result - Final documented in this encounter Visit Diagnoses Not on filedocumented in this encounter Care Teams Logistics Planning Engineer Relationship Specialty Start Date End Date Liz Crockett MD [facility] [place] [address] PCP - General Family Medicine 06/14/20 Deondre Phillips[place] [address] Pharmacist Internal Medicine 06/16/23 [facility] documented as of this encounter
--- OUTSIDE RECORDS SUMMARY | 2025-01-26 08:45 | XMS_ITS | Encounter Summary ---
Author Organization [employer] Address 75 [facility] 7t [place] [address] Care Team Providers Care Tube Inspector Name Role Phone Liz Crockett MD Primary Care Provider + Deondre Phillips PharmD Unavailable [phone] Encounter Details Date Type Department Care Team (Late st Contact Info) Description 11/27/2022 Orders Only [facility] [address] [place], [place] [phone] Madie Rasmussen LPN Social History Tobacco Use Types [...] Description 01/26/2025 10:30 AM EST Nurse Only [facility] [address] [place] [phone] 02/15/2025 10:30 AM EDT Office Visit [facility] [address] [place] [phone] Liz Crockett MD [address] [place] [phone] 02/28/2025 10:00 AM EDT Telemedicine [address] [address] 03/24/2025 9:00 AM EDT Telemedicine [address] [place] [address] Deondre Phillips, PharmCecille [address] [place] [address] documented as of this encounter Visit Diagnoses Not on filedocumented in this encounter Care Teams Tube Inspector Relationship Specialty Start Date End Date Liz Crockett MD [address] [place] [address] PCP - General Family Medicine 06/14/20 Deondre Phillips, ClementeD [address] [place] [address] Pharmacist Internal Medicine 06/16/23 [facility] 12/11/24 documented as of this encounter
--- OUTSIDE RECORDS SUMMARY | 2025-01-26 08:45 | XMS_ITS | Data Portability ---
Author Organization [employer] Address [address] [place] [address] Care Team Providers Care Funeral Service Apprentice Name Role Phone [facility] OTHER [phone] [facility] OTHER Assessment Encounter Date Assessment Date Assessment LastModified by Organization Details LastModified Time 12/01/2024 12/01/2024 I provided real -time medical direction via phone for this encounter and was available for additional phone-based assistance as needed. I have reviewed and agree with the Assessment and Plan as documented by the Tie Tamper. Patient given the opportunity to ask questions. [...] She is taking in p.o. well. Per tank assembler on the scene, vital signs are stable [...] SNOMED-CT Code Diagnosis ICD10 Code Diagnosis Note [id number] Laura Montero MD Main - instED [address] [place] [phone] 12/01/2024 15:14:39 12/01/2024 17:58:26 Nausea [id number] R11.0 Health Concerns Section Related Observation LastModified by Organization Detai ls LastModified Time None Recorded Concern Status LastModified by Organization Details LastModified Time None Recorded Advance Directives Directive None Recorded Payers Encounter Date Sequence Insurance Name Policy Number Policy Sharma Covered Member ID Sharma Member ID Guarantor Name 12/01/2024 1 [facility] - DOS ON OR AFTER 2023 - DUAL ELIGIBLE - [employer] OPTIONS AND ONE CARE (MEDICARE REPLACEMENT/AD VANTAGE - HMO) Yvonne Mart [id number] Yvonne Mart Notes Date Note Type Note Provider Name and Address Organization Details Recorded Time 12/01/2024 text/html HPI: Patient seen in [facility] 11/30/24 pending PCP [...] .................. .................. .................. .................. .................. .................. ............... Tie Tamper Note From Leena Solo: Sent to a [...] unremarkable; Extremities: unremarkable; Skin: pink, warm, dry; [facility] consulted and orders Zofran 4mg ODT. Zofran 4mg ODT administered without incident. Red flags discussed. Pt has no further questions. .................. .................. .................. .................. .................. .................. .................. ............... [facility] Consulted: Laura Montero .................. .................. .................. .................. .................. .................. .................. ............... Disposition: Fulfilled Laura Montero MD [address] [facility],[address] [facility], [place], [phone], PEDRO [employer] Gourmet[employer]IA KEE 12/01/2024 16:40:29 OBGyn Episode No OBEpisode recorded.
--- OUTSIDE RECORDS SUMMARY | 2025-01-26 08:45 | XMS_ITS | Clinical Summary ---
Author Organization [employer] Address [address] [facility] 7t [place] [address] Care Team Providers Care Loss Prevention Analyst Name Role Phone Liz Crockett MD Primary Care Provider + Deondre Phillips PharmD Unavailable [phone] Allergies No known active allergies Medications zolpidem (Ambien) 5 MG tablet Take 5 mg by mouth at bedtime. Active pantoprazole (ProtoNix) 40 MG EC tablet TAKE 1 TABLET BY MOUTH ONCE DAILY, 30 MINUTES BEFORE BREAKFAST 3 Active Linzess 290 MCG capsule Take 290 mcg by mouth in the morning. 3 Active GAS RELIEF 125 MG capsule TAKE 1 CAPSULE BY MOUTH 2 TO 4 TIMES PER DAY NEEDED FOR GAS 3 Active Creon 53634-19348 units capsule TAKE 1 CAPSULE BY MOUTH FOUR TIMES DAILY WITH MEALS AND SNACKS 3 Active Diclofenac Sodium 1 % gelIndications:Ce rvical paraspinal muscle spasm APPLY TO THE AFFECTED AREA(S) 1 INCH TOPICALLY TWICE DAILY IN THE MORNING AND AT BEDTIME NEEDED FOR PAIN 100 g 1 4 Active lisinopril 2.5 MG tabletIndications :Primary hypertension TAKE 1 TABLET BY MOUTH EVERY MORNING 90 tablet 1 4 Active acetaminophen (Tylenol) 500 MG tablet Take 1,000 mg by mouth every 6 (six) hours if needed. Active Antacid/Antigas 400-400-40 MG/10ML oral suspension Take 10 mL by mouth every 6 (six) hours if needed for indigestion. 4 Active docusate sodium (Colace) 100 MG capsule Take 1 capsule by mouth if needed in the morning and at bedtime for constipation. 5 Active famotidine (Pepcid) 20 MG tablet Take 1 tablet by mouth Once per day. Active cholecalciferol (Vitamin D-3) 50 MCG (1999 UT) tablet Take 1 tablet (50 mcg) by mouth Once per day. 30 tablet 3 5 Active escitalopram (Lexapro) 10 MG tablet Take 10 mg by mouth Once per day. Active Active Problems Problem Noted Date Diagnosed Date [...] knows for sure that there will be lithuanian speaker translators. I will refer to CM [...] assist her navigate the system with an treasury assistant Order Xrays c-spine Recommended to look into changing her pillow or even her mattress if she wakes up with the pain. FU in 3m And will consider further w/u. Osteopenia 12/13/2022 Assessment & Plan (12/13/2022 2:37 PM EST): Continue Vit D daily Order dexa scan Kidney stone 02/19/2019 Overview (07/17/2023): CT scan 06/21/23 @[facility]: 5mm non obstructing Right kidney stone Assessment [...] able to reach out For safety. Continue ambien, lexapro Resolved Problems Problem Noted Date Diagnosed Date [...] Encounters Date Type Department Care Team Description 01/24/2025 10:00 AM EST Telemedicine [facility] [address] [place] [address] Mamadou Taylor, PharmD Renal lithiasis (Primary Dx); Calculus of gallbladder without cholecystitis without obstruction; HTN (hypertension), benign 01/17/2025 Telephone [facility] [address] [place] [address], [place] [address] Liz Crockett MD Durable Medical Equipment 01/14/2025 Telephone [facility] [address] [place] [address], [place] [address] Liz Crockett MD Durable Medical Equipment 01/13/2025 Telephone [facility] [address] [place] [address] Liz Crockett MD Oxygen 12/24/2024 9:00 AM EST Telemedicine [facility] [address] [place] [address] Deondre Phillips, PharmD HTN (hypertension), benign (Primary Dx) 12/21/2024 Refill [facility] [address] [place] [address], [place] [address] Mamadou Taylor PharmCecille 12/20/2024 10:00 AM EST Telemedicine [facility] [address] [place] [address], [place] [address] Mamadou Taylor, PharmD Renal lithiasis (Primary Dx); Calculus of gallbladder without cholecystitis without obstruction; HTN (hypertension), benign 12/07/2024 Telephone [facility] [address] [place] [address] Liz Crockett MD 12/06/2024 Telephone [facility] [address] [place] [address] Liz Crockett MD 12/03/2024 1:30 PM EST Office Visit [facility] [address] [place] [address], [place] [address] Daija Garrett NP Calculus of gallbladder without cholecystitis without obstruction (Primary Dx); Renal lithiasis 12/01/2024 Telephone [facility] [address] [place] [address] Queta Lance MA Chart Prep 12/01/2024 Telephone [facility] [address] [place] [address] Liz Crockett MD Nurse Triage 11/30/2024 Telephone [facility] [address] [place], [place] [phone] Liz Crockett MD Referral 11/26/2024 Telephone [facility] [address] [place], [place] [phone] Liz rCockett MD January recall 11/10/2024 Refill [facility] [address] [place] [address] Liz Crockett MD from Last 3 Months Immunizations Name Administration [...] Description 01/26/2025 10:30 AM EST Nurse Only [facility] [address] [place] [address] 02/15/2025 10:30 AM EDT Office Visit [facility] [address] [place] [address] Liz Crockett MD [address] [place] [address] 02/28/2025 10:00 AM EDT Telemedicine [facility] [address] [place], [place] [phone] 03/24/2025 9:00 AM EDT Telemedicine [facility] [address] [place], [place] [phone] Deondre Phillips, PharmD [address] [place] [address] Health Maintenance Due Date Last Done Comments CT Colonography 1956 FIT DNA/Cologuard 1955 FIT 1955 FOBT 1955 Sigmoidoscopy 1955 Hepatitis C Screening 1974 Pneumococcal Vaccine: 50+ Years (1 of 1 - PCV) 2006 DTaP/Tdap/Td Vaccines (2 - Td or Tdap) 07/09/2022 07/09/2012 COVID-19 Vaccine ( - season) 2024 12/13/2022, 12/03/2021, 04/18/2021, Additional [...] Pressure 134/66(2024 9:02 AM EST) Deondre Nava, PharmD Note: Age>60, No Hx of DM or CKD Procedures Procedure Name Priority Date/Time Associated Diagnosis Comments LIPID PANEL, STANDARD Routine 10/18/2024 10:00 AM EST BI MAMMOGRAM SCREENING TOMOSYNTHESIS BILATERAL Routine 03/05/2024 9:04 AM EDT HM COLONOSCOPY Routine 11/12/2021 3:56 PM EST from Last 3 Months or Most Recently Relevant to Health Maintenance Results * (ABNORMAL) Lipid Panel, Standard (10/18/2024 10:00 AM EST) Triglycerides 69 <150 mg/dL [facility] Comment:Desirable Triglyceri de: less than 150 mg/dLBorderline High Triglyceride 150-199 mg/dLHigh Triglyceride: 200-499 mg/dLVery High Triglyceride: greater than or equal to 5OO mg/dL Cholesterol 186 <200 mg/dL [facility] Comment:Desirable Cholestero l: less than 200 mg/dLBorderline High Cholesterol: 200-239 mg/dLHigh Cholesterol: greater than 239 mg/dL LDL Cholesterol Calculated 124(H) <100 mg/dL [facility] Comment:Desirable LDL: less than 100 mg/dLNear Optimal/Above Optimal LDL: 110- 129 mg/dLBorderline High LDL: 130-159 mg/dLHigh LDL: 160-189 mg/dLVery High LDL: greater than or equal to 190 mg/dL HDL Cholesterol 49 >40 mg/dL [facility] Comment:Desirable HDL: great er than 40 mg/dL Note: This HDL assay may give artificially low results in patients with liver disease. 10/18/2024 10:0 0 AM EST 10/18/2024 11:17 AM EST us Liz Crockett MD LAB BLOOD ORDERABLES Fin al Result [facility] [address] [place] [phone] [phone] * BI Mammogram Screening Tomosynthesis Bilateral (03/05/2024 9:04 AM EDT) Anatomical Region Laterality Modality Breast Bilateral Mammography 03/05/2024 9:04 AM EDT Narrative 04/01/2024 4:18 AM EDT ? [facility] ? [address] ?[place] [address] ? Mammography Report ? Signed ? Patient: Jose Mart,Yvonne ?MR#: ?? [id number] ? : 1955 ?Acct:[id number] ? Age/Sex: 68 / F ?ADM Date: /12/24 ? Loc: HO.MAMMO ? Attending Dr: Liz Crockett MD ? Ordering Physician: Liz Crockett MD ?Results: 1Ne ?? gative ? Date of Service: 03/05/24 ?Follow Up: 1 Year From Orig ?? inal Mammogram ? Procedure(s): MM tomosynthesis screening BI ?? Accession Number(s): [id number] ? cc: Liz Crockett MD ? EXAMINATION: [...] by Alondra Rubio MD in OV> ? 04/01/24413 ? DD/ 3 ? TD/TT: ? Laboratory Phlebotomist: ? Procedure Note Marj, Negro - 04/01/2024 [facility] [address] [place] [address] Dr. Ball, PEDRO [address] Mammography Report Signed Patient: Naveen Ferguson#: [id number] : 6Acct:[id number] Age/Sex: 68 / FADM Date: 03/05/24 Loc: MAMMO Attending Dr: Liz Crockett MD Ordering Physician: Liz Crockett MDResults: 1Ne gative Date of Service: 03/05/24Follow Up: 1 Year From Orig ina Mammogram Procedure(s): MM tomosynthesis screening BI Accession Number(s): [id number] cc: Liz Crockett MD EXAMINATION: MM SCREENING [...] signed by Alondra Rubio MD in OV> 04/01/24 0414 DD/ 0904 TD/TT: Laboratory Phlebotomist: Liz Crockett MD [facility] BI PROCEDURES Edited Result - Final * Hm Colonoscopy (11/12/2021 3:56 PM EST) Colonoscopy Normal Normal Narrative Paulette Rodríguez - 11/12/2021 3:56 PM EST Recommended 3-4 year follow up us Historical Provider HEALTH MAINTENANCE Edited Result - Final from Last 3 Months or Most Recently Relevant to Health Maintenance Insurance [facility] Care Teams Loss Prevention Analyst Relationship Specialty Start Date End Date Liz Crockett MD [address] [place] [address] PCP - General Family Medicine 06/14/20 Deondre Phillips, PharmD [address] [place] [address] Pharmacist Internal Medicine 06/16/23 [facility] 12/11/24
--- OUTSIDE RECORDS SUMMARY | 2025-01-26 08:46 | XMS_ITS | Encounter Summary ---
Author Organization [employer] Address [address] 7t [place] [address] Care Team Providers Care Wire Products Inspector Name Role Phone Liz Crockett MD Primary Care Provider + Deondre Phillips PharmD Unavailable [phone] Reason for Visit * Reason Onset Date Comments Durable Medical Equipment 01/14/2025 Encounter Details Date Type Department Care Team (Late st Contact Info) Description 01/14/2025 Telephone [facility] [address] [place], [place] [phone] Liz Crockett MD [address] [place], [place] [phone] Durable Medical Equipment Social History Tobacco Use Types Packs/Day Years [...] encounter Miscellaneous Notes * Telephone Encounter - Eliana Falcon [place] - 01/14/2025 2:11 PM EST Tc o [facility] to discontinue O2 rx. Spoke to [facility] who stated they need an order specifying discontinue O2. Forwarded message to DME specialist. documented in this encounter Plan of Treatment Upcoming Encounters Date Type Department Care Team (Late st Contact Info) Description 01/26/2025 10:30 AM EST Nurse Only [facility] [address] [place] [address] 02/15/2025 10:30 AM EDT Office Visit [facility] [address] [place] [address] Liz Crockett MD [address] [place] [address] 02/28/2025 10:00 AM EDT Telemedicine [address] [address] 03/24/2025 9:00 AM EDT Telemedicine [address] [address] Deondre Phillips, Tera [address] [place] [address] documented as of this encounter Goals Goal [...] documented as of this encounter Care Teams Wire Products Inspector Relationship Specialty Start Date End Date Liz Crockett MD [address] [place] [address] PCP - General Family Medicine 06/14/20 Deondre Phillips, PharmD [address] [place] [address] Pharmacist Internal Medicine 06/16/23 [facility] 12/11/24 documented as of this encounter
--- OUTSIDE RECORDS SUMMARY | 2025-01-26 08:46 | XMS_ITS | Encounter Summary ---
Author Organization [employer] Address [address] [facility] [address] 7t [place] [address] Care Team Providers Care Seamstress Fitter Name Role Phone Liz Crockett MD Primary Care Provider + Deondre Phillips PharmD Unavailable [phone] Reason for Visit * Reason Onset Date Comments Durable Medical Equipment 01/17/2025 Encounter Details Date Type Department Care Team (Late st Contact Info) Description 01/17/2025 Telephone [facility] [address] [place], [place] [phone] Liz Crockett MD [address] [place], [place] [phone] Durable Medical Equipment Social History Tobacco Use [...] encounter Miscellaneous Notes * Telephone Encounter - Elinaa Falcon [place] - 01/17/2025 9:57 AM EST Faxed DME sheet stating to discontinue O2 rx to [facility]. Fax was successful. documented in this encounter Plan of Treatment Upcoming Encounters Date Type Department Care Team (Late st Contact Info) Description 01/26/2025 10:30 AM EST Nurse Only [facility] [address] [place] [address] 02/15/2025 10:30 AM EDT Office Visit [facility] [address] [place] [address] Liz Crockett MD [address] [place] [address] 02/28/2025 10:00 AM EDT Telemedicine [facility] [address] [place] [address] 03/24/2025 9:00 AM EDT Telemedicine [address] [address] Deondre Phillips, PharmD [address] [place] [address] documented as of this encounter Goals Goal [...] documented as of this encounter Care Teams Seamstress Fitter Relationship Specialty Start Date End Date Liz Crockett MD [address] [place] [address] PCP - General Family Medicine 06/14/20 Deondre Phillips PharmD [address] [place] [address] Pharmacist Internal Medicine 06/16/23 [facility] 12/11/24 documented as of this encounter
[2025-01-26 11:36] LABS: MANUAL DIFF FLAG NO
[2025-01-26 11:48] LABS: Basophils Percent Auto 0.9 % (0-2); Eosinophils Absolute Auto 0.4 X10*3/uL (0.0-0.4); Eosinophils Percent Auto 8.9 % (0-4); Hematocrit 39.7 % (37.0-47.0); Hemoglobin 12.5 g/dl (12.0-16.0); Imm Gran Abs Auto 0.01 X10*3/uL (0.00-0.03); Imm Gran Pct Auto 0.2 % (0.0-0.4); Lymphocytes Absolute Auto 1.5 X10*3/uL (1.2-4.9); Lymphocytes Percent Auto 34.1 % (20-40); Mean Corpuscular HGB Conc 31.5 g/dl (31.0-35.0); Mean Corpuscular Hemoglobin 28.2 pg (27.0-33.0); Mean Corpuscular Volume 89.6 fL (80.0-98.0); Mean Platelet Volume 11.5 fL (9.4-12.3); Monocytes Absolute Auto 0.4 X10*3/uL (0.1-1.2); Monocytes Percent Auto 8.7 % (2-11); Neutrophils Absolute Auto 2.1 x10*3/uL (2.0-8.3); Neutrophils Percent Auto 47.2 % (45-73); Platelet Count 277 X10*3/uL (160-400); Red Blood Count 4.43 X10*6/uL (4.20-5.50); Red Cell Distribution Width 12.6 % (11.0-16.0); White Blood Count 4.4 X10*3/uL (4.8-10.8)
[2025-01-26 12:23] LABS: Alanine Aminotransferase 20 U/L (0-31); Albumin Level 3.9 g/dL (3.5-5.0); Alkaline Phosphatase 74 U/L (39-117); Anion Gap 11 (12-20); Aspartate Amino Transferase 23 U/L (5-31); Bilirubin Total 0.4 mg/dL (0.0-1.0); Blood Urea Nitrogen 21 mg/dL (9-16); C Reactive Protein 0.81 mg/dL (< or = 0.50); Calcium 9.3 mg/dL (8.4-10.2); Carbon Dioxide 29 mmol/L (22-29); Chloride 109 mmol/L (96-108); Cholesterol 177 mg/dL (<200); Estimated Glomerular Filt Rate > 60; Glucose Random 105 mg/dL (60-115); HDL Cholesterol 42 mg/dL (>40); LDL Cholesterol Calculated 115 mg/dL (<100); Potassium 4.1 mmol/L (3.3-5.1); Sodium 145 mmol/L (135-145); Total Protein 7.8 g/dL (6.5-8.0); Triglycerides 100 mg/dL (<150)
[2025-01-26 12:24] LABS: Erythrocyte Sedimentation Rate 31 MM/HR (0-20)
[2025-01-26 12:40] LABS: TSH reflex Free T4 1.53 uIU/mL (0.32-4.0); Vitamin D 25-OH Total 20.1 ng/mL (>30)
[2025-01-26 12:48] LABS: Reflex LDLD? No
[2025-01-29 11:39] LABS: TS Negative Control Passed; TS Panel A 1; TS Panel B 0; TS Positive Control Passed; TSpotTB Negative (Negative)
== END 2025-01-26 08:20 | disposition home or self-care (01) ==
LOC: HO.HHCL 08:19
PROVIDERS: Internal Medicine; Visit Provider Nurse Practitioner Family
DX: K80.20 Calculus of gallbladder without cholecystitis without obstruction (principal); I10 Essential (primary) hypertension; Z11.1 Encounter for screening for respiratory tuberculosis; N20.0 Calculus of kidney
CPT/HCPCS: 36415; 80053; 80061; 82306; 84443; 85025; 85652; 86140; 86481

== ENCOUNTER 2025-02-08 18:34 | Outpatient (REF) | payer OTHER, SELFPAY | END 2025-02-08 18:35 | disposition home or self-care (01) | LOC: HO.HHCLNP 18:34 | PROVIDERS: Visit Provider Nurse Practitioner Family | DX: R30.0 Dysuria (principal) | CPT/HCPCS: 87086 ==

== ENCOUNTER 2025-02-17 08:59 | Outpatient (REF) | payer OTHER, SELFPAY ==
[2025-02-17 11:08] LABS: MANUAL DIFF FLAG NO
[2025-02-17 11:15] LABS: Basophils Percent Auto 0.8 % (0-2); Eosinophils Absolute Auto 0.3 X10*3/uL (0.0-0.4); Eosinophils Percent Auto 6.8 % (0-4); Hemoglobin 12.5 g/dl (12.0-16.0); Imm Gran Abs Auto 0.03 X10*3/uL (0.00-0.03); Imm Gran Pct Auto 0.8 % (0.0-0.4); Lymphocytes Absolute Auto 1.4 X10*3/uL (1.2-4.9); Lymphocytes Percent Auto 36.2 % (20-40); Mean Corpuscular HGB Conc 31.3 g/dl (31.0-35.0); Mean Corpuscular Hemoglobin 27.5 pg (27.0-33.0); Mean Corpuscular Volume 87.9 fL (80.0-98.0); Mean Platelet Volume 11.2 fL (9.4-12.3); Monocytes Absolute Auto 0.4 X10*3/uL (0.1-1.2); Neutrophils Absolute Auto 1.9 x10*3/uL (2.0-8.3); Neutrophils Percent Auto 46.4 % (45-73); Platelet Count 269 X10*3/uL (160-400); Red Blood Count 4.55 X10*6/uL (4.20-5.50); Red Cell Distribution Width 12.7 % (11.0-16.0)
[2025-02-17 11:19] LABS: Appearance Urine Cloudy; Color Urine Yellow; Glucose Urine UA Negative (Negative); Leukocyte Esterase Urine Small (1+) (Negative); Nitrite Urine Negative (Negative); PH 5.5 (5.0-9.0); Specific Gravity - Urine 1.025 (1.005-1.025); UMIC TRIGGER UACC YES; Urine Blood Large (3+) (Negative); Urine Ketones Negative (Negative); Urine Protein 30 (1+) mg/dL (Neg-Trace)
[2025-02-17 11:28] LABS: Bacteria Urine 2+ (None Seen); Hyaline Casts Urine 0-2 /LPF (0-2); RBC Urine >20 /HPF (0-2); UACC Culture Trigger YES; WBC Urine 21-50 /HPF (0-5)
[2025-02-17 11:47] LABS: Alanine Aminotransferase 16 U/L (0-31); Albumin Level 3.8 g/dL (3.5-5.0); Alkaline Phosphatase 68 U/L (39-117); Anion Gap 10 (12-20); Aspartate Amino Transferase 20 U/L (5-31); Bilirubin Total 0.4 mg/dL (0.0-1.0); Blood Urea Nitrogen 13 mg/dL (9-16); Calcium 9.1 mg/dL (8.4-10.2); Carbon Dioxide 28 mmol/L (22-29); Chloride 109 mmol/L (96-108); Cholesterol 179 mg/dL (<200); Estimated Glomerular Filt Rate > 60; Glucose Random 99 mg/dL (60-115); HDL Cholesterol 40 mg/dL (>40); LDL Cholesterol Calculated 111 mg/dL (<100); Potassium 3.9 mmol/L (3.3-5.1); Sodium 143 mmol/L (135-145); TSH reflex Free T4 1.33 uIU/mL (0.32-4.0); Triglycerides 143 mg/dL (<150)
[2025-02-17 11:52] LABS: Erythrocyte Sedimentation Rate 19 MM/HR (0-20)
[2025-02-17 12:52] LABS: Reflex LDLD? No
== END 2025-02-17 09:00 | disposition home or self-care (01) ==
LOC: HO.HHCL 08:59
PROVIDERS: Visit Provider Internal Medicine
DX: R53.83 Other fatigue (principal); E78.5 Hyperlipidemia, unspecified; I10 Essential (primary) hypertension; E05.20 Thyrotoxicosis with toxic multinodular goiter without thyrotoxic crisis or storm
CPT/HCPCS: 36415; 80053; 80061; 81001; 84443; 85025; 85652; 87086

== ENCOUNTER 2025-03-30 05:42 | Day surgery (SDC) | payer OTHER, SELFPAY ==
--- OUTSIDE RECORDS SUMMARY | 2025-03-22 17:04 | XMS_ITS | Encounter Summary ---
Author Organization [employer] Address [address] [facility] 7t [place] [address] Care Team Providers Care Mailmaster Name Role Phone Liz Crockett MD Primary Care Provider + Deondre Phillips PharmD Unavailable [phone] Encounter Details Date Type Department Care Team (Late st Contact Info) Description 11/27/2022 Orders Only [facility] [address] [place], [place] [phone] Madie Rasmussen LPN Social History Tobacco Use [...] Department Care Team (Late Contact Info) Description 03/24/2025 9:00 AM EDT Telemedicine [facility] [address] [place] [address] Deondre Phillips, PharmD [address] [place] [address] 03/24/2025 9:30 AM EDT Telemedicine [address] [phone] 05/10/2025 2:45 PM EDT Office Visit [facility] [address] [place] [address] [phone] Liz Crockett MD [address] [place] [address] 07/13/2025 10:30 AM EDT Office Visit [facility] [address] [place], [place] [phone] Ronda Laguna, OD [address] [place] [address] documented as of this encounter Visit Diagnoses Not on filedocumented in this encounter Care Teams Mailmaster Relationship Specialty Start Date End Date Liz Crockett MD [address] [place] [address] PCP - General Family Medicine 06/14/20 Deondre Phillips, ClementeD [address] [place], [place] [phone] Pharmacist Internal Medicine 06/16/23 [facility] 12/11/24 documented as of this encounter
--- OUTSIDE RECORDS SUMMARY | 2025-03-22 17:05 | XMS_ITS | Data Portability ---
Author Organization [employer] [place] [address] Address [address] [place] [address] Care Team Providers Care Bulb Weeder Name Role Phone [facility] OTHER [facility] OTHER Assessment Encounter Date Assessment Date Assessment LastModified by Organization Details LastModified Time 12/01/2024 12/01/2024 I provided real -time medical direction via phone for this encounter and was available for additional phone-based assistance as needed. I have reviewed and agree with the Assessment and Plan as documented by the Manager Commission. Patient given the opportunity to ask questions. [...] She is taking in p.o. well. Per vice president commercial bank on the scene, vital signs are stable [...] SNOMED-CT Code Diagnosis ICD10 Code Diagnosis Note [phone] Laura Montero MD Main - [facility] [address] [place] [phone] 12/01/2024 15:14:39 12/01/2024 17:58:26 Nausea [id number] R11.0 Health Concerns Section Related Observation LastModified by Organization Detai ls LastModified Time None Recorded Concern Status LastModified by Organization Details LastModified Time None Recorded Advance Directives Directive None Recorded Payers Encounter Date Sequence Insurance Name Policy Number Policy Sharma Covered Member ID Sharma Member ID Guarantor Name 12/01/2024 1 [facility] - DOS ON OR AFTER 2023 - DUAL ELIGIBLE - SKILLED NURSING OPTIONS AND ONE CARE (MEDICARE REPLACEMENT/AD VANTAGE - HMO) Yvonne Mart [id number] Yvonne Mart Notes Date Note Type Note Provider Name and Address Organization Details Recorded Time 12/01/2024 text/html HPI: Patient seen in [facility] ED 11/30/24 pending PCP appt for surgeon [...] .................. .................. .................. .................. .................. .................. ............... Manager Commission Note From Leena Solo: Sent to a [...] unremarkable; Extremities: unremarkable; Skin: pink, warm, dry; [facility] consulted and orders Zofran 4mg ODT. Zofran 4mg ODT administered without incident. Red flags discussed. Pt has no further questions. .................. .................. .................. .................. .................. .................. .................. ............... [facility] Consulted: Laura Montero .................. .................. .................. .................. .................. .................. .................. ............... Disposition: Fulfilled Laura Montero MD [address] [facility],[address] [facility], [place], [address], [place] [employer] 12/01/2024 16:40:29 OBGyn Episode No OBEpisode recorded.
--- OUTSIDE RECORDS SUMMARY | 2025-03-22 17:05 | XMS_ITS | Encounter Summary ---
Author Organization [employer] Address [address] [facility] 7t [place] [address] Care Team Providers Care Machine Guide Base Winder Name Role Phone Liz Crockett MD Primary Care Provider + Deondre Phillips PharmD Unavailable [phone] Encounter Details Date Type Department Care Team ([facility] Contact Info) Description 01/09/2023 Orders Only [facility] [address] [place] [address] [phone] Liz Crockett MD [address] [place], [place] [phone] HTN (hypertension), benign (Primary Dx) Social History [...] Upcoming Encounters Date Type Department Care Team ([facility] Contact Info) Description 03/24/2025 9:00 AM EDT Telemedicine [facility] [address] [place] [address] Deondre Phillips, PharmD [address] [place] [address] 03/24/2025 9:30 AM EDT Telemedicine [facility] [address] [place] [address] 05/10/2025 2:45 PM EDT Office Visit [facility] [address] [place] [address] Liz Crockett MD [address] [place] [address] 07/13/2025 10:30 AM EDT Office Visit [facility] [address] [place] [address] Ronda Laguna, OD [address] [place] [address] documented as of this encounter Visit Diagnoses Diagnosis HTN (hypertension), benign- Primary Essential hypertension, benign documented in this encounter Care Teams Machine Guide Base Winder Relationship Specialty Start Date End Date Liz Crockett MD [address] [place] [address] PCP - General Family Medicine 06/14/20 Deondre Phillips, PharmD [address] [place] [address] Pharmacist Internal Medicine 06/16/23 [facility] 12/11/24 documented as of this encounter
--- OUTSIDE RECORDS SUMMARY | 2025-03-22 17:06 | XMS_ITS | Encounter Summary ---
Author Organization [email or web address] Address [address] [facility] 7t [place] [address] Care Team Providers Care Test Center Administrator Name Role Phone Liz Crockett MD Primary Care Provider + Deondre Phillips PharmD Unavailable [phone] Encounter Details Date Type Department Care Team ([facility] Contact Info) Description 05/13/2023 Abstract [facility] [address] [place] [address] [phone] Liz Crockett MD [address] [place] [address] [phone] Social History Tobacco Use Types Packs/Day Years [...] Department Care Team ([facility] [address] Contact Info) Description 03/24/2025 9:00 AM EDT Telemedicine [facility] [address] [place] [address] [phone] Deondre Phillips, PharmD [address] [place] [address] 03/24/2025 9:30 AM EDT Telemedicine [facility] [address] [place] [address] 05/10/2025 2:45 PM EDT Office Visit [facility] [address] [place] [address] Liz Crockett MD [address] [place] [address] 07/13/2025 10:30 AM EDT Office Visit [facility] [address] [place] [address] Jase Ronda, OD 230 [place] [address] documented as of this encounter Procedures Procedure Name Priority Date/Time Associated Diagnosis Comments HM COLONOSCOPY Routine 11/12/2021 3:56 PM EST documented in this encounter Results * Hm Colonoscopy (11/12/2021 3:56 PM EST) Colonoscopy Normal Normal Narrative Paulette Rodríguez - 11/12/2021 3:56 PM EST Recommended 3-4 year follow up Historical Provider [facility] Edited Result - Final documented in this encounter Visit Diagnoses Not on filedocumented in this encounter Care Teams Test Center Administrator Relationship Specialty Start Date End Date Liz Crockett MD [address] [place] [address] PCP - General Family Medicine 06/14/20 Deondre Phillips, PharmD [address] [place] [address] Pharmacist Internal Medicine 06/16/23 [facility] 12/11/24 documented as of this encounter
--- OUTSIDE RECORDS SUMMARY | 2025-03-22 17:06 | XMS_ITS | Clinical Summary ---
Author Organization [employer] Address [address] [facility] [address] [place] [address] Care Team Providers Care Well Flow Operator Name Role Phone Liz Crockett MD Primary Care Provider + Deondre Phillips PharmD Unavailable [phone] Allergies No known active allergies Medications zolpidem [...] NEEDED FOR GAS 03/19/20 23 Active Creon [id number] units capsule TAKE 1 CAPSULE BY MOUTH FOUR TIMES DAILY WITH MEALS AND SNACKS 09/15/20 23 Active Diclofenac Sodium 1 % gelIndications:C ervical paraspinal muscle spasm APPLY TO THE AFFECTED AREA(S) 1 INCH TOPICALLY TWICE DAILY IN THE MORNING AND AT BEDTIME NEEDED FOR PAIN 100 g 1 07/02/20 24 Active Antacid/Antigas 400-400-40 MG/10ML oral suspension Take [...] Once per day. 30 tablet 3 12/21/19 Active escitalopram (Lexapro) 10 MG tablet Take 10 mg by mouth Once per day. Active lisinopril 2.5 MG tabletIndication s:Primary hypertension TAKE 1 TABLET BY MOUTH EVERY MORNING 90 tablet 1 03/21/20 25 Active lisinopril 2.5 MG tabletIndication s:Primary hypertension TAKE 1 TABLET BY MOUTH EVERY MORNING 90 tablet 1 09/22/20 24 025 Discontinued acetaminophen (Acetaminophen 8 Hour) 650 MG ER tablet Take 1 tablet (650 mg) by mouth every 8 (eight) hours if needed for mild pain. Do not crush, chew, or split. 90 tablet 02/16/20 25 025 ciprofloxacin (Cipro) 500 MG tablet Take 1 tablet (500 mg) by mouth 2 times daily for 5 days. 10 tablet 02/18/20 025 Active Problems Problem Noted Date Diagnosed Date Tiredness 02/15/2025 Assessment & Plan (02/15/2025 4:37 PM EDT): It could be related to his recent surgery, rule out new CBD obstruction, order labs Rule out hypothyroidism, order labs Advised regarding increase hydration, soft to liquid diet and advance as tolerated, will call as needed abnormal labs Dysuria 02/08/2025 Renal lithiasis 12/03/2024 Assessment & Plan (12/03/2024 [...] cholecystitis without obstruction 05/17/2024 Assessment & Plan (02/17/2025 1:29 PM EDT): She had subtotal cholecystectomy 12/06/2024 with ERCP and stent placement with sphincterotomy + BARBARA drain on 12/07/2024. Her BARBARA drain was removed on 02/02. Check CBC and LFTs to rule out new obstruction, advised patient regarding like to soft diet and advance as tolerated Continue Tylenol as needed and follow-up with surgeon, I will call her as needed abnormal labs. Follow-up with surgeon on 03/16/2025 Assessment & Plan (12/03/2024 6:07 PM EST): [...] LDL goal <100 02/17/2023 Assessment & Plan (02/15/2025 4:36 PM EDT): To check lipid profile and follow-up with me at next visit, she is off statins Assessment & Plan (02/17/2023 5:44 PM EDT): [...] knows for sure that there will be estonian speaker translators. I will refer to CM [...] HTN (hypertension), benign 12/13/2022 Assessment & Plan (02/15/2025 4:14 PM EDT): Fairly controlled. Compliant w/meds Continue lisinopril 2.5 mg Counseled re low salt diet/increase moderate physical activity. Check home BP BIW and prn CP/WHALEN/VO, call back if BP is above 145/90 several times. Non smoking patient. FU in 6m Assessment & Plan (10/18/2024 12:29 PM EST): [...] assist her navigate the system with an director of casino marketing Order Xrays c-spine Recommended to look into changing her pillow or even her mattress if she wakes up with the pain. FU in 3m And will consider further w/u. Osteopenia 12/13/2022 Assessment & Plan (12/13/2022 2:37 PM EST): Continue Vit D daily Order dexa scan Kidney stone 02/19/2019 Overview (07/17/2023): [place] [place]ing Right kidney stone Assessment [...] Normal TFTs 2022/off meds Assessment & Plan (02/15/2025 4:36 PM EDT): She is of any medication due to normal TFTs. Will check TFTs today Assessment & Plan (06/13/2023 11:09 AM EDT): [...] Encounters Date Type Department Care Team Description 03/21/2025 Refill [facility] [address] [place] [address] Liz Crockett MD Primary hypertension 03/15/[address] [address] Liz Crockett MD ER Follow-up 03/07/[address] [address] Liz Crockett MD Durable Medical Equipment (L&C Form: Incontinence Supplies) 03/04/[address] [address] Liz Crockett MD Appointment Request 02/17/[address] [address] Liz Crockett MD Results 02/17/2025 Orders Only [address] [address] Liz Crockett MD 02/15/2025 3:00 PM EDT Office Visit [address] [address] Liz Crockett MD Calculus of gallbladder without cholecystitis without obstruction (Primary Dx); Tiredness; HTN (hypertension), benign; Hyperlipidemia LDL goal <100; 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 Travel 02/14/2025 Travel 02/14/[address] [address] Liz Crockett MD Appointment Request 02/08/2025 4:00 PM EDT Office Visit [address] [address] Daija Garrett NP Dysuria (Primary Dx) 02/08/[address] [address] Liz Crockett MD medical necessity 02/07/[address] [address] Shima Whitley RN ED f/up 02/07/2025 Patient Outreach [address] [address] Liz Crockett MD Pre-visit Planning (SDOH screening negative and tobacco screening negative) 01/28/2025 Telephone [facility] [address] [place] [phone] Queta Lance MA Results 01/24/2025 10:00 AM EST Telemedicine [facility] [address] [place] [phone] Mamadou Taylor, Tera Renal lithiasis (Primary Dx); Calculus of gallbladder without cholecystitis without obstruction; HTN (hypertension), benign 01/17/[address] [address] Liz Crockett MD Durable Medical Equipment 01/14/[address] [address] Liz Crockett MD Durable Medical Equipment 01/13/[address] [address] Liz Crockett MD Oxygen 12/24/2024 9:00 AM EST Telemedicine [facility] [address] [place] [address] Deondre Phillips PharmD HTN (hypertension), benign (Primary Dx) from Last 3 Months Immunizations Name Administration [...] Answer Date Recorded Patient Health Questionnaire-9 Score 0 02/15/2025 Patient Health Questionnaire-9 Score 0 02/15/2025 Last PHQ-9: Questionnaire Data Not on file 0 02/15/2025 Housing Stability Answer Date Recorded What is your housing situation today? I have delano singh 02/07/[address] you li ve. Do you have problems with any of the following? Pests such as bugs, ants, or mice 02/07/2025 Food Insecurity Answer Date Recorded Within the past 12 months, y ou worried that your food would run out before you got money to buy more: Never True 02/07/2025 Within the past 12 months,th e food you bought just didn't last and you didn't have enough money to get more: Never True Transportation Answer Date Recorded In the past [...] Answer Date Recorded Patient Health Questionnaire-2 Score 0 02/15/2025 Internet Access Answer Date Recorded Internet Access Q1 Yes 02/07/2025 Internet Access Q2 Not on file 02/07/2025 Comments No Sex and Gender Information Value Date Recorded Sex Assigned at Female 09/23/2022 10:17 AM EDT Legal Sex Female 10:17 AM EDT Gender Identity Female 09/23/2022 10:17 AM EDT Sexual Orientation Straight 09/23/2022 10 :17 AM EDT Last Filed Vital Signs Vital Sign Reading Time Taken Comments Blood Pressure 141/79 02/15/2025 2:35 PM EDT Pulse 95 02/15/2025 2:35 PM EDT Temperature 36.9 ??C (98.4 ??F) 02/15/2025 2:35 PM ED T Respiratory Rate 20 02/15/2025 2:35 PM EDT Oxygen Saturation 98% 02/08/2025 4:02 PM EDT Inhaled Oxygen Concentration - - Weight 83.1 kg (183 lb 3.2 oz) 02/15/2025 2:35 P M EDT Height 157.5 cm (5' 2 ) 02/15/2025 2:35 PM EDT Body Mass Index 33.51 02/15/2025 2:35 PM EDT Plan of Treatment Upcoming Encounters Date Type Department Care Team (Late st Contact Info) Description 03/24/2025 9:00 AM EDT Telemedicine [facility] [address] [place] [address] Deondre Phillips, ClementeD [address] [place] [address] 03/24/2025 9:30 AM EDT Telemedicine [facility] [address] [place] [phone] 05/10/2025 2:45 PM EDT Office Visit [facility] [address] [place] [address] Liz Crockett MD [address] [place] [address] 07/13/2025 10:30 AM EDT Office Visit [facility] [address] [place] [address] Ronda Laguna, OD [address] [place] [address] Health Maintenance Due Date Last Done Comments CT Colonography 1956 FIT DNA/Cologuard 1956 FIT 1956 FOBT 1956 Sigmoidoscopy 1956 Alcohol/Substance Use Screening 1968 Hepatitis C Screening 1974 Pneumococcal Vaccine: 50+ Years (1 of 1 - PCV) 2006 DTaP/Tdap/Td Vaccines (2 - Td or Tdap) 07/09/2022 07/09/2012 COVID-19 Vaccine ( - season) 2024 12/13/2022, 12/03/2021, 04/18/2021, Additional history exists Influenza Vaccine (#1) 2024 , 08/28/2020, 12/21/2019, Additional history exists Colonoscopy 11/12/2024 11/12/2021 Colorectal Cancer Screening 11/12/2024 Mammogram 03/05/2025 03/05/2024, 02/22, 03/04/2023, Additional history exists SDOH Screening 02/07/2026 02/07/2025 Depression Screening 02/15/2026 02/15/2025, 02/16/20 Tobacco Screening 02/15/2026 02/15/2025 Lipid Panel 02/17/2030 02/17/2025, 03/0 03/2025, 10/18/2024, Additional history exists RSV Patients and Patients Aged 60 years [...] Author Blood Pressure < 150/90 Blood Pressure 141/79(2024 2:35 PM EDT) Deondre Nava, PharmD Note: Age>60, No Hx of DM or CKD Procedures Procedure Name Priority Date/Time Associated Diagnosis Comments TSH W/REFLEX TO FT4 Routine 02/17/2025 9 :05 AM EDT Toxic nodular goiter SED RATE BY MODIFIED WESTERGREN Routine 02/17/2025 9:05 AM EDT Toxic nodular goiter URINALYSIS, COMPLETE, WITH REFLEX TO CULTURE Routine 02/17/2025 9:05 AM EDT Tiredness CBC WITH AUTO DIFFERENTIAL Routine 02/17/2025 9:05 AM EDT Tiredness LIPID PANEL WITH REFLEX TO DIRECT LDL Routine 02/17/2025 9:05 AM EDT Hyperlipidemia LDL goal <100 COMPREHENSIVE METABOLIC PANEL Routine 02/17/2025 9:05 AM EDT HTN (hypertension), benign CULTURE, URINE, ROUTINE Routine 02/17/2025 12:00 AM EDT POCT URINALYSIS DIPSTICK Routine 02/08/2025 4:20 PM EDT Dysuria CULTURE, URINE, ROUTINE Routine 02/08/2025 12:00 AM EDT Dysuria C-REACTIVE PROTEIN Routine 01/26/2025 8: 22 AM EST Calculus of gallbladder without cholecystitis without obstruction Renal lithiasis SED RATE BY MODIFIED WESTERGREN Routine 01/26/2025 8:22 AM EST Calculus of gallbladder without cholecystitis without obstruction Renal lithiasis CBC WITH AUTO DIFFERENTIAL Routine 01/26/2025 8:22 AM EST Calculus of gallbladder without cholecystitis without obstruction Renal lithiasis COMPREHENSIVE METABOLIC PANEL Routine 01/26/2025 8:22 AM EST Calculus of gallbladder without cholecystitis without obstruction Renal lithiasis VITAMIN D,25-OH,TOTAL,IA Routine 01/26/2025 8:22 AM EST Kidney stone LIPID PANEL WITH REFLEX TO DIRECT LDL Routine 01/26/2025 8:22 AM EST HTN (hypertension), benign TSH W/REFLEX TO FT4 Routine 01/26/2025 8 :22 AM EST HTN (hypertension), benign T-SPOT(R).TB Routine 01/26/2025 8:22 AM EST Screening-pulmonary TB BI MAMMOGRAM SCREENING TOMOSYNTHESIS BILATERAL Routine 03/05/2024 9:04 AM EDT HM COLONOSCOPY Routine 11/12/2021 3:56 PM EST from Last 3 Months or Most Recently Relevant to Health Maintenance Results * (ABNORMAL) Urinalysis, Complete, with Reflex to Culture (02/17/2025 9:05 AM EDT) Color Urine Yellow [facility] Appearance Urine Cloudy [facility] PH 5.5 5.0 - 9.0 [facility] Glucose Urine UA Negative Negative mg/dL [facility] Urine Blood Large (3+)(A) Negative [facility] Specific [place] - Urine 1.025 1.005 - 1.025 [facility] Urine Protein 30 (1+)(A) Neg-Trace mg/dL [facility] Urine Ketones Negative Negative mg/dL [facility] Nitrite Urine Negative Negative [facility] Leukocyte Esterase Urine Small (1+)(A) Negative [facility] RBC Urine >20(A) 0 - 2 /HPF [facility] Urine WBC 21-50(A) 0 - 5 /HPF [facility] Urine Squamous Epithelial Cell 11-20 0 - 2 /HPF [facility] Urine Bacteria 2+ None Seen [facility] Hyaline Casts, Urine 0-2 0 - 2 /LPF [facility] Urine 02/17/2025 9:05 AM EDT 02/17/2025 11:03 AM EDT Narrative [facility] - 02/17/2025 11:29 AM EDT Urine, Clean Catch us Liz Crockett MD LAB URINE ORDERABLES Fin al Result [facility] [address] [place] [phone] * TSH with Reflex to Free T4 (02/17/2025 9:05 AM EDT) Only the most recent of2 resultswithin the time period is included. TSH reflex Free T4 1.33 0.32 - 4.0 uIU/mL [facility] Blood 02/17/2025 9:05 AM EDT 02/17/2025 11:01 AM EDT us Liz Crockett MD LAB BLOOD ORDERABLES Fin al Result [facility] [address] [place] [phone] * (ABNORMAL) Lipid Panel with Reflex to Direct LDL (02/17/2025 9:05 AM EDT) Only the most recent of2 resultswithin the time period is included. Triglycerides 143 <150 mg/dL [facility] Comment:Desirable Triglyceri de: less than 150 mg/dLBorderline High Triglyceride 150-199 mg/dLHigh Triglyceride: 200-499 mg/dLVery High Triglyceride: greater than or equal to 5OO mg/dL Cholesterol 179 <200 mg/dL [facility] Comment:Desirable Cholestero l: less than 200 mg/dLBorderline High Cholesterol: 200-239 mg/dLHigh Cholesterol: greater than 239 mg/dL LDL Cholesterol Calculated 111(H) <100 mg/dL [facility] Comment:Desirable LDL: less than 100 mg/dLNear Optimal/Above Optimal LDL: 110- 129 mg/dLBorderline High LDL: 130-159 mg/dLHigh LDL: 160-189 mg/dLVery High LDL: greater than or equal to 190 mg/dL HDL Cholesterol 40(L) >40 mg/dL [facility] Comment:Desirable HDL: great er than 40 mg/dL Note: This HDL assay may give artificially low results in patients with liver disease. Blood 02/17/2025 9:05 AM EDT 02/17/2025 11:01 AM EDT us Liz Crockett MD LAB BLOOD ORDERABLES Fin al Result [facility] [address] [place] [address] [phone] * (ABNORMAL) CBC auto differential (02/17/2025 9:05 AM EDT) Only the most recent of2 resultswithin the time period is included. White Blood Count 4.0(L) 4.8 - 10.8 X10*3/uL [facility] Red Blood Count 4.55 4.20 - 5.50 X10*6/uL [facility] Hemoglobin 12.5 12.0 - 16.0 g/dl [facility] Hematocrit 40.0 37.0 - 47.0 % [facility] Mean Corpuscular Volume 87.9 80.0 - 98.0 fL [facility] Mean Corpuscular Hemoglobin 27.5 27.0 - 33.0 pg [facility] Mean Corpuscular HGB Conc 31.3 31.0 - 35.0 g/dl [facility] Red Cell Distribution Width 12.7 11.0 - 16.0 % [facility] Platelet Count 269 160 - 400 X10*3/uL [facility] Mean Platelet Volume 11.2 9.4 - 12.3 fL [facility] Neutrophils Percent Auto 46.4 45 - 73 % [facility] Imm Gran Pct Auto 0.8(H) 0.0 - 0.4 % [facility] Lymphocytes Percent Auto 36.2 20 - 40 % [facility] Monocytes Percent Auto 9.0 2 - 11 % [facility] Eosinophils Percent Auto 6.8(H) 0 - 4 % [facility] Basophils Percent Auto 0.8 0 - 2 % [facility] NRBC Pct Auto 0.0 0.0 - 0.2 /100WBC [facility] Neutrophils Absolute Auto 1.9(L) 2.0 - 8.3 x10*3/uL [facility] Imm Gran Abs Auto 0.03 0.00 - 0.03 X10*3/uL [facility] Lymphocytes Absolute Auto 1.4 1.2 - 4.9 X10*3/uL [facility] Monocytes Absolute Auto 0.4 0.1 - 1.2 X10*3/uL [facility] Eosinophils Absolute Auto 0.3 0.0 - 0.4 X10*3/uL [facility] Basophils Absolute Auto 0.0 0.0 - 0.2 X10*3/uL [facility] NRBC Abs Auto 0.000 0.0 - 0.012 X10*3/uL [facility] Blood Venous blood specimen / Unknown 02/17/2025 9:05 AM EDT 02/17/2025 11:01 AM EDT Liz Crockett MD LAB BLOOD ORDERABLES Fin al Result Performing Organization Address [facility] Co de Phone Number [facility] [address] [place] [phone] * Sed Rate by Modified Ángelergren (02/17/2025 9:05 AM EDT) Only the most recent of2 resultswithin the time period is included. Erythrocyte Sedimentation Rate 19 0 - 20 MM/HR [facility] Comment:Patients with polycy themia and many hemoglobin abnormalitiesmay have depressed sed rates whereas patients with anemiamay have elevated sed rates. Blood Venous blood specimen / Unknown 02/17/2025 9:05 AM EDT 02/17/2025 11:01 AM EDT Liz Crockett MD LAB BLOOD ORDERABLES Fin al Result Performing Organization Address City/[facility] Co de Phone Number [facility] [address] [place] [phone] * (ABNORMAL) Comprehensive Metabolic Panel (02/17/2025 9:05 AM EDT) Only the most recent of2 resultswithin the time period is included. Sodium 143 135 - 145 mmol/L [facility] Potassium 3.9 3.3 - 5.1 mmol/L [facility] Chloride 109(H) 96 - 108 mmol/L [facility] Carbon Dioxide 28 22 - 29 mmol/L [facility] Anion Gap 10(L) 12 - 20 [facility] Urea Nitrogen (BUN) 13 9 - 16 mg/dL [facility] Creatinine, Serum 0.53 0.5 - 1.4 mg/dL [facility] Estimated Glomerular Filt Rate >60 [facility] Comment:Chronic Kidney Disea se: Estimated GFR < 60 mL/min/[id number] Kidney Disease: Estimated GFR < 15 mL/min/1.73m2 Glucose 99 60 - 115 mg/dL [facility] Calcium 9.1 8.4 - 10.2 mg/dL [facility] Bilirubin, Total 0.4 0.0 - 1.0 mg/dL [facility] Aspartate Amino Transferase 20 5 - 31 U/L [facility] Alanine Aminotransferase 16 0 - 31 U/L [facility] Total Protein 7.0 6.5 - 8.0 g/dL [facility] Albumin Level 3.8 3.5 - 5.0 g/dL [facility] Alkaline Phosphatase 68 39 - 117 U/L [facility] Blood Venous blood specimen / Unknown 02/17/2025 9:05 AM EDT 02/17/2025 11:01 AM EDT us Liz Crockett MD LAB BLOOD ORDERABLES Fin al Result [facility] [address] [place] [phone] * Culture, Urine, Routine (02/17/2025 12:00 AM EDT) Only the most recent of2 resultswithin the time period is included. Urine Urine specimen obtained by clean catch procedure / Unknown 02/17/2025 02/17/2025 Comment:UACC Narrative [facility] - 02/18/2025 10:59 AM EDT Urine Culture Report Result Urine Culture < 10,000 cfu/ml Specimen Source: Urine clean catch us Liz Crockett MD LAB MICROBIOLOGY - GENER AL ORDERABLES Final Result [facility] [address] [place] [phone] [phone] * (ABNORMAL) POCT Urinalysis (02/08/2025 4:20 PM EDT) Color, UA Yellow Clarity, UA Clear Glucose, UA Negative Bilirubin, UA Negative Ketones, UA Negative Spec Grav, UA 1.030 Blood, UA Positive(A) Negative, None Detected Comment:Large pH, UA 6.0 Protein, UA 2+ 125++ Comment:100mg/dl Urobilinogen, UA 1.0 Leukocytes, UA Negative Negative, Rare, Trace Nitrite, UA Negative Negative, None Detected Appearance, UA Yellow QC Media Lot # [id number] Lot# Expiration Date Urine 02/08/2025 4:20 PM EDT us Daija Garrett NP POINT OF CARE TEST ENTER/EDIT OR DERABLES Final Result * (ABNORMAL) Vitamin D, 25-Hydroxy, Total, Immunoassay (01/26/2025 8:22 AM EST) Vitamin D 25-OH Total 20.1(L) >30 ng/mL [facility] Comment:Health Based Referen ce Values*< 20 ng/mL Wffkvrqed53-10 ng/mL Insufficient> 30 ng/mL Sufficient*Kristi RINCON. N Engl J Med. 2007;357:266-280Care must be taken in interpreting Vitamin D results fromdifferent laboratories and methodologies. Published datademonstrated that results from patients undergoinghemodialysis may show a negative bias when tested withvarious automated 25-OH vitamin D assays when compared toLC-MS/MS.When testing samples from patients whose predominant form ofVitamin D is Vitamin D2, such as patients receiving VitaminD2 supplementation, results that are subtherapeutic shouldbe confirmed with another method such as LC-MS/MS. Blood 01/26/2025 8:22 AM EST 01/26/2025 11:30 AM EST Liz Crockett MD LAB BLOOD ORDERABLES Fin al Result [facility] [address] [place] [phone] * T-SPOT??.TB (01/26/2025 8:22 AM EST) [facility] T Spot TB Negative Negative [facility] Comment:A negative test resu lt does not exclude the possibilityof exposure to or infection with Mycobacteriumtuberculosis (M. tuberculosis). Patients with recentexposure to TB infected individuals exhibiting anegative T-SPOT.TB result should be considered forretesting within 6 weeks or if other relevant clinicalsymptoms indicate. Results from T-SPOT.TB testing mustbe used in conjunction with each individual'sepidemiological history, current medical status,and results of other diagnostic evaluations.The T-SPOT.TB test is qualitative and results arereported as positive, borderline, or negative, giventhat the test controls perform as expected. In linewith the Centers for Disease Control and Prevention's2010 recommendation to report quantitative measurementsalongside the qualitative result, the laboratoryprovides spot counts for informational purposes only.The T-SPOT.TB test should not be interpreted as aquantitative test. TS PANEL A 1 [facility] TS PANEL B 0 [facility] Negative Control Passed [facility] Positive Control Passed [facility] Comment:For additional infor carmita, please refer tohttp://education.Extole/faq/RWB416(This link is being provided for informational/educational purposes only.)THIS TEST WAS PERFORMED AT:[employer] [id number] [place] [id number] LINDSAY MD,PHD 01/26/2025 8:22 AM EST 01/26/2025 11:30 AM EST us Liz Crockett MD LAB BLOOD ORDERABLES Fin al Result Performing Organization Address [facility] de Phone Number [facility] [address] [place] [phone] * (ABNORMAL) C-reactive Protein (01/26/2025 8:22 AM EST) C Reactive Protein 0.81(H) < or = 0.50 mg/dL [facility] Blood Venous blood specimen / Unknown 01/26/2025 8:22 AM EST 01/26/2025 11:30 AM EST us Daija Garrett NP LAB BLOOD ORDERABLES Final Resul t Performing Organization Address [facility] de Phone Number [facility] [facility] [address] [place] [address] [phone] * BI Mammogram Screening Tomosynthesis Bilateral (03/05/2024 9:04 AM EDT) Anatomical Region Laterality Modality Breast Bilateral Mammography 03/05/2024 9:04 AM EDT Narrative 04/01/2024 4:18 AM EDT ? [facility] ? [address] ?[place] [address] ? Mammography Report ? Signed ? Patient: Jose Mart,Yvonne ?MR#: ?? [id number] ? : 1955 ?Acct:[id number] ? Age/Sex: 68 / F ?ADM Date: /12/24 ? Loc: HO.MAMMO ? Attending Dr: Liz Crockett MD ? Ordering Physician: Liz Crockett MD ?Results: 1Ne ?? gative ? Date of Service: 03/05/24 ?Follow Up: 1 Year From Orig ?? inal Mammogram ? Procedure(s): MM tomosynthesis screening BI ?? Accession Number(s): [id number] ? cc: Liz Crockett MD ? EXAMINATION: ?? MM SCREENING DIGITAL BREAST TOMOSYNTHESIS, BILATERAL ? CLINICAL INFORMATION: ? Screening. Asymptomatic. ? COMPARISON: ?? Mammography: This study is compared with prior exams dating back to ?? 2017. ? TECHNIQUE: ?? Digital breast tomosynthesis is [...] 04/01/24413 ? DD/ 3 ? TD/TT: ? Belt Press Operator: ? Procedure Note Donotuseinterpreter, Image - 04/01/2024 [facility] [address] [place] [address] [place] [address] Mammography Report Signed Patient: Naveen Ferguson#: [id number] : 1955cct:[id number] Age/Sex: 68 / FADM Date: 03/05/24 Loc: HO.MAMMO Attending Dr: Liz Crockett MD Ordering Physician: Liz Crockett MDResults: 1Ne gative Date of Service: 03/05/24Follow Up: 1 Year From Orig inal Mammogram Procedure(s): MM tomosynthesis screening BI Accession Number(s): [id number] cc: Liz Crockett MD EXAMINATION: MM SCREENING [...] signed by Alondra Rubio MD in OV> 04/01/244 DD/ 3 TD/TT: Belt Press Operator: Liz Crockett MD IMG BI PROCEDURES Edited Result - Final * Hm Colonoscopy (11/12/2021 3:56 PM EST) Colonoscopy Normal Normal Narrative Paulette Rodríguez - 11/12/2021 3:56 PM EST Recommended 3-4 year follow up us Historical Provider HEALTH MAINTENANCE Edited Result - Final from Last 3 Months or Most Recently Relevant to Health Maintenance Insurance [facility] USP OPTIONS (HMO D-SNP) Care Teams Well Flow Operator Relationship Specialty Start Date End Date Liz Crockett MD [address] [place] [address] PCP - General Family Medicine 06/14/20 Deondre Phillips, PharmD [address] [place] [address] Pharmacist Internal Medicine 06/16/23 [facility] 12/11/24
--- OUTSIDE RECORDS SUMMARY | 2025-03-22 17:06 | XMS_ITS | Encounter Summary ---
Author Organization [employer] Address [address] [facility] 7t [place] [address] Care Team Providers Care Teen Counselor Name Role Phone Liz Crockett MD Primary Care Provider + Deondre Phillips PharmD Unavailable [phone] Reason for Visit * Reason Onset Date Comments ER Follow-up 07/03/2023 Encounter Details Date Type Department Care Team ([facility] st Contact Info) Description 07/03/2023 Telephone [facility] MED[facility] [address] [place], [place] [phone] Liz Crockett MD [address] [place], [place] [phone] ER Follow-up Social History Tobacco Use Types [...] 12:03 PM EDT T/C to pt. Through [facility] id - [id number] for ED status check and to schedule [...] Before her check in at walk in [facility] , she will be evaluated. Pt. Also advised to go [facility] Ed in case of a fever higher than 101.5 degrees Fahrenheit, burning during urination, Cloudy or foul-smelling urin, and Intolerable pain. Pt. Verbally agreed and understood. * Telephone Encounter - Ofe Potter - 07/03/2023 10:45 AM EDT Patient calling to report ED visit on [facility] on 06/17/23. Diagnosed with high blood pressure, abdominal pain . Patient advised will forward to team nurse for follow up. documented in this encounter Plan of Treatment Upcoming Encounters Date Type Department Care Team (Late st Contact Info) Description 03/24/2025 9:00 AM EDT Telemedicine [address] [address] Deondre Phillips, ClementeD [address] [place] [address] 03/24/2025 9:30 AM EDT Telemedicine [address] [address] 05/10/2025 2:45 PM EDT Office Visit [address] [address] Liz Crockett MD [address] [place] [address] [phone] 07/13/2025 10:30 AM EDT Office Visit [facility] OPTOM[facility] [address] [place], [place] [phone] Ronda Laguna, OD [address] [place] [address] documented as of this encounter Goals Goal Patient Goal Type Associated Problems Recent Progress Patient-Stated? Author Blood Pressure < 150/90 Blood Pressure 141/79(2024 2:35 PM EDT) No Deondre Phillips, PharmD Note: Age>60, No Hx of DM or CKD documented as of this encounter Visit Diagnoses Not on filedocumented in this encounter Care Teams Teen Counselor Relationship Specialty Start Date End Date Liz Crockett MD [address] [place] [address] PCP - General Family Medicine 06/14/20 Deondre Phillips, PharmD [address] [place] [address] Pharmacist Internal Medicine 06/16/23 [facility] 12/11/24 documented as of this encounter
--- OUTSIDE RECORDS SUMMARY | 2025-03-22 17:06 | XMS_ITS | Encounter Summary ---
Author Organization [employer] Address [address] [facility] 7t [place] [address] Care Team Providers Care Map Drafter Name Role Phone Liz Crockett MD Primary Care Provider + Deondre Phillips PharmD Unavailable [phone] Reason for Visit * Reason Comments Med Refill Encounter Details Date Type Department Care Team (Late st Contact Info) Description 08/06/2023 Refill [facility] MEDICINE [address] [place], [place] [phone] Liz Crockett MD [address] [place], [place] [phone] Social History Tobacco Use Types Packs/Day Years [...] Info) Description 03/24/2025 9:00 AM EDT Telemedicine [facility] MEDICINE [address] [place], [place] [phone] Deondre Phillips, PharmD [address] [place], [place] [phone] 03/24/2025 9:30 AM EDT Telemedicine [facility] MEDICINE [address] [place] [address] 05/10/2025 2:45 PM EDT Office Visit [facility] MEDICINE [address] [place] [address] Liz Crockett MD [address] [place] [address] 07/13/2025 10:30 AM EDT Office Visit [facility] OPTOMETRY [address] [place] [address] Jase, Ronda, OD [address] [place] [address] documented as of this encounter Goals Goal Patient Goal Type Associated Problems Recent Progress Patient-Stated? Author Blood Pressure < 150/90 Blood Pressure 141/79(2024 2:35 PM EDT) No Deondre Phillips, Tera Note: Age>60, No Hx of DM or CKD documented as of this encounter Visit Diagnoses Not on filedocumented in this encounter Care Teams Map Drafter Relationship Specialty Start Date End Date Liz Crockett MD [address] [place] [address] PCP - General Family Medicine 06/14/20 Deondre Phillips, PharmCecille [address] [place] [phone] Pharmacist Internal Medicine 06/16/23 [facility] 12/11/24 documented as of this encounter
--- OUTSIDE RECORDS SUMMARY | 2025-03-22 17:07 | XMS_ITS | Encounter Summary ---
Author Organization [employer] Address [address] [facility] [address] 7[address] [place] [address] Care Team Providers Care Feather Drying Machine Operator Name Role Phone Liz Crockett MD Primary Care Provider + Deondre Phillips PharmD Unavailable [phone] Reason for Visit * Reason Comments Med Refill Encounter Details Date Type Department Care Team ([facility] st Contact Info) Description 03/21/2025 Refill [facility] MEDICINE [address] [place], [place] [phone] Liz Crockett MD [address] [place], [place] [phone] Primary hypertension Social History Tobacco Use Types Packs/Day Years [...] Info) Description 03/24/2025 9:00 AM EDT Telemedicine [facility] MEDICINE [address] [place] [address] Deondre Phillips, PharmD [address] [place] [address] 03/24/2025 9:30 AM EDT Telemedicine [facility] MEDICINE [address] [place] [address] 05/10/2025 2:45 PM EDT Office Visit [facility] MEDICINE [address] [place] [address] Liz Crockett MD [address] [place] [address] 07/13/2025 10:30 AM EDT Office Visit [facility] OPTOMETRY [address] [place] [address] Ronda Laguna, OD [address] [place] [address] documented as of this encounter Goals Goal Patient Goal Type Associated Problems Recent Progress Patient-Stated? Author Blood Pressure < 150/90 Blood Pressure 141/79(2024 2:35 PM EDT) No Deondre Phillips, PharmD Note: Age>60, No Hx of DM or CKD documented as of this encounter Visit Diagnoses Diagnosis Primary hypertension Unspecified essential hypertension documented in this encounter Additional Health Concerns Assessment Noted Time PHQ-9 Depression Total Score: 0 02/16/20 2:36 PM EDT documented as of this encounter Care Teams Feather Drying Machine Operator Relationship Specialty Start Date End Date Liz Crockett MD [address] [place] [address] PCP - General Family Medicine 06/14/20 Deondre Phillips, PharmD [address] [place] [address] Pharmacist Internal Medicine 06/16/23 [facility] 12/11/24 documented as of this encounter
[2025-03-28 08:57] VITALS: BMI 34.4
--- NOTE | 2025-03-29 08:39 | HO.ANESPROP2 ---
HPI - Anesthesia Eval Consult details Narrative: 69yo F for Right Lithotripsy ESW PMFSH Active Problems Active Problems: All Active Problems Helicobacter pylori (H. pylori) (Acute) Tubular adenoma (Acute) Thyroid nodule (Acute) Graves' disease in remission (Acute) Vitamin D deficiency (Acute) Past Medical History Medical History Helicobacter pylori (H. pylori) Tubular adenoma Osteoarthritis Depression Thyroid nodule Graves' disease in remission Vitamin D deficiency Family History Family History Mother Diabetes Other Thyroid disease Family history of problems with anesthesia: No Surgical History Surgical History History of bladder surgery History of incision and drainage Hx of colonoscopy History of esophagogastroduodenoscopy (EGD) History of umbilical hernia repair History of Problems with Anesthesia: No Social History Social History Alcohol intake: never Patient Tobacco Use Status: Former Tobacco user Meds Allergies Allergy/AdvReac Type Severity Reaction Status Date / Time No Known Allergies Allergy Verified 01/07/25 15:09 Home Medications ?Medication ?Instructions ?Recorded ?Confirmed ?Last Taken ?Type zolpidem 5 mg tablet 5 mg PO BEDTIME PRN 03/22/22 12/16/24 Unknown History diclofenac sodium 1 % topical gel g topical pain 02/05/23 12/16/24 Unknown History escitalopram oxalate 10 mg tablet 10 mg PO QAM 02/05/23 12/16/24 Unknown History tramadol 50 mg tablet 50 mg PO Q8H PRN 09/25/23 12/16/24 Unknown History duloxetine 30 mg capsule,delayed 30 mg PO DAILY 11/26/24 12/16/24 Unknown History release Exam Height,Weight and Vital Signs: Height 5 ft 2 in Weight 85.275 kg Assessment and Plan Assessment Anesthesia Assessment: Chart Reviewed Final Anesthetic Review Family History of Problems with Anesthesia: No History of Problems with Anesthesia: No
--- NOTE | ~2025-03-30 | XR_ITS ---
EXAMINATION: XR ABDOMEN 1 VIEW (KUB) HISTORY: pre right ESWL COMPARISON: Comparison is made with the prior examination dated 06/21/2023. FINDINGS: Two supine views of the abdomen are submitted. The bowel gas pattern is unremarkable, without evidence of mechanical obstruction. There is a 5 mm calcification overlying the right renal shadow. No additional calcifications are identified. There are no abnormal soft tissue masses. The bones are intact. XR/XR KUB IMPRESSION: 5 mm calcification overlying the right renal shadow. Electronically signed by: David Ralph MD 03/30/2025 07:33 AM EDT
[2025-03-30 06:45] VITALS: BMI 33.3
[2025-03-30 07:00] VITALS: BP 140/70; PULSE 83; RESP 16; TEMP 36.5; O2SAT 98
[2025-03-30] MEDS: Lactated Ringers 1,000 ML 100 ML IVCONT (07:16)
--- NOTE | 2025-03-30 07:36 | W.PM.OPN ---
Operative Note Operative Note Date of Service: 03/30/25 Narrative: PreOperative Diagnosis:? ? Right Renal stone Post Operative Diagnosis:?Right? Renal stone Procedure:?Right ESWL Surgeon:?Dr Justa Mccollum Anesthesia:? General Indications for procedure: The patient understands there is a risk of bruising or hematoma to the kidney, infection, and stone migration following the procedure and subsequent intervention may be required.? - Imaging 5x6 mm stone - right kidney upper pole Procedure: After informed consent was verified the patient was brought to the operating room and placed in a supine position.? Anesthesia was performed per protocol. Safety pause time-out was performed. Imaging was displayed in the room and laterality confirmed. ESWL was performed.?The stone was visualized on both fluoroscopy and ultrasound.? Shockwave lithotripsy was performed, with a maximum rate of 120 hertz. After the first 300 shocks a pause for 3 minutes was completed.? A total of 2500 shocks to a maximum of power of 20 with a maximum rate of 120 hertz.? Some fragmentation of the stone was appreciated. The patient tolerated the procedure well and was transferred to the recovery area upon completion. Complications: None
--- NOTE | 2025-03-30 07:36 | MHC.SHP ---
Pre-Procedural Eval Section A - 24 Hr Update-Section A only Date of Service: 03/30/25 The patient is an INPATIENT: No The patient has been examined within 24 hours of the surgical procedure. The History & Physical has been completed within 30 days and I have reviewed it.: Yes Section B - Complete if H&P > 30 days Chief Complaint: Calculus of kidney Allergies: Allergies Allergy/AdvReac Type Severity Reaction Status Date / Time No Known Allergies Allergy Verified 01/07/25 15:09 Plan Diagnosis/Plan: Unchanged I have reviewed the history and physical and performed a pertinent physical examination on my patient. No changes have occurred unless specified. Right ESWL. Discussed risks to include but not limited to, blood in the urine, bruising to the skin, kidney hematoma, possible need for another procedure if a stone fragment obstructs the ureter while passing, possible need to repeat procedure if stone is not completely fragmented. Time Spent With Patient Time: Total time managing care of this patient today ____ minutes.
--- NOTE | 2025-03-30 07:37 | HO.ANESPROP2 ---
[facility] Active Problems Active Problems: All Active Problems Helicobacter pylori (H. pylori) (Acute) Tubular adenoma (Acute) Thyroid nodule (Acute) Graves' disease in remission (Acute) Vitamin D deficiency (Acute) Past Medical History Medical History Helicobacter pylori (H. pylori) Tubular adenoma Osteoarthritis Depression Thyroid nodule Graves' disease in remission Vitamin D deficiency Functional capacity: independent ambulation Patient : No Family History Family History Mother Diabetes Other Thyroid disease Family history of problems with anesthesia: No Surgical History Surgical History History of bladder surgery History of incision and drainage Hx of colonoscopy History of esophagogastroduodenoscopy (EGD) History of umbilical hernia repair History of Problems with Anesthesia: No Social History Social History Alcohol intake: never Patient Tobacco Use Status: Former Tobacco user Use of substances other than those prescribed or required for medical reasons: No Are you DNR?: No Advance Directives: No Advance Directives Information Provided: Yes Patient : No : No Poor oral hygiene: No Meds Allergies Allergy/AdvReac Type Severity Reaction Status Date / Time No Known Allergies Allergy Verified 01/07/25 15:09 Active Medications: Current Medications Lactated Ringer's (Lr) 1,000 mls @ 100 mls/hr IVCONT .Q10H MARTINA Last Admin: 03/30/25 07:16 Dose: 100 mls/hr Home Medications ?Medication ?Instructions ?Recorded ?Confirmed ?Last Taken ?Type zolpidem 5 mg tablet 5 mg PO BEDTIME PRN 03/22/22 12/16/24 Unknown History diclofenac sodium 1 % topical gel g topical pain 02/05/23 12/16/24 Unknown History escitalopram oxalate 10 mg tablet 10 mg PO QAM 02/05/23 12/16/24 Unknown History tramadol 50 mg tablet 50 mg PO Q8H PRN 09/25/23 12/16/24 Unknown History duloxetine 30 mg capsule,delayed 30 mg PO DAILY 11/26/24 12/16/24 Unknown History release Exam Height,Weight and Vital Signs: Height 5 ft 2 in Weight 82.5 kg Last Vital Signs Temp 97.7 F 03/30/25 07:00 Pulse 83 03/30/25 07:00 Resp 16 03/30/25 07:00 BP 140/70 H 03/30/25 07:00 Pulse Ox 98 03/30/25 07:00 O2 Del Method Room Air 03/30/25 07:00 Airway Mallampati Class: II TM Dist: >3cm Neck ROM: Full Heart: RRR Lungs: CTA Assessment and Plan Assessment Anesthesia Assessment: Anesthesia Plan Discussed and Chart Reviewed Final Anesthetic Review Family History of Problems with Anesthesia: No History of Problems with Anesthesia: No NPO: Yes ASA Class: II Final Preanesthetic Review: Meds/Allgs Chart Reviewed, Consent Obtained/Reviewed and Anes Risks/Benef Reviewed Patient Risk: Low Procedure Risk: Low Anesthetic Plan Anesthetic Plan: MAC: Disposition: Standard PACU
[2025-03-30 08:45] VITALS: BP 144/72; PULSE 79; RESP 19; TEMP 36.4; O2SAT 94
[2025-03-30 08:50] VITALS: BP 144/74; PULSE 73; RESP 16; O2SAT 94
[2025-03-30 08:55] VITALS: BP 164/74; PULSE 71; RESP 18; O2SAT 94
[2025-03-30 09:10] VITALS: BP 168/77; PULSE 68; RESP 18; TEMP 36.3; O2SAT 95
--- NOTE | 2025-03-30 09:28 | HO.POSTANES ---
Post Anesthesia Evaluation Post Anesthesia Evaluation Date of Service: 03/30/25 Vital Signs: Vital Signs Temp Pulse Resp BP Pulse Ox O2 Del Method 03/30/25 09:10 97.4 F 68 18 168/77 H 95 Room Air 03/30/25 08:55 71 18 164/74 H 94 Room Air 03/30/25 08:50 73 16 144/74 H 94 Room Air 03/30/25 08:45 97.6 F 79 19 144/72 H 94 Room Air 03/30/25 07:00 97.7 F 83 16 140/70 H 98 Room Air Anesthesia: General LMA Mental Status: Awake Pain Control: Satisfactory Nausea/Vomiting: None Hydration: Adequate Anesthesia-Related Issues: No Anes. Related Issues
== END 2025-03-30 09:44 | disposition home or self-care (01) ==
PROVIDERS: PCP Internal Medicine; Visit Provider Urology
PROC: (CPT 50590; principal; 2025-03-30 07:30)
DX: N20.0 Calculus of kidney (principal); E55.9 Vitamin D deficiency, unspecified; E04.1 Nontoxic single thyroid nodule; F32.A Depression, unspecified; M19.90 Unspecified osteoarthritis, unspecified site; Z79.899 Other long term (current) drug therapy; Z98.890 Other specified postprocedural states; Z90.49 Acquired absence of other specified parts of digestive tract; Z87.891 Personal history of nicotine dependence
CPT/HCPCS: 50590; 74018; J0131; J0690; J1100; J1938; J2003; J2250; J2405; J2704; J3010

== ENCOUNTER → 2025-03-30 05:42 | Outpatient (BNV) | payer OTHER, SELFPAY | PROVIDERS: PCP Internal Medicine; Visit Provider Urology | DX: N20.0 Calculus of kidney (principal) | CPT/HCPCS: 50590 ==

== ENCOUNTER → 2025-03-30 06:00 | Outpatient (BNV) | payer OTHER, SELFPAY | PROVIDERS: PCP Internal Medicine; Visit Provider Radiology Diagnostic Radiology | DX: R93.421 Abnormal radiologic findings on diagnostic imaging of right kidney (principal) | CPT/HCPCS: 74018 ==

== ENCOUNTER 2025-05-05 12:27 | Outpatient (REF) | payer OTHER, SELFPAY ==
--- OUTSIDE RECORDS SUMMARY | 2025-05-05 14:24 | XMS_ITS | Patient Health Record ---
Author Organization [facility] Address [address] [place] [address] Care Team Providers Care Shop And Alteration Tailor Name Role Phone Liz Crockett MD Primary Care Provider Unavail able David Degroot Unavailable [phone] Reason For Referral No Information Medications Medication [...] Problem Status W/U Status Risk Notes Problem 007368170 Encounter for screening for malignant neoplasm of colon (Z12.11) Active confirmed Problem 829460631 History of adenomatous polyp of colon (Z86.010) Active confirmed Problem Screening for malignant neoplasm of rectum (216593051) Encounter for screening for malignant neoplasm of rectum (Z12.12) Active confirmed Problem 563201358 Gastroesophageal reflux disease without esophagitis (K21.9) Active confirmed Plan Of Treatment Future Test Test Name Order Date UPPER GI ENDOSCOPY 01/16/2016 COLONOSCOPY 01/16/2016 Insurance Providers Payer Name Payer Address Payer Phone Subscriber Number Group Number Insured Name Patient Relationship to Insured Coverage Start Date Coverage End Date MEDICA[facility] [address] [place] [phone] [id number] [place] Self - patient is the insured Medical (General) History Medical History History ICD Code Nodular goiter Depression GERD Tubular adenoma removed in 2009--colonos copy with Dr. Ramirez Arthritis Kidney stones Denies [place],DM,CVA,Lung disease,renal dise ase Surgical History Surgery Date(Month/Year) Hernia-umbilical 2008
== END 2025-05-05 12:28 | disposition home or self-care (01) ==
LOC: HO.MAMMO 12:27
PROVIDERS: PCP Internal Medicine; Visit Provider Internal Medicine
DX: Z12.31 Encounter for screening mammogram for malignant neoplasm of breast (principal)
CPT/HCPCS: 77063; 77067

== ENCOUNTER → 2025-05-05 13:00 | Outpatient (BNV) | payer OTHER, SELFPAY | PROVIDERS: PCP Internal Medicine; Visit Provider Internal Medicine | DX: Z12.31 Encounter for screening mammogram for malignant neoplasm of breast (principal) | CPT/HCPCS: 77063; 77067 ==

== ENCOUNTER 2025-05-10 15:42 | Outpatient (REF) | payer OTHER, SELFPAY ==
[2025-05-10 18:06] LABS: Anion Gap 10 (12-20); Anion Gap 9 (12-20); Blood Urea Nitrogen 14 mg/dL (9-16); Calcium 9.1 mg/dL (8.4-10.2); Carbon Dioxide 30 mmol/L (22-29); Carbon Dioxide 31 mmol/L (22-29); Chloride 109 mmol/L (96-108); Chloride 110 mmol/L (96-108); Estimated Glomerular Filt Rate > 60; Glucose Random 86 mg/dL (60-115); Glucose Random 87 mg/dL (60-115); Potassium 3.9 mmol/L (3.3-5.1); Sodium 145 mmol/L (135-145); Sodium 146 mmol/L (135-145)
--- OUTSIDE RECORDS SUMMARY | 2025-05-10 18:10 | XMS_ITS | Encounter Summary ---
Author Organization [employer] Address [address] [facility] 7t [place] [address] Care Team Providers Care Manager Government Name Role Phone Liz Crockett MD Primary Care Provider + Deondre Phillips PharmD Unavailable [phone] Encounter Details Date Type Department Care Team (Late st Contact Info) Description 11/27/2022 Orders Only [facility] [address] [place], [place] [phone] Madie Rasmussen LPN Social History Tobacco Use [...] Department Care Team (Late Contact Info) Description 05/30/2025 9:30 AM EDT Telemedicine [facility] MEDICINE [address] [place] [address] Deondre Phillips, PharmD [address] [place] [address] 07/13/2025 10:30 AM EDT Office Visit [facility] OPTOMETRY [address] [place] [address] Ronda Laguna, OD [address] [place] [address] 07/29/2025 9:45 AM EDT Office Visit [facility] [address] [place] [address] Liz Crockett MD [address] [place] [address] documented as of this encounter Visit Diagnoses Not on filedocumented in this encounter Care Teams Manager Government Relationship Specialty Start Date End Date Liz Crockett MD [address] [place] [address] PCP - General Family Medicine 06/14/20 Deondre Phillips, ClementeD [address] [place] [address] [phone] Pharmacist Internal Medicine 06/16/23 [facility] 12/11/24 documented as of this encounter
== END 2025-05-10 15:43 | disposition home or self-care (01) ==
LOC: HO.HHCL 15:42
PROVIDERS: PCP Internal Medicine; Visit Provider Internal Medicine
DX: I10 Essential (primary) hypertension (principal)
CPT/HCPCS: 36415; 80048

== ENCOUNTER 2025-05-30 10:10 | Outpatient (REF) | payer OTHER, SELFPAY ==
--- NOTE | ~2025-05-30 | XR_ITS ---
EXAMINATION: XR ABDOMEN 1 VIEW (KUB) HISTORY: N20.0 - Calculus of kidney COMPARISON: Comparison is made with the prior examination dated 03/30/2025. FINDINGS: Two supine views of the abdomen are submitted. The bowel gas pattern is unremarkable, without evidence of mechanical obstruction. No abnormal calcifications are identified. The previously seen calcification overlying the right renal shadow is no longer identified. There are no abnormal soft tissue masses. The bones are intact. XR/XR KUB IMPRESSION: No suspicious calcifications are identified. Electronically signed by: David Ralph MD 05/30/2025 10:41 AM EDT
--- OUTSIDE RECORDS SUMMARY | 2025-05-30 10:56 | XMS_ITS | Patient Health Record ---
Author Organization [facility] Address [address] [place] [address] Care Team Providers Care Device Engineer Name Role Phone Liz Crockett MD Primary Care Provider Unavail able David Degroot Unavailable [phone] Reason For Referral No Information Medications Medication [...] Problem Status W/U Status Risk Notes Problem [id number] Encounter for screening for malignant neoplasm of colon (Z12.11) Active confirmed Problem 640590500 History of adenomatous polyp of colon (Z86.010) Active confirmed Problem Screening for malignant neoplasm of rectum (611654805) Encounter for screening for malignant neoplasm of rectum (Z12.12) Active confirmed Problem 109258995 Gastroesophageal reflux disease without esophagitis (K21.9) Active confirmed Plan Of Treatment Future Test Test Name Order Date UPPER GI ENDOSCOPY 01/16/2016 COLONOSCOPY 01/16/2016 Insurance Providers Payer Name Payer Address Payer Phone Subscriber Number Group Number Insured Name Patient Relationship to Insured Coverage Start Date Coverage End Date MEDICAID OF [facility] [address] [place] [phone] [id number] [place] Self - patient is the insured Medical (General) History Medical History History ICD Code Nodular goiter Depression GERD Tubular adenoma removed in 2009--colonos copy with Dr. Ramirez Arthritis Kidney stones Denies [place],DM,CVA,Lung disease,renal dise ase Surgical History Surgery Date(Month/Year) Hernia-umbilical 2008
--- OUTSIDE RECORDS SUMMARY | 2025-05-30 10:56 | XMS_ITS | Data Portability ---
Author Organization [employer] [facility], [email or web address] [facility] Address [address] [place] [address] Care Team Providers Care Tape Keller Operator Name Role Phone [facility] OTHER [facility] OTHER Assessment Encounter Date Assessment Date Assessment LastModified by Organization Details LastModified Time 12/01/2024 12/01/2024 I provided real -time medical direction via phone for this encounter and was available for additional phone-based assistance as needed. I have reviewed and agree with the Assessment and Plan as documented by the Guidance Counselor. Patient given the opportunity to ask questions. [...] She is taking in p.o. well. Per network operations manager on the scene, vital signs are stable [...] particularly fever chills lightheadedness altered mental status [email or web address] Not available 12/01/2024 16:40:15 Plan of Treatment [...] blood by Pulse oximetry Respiratory rate Systolic And Diastolic Provider Name and Address Organization Details Last Updated DateTime 5 98.7 [degF] 90 /min 94 % 94 % 18 /min 120/69 mm[Hg] Not Available [facility] - production 5 [...] SNOMED-CT Code Diagnosis ICD10 Code Diagnosis Note [id number] Laura Montero MD Main - [facility] [address] [place] [id number] [id number] 12/01/2024 15:14:39 12/01/2024 17:58:26 Nausea [id number] R11.0 Health Concerns Section Related Observation LastModified by Organization Detai ls LastModified Time None Recorded Concern Status LastModified by Organization Details LastModified Time None Recorded Advance Directives Directive None Recorded Payers Insurance Date Sequence Insurance Name Policy Number Policy Sharma Covered Member ID Sharma Member ID Guarantor Name 12/18/2024 1 [facility] - DOS ON OR AFTER 2023 - DUAL ELIGIBLE - CORRECTION OPTIONS AND ONE CARE (MEDICARE REPLACEMENT/AD VANTAGE - HMO) Yvonne Mart [id number] Yvonne Mart Notes Date Note Type Note Provider Name and Address Organization Details Recorded Time 12/01/2024 text/html HPI: Patient seen in [facility] ED 11/30/24 pending PCP appt for surgeon [...] .................. .................. .................. .................. .................. .................. ............... Guidance Counselor Note From Leena Solo: Sent to a [...] unremarkable; Extremities: unremarkable; Skin: pink, warm, dry; [facility] consulted and orders Zofran 4mg ODT. Zofran 4mg ODT administered without incident. Red flags discussed. Pt has no further questions. .................. .................. .................. .................. .................. .................. .................. ............... [facility] Consulted: Laura Montero .................. .................. .................. .................. .................. .................. .................. ............... Disposition: Fulfilled Laura Montero MD [address] [facility] [facility], [place], [address], [email or web address] 12/01/2024 16:40:29 OBGyn Episode No OBEpisode recorded.
== END 2025-05-30 10:11 | disposition home or self-care (01) ==
LOC: HO.XRAY 10:10
PROVIDERS: PCP Internal Medicine; Visit Provider Urology
DX: N20.0 Calculus of kidney (principal)
CPT/HCPCS: 74018

== ENCOUNTER → 2025-05-30 10:14 | Outpatient (BNV) | payer OTHER, SELFPAY | PROVIDERS: PCP Internal Medicine; Visit Provider Radiology Diagnostic Radiology | DX: N20.0 Calculus of kidney (principal) | CPT/HCPCS: 74018 ==

== ENCOUNTER 2025-06-02 15:17 | Outpatient (AMB) | payer OTHER, SELFPAY ==
--- NOTE | 2025-06-01 22:14 | MHC.OFFVIS ---
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 24 hr urine collection disc'd but not completed by pt. cont to monitor 12/16/24--Yvonne is a 69-year-old female, Kiswahili speaking. She is here with her daughter who interprets for her. Yvonne was initially seen in our office for nephrolithiasis, 08/07/2023. She did not keep follow-up visits. She was in the emergency room on 11/30/2024 with complaints of right sided abdominal pain. Imaging included CTAP wo IV contrast noting persistent 5 mm right kidney stone. The abdominal ultrasound 11/30/24 also notable for sludge in the gallbladder. The patient is s/p cholecystectomy and has follow-up with General surgery. I have discussed today treatment options to include right ESWL. Discussed risks to include but not limited to, blood in the urine, bruising to the skin, kidney hematoma, possible need for another procedure if a stone fragment obstructs the ureter while passing, possible need to repeat procedure if stone is not completely fragmented. 08/07/2023?Yvonne is a 67-year-old female who presents today to the office to establish as a new patient for an evaluation of renal stone. The patient was seen in the ED on 06/21/23 for abdominal pain and elevation of BP. CT imaging was performed at that time. Currently the patient is asymptomatic. H/O nicotine use. I have discussed diet modification and importanct of drinking adequate fluids. Discussed further evaluation with 24 hr urine. I reviewed the abdomen/pelvis CT results from 06/11/2023 revealed A 5 mm nonobstructing right renal calculus. Evaluation today?UA?Blood: 25 Michael: leukocytes: negative. Plan:Will repeat renal US in on 1 year. Follow up in 3 months. 24 hr urine prior I reviewed the KUB x-ray results from 06/21/2023 revealed moderate stool burden within the proximal colon and within the rectal vault. [facility] Medical History Helicobacter pylori (H. pylori) Tubular adenoma Osteoarthritis Depression Thyroid nodule Graves' disease in remission Vitamin D deficiency Surgical History History of bladder surgery History of incision and drainage Hx of colonoscopy History of esophagogastroduodenoscopy (EGD) History of umbilical hernia repair Family History Mother Diabetes Other Thyroid disease Social History Alcohol intake: never Patient Tobacco Use Status: Former Tobacco user Results AMB Urinalysis, Automated UA Leukoctes 0 Aubrey/uL Last Edit by Natalia Thapa on 06/02/25 16:50 UA Nitrite Negative Last Edit by Natalia Thapa on 06/02/25 16:50 UA Urobilinogen 3.5 mg/dL Last Edit by Natalia Thapa on 06/02/25 16:50 UA Protein 0 mg/dL Last Edit by Natalia Thapa on 06/02/25 16:50 UA pH 6.0 Last Edit by Natalia Thapa on 06/02/25 16:50 UA Blood 25 Michael/uL Last Edit by Natalia Thapa on 06/02/25 16:50 UA Specific [place] 1.015 Last Edit by Natalia Thapa on 06/02/25 16:50 UA Ketone Negative Last Edit by Natalia Thapa on 06/02/25 16:50 UA Bilirubin 0 mg/dL Last Edit by Natalia Thapa on 06/02/25 16:50 UA Glucose 0 mg/dL Last Edit by Natalia Thapa on 06/02/25 16:50 Results Reviewed Results Reviewed: Date of Service: 11/30/24 Comparison: CT/SR - CT ABDOMEN PELVIS WO IV CON - 08/25/24 05:20 EDT Findings: Atelectasis with ill-defined subpleural patchy consolidations in the anterolateral right middle lobe, nonspecific. This may be further evaluated with follow-up. Cardiomegaly without significant pericardial effusion. Coronary artery calcifications. Distended gallbladder with mild inflammatory changes and noncalcified 3 mm stone of the neck of the gallbladder. Atrophic pancreas. Nonobstructive 5 mm calculus in the right upper pole kidney. Diverticulum along the 2nd duodenal segment. Colonic diverticulosis without diverticulitis. Focal spondylosis at L4-L5. Osteopenia. IMPRESSION: 1. Possible early acute calculus cholecystitis. Clinical correlation advised. 2. Nonobstructive 5 mm calculus in the right upper pole kidney. Date of Service: 06/21/23 EXAMINATION:? XR ABDOMEN KUB CLINICAL INDICATION:? Constipation?? COMPARISON:? CT abdomen pelvis March 08, 2022?? FINDINGS:? No dilated air-filled loops of small bowel to suggest an obstructive process. There is a moderate stool burden within the proximal colon and within the rectal vault although there is a normal stool burden throughout the splenic flexure and descending colon. No acute osseous abnormality. IMPRESSION: Moderate stool burden within the proximal colon and within the rectal vault. Date of Service: 06/21/23 EXAMINATION: CT ABDOMEN AND PELVIS WITHOUT CONTRAST?? CLINICAL INFORMATION: Epigastric pain?? COMPARISON: CT dated 03/08/2022 FINDINGS: LUNG BASES: Mild dependent atelectasis. There is a prominent 9 mm (short axis) mediastinal lymph node in the distal paraesophageal region. LIVER, GALLBLADDER, AND BILIARY TREE: The liver is normal in size, shape, and attenuation. No focal hepatic lesion or biliary ductal dilatation is present. The gallbladder is unremarkable with no evidence of radiopaque gallstones, gallbladder wall thickening, or obvious pericholecystic inflammatory changes.?? PANCREAS: Unremarkable.?? SPLEEN: Unremarkable.?? ADRENAL GLANDS: Unremarkable.?? KIDNEYS AND URETERS: A 5 mm nonobstructing calculus is again seen within a right upper renal pole calyx, The kidneys are normal in size, shape, and attenuation. No hydronephrosis or hydroureter seen. No perinephric stranding.? ? BLADDER: Unremarkable.?? GASTROINTESTINAL TRACT: Stomach, small bowel, and colon are normal in caliber. No bowel wall thickening or surrounding inflammatory changes. Appendix is normal. No intraperitoneal free fluid or free air.?? ABDOMINAL WALL: No significant hernia is appreciated. Scar tissue around the umbilicus. LYMPH NODES: Normal. VASCULAR: Unremarkable. PELVIC VISCERA: The uterus and adnexa are unremarkable.?? OSSEOUS STRUCTURES: Degenerative spondylosis is evident in the thoracic and lumbar spine, most notably at L4-L5. There is questionable dysraphism at the lower thoracic spine at T11 and T12 with incomplete fusion of the spinous processes. Alternatively, this may be postsurgical in nature.?? IMPRESSION: 1.? No acute intra-abdominal or intrapelvic abnormalities. 2.? A 5 mm nonobstructing right renal calculus. Assessment & Plan Assessment & Plan (1) History of kidney stones: Code(s): Z87.442 - Personal history of urinary calculi Category: Medical Orders: Orders AMB Urinalysis Automated Today Z13.9 - Encounter for screening, unspecified US renal BI 10 Months Z87.442 - Personal history of urinary calculi Medications: New pyridoxine (vitamin B6) 100 mg PO DAILY 90 tabs 3RF Coding Diagnoses History of kidney stones Z87.442
--- OUTSIDE RECORDS SUMMARY | 2025-06-02 15:20 | XMS_ITS | Data Portability ---
Author Organization [employer] [facility], [facility] Address [address] [place] [address] Care Team Providers Care Lay Brother Name Role Phone [facility] OTHER [facility] OTHER Assessment Encounter Date Assessment Date Assessment LastModified by Organization Details LastModified Time 12/01/2024 12/01/2024 I provided real -time medical direction via phone for this encounter and was available for additional phone-based assistance as needed. I have reviewed and agree with the Assessment and Plan as documented by the Statistical Modeler. Patient given the opportunity to ask questions. [...] She is taking in p.o. well. Per clinic lpn on the scene, vital signs are stable [...] SNOMED-CT Code Diagnosis ICD10 Code Diagnosis Note [id number] Laura Montero MD Main - [facility] [address] [place] [phone] 12/01/2024 15:14:39 12/01/2024 17:58:26 Nausea [id number] R11.0 Health Concerns Section Related Observation LastModified by Organization Detai ls LastModified Time None Recorded Concern Status LastModified by Organization Details LastModified Time None Recorded Advance Directives Directive None Recorded Payers Insurance Date Sequence Insurance Name Policy Number Policy Sharma Covered Member ID Sharma Member ID Guarantor Name 12/18/2024 1 [facility] - DOS ON OR AFTER 2023 - DUAL ELIGIBLE - PENITENTIARY OPTIONS AND ONE CARE (MEDICARE REPLACEMENT/AD VANTAGE - HMO) Yvonne Mart [id number] Yvonne Mart Notes Date Note Type Note Provider Name and Address Organization Details Recorded Time 12/01/2024 text/html HPI: Patient seen in [facility] ED 11/30/24 pending PCP [...] .................. .................. .................. .................. .................. .................. ............... Statistical Modeler Note From Leena Solo: Sent to a [...] unremarkable; Extremities: unremarkable; Skin: pink, warm, dry; [facility] consulted and orders Zofran 4mg ODT. Zofran 4mg ODT administered without incident. Red flags discussed. Pt has no further questions. .................. .................. .................. .................. .................. .................. .................. ............... [facility] Consulted: Laura Montero .................. .................. .................. .................. .................. .................. .................. ............... Disposition: Fulfilled Laura Montero MD [address] [facility] [facility], [place], [phone], [employer] [place] 12/01/2024 16:40:29 OBGyn Episode No OBEpisode recorded.
--- OUTSIDE RECORDS SUMMARY | 2025-06-02 15:20 | XMS_ITS | Encounter Summary ---
Author Organization [employer] Address [address] [facility] [address] [place] [address] Care Team Providers Care Delphi Developer Name Role Phone Liz Crockett MD Primary Care Provider + Deondre Phillips PharmD Unavailable [phone] Encounter Details Date Type Department Care Team (Late st Contact Info) Description 11/27/2022 Orders Only [facility] [address] [place], [place] [phone] Madie Rasmussen LPN Social History Tobacco Use [...] Care Team (Late st Contact Info) Description 07/13/2025 10:30 AM EDT Office Visit [facility] OPTOMETRY [address] [place] [address] JaseRonda couch, OD [address] [place] [address] 07/29/2025 9:45 AM EDT Office Visit [facility] MEDICINE [address] [place] [address] Liz Crockett MD [address] [place] [address] documented as of this encounter Visit Diagnoses Not on filedocumented in this encounter Care Teams Delphi Developer Relationship Specialty Start Date End Date Liz Crockett MD [address] [place], [place] [phone] PCP - General Family Medicine 06/14/20 Deondre Phillips PharmD [address] [place] [address] Pharmacist Internal Medicine 06/16/23 [facility] 12/11/24 documented as of this encounter
== END 2025-06-02 16:05 | disposition home or self-care (01) ==
LOC: HO.HUSH 15:18
PROVIDERS: PCP Internal Medicine; Visit Provider Urology
DX: Z13.9 Encounter for screening, unspecified (principal)

== ENCOUNTER → 2025-06-02 15:17 | Outpatient (BNVA) | payer OTHER, SELFPAY | PROVIDERS: PCP Internal Medicine; Visit Provider Urology | DX: Z09 Encounter for follow-up examination after completed treatment for conditions other than malignant neoplasm (principal); Z87.442 Personal history of urinary calculi | CPT/HCPCS: 81003; 99212 ==

== ENCOUNTER 2025-07-13 10:13 | Outpatient (AMB) | payer OTHER, SELFPAY ==
--- NOTE | 2025-07-13 10:17 | A.OFFVIS_ITS ---
Vital Signs 07/13/25 10:19 Height 5 ft 2 in Weight 185 lb 3.013 oz BMI 33.9 BP 138/78 Blood Pressure Location Rt brachial Position Sitting Pulse 72 Pulse Source Pulse Oximeter Pulse Oximetry (%) 96 Oxygen Delivery Method Room Air Intake Visit Reasons: gerd Intake Note: ESTABLISHED PATIENT for constipation mgmt. Chief Complaint; Pt denies any GI changes or new concerns since last visit. Pt states that her medications are working OK for her. Electrician Apprentice Required: Yes Electrician Apprentice Services: Electrician Apprentice Present Electrician Apprentice Name: Shaun [phone] Accompanied by: Self / Same As Patient Allergies No Known Allergies Allergy (Verified 07/13/25 10:18) HPI HPI gerd: Details: LAST VISIT: GERD (gastroesophageal reflux disease) Postprandial abdominal bloating Constipation IBS (irritable bowel syndrome) Cholelithiasis Biliary colic Plan Continue current bowel regimen. Increase fluid intake and activity to promote better bowel motility. Patient will continue taking Linzess daily. Message sent to surgical schedulers to book upper endoscopy and colonoscopy for patient. Continue pantoprazole in the morning and famotidine at bedtime. Patient was encouraged to avoid dietary triggers and late night snacking. Staying upright for minimum 3 hours after meals discussed with patient. Continue Creon with meals. Simethicone as needed with meals. Patient will return in 2 months so we can discuss going for colonoscopy. Patient is agreeable to this plan and verbalizes understanding of instructions. She was given the opportunity to ask questions and all questions answered. ? Thank you for allowing me to participate in her care Refilled byjbzz-sbnbjpsd-hffemxi 24,000-76,000 -120,000 unit (Creon) administer with meals and/or snacks 1 cap PO QID 240 caps 2RF K58.9 famotidine (Pepcid) 20 mg PO BEDTIME 90 tabs 3RF epigastric pain pantoprazole take one tablet half an hour before breakfast 40 mg PO DAILY 90 tabs 2RF K21.9 simethicone 125 mg PO BID-QID PRN 360 caps 3RF abdominal distention K21.9 PCPS NOTE FROM 02/15/2025 REVIEWED: Patient was at [facility] in November of 2024 for acute cholecystitis. Patient underwent laparoscopic subtotal cholecystectomy with placement of a BARBARA drain x2 on December 06. Patient was found to have gangrenous cholecystitis with perihepatic abscess. Patient underwent ERCP with biliary stent placement on 12/07/2024 she had a right-sided moderate pleural effusion mos t likely reactive in nature due to gangrenous gallbladder. She was discharged on 10 of December and returned back to ED on February 02 with a exacerbated of abdominal pain and colitis. Patient had a obstruction of biliary drain CT scan of the abdomen was negative. BARBARA drain was irrigated and then removed at bedside. TODAY'S VISIT: Patient is today for follow-up. She is reporting right upper quadrant occasional play and colic. Reports that she is moving her bowels better now that she is taking Linzess. Patient does however reports that occasionally when she coughs she will have a accident with urine and loose stools. Patient denies any melena, hematochezia, unintentional weight loss or ribbon like stools. Patient still needs to schedule her colonoscopy. Patient unable to go to have a colonoscopy as she was hospitalized in January and unable make that appointment. In March patient underwent lithotripsy for right kidney stone. Patient has been following up with her urologist. Patient denies any nausea or vomiting. Patient is taking pantoprazole in the morning and famotidine at bedtime. Reports that acid reflux is suppressed. Denies dyspepsia, dysphagia or odynophagia. [facility] Medical History Helicobacter pylori (H. pylori) Tubular adenoma Osteoarthritis Depression Thyroid nodule Graves' disease in remission Vitamin D deficiency Surgical History History of bladder surgery History of incision and drainage Hx of colonoscopy History of esophagogastroduodenoscopy (EGD) History of umbilical hernia repair Family History Mother Diabetes Other Thyroid disease Social History Alcohol intake: never Patient Tobacco Use Status: Former Tobacco user Review of Systems Const Denies weight gain and Denies weight loss ENT Reports no additional complaints, Denies dysphagia and Denies odynophagia Card Reports no additional complaints Resp Reports no additional complaints GI Denies abdominal pain, Denies belching, Denies melena, Denies bloating, Denies change in bowel habits, Denies dysphagia, Denies excessive flatus, Denies dyspepsia, Denies heartburn, Denies diarrhea, Denies loose stools, Denies nausea, Denies odynophagia and Denies vomiting Musc Reports no additional complaints Neuro Reports no additional complaints Psych Reports no additional complaints Endo Reports no additional complaints Physical Exam Vital Signs: Last Vital Signs Pulse 72 07/13/25 10:19 BP 138/78 07/13/25 10:19 Pulse Ox 96 07/13/25 10:19 Oxygen Delivery Method Room Air 07/13/25 10:19 BMI result Body Mass Index 33.9 Const General: healthy appearing and no acute distress Nutritional Appearance: obese Orientation/consciousness: patient oriented x3 Resp Effort & Inspection: normal respiratory effort, able to speak in complete sentences, no tracheal deviation and symmetric chest movement Auscultation: clear to auscultation bilaterally Cardio Rate: regular rate GI Other: J-tube drain Inspection: Yes distended and Yes obesity Palpation (GI): Soft to palpation, not firm, nontender and No hepatosplenomegaly present Auscultation: normal bowel sounds General: Yes no CVA tenderness Back/Spine/Pelvis Back: no CVA tenderness Skin General skin exam: elasticity normal, turgor normal and dry skin Neuro General: patient oriented x3 Psych Appearance: grossly normal Mental Status: mental status grossly normal Assessment & Plan Assessment & Plan (1) Chronic idiopathic constipation: Code(s): K59.04 - Chronic idiopathic constipation (2) Postprandial abdominal pain in right upper quadrant: Code(s): R10.11 - Right upper quadrant pain (3) Gastroesophageal reflux disease: Code(s): K21.9 - Gastro-esophageal reflux disease without esophagitis Qualifiers: Esophagitis presence: esophagitis presence not specified Qualified Code(s): K21.9 - Gastro-esophageal reflux disease without esophagitis (4) Postprandial abdominal bloating: Code(s): R14.0 - Abdominal distension (gaseous) Plan Patient will continue pantoprazole in the morning and famotidine at bedtime. Avoid dietary triggers and late night snacking. Staying upright for minimum 3 hours after meals discussed with patient. Patient will continue taking Linzess every morning. Patient will be given fiber to take daily. Increase fluid intake and activity to promote better bowel motility. Message sent to Surgical schedules to call patient to book upper endoscopy and colonoscopy. I will see patient in 5 weeks and we will discussed prep. Patient is agreeable to this plan and verbalizes understanding of instructions. She was given the opportunity to ask questions and all questions answered. Thank you for allowing me to participate in her care Orders: Orders Comprehensive Met. Panel Today K21.9 - Gastro-esophageal reflux disease without esophagitis Fecal Fat Qualitative Today R19.7 - Diarrhea, unspecified GI Panel Today R19.7 - Diarrhea, unspecified Ova and Parasite Today R19.7 - Diarrhea, unspecified Calprotectin, Fecal Today R15.9 - Full incontinence of feces Complete Blood Count no Diff Today K21.9 - Gastro-esophageal reflux disease without esophagitis Medications: New methylcellulose (laxative) (Citrucel) take it with full glass of water 500 mg PO DAILY 90 tabs 2RF K59.00 - Constipation, unspecified Refilled linaclotide (Linzess) 290 mcg PO QAM 90 caps 3RF K59.00 - Constipation, unspecified famotidine (Pepcid) 20 mg PO BEDTIME 90 tabs 3RF epigastric pain pantoprazole take one tablet half an hour before breakfast 40 mg PO DAILY 90 tabs 2RF K21.9 - Gastro-esophageal reflux disease without esophagitis Coding Level of Care Code Est Pt Level 4 (18347) Complex EM visit Add On G2211 Diagnoses Chronic idiopathic constipation K59.04 Postprandial abdominal pain in right upper quadrant R10.11 Gastroesophageal reflux disease, unspecified whether esophagitis present K21.9 Esophagitis presence: esophagitis presence not specified Postprandial abdominal bloating R14.0 Time Spent (min) 40 Comment 25 minutes spent with patient and additional 15 minutes spent reviewing her records
[2025-07-13 10:19] VITALS: BP 138/78; PULSE 72; O2SAT 96; BMI 33.9
== END 2025-07-13 10:57 | disposition home or self-care (01) ==
PROVIDERS: PCP Internal Medicine; Visit Provider Nurse Practitioner Family
DX: K59.04 Chronic idiopathic constipation (principal); R10.11 Right upper quadrant pain; K21.9 Gastro-esophageal reflux disease without esophagitis; R14.0 Abdominal distension (gaseous)
CPT/HCPCS: 99214; G2211

== ENCOUNTER → 2025-07-13 10:13 | Outpatient (BNVA) | payer OTHER, SELFPAY | PROVIDERS: PCP Internal Medicine; Visit Provider Nurse Practitioner Family | DX: K21.9 Gastro-esophageal reflux disease without esophagitis (principal); R14.0 Abdominal distension (gaseous); R10.11 Right upper quadrant pain; K59.04 Chronic idiopathic constipation | CPT/HCPCS: 99212 ==

== ENCOUNTER 2025-07-21 08:12 | Outpatient (REF) | payer OTHER, SELFPAY ==
[2025-07-21 09:03] LABS: Hematocrit 38.6 % (37.0-47.0); Hemoglobin 12.4 g/dl (12.0-16.0); Mean Corpuscular HGB Conc 32.1 g/dl (31.0-35.0); Mean Corpuscular Hemoglobin 28.1 pg (27.0-33.0); Mean Corpuscular Volume 87.3 fL (80.0-98.0); NRBC Abs Auto 0.000 X10*3/uL (0.0-0.012); NRBC Pct Auto 0.0 /100WBC (0.0-0.2); Platelet Count 215 X10*3/uL (160-400); Red Blood Count 4.42 X10*6/uL (4.20-5.50); White Blood Count 4.0 X10*3/uL (4.8-10.8)
[2025-07-21 09:30] LABS: Alanine Aminotransferase 18 U/L (0-31); Albumin Level 4.2 g/dL (3.5-5.0); Alkaline Phosphatase 66 U/L (39-117); Anion Gap 9 (12-20); Aspartate Amino Transferase 21 U/L (5-31); Blood Urea Nitrogen 19 mg/dL (9-16); Calcium 9.1 mg/dL (8.4-10.2); Carbon Dioxide 30 mmol/L (22-29); Chloride 108 mmol/L (96-108); Estimated Glomerular Filt Rate > 60; Potassium 4.5 mmol/L (3.3-5.1); Sodium 142 mmol/L (135-145); Total Protein 7.0 g/dL (6.5-8.0)
== END 2025-07-21 08:13 | disposition home or self-care (01) ==
LOC: HO.LAB 08:12
PROVIDERS: PCP Internal Medicine; Visit Provider Nurse Practitioner Family
DX: K21.9 Gastro-esophageal reflux disease without esophagitis (principal)
CPT/HCPCS: 36415; 80053; 85027

== ENCOUNTER 2025-08-02 08:51 | Outpatient (REF) | payer OTHER, SELFPAY ==
--- OUTSIDE RECORDS SUMMARY | 2025-08-02 10:01 | XMS_ITS | Clinical Summary ---
Author Organization [employer] Address [address] [facility] [address] [place] [address] Care Team Providers Care Crossing Guard Name Role Phone Liz Crockett MD Primary Care Provider + Deondre Phillips PharmD Unavailable [phone] Allergies No known active allergies Medications zolpidem [...] DAY NEEDED FOR GAS 3 Active Creon [id number] units capsule TAKE 1 CAPSULE BY MOUTH FOUR TIMES DAILY WITH MEALS AND SNACKS 3 Active Diclofenac Sodium 1 % gelIndications: Cervical paraspinal muscle spasm APPLY TO THE AFFECTED AREA(S) 1 INCH TOPICALLY TWICE DAILY IN THE MORNING AND AT BEDTIME NEEDED FOR PAIN 100 g 1 4 Active famotidine (Pepcid) 20 MG tablet Take 1 tablet by mouth Once per day. Active escitalopram (Lexapro) 10 MG tablet Take 10 mg by mouth Once per day. Active cholecalciferol VITAMIN D (Vitamin D-3) 50 MCG (1999 UT) tablet TAKE 1 TABLET BY MOUTH EVERY MORNING 30 tablet 3 5 Active lisinopril 10 MG tabletIndicatio ns:HTN (hypertension), benign Take 1 tablet (10 mg) by mouth Once per day. 30 tablet 11 5 Active pyridoxine (Vitamin B-6) 100 MG tablet Take 100 mg by mouth in the morning. Active Active Problems Problem Noted Date Diagnosed Date Incontinence of feces with fecal urgency 025 Assessment & Plan (05/10/2025 4:08 PM EDT): Hold Linzess x 2 weeks and follow-up symptoms, follow-up with me in 2 months Order stool tests Has colonoscopy rescheduled for June 2025 Tiredness 02/15/2025 Assessment & Plan (02/15/2025 4:37 PM EDT): It could be related to his recent surgery, rule out new CBD obstruction, order labs Rule out hypothyroidism, order labs Advised regarding increase hydration, soft to liquid diet and advance as tolerated, will call as needed abnormal labs Dysuria 02/08/2025 Assessment & Plan (04/08/2025 6:50 PM EDT): Reassuring ua, will await culture to treat, Pt aware of signs/ symptoms to report in interim Screening-pulmonary TB 10/18/2024 Class 2 severe obesity due t o excess calories with serious comorbidity and body mass index (BMI) of 35.0 to 35.9 in adult 10/18/2024 Assessment & Plan (05/10/2025 4:07 PM EDT): She has lost weight after gallbladder surgery, she is slowly gaining it back. Discussed re weight reduction options including exercise, life style modifications, diet. Recommended to decrease soda and sugary beverage consumption, increase protein intake with meals (at least 1 portion of protein with each meal) to assist with satiety, increase dietary fiber Recommended at least 150 min/week of moderate intensity exercise. Follow-up in 6 months Assessment & Plan (10/18/2024 12:34 PM EST): [...] malignant neoplasm o f rectum 12/26/2023 12/26/2023 Assessment & Plan (05/10/2025 3:29 PM EDT): Appt colonoscopy rs for June Nonintractable episodic headache 06/13/2023 Assessment & Plan [...] knows for sure that there will be syriac speaker translators. I will refer to CM [...] HTN (hypertension), benign 12/13/2022 Assessment & Plan (05/10/2025 4:06 PM EDT): Uncontrolled, may need to increase lisinopril to 10 mg. Advised to get BMP ordered at [facility] program and adjust lisinopril to 20 mg if tolerated. She will follow-up with [facility] program next month Check home BP BIW and prn CP/WHALEN/VO, call back if BP is above 145/90 several times. Follow-up with me in 2 to 3 months Assessment & Plan (02/15/2025 4:14 PM EDT): [...] assist her navigate the system with an rn orthopedic Order Xrays c-spine Recommended to look into changing her pillow or even her mattress if she wakes up with the pain. FU in 3m And will consider further w/u. Osteopenia 12/13/2022 Assessment & Plan (12/13/2022 2:37 PM EST): Continue Vit D daily Order dexa scan Kidney stone 02/19/2019 Overview (07/17/2023): CT scan 06/21/23 @[facility]: 5mm non obstructing Right kidney stone Assessment & Plan (05/10/2025 4:08 PM EDT): Status post ESWL or on 03/30/2025, she is doing well. She will follow-up with urology Assessment & Plan (05/10/2025 3:27 PM EDT): >>ASSESSMENT AND PLAN FOR RENAL LITHIASIS WRITTEN ON 12/03/2024 6:06 PM BY DUSTIN CONRAD NP Referral to urology though source of current pain is more consistent with biliary colic Assessment & Plan (10/18/2024 12:31 PM EST): [...] nose drops to loosen mucus Take Acetaminophen (Tylenol )/Ibuprofen as needed to reduce fever, headache, body [...] 72 hours (temperature should be less than 100 F without medication). Subacute cough 10/21/2023 05/10/2025 Assessment & Plan (10/21/2023 11:20 AM EST): Seems to have URI Encounters Date Type Department Care Team Description 07/28/2025 Telephone [facility] [address] [place] [phone] Liz Crockett MD Chart Prep 07/21/2025 Orders Only GENERIC EXTERNAL DATA DEPARTMENT Provider, Generic External Data 06/17/2025 11:30 AM EDT Telemedicine [facility] [address] [place] [address] Deondre Phillips, Tera HTN (hypertension), benign (Primary Dx) 05/30/2025 Orders Only [facility] External Provider, [facility] 05/14/2025 Refill [facility] [address] [place] [address] Liz Crockett MD 05/10/2025 2:45 PM EDT Office Visit [facility] [address] [place] [phone] Liz Crockett MD HTN (hypertension), benign (Primary Dx); Incontinence of feces with fecal urgency; Class 2 severe obesity due to excess calories with serious comorbidity and body mass index (BMI) of 35.0 to 35.9 in adult (CMS/[facility]); Kidney stone; Encounter for screening for malignant neoplasm of rectum; Exercise counseling; Dietary counseling 05/10/2025 Orders Only [address] [address] Liz Crockett MD 05/10/2025 Travel 05/09/[address] [address] Liz Crockett MD chart prep 05/05/2025 Orders Only [address] [address] Liz Crockett MD 05/02/2025 10:30 AM EDT Clinical Support [address] [address] Mamadou Taylor, PharmD HTN (hypertension), benign (Primary Dx); Calculus of gallbladder without cholecystitis without obstruction; Renal lithiasis 05/02/2025 Patient Outreach [address] [address] Liz Crockett MD Pre-visit Planning ([facility] screening completed on 02/07/2025) from Last 3 Months Immunizations Immunization Administration Dates Next Due INFLUENZA VACCINE QUADRIVALE NT RECOMBINANT PRESERVATIVE FREE RIV4 08/28/2020 Influenza injectable quadriv alent IIV4 with preservative 10/10/2017,09/19/2016 Influenza injectable quadrivalent preservative f ree 12/13/2022,12/21/2019 Influenza, Split (incl. purified surface antigen ) 09/23/2013,09/15/2012 Moderna Covid-19 Vaccine 12+ 12/13/2022 Pneumococcal Conjugate PCV 20 05/10/2025 Tdap 05/10/2025,07/09/2012 Zoster, Recombinant 06/12/2020,12/24/2019 Family History Medical History [...] Sign Reading Time Taken Comments Blood Pressure 146/81 06/17/2025 11:13 AM EDT [employer] Home monitor (Televisit) Pulse 85 06/17/2025 11:13 AM EDT Temperature 36.9 C (98.4 F) 05/10/2025 2:43 PM EDT Respiratory Rate 20 05/10/2025 2:43 PM EDT Oxygen Saturation 98% 02/08/2025 4:0 2 PM EDT Inhaled Oxygen Concentration - - Weight 84 kg (185 lb 2 oz) 05/10/2025 2 :43 PM EDT Height 157.5 cm (5' 2 ) 05/10/2025 2:43 PM EDT Body Mass Index 33.86 05/10/2025 2:43 PM EDT Plan of Treatment Upcoming Encounters Date Type Department Care Team (Late st Contact Info) Description 09/02/2025 11:30 AM EDT Telemedicine [facility] [address] [place] [address] Deondre Phillips, PharmD [address] [place] [address] 12/01/2025 1:00 PM EST Office Visit [facility] [address] [place] [address] JaseRonda couch, OD [address] [place] [address] Health Maintenance Due Date Last Done Comments CT Colonography 1955 FIT DNA/Cologuard 1955 FIT 1955 FOBT 1955 Sigmoidoscopy 1955 Alcohol/Substance Use Screening 1968 Hepatitis C Screening 1974 Colonoscopy 11/12/2024 11/12/2021 Colorectal Cancer Screening 11/12/2024 COVID-19 Vaccine ( season) 2025 12/13/2022, 12/03/2021, 04/18/2021, Additional history exists Influenza Vaccine (#1) 2025 , 08/28/2020, 12/21/2019, Additional history exists SDOH Screening 02/07/2026 02/07/2025 Depression Screening 02/15/2026 02/15/2025, 02/16/20 Mammogram 05/05/2026 05/05/2025, 02/22, 03/04/2023, Additional history exists Tobacco Screening 05/10/2026 05/10/2025 Lipid Panel 02/17/2030 02/17/2025, 03/0 03/2025, 10/18/2024, Additional history exists RSV Patients and Patients Aged 60 years or older (1 - 1-dose 75+ series) 2031 DTaP/Tdap/Td Vaccines (3 - Td or Tdap) 05/10/2035 05/10/2025, 07/09/2012 Zoster Vaccines Completed 06/12/2020, 12/24/2019 Pneumococcal Vaccine: 50+ Years Completed 05/10/2025 HIB Vaccines Aged Out No longer eligi [...] patient's age to complete this topic Meningococcal B Vaccine Aged Out No l onger eligible based on patient's age to complete [...] Author Blood Pressure < 150/90 Blood Pressure 146/81(2024 11:13 AM EDT) Deondre Nava, PharmD Note: Age>60, No Hx of DM or CKD Procedures Procedure Name Priority Date/Time Associated Diagnosis Comments COMPREHENSIVE METABOLIC PANEL Routine 07/21/2025 8:40 AM EDT CBC Routine 07/21/2025 8:40 AM EDT XR KUB AND UPRIGHT 2 VIEWS Routine 05/30/2025 10:18 AM EDT BASIC METABOLIC PANEL Routine 05/10/2025 3:54 PM EDT BASIC METABOLIC PANEL Routine 05/10/2025 3:54 PM EDT BI MAMMOGRAM SCREENING TOMOSYNTHESIS BILATERAL Routine 05/05/2025 1:10 PM EDT LIPID PANEL WITH REFLEX TO DIRECT LDL Routine 02/17/2025 9:05 AM EDT Hyperlipidemia LDL goal <100 HM COLONOSCOPY Routine 11/12/2021 3:56 PM EST from Last 3 Months or Most Recently Relevant to Health Maintenance Results * (ABNORMAL) CBC (07/21/2025 8:40 AM EDT) White Blood Count 4.0(L) 4.8 - 10.8 X10*3/uL [facility] Red Blood Count 4.42 4.20 - 5.50 X10*6/uL [facility] Hemoglobin 12.4 12.0 - 16.0 g/dl [facility] Hematocrit 38.6 37.0 - 47.0 % [facility] Mean Corpuscular Volume 87.3 80.0 - 98.0 fL [facility] Mean Corpuscular Hemoglobin 28.1 27.0 - 33.0 pg [facility] Mean Corpuscular HGB Conc 32.1 31.0 - 35.0 g/dl [facility] Red Cell Distribution Width 12.1 11.0 - 16.0 % [facility] Platelet Count 215 160 - 400 X10*3/uL [facility] Mean Platelet Volume 10.6 9.4 - 12.3 fL [facility] NRBC Pct Auto 0.0 0.0 - 0.2 /100WBC [facility] NRBC Abs Auto 0.000 0.0 - 0.012 X10*3/uL [facility] 07/21/2025 8:40 AM EDT 07/21/2025 8:40 AM EDT us Generic External Data Provider LAB BLOOD ORDERAB LES Final Result [facility] [address] [place] [phone] * (ABNORMAL) Comprehensive Metabolic Panel (07/21/2025 8:40 AM EDT) Sodium 142 135 - 145 mmol/L [facility] Potassium 4.5 3.3 - 5.1 mmol/L [facility] Chloride 108 96 - 108 mmol/L [facility] Carbon Dioxide 30(H) 22 - 29 mmol/L [facility] Anion Gap 9(L) 12 - 20 [facility] Urea Nitrogen (BUN) 19(H) 9 - 16 mg/dL [facility] Creatinine, Serum 0.67 0.5 - 1.4 mg/dL [facility] Estimated Glomerular Filt Rate >60 [facility] Comment:Chronic Kidney Disea se: Estimated GFR < 60 mL/min/1.04b7Rsvmjw Kidney Disease: Estimated GFR < 15 mL/min/1.73m2 Glucose 101 60 - 115 mg/dL [facility] Calcium 9.1 8.4 - 10.2 mg/dL [facility] Bilirubin, Total 0.3 0.0 - 1.0 mg/dL [facility] Aspartate Amino Transferase 21 5 - 31 U/L [facility] Alanine Aminotransferase 18 0 - 31 U/L [facility] Total Protein 7.0 6.5 - 8.0 g/dL [facility] Albumin Level 4.2 3.5 - 5.0 g/dL [facility] Alkaline Phosphatase 66 39 - 117 U/L [facility] 07/21/2025 8:40 AM EDT 07/21/2025 8:40 AM EDT us Generic External Data Provider LAB BLOOD ORDERAB LES Final Result [facility] [address] [place] [phone] * XR KUB and Upright 2 Views (05/30/2025 10:18 AM EDT) Anatomical Region Laterality Modality Radiographic Keiry ging 05/30/2025 10:1 8 AM EDT Narrative 05/30/2025 10:43 AM EDT [address] [address] XRay Report Signed Patient: Yvonne Ferguson MR#: [id number] : 1955 Acct:[id number] Age/Sex: 69 / F ADM Date: 05/30/25 Loc: BETTY Attending Dr: Justa Mccollum MD Ordering Physician: Justa Mccollum MD Date of Service: 05/30/25 Procedure(s): XR KUB Accession Number(s): [id number] cc: Justa Mccollum MD; Liz Crockett MD EXAMINATION: XR ABDOMEN 1 VIEW (KUB) HISTORY: N20.0 - Calculus of kidney COMPARISON: Comparison is made with the prior examination dated 03/30/2025. FINDINGS: Two supine views of the abdomen are submitted. The bowel gas pattern is unremarkable, without evidence of mechanical obstruction. No abnormal calcifications are identified. The previously seen calcification overlying the right renal shadow is no longer identified. There are no abnormal soft tissue masses. The bones are intact. XR/XR KUB IMPRESSION: No suspicious calcifications are identified. Electronically signed by: David Ralph MD 05/30/2025 10:41 AM EDT Dictated By: David Ralph MD Signed By: <Electronically signed by David Ralph MD in OV> 05/30/25 1041 DD/ 1018 TD/TT: 05/30/25 1028 Director Medical Surgical: Procedure Note Donotuseinterpreter, Image - 05/30/[address] [address] XRay Report Signed Patient: Yvonne FergusonMR#: [id number] : 1955cct:[id number] Age/Sex: 69 / FADM Date: 05/30/25 Loc: BETTY Attending Dr: Justa Mccollum MD Ordering Physician: Justa Mccollum MD Date of Service: 05/30/25 Procedure(s): XR KUB Accession Number(s): [id number] cc: Justa Mccollum MD; Liz Crockett MD EXAMINATION: XR ABDOMEN 1 VIEW (KUB) HISTORY: N20.0 - Calculus of kidney COMPARISON: Comparison is made with the prior examination dated 03/30/2025. FINDINGS: Two supine views of the abdomen are submitted. The bowel gas pattern is unremarkable, without evidence of mechanical obstruction. No abnormal calcifications are identified. The previously seen calcification overlying the right renal shadow is no longer identified. There are no abnormal soft tissue masses. The bones are intact. XR/XR KUB IMPRESSION: No suspicious calcifications are identified. Electronically signed by: David Ralph MD 05/30/2025 10:41 AM EDT RP Dictated By: David Ralph MD Signed By: <Electronically signed by David Ralph MD in OV> 05/30/25 1041 DD/ 1018 TD/TT: 05/30/25 1028 Director Medical Surgical: [facility] External Provider IMG XR PROCEDURES Final Result * (ABNORMAL) Basic Metabolic Panel (05/10/2025 3:54 PM EDT) Only the most recent of2 resultswithin the time period is included. Sodium 146(H) 135 - 145 mmol/L [facility] Potassium 3.9 3.3 - 5.1 mmol/L [facility] Chloride 109(H) 96 - 108 mmol/L [facility] Carbon Dioxide 31(H) 22 - 29 mmol/L [facility] Anion Gap 10(L) 12 - 20 [facility] Urea Nitrogen (BUN) 14 9 - 16 mg/dL [facility] Creatinine, Serum 0.58 0.5 - 1.4 mg/dL [facility] Estimated Glomerular Filt Rate >60 [facility] Comment:Chronic Kidney Disea se: Estimated GFR < 60 mL/min/1.89m2Ssbgbl Kidney Disease: Estimated GFR < 15 mL/min/1.73m2 Glucose 87 60 - 115 mg/dL [facility] Calcium 9.1 8.4 - 10.2 mg/dL [facility] 05/10/2025 3:54 PM EDT 05/10/2025 5:30 PM EDT Liz Crockett MD LAB BLOOD ORDERABLES Fin al Result [facility] [address] [place] [phone] [phone] * BI Mammogram Screening Tomosynthesis Bilateral (05/05/2025 1:10 PM EDT) Anatomical Region Laterality Modality Breast Bilateral Mammography 05/05/2025 1:10 PM EDT Narrative 05/14/2025 8:59 AM EDT [address] [place] [address] Mammography Report Signed Patient: Yvonne Ferguson MR#: [id number] : 1955 Acct:[id number] Age/Sex: 69 / F ADM Date: 05/05/25 Loc: HO.MAMMO Attending Dr: Liz Crockett MD Ordering Physician: Liz Crockett MD Results: 1Ne gative Date of Service: 05/05/25 Follow Up: 1 Year From [facility] Mammogram Procedure(s): MM tomosynthesis screening BI Accession Number(s): [id number] cc: Liz Crockett MD EXAMINATION: MM SCREENING DIGITAL BREAST TOMOSYNTHESIS, BILATERAL CLINICAL INFORMATION: Screening. Asymptomatic. COMPARISON: Mammography: Comparison is made with available priors TECHNIQUE: Digital breast mammography with tomosynthesis is performed in both the craniocaudal and mediolateral oblique views along with computer-aided detection (CAD). FINDINGS: There are scattered areas of fibroglandular [...] target due date for their next mammogram. Electronically signed by: Martha Sainz DO 05/14/2025 08:56 AM EDT RP Dictated By: Martha Sainz DO Signed By: <Electronically signed by Martha Sainz DO in OV> 05/14/25 0856 DD/ 1310 TD/TT: 05/05/25 1337 Director Medical Surgical: Procedure Note Donotuseinterpreter, Image - [facility]/14/[facility] [address] [place] [address] Mammography Report Signed Patient: Yvonne Ferguson#: [id number] : 1955cct:[id number] Age/Sex: 69 / FADM Date: 05/05/25 Loc: HO.MAMMO Attending Dr: Liz Crockett MD Ordering Physician: Liz Crockett MDResults: 1Ne gative Date of Service: 05/05/25Follow Up: 1 Year From [facility] Mammogram Procedure(s): MM tomosynthesis screening BI Accession Number(s): [id number] cc: Liz Crockett MD EXAMINATION: MM SCREENING DIGITAL BREAST TOMOSYNTHESIS, BILATERAL CLINICAL INFORMATION: Screening. Asymptomatic. COMPARISON: Mammography: Comparison is made with available priors TECHNIQUE: Digital breast mammography with tomosynthesis is performed in both the craniocaudal and mediolateral oblique views along with computer-aided detection (CAD). FINDINGS: There are scattered areas of fibroglandular [...] target due date for their next mammogram. Electronically signed by: Martha Sainz DO 05/14/2025 08:56 AM EDT RP Dictated By: Martha Sainz DO Signed By: <Electronically signed by Martha Sainz DO in OV> 05/14/25 0856 DD/ 1310 TD/TT: 05/05/25 1337 Director Medical Surgical: us Liz Crockett MD IMG BI PROCEDURES Edited Result - Final * (ABNORMAL) Lipid Panel with Reflex to Direct LDL (02/17/2025 9:05 AM EDT) Triglycerides 143 <150 mg/dL [facility] Comment:Desirable Triglyceri de: less than 150 mg/dLBorderline High Triglyceride 150-199 mg/dLHigh Triglyceride: 200-499 mg/dLVery High Triglyceride: greater than or equal to 5OO mg/dL Cholesterol 179 <200 mg/dL [facility] Comment:Desirable Cholestero l: less than 200 mg/dLBorderline High Cholesterol: 200-239 mg/dLHigh Cholesterol: greater than 239 mg/dL LDL Cholesterol Calculated 111(H) <100 mg/dL [facility] Comment:Desirable LDL: less than 100 mg/dLNear Optimal/Above Optimal LDL: 110- 129 mg/dLBorderline High LDL: 130-159 mg/dLHigh LDL: 160-189 mg/dLVery High LDL: greater than or equal to 190 mg/dL HDL Cholesterol 40(L) >40 mg/dL [facility] Comment:Desirable HDL: great er than 40 mg/dL Note: This HDL assay may give artificially low results in patients with liver disease. Blood 02/17/2025 9:05 AM EDT 02/17/2025 11:01 AM EDT us Liz Crockett MD LAB BLOOD ORDERABLES Fin al Result [facility] [address] [place] [phone] * Colonoscopy (11/12/2021 3:56 PM EST) Colonoscopy Normal Normal Narrative Paulette Rodríguez - 11/12/2021 3:56 PM EST Recommended 3-4 year follow up us Historical Provider HEALTH MAINTENANCE Edited Result - Final from Last 3 Months or Most Recently Relevant to Health Maintenance Insurance [facility] [employer] (O D-SNP) Member Subscriber Plan / Payer (Ef fective 2025-Present) Name:Jose Mart Yvonne Relation to Subscriber:Self Name:Jose Mart Yvonne Payer ID:Not on file Group ID:[id number] [place] Type:Medicare Address: [address] [place] [phone] [facility] [employer] Care Teams Crossing Guard Relationship Specialty Start Date End Date Liz Crockett MD [address] [place], [place] [phone] PCP - General Family Medicine 06/14/20 Deondre Phillips, ClementeD [address] [place], [place] [phone] Pharmacist Internal Medicine 06/16/23 [facility] 12/11/24
--- OUTSIDE RECORDS SUMMARY | 2025-08-02 10:01 | XMS_ITS | Encounter Summary ---
Author Organization [employer] Address [address] [facility] 7t [place] [address] Care Team Providers Care Panama Hat Blocker Name Role Phone Liz Crockett MD Primary Care Provider + Deondre Phillips PharmD Unavailable [phone] Encounter Details Date Type Department Care Team (Late st Contact Info) Description 11/27/2022 Orders Only [facility] [address] [place], [place] [phone] Madie Rasmussen LPN Social History Tobacco Use [...] Department Care Team (Late Contact Info) Description 09/02/2025 11:30 AM EDT Telemedicine [facility] MEDICINE [address] [place] [address] Deondre Phillips, PharmD [address] [place] [address] 12/01/2025 1:00 PM EST Office Visit [facility] OPTOMETRY [address] [place] [address] Jase, Ronda, OD [address] [place] [address] documented as of this encounter Visit Diagnoses Not on filedocumented in this encounter Care Teams Panama Hat Blocker Relationship Specialty Start Date End Date Liz Crockett MD [address] [place], [place] [phone] PCP - General Family Medicine 06/14/20 Deondre Phillips, Tera [address] [place] [address] Pharmacist Internal Medicine 06/16/23 [facility] 12/11/24 documented as of this encounter
--- OUTSIDE RECORDS SUMMARY | 2025-08-02 10:01 | XMS_ITS | Encounter Summary ---
Author Organization [employer] Address [address] [facility] 7t [place] [address] Care Team Providers Care Clinical Orthoptist Name Role Phone Liz Crockett MD Primary Care Provider + Deondre Phillips PharmD Unavailable [phone] Reason for Visit * Reason Onset Date Comments ER Follow-up 07/03/2023 Encounter Details Date Type Department Care Team (Late st Contact Info) Description 07/03/2023 Telephone [facility] MEDICINE [address] [place], [place] [phone] Liz Crockett MD [address] [place], [place] [phone] ER Follow-up Social History Tobacco Use Types [...] 12:03 PM EDT T/C to pt. Through [employer] id - [id number] for ED status check and to schedule [...] Before her check in at [facility] [place] , she will be evaluated. Pt. Also advised to go [facility] ed Ed in case of a fever higher than 101.5 degrees Fahrenheit, burning during urination, Cloudy or foul-smelling urin, and Intolerable pain. Pt. Verbally agreed and understood. * Telephone Encounter - Ofe Potter - 07/03/2023 10:45 AM EDT Patient calling to report ED visit on [facility] on 06/17/23. Diagnosed with high blood pressure, abdominal pain . Patient advised will forward to team nurse for follow up. documented in this encounter Plan of Treatment Upcoming Encounters Date Type Department Care Team (Late st Contact Info) Description 09/02/2025 11:30 AM EDT Telemedicine [facility] MEDICINE [address] [place] [address] Deondre Phillips, PharmD [address] [place] [address] 12/01/2025 1:00 PM EST Office Visit [facility] OPTOMETRY [address] [place] [address] Ronda Laguna, OD [address] [place] [address] documented as of this encounter Goals Goal Patient Goal Type Associated Problems Recent Progress Patient-Stated? Author Blood Pressure < 150/90 Blood Pressure 146/81(2024 11:13 AM EDT) No Deondre Phillips, Tera Note: Age>60, No Hx of DM or CKD documented as of this encounter Visit Diagnoses Not on filedocumented in this encounter Care Teams Clinical Orthoptist Relationship Specialty Start Date End Date Liz Crockett MD [address] [place] [address] PCP - General Family Medicine 06/14/20 Deondre Phillips, PharmD [address] [place] [address] Pharmacist Internal Medicine 06/16/23 [facility] 12/11/24 documented as of this encounter
--- OUTSIDE RECORDS SUMMARY | 2025-08-02 10:01 | XMS_ITS | Encounter Summary ---
Author Organization [employer] Address [address] [facility] [address] [place] [address] Care Team Providers Care Print Room Worker Name Role Phone Liz Crockett MD Primary Care Provider + Deondre Phillips PharmD Unavailable [phone] Encounter Details Date Type Department Care Team ([facility] Contact Info) Description 05/13/2023 Abstract [facility] MED[facility]INE [address] [place] [address] [phone] Liz Crockett MD [address] [place] [address] [phone] Social History Tobacco Use Types Packs/Day Years [...] Encounters Date Type Department Care Team ([facility] Contact Info) Description 09/02/2025 11:30 AM EDT Telemedicine [facility] [address] [place] [address] [phone] Deondre Phillips, PharmD [address] [place] [address] 12/01/2025 1:00 PM EST Office Visit [facility] OPTOMETRY [address] [place] [address] Ronda Laguna, OD [address] [place] [address] documented as of this encounter Procedures Procedure Name Priority Date/Time Associated Diagnosis Comments COLONOSCOPY Routine 11/12/2021 3:56 PM EST documented in this encounter Results * Colonoscopy (11/12/2021 3:56 PM EST) Colonoscopy Normal Normal Narrative Paulette Rodríguez - 11/12/2021 3:56 PM EST Recommended 3-4 year follow up Historical Provider HEALTH MAINTENANCE Edited Result - Final documented in this encounter Visit Diagnoses Not on filedocumented in this encounter Care Teams Print Room Worker Relationship Specialty Start Date End Date Liz Crockett MD [address] [place] [address] PCP - General Family Medicine 06/14/20 Deondre Phillips, PharmD [address] [place] [address] Pharmacist Internal Medicine 06/16[facility] documented as of this encounter
--- OUTSIDE RECORDS SUMMARY | 2025-08-02 10:01 | XMS_ITS | Patient Health Record ---
Author Organization [facility] Address [address] [place] [address] Care Team Providers Care Park Worker Supervisor Name Role Phone Liz Crockett MD Primary Care Provider Unavail able David Degroot Unavailable [phone] Reason For Referral No Information Medications Medication [...] Problem Status W/U Status Risk Notes Problem [id number] Encounter for screening for malignant neoplasm of colon (Z12.11) Active confirmed Problem [id number] History of adenomatous polyp of colon (Z86.010) Active confirmed Problem Screening for malignant neoplasm of rectum (884548609) Encounter for screening for malignant neoplasm of rectum (Z12.12) Active confirmed Problem [id number] Gastroesophageal reflux disease without esophagitis (K21.9) Active confirmed Plan Of Treatment Future Test Test Name Order Date UPPER GI ENDOSCOPY 01/16/2016 COLONOSCOPY 01/16/2016 Insurance Providers Payer Name Payer Address Payer Phone Subscriber Number Group Number Insured Name Patient Relationship to Insured Coverage Start Date Coverage End Date MEDICAID OF [facility] [address] [place] [phone] [id number] [place] Self - patient is the insured Medical (General) History Medical History History ICD Code Nodular goiter Depression GERD Tubular adenoma removed in 2009--colonos copy with Dr. Ramirez Arthritis Kidney stones Denies [place],DM,CVA,Lung disease,renal dise ase Surgical History Surgery Date(Month/Year) Hernia-umbilical 2008
--- OUTSIDE RECORDS SUMMARY | 2025-08-02 10:01 | XMS_ITS | Encounter Summary ---
Author Organization [employer] Address [address] [facility] 7[address] [place] [address] Care Team Providers Care Insole Tacker Name Role Phone Liz Crockett MD Primary Care Provider + Deondre Phillips PharmD Unavailable Encounter Details Date Type Department Care Team ([facility] Contact Info) Description 01/09/2023 Orders Only [facility] MED[facility]INE [address] [place] [address] [phone] Liz Crockett MD [address] [place], [place] [phone] HTN (hypertension), benign (Primary Dx) Social History [...] ([facility] Contact Info) Description 09/02/2025 11:30 AM EDT Telemedicine [facility] MED[facility]INE [address] [place] [phone] Deondre Phillips, PharmD [address] [place], [place] [phone] 12/01/2025 1:00 PM EST Office Visit [facility] OPTOMETRY [address] [place], [place] [phone] Ronda Laguna, OD [address] [place], [place] [phone] documented as of this encounter Visit Diagnoses Diagnosis HTN (hypertension), benign- Primary Essential hypertension, benign documented in this encounter Care Teams Insole Tacker Relationship Specialty Start Date End Date Liz Crockett MD [address] [place], [place] [phone] PCP - General Family Medicine 06/14/20 Deondre Phillips, PharmD [address] [place], [place] [phone] Pharmacist Internal Medicine 06/16/23 [facility] 12/11/24 documented as of this encounter
--- OUTSIDE RECORDS SUMMARY | 2025-08-02 10:01 | XMS_ITS | Encounter Summary ---
Author Organization [employer] Address [address] [facility] [address] [place] [address] Care Team Providers Care Assembler Chassis Name Role Phone Liz Crockett MD Primary Care Provider + Deondre Phillips PharmD Unavailable [phone] Reason for Visit * Reason Comments Med Refill Encounter Details Date Type Department Care Team (Late st Contact Info) Description 08/06/2023 Refill [facility] MED[facility]INE [address] [place], [place] [phone] Liz Crockett MD [address] [place], [place] [phone] Social History Tobacco Use Types Packs/Day Years [...] Info) Description 09/02/2025 11:30 AM EDT Telemedicine [facility] MEDICINE [address] [place], [place] [phone] Deondre Phillips, PharmD [address] [place], [place] [phone] 12/01/2025 1:00 PM EST Office Visit [facility] OPTOMETRY [address] [place] [address] Ronda Laguna, OD [address] [place] [address] documented as of this encounter Goals Goal Patient Goal Type Associated Problems Recent Progress Patient-Stated? Author Blood Pressure < 150/90 Blood Pressure 146/81(2024 11:13 AM EDT) No Deondre Phillips, PharmD Note: Age>60, No Hx of DM or CKD documented as of this encounter Visit Diagnoses Not on filedocumented in this encounter Care Teams Assembler Chassis Relationship Specialty Start Date End Date Liz Crockett MD [address] [place] [phone] PCP - General Family Medicine 06/14/20 Deondre Phillips, PharmD [address] [place] [phone] Pharmacist Internal Medicine 06/16/23 [facility] 12/11/24 documented as of this encounter
--- OUTSIDE RECORDS SUMMARY | 2025-08-02 10:01 | XMS_ITS | Encounter Summary ---
Author Organization [employer] Address [address] [facility] [address] [place] [address] Care Team Providers Care Roll Builder Name Role Phone Liz Crockett MD Primary Care Provider + Deondre Phillips PharmD Unavailable Reason for Visit * Reason Onset Date Comments Chart Prep 07/28/2025 Encounter Details Date Type Department Care Team ([facility] st Contact Info) Description 07/28/2025 Telephone [facility] MEDICINE [address] [place], [place] [phone] Liz Crockett MD [address] [place], [place] [phone] Chart Prep Social History Tobacco Use Types Packs/Day Years [...] encounter Miscellaneous Notes * Telephone Encounter - Sp Harmon [place] - 07/28/2025 10:54 AM EDT Chart Prep Labs: done Images: done Referrals: not applicable Vaccines due: Covid and Flu Screenings: colonoscopy Overdue care gaps: SBIRT, PHQ-9, and ROSE-7 documented in this encounter Plan of Treatment Upcoming Encounters Date Type Department Care Team (Late st Contact Info) Description 09/02/2025 11:30 AM EDT Telemedicine [facility] MEDICINE [address] [place] [phone] Deondre Phillips, PharmD [address] [place] [address] 12/01/2025 1:00 PM EST Office Visit [facility] OPTOMETRY [address] [place] [address] Ronda Laguna, OD [address] [place] [address] documented as of this encounter Goals Goal Patient Goal Type Associated Problems Recent Progress Patient-Stated? Author Blood Pressure < 150/90 Blood Pressure 146/81(2024 11:13 AM EDT) No Deondre Phillips, PharmD Note: Age>60, No Hx of DM or CKD documented as of this encounter Visit Diagnoses Not on filedocumented in this encounter Additional Health Concerns Assessment Noted Time PHQ-9 Depression Total Score: 0 02/16/20 25 2:36 PM EDT documented as of this encounter Care Teams Roll Builder Relationship Specialty Start Date End Date Liz Crockett MD [address] [place] [address] PCP - General Family Medicine 06/14/20 Deondre Phillips, PharmD [address] [place] [address] Pharmacist Internal Medicine 06/16/23 [facility] 12/11/24 documented as of this encounter
[2025-08-02 11:34] LABS: E. coli EAEC Not Detected (Not Detect.); E. coli EPEC Detected (Not Detect.); E. coli ETEC Not Detected (Not Detect.); E. coli STEC Not Detected (Not Detect.); Shigella sp./EIEC Not Detected (Not Detect.)
[2025-08-11 18:28] LABS: Calprotectin, Fecal 127 mcg/g
== END 2025-08-02 08:52 | disposition home or self-care (01) ==
LOC: HO.LNP 08:51
PROVIDERS: Visit Provider Nurse Practitioner Family
DX: R15.9 Full incontinence of feces (principal); R19.7 Diarrhea, unspecified
CPT/HCPCS: 82705; 83993; 87177; 87209; 87507